=== PATIENT | male | born 1960 | race Hispanic/Latino ===

== ENCOUNTER 2018-05-09 09:39 | Inpatient (IN) | payer MEDICAID, OTHER ==
[2018-05-09] MEDS: DIPRIVAN 10 MG/ML 1,000 MG/100 ML BOTTLE IV SCH ×3 (09:56→20:39)
[2018-05-09] MEDS ORDERED: DIPRIVAN 10 MG/ML 1,000 MG/100 ML BOTTLE IV ONE ×2 (10:02→13:53)
[2018-05-09] MEDS ORDERED: ATROVENT IH ONE ×2 (10:04→11:23)
[2018-05-09] MEDS ORDERED: ASPIRIN PR ONE (10:04)
[2018-05-09] MEDS ORDERED: PROVENTIL IH ONE ×2 (10:04→11:22)
--- NOTE | 2018-05-09 10:07 | Emergency Department Report ---
ED Shortness of Breath HPI - General Chief Complaint: Dyspnea/Respdistress Stated Complaint: KELVIN Time Seen by Provider: 05/09/18 09:39 Source: patient, EMS Mode of arrival: Stretcher Limitations: No Limitations - History of Present Illness Initial Comments: Patient is a 57-year-old male that presents emergency room with complaints of difficulty breathing and shortness of breath. Patient states it started approximately 2 hours ago. Patient call EMS. Patient brought in by EMS. Patient was placed on BiPAP by EMS and sats are still in the 70s. Patient states he is having mild chest pain in the center of his chest. Patient describes the chest pain as a pressure. Patient is having difficulties talking due to shortness of breath. She denies fever chills. Patient denies history of congestive heart failure. Patient denies abdominal pain. Patient states he is having diaphoresis as well. Patient denies nausea and vomiting. He states his only past medical history of smoking and hypertension MD Complaint: shortness of breath -: Sudden Severity: severe Consistency: constant Improves With: oxygen, rest, upright position Worsens With: lying flat, exertion, movement Context: recent URI Associated Symptoms: chest pain, pain with inspiration, cough Treatments Prior to Arrival: oxygen - Related Data Home Oxygen Therapy: No Home Medications Medication Instructions Recorded Confirmed Last Taken No Known Home Medications [No 05/09/18 05/09/18 Unknown Reported Home Medications] Allergies Allergy/AdvReac Type Severity Reaction Status Date / Time No Known Allergies Allergy Unverified 05/09/18 10:45 ED Review of Systems ROS: Stated complaint: STEMI/KELVIN Other details as noted in HPI Constitutional: denies: chills, fever Eyes: denies: eye pain, eye discharge, vision change ENT: denies: ear pain, throat pain Respiratory: shortness of breath. denies: cough, wheezing Cardiovascular: chest pain. denies: palpitations Endocrine: no symptoms reported Gastrointestinal: denies: abdominal pain, nausea, diarrhea Genitourinary: denies: urgency, dysuria Musculoskeletal: denies: back pain, joint swelling, arthralgia Skin: denies: rash, lesions Neurological: denies: headache, weakness, paresthesias Psychiatric: denies: anxiety, depression Hematological/Lymphatic: denies: easy bleeding, easy bruising ED Past Medical Hx - Past Medical History Previous Medical History?: Yes Hx Hypertension: Yes - Surgical History Past Surgical History?: No - Family History Family history: no significant - Social History Smoking Status: Current Every Day Smoker Substance Use Type: None - Medications Home Medications: Home Medications Medication Instructions Recorded Confirmed Last Taken Type No Known Home Medications [No 05/09/18 05/09/18 Unknown History Reported Home Medications] ED Physical Exam - General Limitations: No Limitations, Physical Limitation General appearance: alert, in no apparent distress - Head Head exam: Present: atraumatic, normocephalic - Eye Eye exam: Present: normal appearance - ENT ENT exam: Present: mucous membranes dry - Neck Neck exam: Present: normal inspection - Respiratory Respiratory exam: Present: respiratory distress, wheezes, rales, accessory musc le use, decreased breath sounds - Cardiovascular Cardiovascular Exam: Present: regular rate, normal rhythm, other (bilateral lower extremity pitting edema). Absent: systolic murmur, diastolic murmur, rubs, gallop - GI/Abdominal GI/Abdominal exam: Present: soft, normal bowel sounds - Rectal Rectal exam: Present: deferred - Extremities Exam Extremities exam: Present: normal inspection - Back Exam Back exam: Present: normal inspection - Neurological Exam Neurological exam: Present: alert, oriented X3 - Psychiatric Psychiatric exam: Present: normal affect, normal mood - Skin Skin exam: Present: warm, dry, intact, normal color. Absent: rash ED Course Vital Signs 05/09/18 05/09/18 05/09/18 09:40 09:49 09:55 Temperature 98.5 F Pulse Rate 125 H 106 H 122 H Respiratory 36 H 16 20 Rate Blood Pressure 261/162 Blood Pressure 262/165 [Right] O2 Sat by Pulse 80 L 98 98 Oximetry 05/09/18 05/09/18 05/09/18 10:00 10:15 10:20 Temperature Pulse Rate 120 H 118 H 117 H Respiratory 31 H 30 H 18 Rate Blood Pressure Blood Pressure 250/155 213/125 199/122 [Right] O2 Sat by Pulse 100 99 98 Oximetry 05/09/18 05/09/18 05/09/18 10:29 10:30 10:56 Temperature Pulse Rate 111 H 110 H 103 H Respiratory 14 17 18 Rate Blood Pressure 199/122 199/122 Blood Pressure 166/111 [Right] O2 Sat by Pulse 99 99 100 Oximetry 05/09/18 05/09/18 05/09/18 11:00 11:15 11:30 Temperature Pulse Rate 101 H 96 H 88 Respiratory 25 H 25 H 26 H Rate Blood Pressure 138/84 137/80 120/73 Blood Pressure [Right] O2 Sat by Pulse 100 96 96 Oximetry 05/09/18 05/09/18 05/09/18 11:45 12:00 12:15 Temperature Pulse Rate 85 82 79 Respiratory 22 21 20 Rate Blood Pressure 121/74 127/74 127/77 Blood Pressure [Right] O2 Sat by Pulse 95 96 96 Oximetry 05/09/18 05/09/18 05/09/18 12:30 12:45 12:55 Temperature Pulse Rate 76 72 77 Respiratory 21 21 21 Rate Blood Pressure 115/73 114/72 Blood Pressure [Right] O2 Sat by Pulse 98 98 98 Oximetry 05/09/18 05/09/18 05/09/18 13:00 13:15 13:30 Temperature Pulse Rate 70 69 67 Respiratory 20 20 20 Rate Blood Pressure 111/65 104/59 95/56 Blood Pressure [Right] O2 Sat by Pulse 98 99 99 Oximetry 05/09/18 05/09/18 05/09/18 13:45 14:00 14:15 Temperature Pulse Rate 65 65 66 Respiratory 20 20 20 Rate Blood Pressure 91/56 94/58 106/69 Blood Pressure [Right] O2 Sat by Pulse 100 99 100 Oximetry - Reevaluation(s) Reevaluation #1: Evaluation done upon arrival. Patient brought in by EMS. Patient denies chest pain shortness of breath. Patient is severely hypoxic. Patient is currently on EMS BiPAP and is still satting in the 70s. Patient will be intubated. Sats immediately better after intubation. Patient will have a chest x-ray. See procedure note 05/09/18 09:39 Patient's vital signs improved. Patient's oxygen sats are 100%. Patient is on the vent. Patient on sedation. Chest x-ray shows good position of ET tube. 05/09/18 10:09 pt will be admitted to the hospitalist service. 05/09/18 10:50 - Consultations Consultation #1: Hospital was consulted for admission. Hospitalist to admit patient. Hospitalist to assume care. 05/09/18 10:59 - Intubation Time Out Performed: Yes Sedative: Etomidate Paralytic: Succinylcholine Laryngoscope: fiberoptic video scope Size: 4 Assist Device Used: fiberoptic device ET Tube Size: 7.5 Tube Secured Depth (cm): 24 Tube Secured Location: lips Tube Placement Confirmation: visualized tube passing t, equal breath sounds bilat, no breath sounds over epi, confirmation by capnometr Patient Tolerated Procedure: well Intubation Complications: none ED Medical Decision Making - Lab Data Result diagrams: 05/09/18 11:55 05/09/18 15:36 - EKG Data -: EKG Interpreted by Pa EKG shows normal: sinus rhythm, axis, intervals, QRS complexes, ST-T waves Rate: tachycardia - EKG Data Interpretation: LVH - Radiology Data Radiology results: report reviewed AP CHEST: HISTORY: chest pain No comparison. An endotracheal tube terminates 4 cm superior to the gigi. A nasogastric tube has been inserted but its distal tip is cut off the [id number]. Mild cardiomegaly and moderate to severe pulmonary venous congestion are suspected. No pleural effusion or pneumothorax. There is a small 4 x 2 cm lucency surrounding the aortic arch which is of uncertain significance. This may represent a bulla or bleb. If further evaluation is needed CT chest without contrast could be obtained. IMPRESSION: Cardiomegaly and pulmonary venous congestion. Small lucency adjacent to the aortic arch of uncertain significance. - Medical Decision Making Patient is a 57-year-old male presents emergency room with shortness of breath and hypoxia. Patient found to have elevated troponin and elevated BNP. Findings consistent with CHF exacerbation. Patient also found to have acute renal insufficiency. Patient given IV Lasix. Patient intubated immediately upon arrival. Intubation went well without problems. Patient was placed on a propofol drip. Patient's blood pressure improved. Patient also placed on a heparin drip for N STEMI. Hospitalist consulted for admission. Hospitalist to patient into ICU. Bridge orders were placed. - Differential Diagnosis cp. sob. kelvin. hypoxia. chf. Critical Care Time: Yes Critical care attestation.: If time is entered above; I have spent that time in minutes in the direct care of this critically ill patient, excluding procedure time. Critical Care Time: 45 minutes ED Disposition Clinical Impression: Hypoxia, SOB (shortness of breath), Elevated brain natriuretic peptide (BNP) level, NSTEMI (non-ST elevated myocardial infarction) Respiratory failure Qualifiers: Chronicity: acute Respiratory failure complication: hypoxia Qualified Code(s): J96.01 - Acute respiratory failure with hypoxia Chest pain Qualifiers: Chest pain type: unspecified Qualified Code(s): R07.9 - Chest pain, unspecified CHF (congestive heart failure) Qualifiers: Heart failure type: unspecified Heart failure chronicity: acute Qualified Code(s): I50.9 - Heart failure, unspecified CHF exacerbation Qualifiers: Heart failure type: unspecified Qualified Code(s): I50.9 - Heart failure, unspecified Acute renal failure Qualifiers: Acute renal failure type: unspecified Qualified Code(s): N17.9 - Acute kidney failure, unspecified Disposition: 09 OP ADMIT IP TO THIS HOSP Is pt being admited?: Yes Does the pt Need Aspirin: No Condition: Critical Time of Disposition: 10:59
[2018-05-09 10:22] LABS: Basophils # (Auto) 0.2 K/mm3 (0.0-0.1); Basophils % (Auto) 1.3 % (0.0-1.8); Eosinophils % (Auto) 5.4 % (0.0-4.3); Hemoglobin 14.9 gm/dl (11.8-15.2); Lymphocytes # (Auto) 3.2 K/mm3 (1.2-5.4); Lymphocytes % (Auto) 18.1 % (13.4-35.0); Mean Corpuscular HGB Conc 33 % (32-34); Mean Corpuscular Volume 90 fl (84-94); Monocytes # (Auto) 1.2 K/mm3 (0.0-0.8); Monocytes % (Auto) 6.6 % (0.0-7.3); Platelet Count 193 K/mm3 (140-440); Red Blood Count 5.11 M/mm3 (3.65-5.03); Red Cell Distribution Width 15.8 % (13.2-15.2)
--- NOTE | 2018-05-09 10:33 | XRay Report ---
AP CHEST: HISTORY: chest pain No comparison. An endotracheal tube terminates 4 cm superior to the gigi. A nasogastric tube has been inserted but its distal tip is cut off the [id number]. Mild cardiomegaly and moderate to severe pulmonary venous congestion are suspected. No pleural effusion or pneumothorax. There is a small 4 x 2 cm lucency surrounding the aortic arch which is of uncertain significance. This may represent a bulla or bleb. If further evaluation is needed CT chest without contrast could be obtained. IMPRESSION: Cardiomegaly and pulmonary venous congestion. Small lucency adjacent to the aortic arch of uncertain significance.
[2018-05-09 10:45] LABS: Creatine Kinase MB 9.7 ng/mL (0.0-4.0)
[2018-05-09 10:46] LABS: Bacteria,Urine 1+ /HPF (Negative); Bilirubin,Urine NEG (Negative); Blood,Urine NEG (Negative); Color,Urine Yellow (Yellow); Urobilinogen,Urine < 2.0 mg/dL (<2.0)
[2018-05-09 10:47] LABS: Protein,Urine >2000 mg dL mg/dL (Negative)
[2018-05-09 10:48] LABS: Calcium 8.2 mg/dL (8.4-10.2)
[2018-05-09 10:52] LABS: Amphetamine Screen,Urine PRESUMPTIVE NEGATIVE; Benzodiazepines Screen,Urine PRESUMPTIVE NEGATIVE; Cannabinoid Screen,Urine PRESUMPTIVE NEGATIVE; Cocaine Screen,Urine PRESUMPTIVE NEGATIVE; Methadone Screen,Urine PRESUMPTIVE NEGATIVE; Opiate Screen,Urine PRESUMPTIVE NEGATIVE
[2018-05-09] MEDS ORDERED: MAXIPIME/NS 2 GM/100 ML 2 GM/100 ML BAG IV ONE (10:54)
[2018-05-09] MEDS ORDERED: LASIX IV ONE ×2 (10:58→12:30)
[2018-05-09] MEDS ORDERED: HEPARIN 10,000 UNITS/10 ML IV ONE (11:32)
--- NOTE | 2018-05-09 12:02 | Consultation ---
History of Present Illness Consult date: 05/09/18 Requesting physician: THEE BANKS Reason for consult: hypoxemia, other (Acute hypoxemic respiraotry failure on MVS, Decompensated HF, probable COPD) History of present illness: The patient is a 57-year-old male with reported past medical history of HTN and tobacco use that presented to the emergency room with complaints of difficulty breathing and shortness of breath for 2 hours prior to arrival. Pt is intubated with no family members present on evaluation and thus HPI obtained per the chart. Patient call EMS. Patient brought in by EMS. Patient was placed on BiPAP by EMS and sats were still in the 70s and thus he was intubated following arrival to ED. Patient also reportedly c/o mild chest pain in the center of his chest and diaphoresis. Patient described the chest pain as a pressure. Patient denied any history of congestive heart failure. Patient denies abdominal pain. Lab work significant for leukocytosis, elevated DDimer, elevated troponin, BUN/CR 50/3.7, hyperlipidemia. CXR c/w HF. Initial BP 261/162. I have been consulted for critical care management and for acute hypoxemic respiratory failure. Patient was seen and examined. Vitals, labs, medications, chart and imaging reviewed History as per medical records. ABG significant for respiratory acidosis Patient is currently on propofol infusion and a heparin infusion - Past Medical History Previous Medical History?: Yes Hx Hypertension: Yes - Surgical History Past Surgical History?: No - Family History Family history: no significant - Social History Smoking Status: Current Every Day Smoker Substance Use Type: None Medications and Allergies Allergies Allergy/AdvReac Type Severity Reaction Status Date / Time No Known Allergies Allergy Unverified 05/09/18 10:45 Home Medications Medication Instructions Recorded Confirmed Last Taken Type No Known Home Medications [No 05/09/18 05/09/18 Unknown History Reported Home Medications] Active Meds: Active Medications Propofol (Diprivan 10 Mg/Ml) 1,000 mg in 100 mls @ 3.402 mls/hr IV TITR GLENDA; Protocol Last Titration: 05/09/18 11:42 Dose: 35 mcg/kg/min, 23.814 mls/hr Documented by: Heparin Sodium/Sodium Chloride (Heparin/ 0.45% Nacl-25,000 Unit/500 Ml) 25,000 unit in 500 mls @ 20 mls/hr IV TITRATE GLENDA; Protocol Review of Systems ROS unobtainable: due to endotracheal tube, due to mental status Physical Examination Vital signs: Vital Signs Temp Pulse Resp BP Pulse Ox 98.5 F 125 H 36 H 261/162 80 L 05/09/18 09:40 05/09/18 09:40 05/09/18 09:40 05/09/18 09:40 05/09/18 09:40 Results - Laboratory Findings CBC and BMP: 05/10/18 02:07 05/10/18 02:07 ABG POC ABG pH 7.158 (7.35-7.45) L 05/09/18 11:02 POC ABG pCO2 73.6 (35-45) H 05/09/18 11:02 POC ABG pO2 274 (80-105) H 05/09/18 11:02 POC ABG HCO3 26.1 05/09/18 11:02 POC ABG Total CO2 28 05/09/18 11:02 POC ABG O2 Sat 100 05/09/18 11:02 PT/INR, D-dimer D-Dimer 1326.35 ng/mlDDU (0-234) H 05/09/18 10:09 Abnormal lab findings: Abnormal Labs 05/09/18 05/09/18 05/09/18 10:09 10:09 10:09 WBC 17.6 H RBC 5.11 H Hct 46.0 H RDW 15.8 H Eos % (Auto) 5.4 H [place] # 1.2 H Eos # 1.0 H Baso # 0.2 H Seg Neutrophils # 12.1 H D-Dimer 1326.35 H POC ABG pH POC ABG pCO2 POC ABG pO2 BUN 50 H Creatinine 3.7 H Glucose 191 H Calcium 8.2 L CK-MB (CK-2) CK-MB (CK-2) Rel Index Troponin T 0.235 H* NT-Pro-B Natriuret Pep 05/09/18 05/09/18 10:09 11:02 WBC RBC Hct RDW Eos % (Auto) [place] # Eos # Baso # Seg Neutrophils # D-Dimer POC ABG pH 7.158 L POC ABG pCO2 73.6 H POC ABG pO2 274 H BUN Creatinine Glucose Calcium CK-MB (CK-2) 9.7 H CK-MB (CK-2) Rel Index 6.0 H Troponin T NT-Pro-B Natriuret Pep 70320 H - Diagnostic Findings Chest x-ray: image reviewed (Bilateral alveolar edema, ETT in good position) Assessment and Plan Acute hypoxic-hypercapnic respiratory failure Acute heart failure Acute renal failure NSTEMI Hypertensive emergency Morbid obesity Tobacco abuse disorder -Admit ICU -VAP bundle addressed -In view of heart failure, increase PEEP and wean FIO2 for O2 sats >90%, discussed with RT at the bedside. Increase rate for better minute ventilation and decrease tidal volume to target 6-8ml/kg of ideal body weight Lung protective strategies -VTE prophylaxis (currently on heparin infusion, therapeutic dosing for ACS) -Stress ulcer prophylaxis -Titrate propoffol for RAAS -1 -Daily SATs and SBTs when he meets criteria -Diuresis, give an extra dose of lasix -2D echocardiogram, ordered in the ED to evaluate LVEF -Aspiration precautions -Initiate enteric feedings in the next 24 hours, place small bowel feeding tube -Accucheck with glycemic control. Target blood glucose of 140-180mg/dL -Bronchodilators per protocol -Cardiology consult -Monitor renal function closely, unclear if he has a history of CKD. -Amin catheter in this critically ill patient who needs strict intake and output monitoring, and also has acute kidney injury. Will daily assess on going need for amin catheter. -Avoid nephrotoxic agents and adjust all medications for CrCL -CXR and ABG in the morning. -ABG in 2 hours to evaluate gas-exchange, after changes made on ventilatory settings -Nicotine withdrawal precautions -Smoking cessation counselling once he is liberated from MVS -Mobility for pressure ulcer prevention, will place PT/OT consult -Place nutrition consult for tube feeding -Cardioprotective measures CONDITION: CRITICAL PROGNOSIS: GUARDED CODE STATUS: FULL CODE The high probability of a clinically significant, sudden or life-threatening deterioration of the [pulmonary, cardiovascular, renal ] system(s) required my full and direct attention, intervention and personal management. The aggregate critical care time was [65] minutes without overlap. Time includes spent on; [x] Data Review and interpretation [x] Patient assessment and monitoring of vital signs [x] Documentation [x] Medication orders and management
[2018-05-09 12:12] LABS: Chol/HDL Ratio 8.11 %
[2018-05-09 12:14] LABS: Hematocrit 39.5 % (35.5-45.6); Hemoglobin 12.9 gm/dl (11.8-15.2)
[2018-05-09] MEDS ORDERED: HEPARIN 10,000 UNITS/10 ML ONE (12:15)
[2018-05-09] MEDS ORDERED: HEPARIN/ 0.45% NACL-25,000 UNIT/500 ML 25,000 UNIT/500 ML BAG ONE (12:15)
[2018-05-09] MEDS: HEPARIN/ 0.45% NACL-25,000 UNIT/500 ML 25,000 UNIT/500 ML BAG IV SCH (12:19)
[2018-05-09 12:26] LABS: INR 0.99 (0.87-1.13)
[2018-05-09 12:27] LABS: Partial Thromboplastin Time 21.2 Sec. (24.2-36.6)
[2018-05-09] MEDS ORDERED: LASIX ONE (13:34)
--- NOTE | 2018-05-09 14:22 | Consultation ---
Addendum entered and electronically signed by HEMANTH MARIA MD 05/09/18 19:05: Abnormal troponins in the setting of acute CHF, acute on CKD and acute respiratory failure. CPK MB +ve.To continue present management.LDL markedly increased.High dose statins when he is able to take PO meds. Will F/U Echo. Original Note: History of Present Illness Consult date: 05/09/18 Requesting physician: LOLA DOWNING III Consult reason: chest pain, elevated troponin, shortness of breath History of present illness: The patient is a 57-year-old male with reported past medical history of HTN and tobaccou use that presented to the emergency room with complaints of difficulty breathing and shortness of breath for 2 hours prior to arrival. Pt is intubated with no family members present on evaluation and thus HPI obtained per the chart. Patient call EMS. Patient brought in by EMS. Patient was placed on BiPAP by EMS and sats were still in the 70s and thus he was intubated following arrival to ED. Patient also reportedly c/o mild chest pain in the center of his chest and diaphoresis. Patient described the chest pain as a pressure. Patient denied any history of congestive heart failure. Patient denies abdominal pain. Labwork significant for leukocytosis, elevated DDimer, elevated troponin, BUN/CR 50/3.7, hyperlipidemia. CXR c/w HF. Initial BP 261/162. Past History Past Medical History: hypertension Social history: smoking Medications and Allergies Allergies Allergy/AdvReac Type Severity Reaction Status Date / Time No Known Allergies Allergy Unverified 05/09/18 10:45 Home Medications Medication Instructions Recorded Confirmed Last Taken Type No Known Home Medications [No 05/09/18 05/09/18 Unknown History Reported Home Medications] Active Meds: Active Medications Propofol (Diprivan 10 Mg/Ml) 1,000 mg in 100 mls @ 3.402 mls/hr IV TITR GLENDA; Protocol Last Admin: 05/09/18 14:00 Dose: 25 mcg/kg/min, 17.01 mls/hr Documented by: Heparin Sodium/Sodium Chloride (Heparin/ 0.45% Nacl-25,000 Unit/500 Ml) 25,000 unit in 500 mls @ 20 mls/hr IV TITRATE GLENDA; Protocol Last Admin: 05/09/18 12:19 Dose: 1,000 units/hr, 20 mls/hr Documented by: Review of Systems ROS unobtainable: due to endotracheal tube, due to mental status Physical Examination Vital Signs Temp Pulse Resp BP Pulse Ox 98.5 F 125 H 36 H 261/162 80 L 05/09/18 09:40 05/09/18 09:40 05/09/18 09:40 05/09/18 09:40 05/09/18 09:40 General appearance: other (intubated) Cardiac: Positive: Reg Rate and Rhythm, S1/S2 Lungs: Positive: Decreased Breath Sounds, Rales, Oxygen, Ventilated Respirations Neuro: Positive: Other (intubated) Skin: Negative: Rash, Wound Musculoskeletal: No Pain Extremities: Present: edema (trace BLE) Results 05/09/18 11:55 05/09/18 10:09 Cardiac Enzymes 05/09/18 05/09/18 Range/Units 10:09 10:09 AST 26 (5-40) units/L CK-MB (CK-2) 9.7 H (0.0-4.0) ng/mL Coagulation 05/09/18 Range/Units 11:55 PT 13.5 (12.2-14.9) Sec. INR 0.99 (0.87-1.13) APTT 21.2 L (24.2-36.6) Sec. Lipids 05/09/18 Range/Units 10:09 Triglycerides 175 H (2-149) mg/dL Cholesterol 276 H (50-199) mg/dL HDL Cholesterol 34 L (40-59) mg/dL Cholesterol/HDL Ratio 8.11 % CBC 05/09/18 05/09/18 Range/Units 10:09 11:55 WBC 17.6 H (4.5-11.0) K/mm3 RBC 5.11 H (3.65-5.03) M/mm3 Hgb 14.9 12.9 (11.8-15.2) gm/dl Hct 46.0 H 39.5 D (35.5-45.6) % Plt Count 193 144 (140-440) K/mm3 Lymph # 3.2 (1.2-5.4) K/mm3 [place] # 1.2 H (0.0-0.8) K/mm3 Eos # 1.0 H (0.0-0.4) K/mm3 Baso # 0.2 H (0.0-0.1) K/mm3 Comprehensive Metabolic Panel 05/09/18 Range/Units 10:09 Sodium 140 (137-145) mmol/L Potassium 3.9 (3.6-5.0) mmol/L Chloride 100.4 (98-107) mmol/L Carbon Dioxide 22 (22-30) mmol/L BUN 50 H (9-20) mg/dL Creatinine 3.7 H (0.8-1.5) mg/dL Glucose 191 H (75-100) mg/dL Calcium 8.2 L (8.4-10.2) mg/dL AST 26 (5-40) units/L ALT 18 (7-56) units/L Alkaline Phosphatase 88 (35-129) units/L Total Protein 7.7 (6.3-8.2) g/dL Albumin 4.0 (3.9-5) g/dL - Imaging and Cardiology Echo: pending EKG: report reviewed, image reviewed EKG interpretations - Telemetry EKG Rhythm: Sinus Rhythm - EKG Sinus rhythms and dysrhythmias: sinus rhythm Chamber hypertrophy or enlargement: left ventricular hypertro Assessment and Plan Pt presented with acute respiratory failure, acute renal failure, acute heart failure, NSTEMI, accelerated HTN, sinus tachycardia. Currently intubated with borderline low BPs and HR in 60s. Agree with present cardiac management, including heparin gtt. Cont to trend Rc and repeat ECG in AM. F/u echo. DDimer elevated - recommend further imaging to r/o PE and DVT per primary. Recommend nephrology consultation per primary. Volume optimization per nephrology. Cont supportive measures. The patient has been seen in conjunction with Dr. Monroy who agrees with the assessment and plan of care. - Patient Problems (1) Acute heart failure Current Visit: Yes Status: Acute (2) Acute respiratory failure Current Visit: Yes Status: Acute (3) Acute renal failure Current Visit: Yes Status: Acute Qualifiers: Acute renal failure type: unspecified Qualified Code(s): N17.9 - Acute kidney failure, unspecified (4) NSTEMI (non-ST elevated myocardial infarction) Current Visit: Yes Status: Acute (5) Leukocytosis Current Visit: Yes Status: Acute (6) Elevated d-dimer Current Visit: Yes Status: Acute (7) History of hypertension Current Visit: Yes Status: Chronic (8) Hyperlipidemia Current Visit: Yes Status: Chronic (9) Tobacco use Current Visit: Yes Status: Chronic
[2018-05-09] MEDS ORDERED: AMIDATE IV ONE (14:29)
[2018-05-09] MEDS ORDERED: QUELICIN ONE (14:29)
[2018-05-09] MEDS ORDERED: VERSED IV ONE (14:29)
[2018-05-09 16:08] LABS: Creatine Kinase MB 9.3 ng/mL (0.0-4.0)
--- NOTE | 2018-05-09 20:08 | History and Physical Report ---
History of Present Illness Date of examination: 05/09/18 Date of admission: 05/09/18 11:22 History of present illness: 57 y/o male with hx of HTN and COPD c 57-year-old male that presents emergency room with complaints of difficulty breathing and shortness of breath. Patient states it started approximately 2 hours ago. Patient call EMS. Patient brought in by EMS. Patient was placed on BiPAP by EMS and sats are still in the 70s. Patient states he is having mild chest pain in the center of his chest. Patient describes the chest pain as a pressure. Patient is having difficulties talking due to shortness of breath. She denies fever chills. Patient denies history of congestive heart failure. Patient denies abdominal pain. Patient states he is having diaphoresis as well. Patient denies nausea and vomiting. He states his only past medical history of smoking and hypertension MD Complaint: shortness of breath -: Sudden Severity: severe Consistency: constant Improves With: oxygen, rest, upright position Worsens With: lying flat, exertion, movement Context: recent URI Associated Symptoms: chest pain, pain with inspiration, cough Treatments Prior to Arrival: oxygen - Related Data Home Oxygen Therapy: No Home Medications Medication Instructions Recorded Confirmed Last Taken No Known Home Medications [No 05/09/18 05/09/18 Unknown Reported Home Medications] Allergies Allergy/AdvReac Type Severity Reaction Status Date / Time No Known Allergies Allergy Unverified 05/09/18 10:45 - Past Medical History Previous Medical History?: Yes Hx Hypertension: Yes - Surgical History Past Surgical History?: No - Family History Family history: no significant - Social History Smoking Status: Current Every Day Smoker Substance Use Type: None - Medications Home Medications: Home Medications Medication Instructions Recorded Confirmed Last Taken Type No Known Home Medications [No 05/09/18 05/09/18 Unknown History Reported Home Medications] Review of Systems ROS: Stated complaint: STEMI/HAYDER Other details as noted in HPI Constitutional: denies: chills, fever Eyes: denies: eye pain, eye discharge, vision change ENT: denies: ear pain, throat pain Respiratory: shortness of breath. denies: cough, wheezing Cardiovascular: chest pain. denies: palpitations Endocrine: no symptoms reported Gastrointestinal: denies: abdominal pain, nausea, diarrhea Genitourinary: denies: urgency, dysuria Musculoskeletal: denies: back pain, joint swelling, arthralgia Skin: denies: rash, lesions Neurological: denies: headache, weakness, paresthesias Psychiatric: denies: anxiety, depression Hematological/Lymphatic: denies: easy bleeding, easy bruising Past History Past Medical History: hypertension Social history: smoking Medications and Allergies Allergies Allergy/AdvReac Type Severity Reaction Status Date / Time No Known Allergies Allergy Unverified 05/09/18 10:45 Home Medications Medication Instructions Recorded Confirmed Last Taken Type No Known Home Medications [No 05/09/18 05/09/18 Unknown History Reported Home Medications] Active Meds: Active Medications Propofol (Diprivan 10 Mg/Ml) 1,000 mg in 100 mls @ 3.402 mls/hr IV TITR GLENDA; P rotocol Last Admin: 05/09/18 14:00 Dose: 25 mcg/kg/min, 17.01 mls/hr Documented by: Heparin Sodium/Sodium Chloride (Heparin/ 0.45% Nacl-25,000 Unit/500 Ml) 25,000 unit in 500 mls @ 20 mls/hr IV TITRATE GLENDA; Protocol Last Admin: 05/09/18 12:19 Dose: 1,000 units/hr, 20 mls/hr Documented by: Exam - Constitutional Vitals: Temp Pulse Resp BP Pulse Ox 98.5 F 60 20 131/84 98 05/09/18 09:40 05/09/18 19:08 05/09/18 16:45 05/09/18 19:08 05/09/18 19:08 Results - Labs CBC & Chem 7: 05/09/18 11:55 05/09/18 15:36 Labs: Laboratory Last Values WBC 17.6 K/mm3 (4.5-11.0) H 05/09/18 10:09 RBC 5.11 M/mm3 (3.65-5.03) H 05/09/18 10:09 Hgb 12.9 gm/dl (11.8-15.2) 05/09/18 11:55 Hct 39.5 % (35.5-45.6) D 05/09/18 11:55 MCV 90 fl (84-94) 05/09/18 10:09 MCH 29 pg (28-32) 05/09/18 10:09 MCHC 33 % (32-34) 05/09/18 10:09 RDW 15.8 % (13.2-15.2) H 05/09/18 10:09 Plt Count 144 K/mm3 (140-440) 05/09/18 11:55 Lymph % (Auto) 18.1 % (13.4-35.0) 05/09/18 10:09 [place] % (Auto) 6.6 % (0.0-7.3) 05/09/18 10:09 Eos % (Auto) 5.4 % (0.0-4.3) H 05/09/18 10:09 Baso % (Auto) 1.3 % (0.0-1.8) 05/09/18 10:09 Lymph # 3.2 K/mm3 (1.2-5.4) 05/09/18 10:09 Cow[place] # 1.2 K/mm3 (0.0-0.8) H 05/09/18 10:09 Eos # 1.0 K/mm3 (0.0-0.4) H 05/09/18 10:09 Baso # 0.2 K/mm3 (0.0-0.1) H 05/09/18 10:09 Seg Neutrophils % 68.6 % (40.0-70.0) 05/09/18 10:09 Seg Neutrophils # 12.1 K/mm3 (1.8-7.7) H 05/09/18 10:09 PT 13.5 Sec. (12.2-14.9) 05/09/18 11:55 INR 0.99 (0.87-1.13) 05/09/18 11:55 APTT 21.2 Sec. (24.2-36.6) L 05/09/18 11:55 D-Dimer 1326.35 ng/mlDDU (0-234) H 05/09/18 10:09 Heparin Anti-Xa Level 2.00 U.I./ml (0.3-0.7) H 05/09/18 15:58 POC ABG pH 7.307 (7.35-7.45) L 05/09/18 16:57 POC ABG pCO2 47.5 (35-45) H 05/09/18 16:57 POC ABG pO2 119 (80-105) H 05/09/18 16:57 POC ABG HCO3 23.8 05/09/18 16:57 POC ABG Total CO2 25 05/09/18 16:57 POC ABG O2 Sat 98 05/09/18 16:57 POC ABG Base Excess -3 05/09/18 16:57 FiO2 55 % 05/09/18 16:57 Sodium 141 mmol/L (137-145) 05/09/18 15:36 Potassium 4.3 mmol/L (3.6-5.0) 05/09/18 15:36 Chloride 104.1 mmol/L (98-107) 05/09/18 15:36 Carbon Dioxide 24 mmol/L (22-30) 05/09/18 15:36 Anion Gap 17 mmol/L 05/09/18 15:36 BUN 53 mg/dL (9-20) H 05/09/18 15:36 Creatinine 3.9 mg/dL (0.8-1.5) H 05/09/18 15:36 Estimated GFR 16 ml/min 05/09/18 15:36 BUN/Creatinine Ratio 14 % 05/09/18 15:36 Glucose 98 mg/dL (75-100) 05/09/18 15:36 Calcium 8.0 mg/dL (8.4-10.2) L 05/09/18 15:36 Total Bilirubin 0.30 mg/dL (0.1-1.2) 05/09/18 10:09 AST 26 units/L (5-40) 05/09/18 10:09 ALT 18 units/L (7-56) 05/09/18 10:09 Alkaline Phosphatase 88 units/L (35-129) 05/09/18 10:09 Total Creatine Kinase 159 units/L (55-170) 05/09/18 15:36 CK-MB (CK-2) 9.3 ng/mL (0.0-4.0) H 05/09/18 15:36 CK-MB (CK-2) Rel Index 5.8 (0-4) H 05/09/18 15:36 Troponin T 0.246 ng/mL (0.00-0.029) H* 05/09/18 15:36 NT-Pro-B Natriuret Pep 85204 pg/mL (0-900) H 05/09/18 10:09 Total Protein 7.7 g/dL (6.3-8.2) 05/09/18 10:09 Albumin 4.0 g/dL (3.9-5) 05/09/18 10:09 Albumin/Globulin Ratio 1.1 % 05/09/18 10:09 Triglycerides 175 mg/dL (2-149) H 05/09/18 10:09 Cholesterol 276 mg/dL (50-199) H 05/09/18 10:09 LDL Cholesterol Direct 235 mg/dL (50-130) H 05/09/18 10:09 HDL Cholesterol 34 mg/dL (40-59) L 05/09/18 10:09 Cholesterol/HDL Ratio 8.11 % 05/09/18 10:09 Urine Color Yellow (Yellow) 05/09/18 10:33 Urine Turbidity Clear (Clear) 05/09/18 10:33 Urine pH 6.0 (5.0-7.0) 05/09/18 10:33 Ur Specific [place] 1.011 (1.003-1.030) 05/09/18 10:33 Urine Protein >2000 mg dl mg/dL (Negative) 05/09/18 10:33 Urine Glucose (UA) 50 mg/dL (Negative) 05/09/18 10:33 Urine Ketones Neg mg/dL (Negative) 05/09/18 10:33 Urine Blood Neg (Negative) 05/09/18 10:33 Urine Nitrite Neg (Negative) 05/09/18 10:33 Urine Bilirubin Neg (Negative) 05/09/18 10:33 Urine Urobilinogen < 2.0 mg/dL (<2.0) 05/09/18 10:33 Ur Leukocyte Esterase Neg (Negative) 05/09/18 10:33 Urine WBC (Auto) 2.0 /HPF (0.0-6.0) 05/09/18 10:33 Urine RBC (Auto) 3.0 /HPF (0.0-6.0) 05/09/18 10:33 Urine Bacteria (Auto) 1+ /HPF (Negative) 05/09/18 10:33 Urine Opiates Screen Presumptive negative 05/09/18 10:33 Urine Methadone Screen Presumptive negative 05/09/18 10:33 Ur Barbiturates Screen Presumptive negative 05/09/18 10:33 Ur Phencyclidine Scrn Presumptive negative 05/09/18 10:33 Ur Amphetamines Screen Presumptive negative 05/09/18 10:33 U Benzodiazepines Scrn Presumptive negative 05/09/18 10:33 Urine Cocaine Screen Presumptive negative 05/09/18 10:33 U Marijuana (THC) Screen Presumptive negative 05/09/18 10:33 Drugs of Abuse Note Disclamer 05/09/18 10:33
[2018-05-09] MEDS ORDERED: PROVENTIL IH PRN (21:14)
[2018-05-09] MEDS ORDERED: ZOSYN/NS 4.5GM/100ML 4.5 GM/100 ML VIAL IV SCH (22:00)
[2018-05-09] MEDS: SOLU-Medrol IV SCH (22:13)
[2018-05-09] MEDS: ZOSYN/NS 2.25 GM/50ML 2.25 GM/50 ML BAG IV SCH (22:13)
[2018-05-10] MEDS: DIPRIVAN 10 MG/ML 1,000 MG/100 ML BOTTLE IV SCH (02:32)
[2018-05-10 02:38] LABS: Hematocrit 39.1 % (35.5-45.6); Hemoglobin 13.1 gm/dl (11.8-15.2); Mean Corpuscular HGB Conc 34 % (32-34); Mean Corpuscular Volume 90 fl (84-94); Platelet Count 136 K/mm3 (140-440); Red Blood Count 4.36 M/mm3 (3.65-5.03); Red Cell Distribution Width 15.3 % (13.2-15.2)
[2018-05-10 02:45] LABS: Calcium 8.4 mg/dL (8.4-10.2)
[2018-05-10] MEDS: ZOSYN/NS 2.25 GM/50ML 2.25 GM/50 ML BAG IV SCH ×3 (03:59→22:16)
[2018-05-10] MEDS: HEPARIN/ 0.45% NACL-25,000 UNIT/500 ML 25,000 UNIT/500 ML BAG IV SCH (06:29)
[2018-05-10] MEDS: SOLU-Medrol IV SCH (06:30)
--- NOTE | 2018-05-10 06:47 | Event Note ---
Date: 05/09/18 See dictated H/p in reports Acute resp failure COPD exacerbation CHF
[2018-05-10] MEDS ORDERED: MAXIPIME/NS 2 GM/100 ML 2 GM/100 ML BAG IV SCH (06:56)
--- NOTE | 2018-05-10 07:21 | History and Physical Report ---
CHIEF COMPLAINT: Increasing shortness of breath. HISTORY OF PRESENT ILLNESS: A 57-year-old male comes in with increasing difficulty breathing and shortness of breath. It started a couple of hours ago. EMS was called. The patient was placed on BiPAP and the oxygen was still in the 70s. The patient was having mild chest pain at the time of EMS arrival. Shortness of breath was acute. No history of CHF. Diaphoresis was present. The patient was intubated in the Emergency Room because of persistent low oxygen saturations. The patient has a history of hypertension and COPD. PAST MEDICAL HISTORY: As mentioned, hypertension and COPD. PAST SURGICAL HISTORY: None. FAMILY HISTORY: Not available. SOCIAL HISTORY: Current everyday smoker. CURRENT MEDICATIONS: Not available. PHYSICAL EXAMINATION: GENERAL: Middle-aged male, cooperative, intubated. VITAL SIGNS: The blood pressure is 152/96, temperature is 98, pulse is 70, and respirations are 16. HEENT: Unremarkable. Pupils are equal and reactive. NECK: Supple, no lymphadenopathy, no thyromegaly. LUNGS: Clear to auscultation and percussion. Scattered rhonchi bilaterally. CARDIOVASCULAR: S1, S2 heard. No gallop, no murmur, no rub. Apical impulse in left fifth intercostal space and midclavicular line. ABDOMEN: Soft and benign. No hepatosplenomegaly, no guarding, no rigidity. Hernial orifices are normal. EXTREMITIES: Good pedal pulses. No pedal edema. CENTRAL NERVOUS SYSTEM: Alert and oriented x 4. The patient is intubated, could not be evaluated. SKIN: Normal. LABORATORY DATA: Significant for white count of 17,600, H and H are 12.9 and 39.5, and platelet count is 144,000. D-dimer is 1326. ABG is significant for pH of 7.158, pCO2 of 73.6, and pO2 of 274. BUN and creatinine of 50 and 3.7. Troponin is 0.235. Troponin is 0.246. Triglycerides are 175, cholesterol is 276, LDL is 235, and HDL is 34. Urine negative. Drug screen negative. Chest x-ray shows cardiomegaly and pulmonary venous congestion, small lucency adjacent to the aortic arch of insignificance. ASSESSMENT AND PLAN: 1. Acute respiratory failure with hypoxia, probably secondary to pulmonary edema. We will diurese the patient. Continue vent support. Empiric antibiotics. 2.NSTEMI-On Heparin drip.Cardiology consulted 3.ELVIA -Will defer to Nephrology 4. Congestive heart failure exacerbation. We will get an echocardiogram for ejection fraction. IV diuretics for now. 5. Chronic obstructive pulmonary disease exacerbation. DuoNeb and Solu-Medrol and antibiotics. 6. Hypertension. Continue antihypertensives. 7. Deep venous thrombosis prophylaxis, Lovenox 40 mg subcutaneous daily and GI prophylaxis. Critical care time was 35 minutes. In summary, the patient has severe congestive heart failure and chronic obstructive pulmonary disease. JOB# [id number] ETELVINA/KEVIN VALDES
[2018-05-10] MEDS: LASIX IV SCH ×2 (09:03→17:05)
[2018-05-10] MEDS: DUONEB *Not for PRN Use IH SCH ×4 (09:05→20:44)
--- NOTE | 2018-05-10 09:53 | Progress Note ---
Addendum entered and electronically signed by HEMANTH MARIA MD 05/10/18 11:32: Echo: Low normal LVEF of 50 to 55%.Severe LVH, grade 1 diastolic dysfunction, Mild MR, No pericardial effusion.Pt is on vent, awake, alert. Echo findings were discussed with the patient. Original Note: Assessment and Plan Pt presented with acute respiratory failure, acute renal failure, acute heart failure, NSTEMI, accelerated HTN, sinus tachycardia. Currently intubated. Agree with present cardiac management, including heparin gtt. F/u echo. DDimer elevated - recommend further imaging to r/o PE and DVT per primary. Await nephrology consultation. Cont supportive measures. The patient has been seen in conjunction with Dr. Monroy who agrees with the assessment and plan of care. - Patient Problems (1) Acute heart failure Current Visit: Yes Status: Acute (2) Acute respiratory failure Current Visit: Yes Status: Acute (3) Acute renal failure Current Visit: Yes Status: Acute Qualifiers: Acute renal failure type: unspecified Qualified Code(s): N17.9 - Acute kidney failure, unspecified (4) NSTEMI (non-ST elevated myocardial infarction) Current Visit: Yes Status: Acute (5) Leukocytosis Current Visit: Yes Status: Acute (6) Elevated d-dimer Current Visit: Yes Status: Acute (7) History of hypertension Current Visit: Yes Status: Chronic (8) Hyperlipidemia Current Visit: Yes Status: Chronic (9) Tobacco use Current Visit: Yes Status: Chronic Subjective Date of service: 05/10/18 Principal diagnosis: HF Interval history: pt resting in bed, remains intubated, alert and oriented. no c/o pain. Objective Last Vital Signs Temp 97.4 F L 05/10/18 08:00 Pulse 97 H 05/10/18 09:11 Resp 15 05/10/18 09:11 BP 193/122 05/10/18 08:26 Pulse Ox 97 05/10/18 09:08 - Physical Examination General: No Apparent Distress, Other (intubated, alert) HEENT: Positive: PERRL, Normocephaly, Mucus Membranes Moist Neck: Positive: neck supple, trachea midline Cardiac: Positive: Regular Rhythm, S1/S2 Lungs: Positive: Decreased Breath Sounds, Ventilated Respirations Neuro: Positive: Grossly Intact, Other (intubated) Abdomen: Negative: Tender Skin: Negative: Rash, Wound Musculoskeletal: No Pain Extremities: Present: edema (trace BLE) - Labs and Meds Cardiac Enzymes 05/09/18 05/09/18 05/09/18 Range/Units 10:09 10:09 15:36 AST 26 (5-40) units/L CK-MB (CK-2) 9.7 H 9.3 H (0.0-4.0) ng/mL Coagulation 05/09/18 Range/Units 11:55 PT 13.5 (12.2-14.9) Sec. INR 0.99 (0.87-1.13) APTT 21.2 L (24.2-36.6) Sec. Lipids 05/09/18 Range/Units 10:09 Triglycerides 175 H (2-149) mg/dL Cholesterol 276 H (50-199) mg/dL HDL Cholesterol 34 L (40-59) mg/dL Cholesterol/HDL Ratio 8.11 % CBC 05/09/18 05/09/18 05/10/18 Range/Units 10:09 11:55 02:07 WBC 17.6 H 10.6 (4.5-11.0) K/mm3 RBC 5.11 H 4.36 (3.65-5.03) M/mm3 Hgb 14.9 12.9 13.1 (11.8-15.2) gm/dl Hct 46.0 H 39.5 D 39.1 (35.5-45.6) % Plt Count 193 144 136 L (140-440) K/mm3 Lymph # 3.2 (1.2-5.4) K/mm3 [place] # 1.2 H (0.0-0.8) K/mm3 Eos # 1.0 H (0.0-0.4) K/mm3 Baso # 0.2 H (0.0-0.1) K/mm3 Comprehensive Metabolic Panel 05/09/18 05/09/18 05/10/18 Range/Units 10:09 15:36 02:07 Sodium 140 141 138 (137-145) mmol/L Potassium 3.9 4.3 3.8 (3.6-5.0) mmol/L Chloride 100.4 104.1 103.5 (98-107) mmol/L Carbon Dioxide 22 24 21 L (22-30) mmol/L BUN 50 H 53 H 56 H (9-20) mg/dL Creatinine 3.7 H 3.9 H 4.2 H (0.8-1.5) mg/dL Glucose 191 H 98 98 (75-100) mg/dL Calcium 8.2 L 8.0 L 8.4 (8.4-10.2) mg/dL AST 26 (5-40) units/L ALT 18 (7-56) units/L Alkaline Phosphatase 88 (35-129) units/L Total Protein 7.7 (6.3-8.2) g/dL Albumin 4.0 (3.9-5) g/dL - Imaging and Cardiology EKG: report reviewed, image reviewed Echo: pending - Telemetry EKG Rhythm: Sinus Rhythm - EKG Sinus rhythms and dysrhythmias: sinus rhythm Chamber hypertrophy or enlargement: left ventricular hypertro
--- NOTE | 2018-05-10 09:56 | Progress Note ---
Assessment and Plan Acute hypoxic-hypercapnic respiratory failure Acute heart failure Acute renal failure NSTEMI Hypertensive emergency Morbid obesity Tobacco abuse disorder - continue SBT and get 2 hour ABG - tentative extubation if passes SBT - BIPAP scheduled qhs post extubation - VAP bundle addressed - continue lung protective strategies - VTE prophylaxis (currently on heparin infusion, therapeutic dosing for ACS) - continue stress ulcer prophylaxis - continue Daily SATs and SBTs if he is not extubated today - continue diuresis with IV lasix - 2D echocardiogram with low normal EF and impaired relaxation - hold enteric feedings in anticipation of extubation - continue accucheck with glycemic control per SSI for target blood glucose of 140-180mg/dL - continue bronchodilators with pulmonary hygiene per RT - Cardiology evaluation ongoing - Monitor renal function closely - Amin catheter in this critically ill patient who needs strict intake and output monitoring, and also has acute kidney injury. Will continue to assess on-going need for amin catheter. - continue to avoid nephrotoxic agents and adjust all medications for CrCL - continue Nicotine withdrawal precautions - Smoking cessation counselling done at bedside - Mobility for pressure ulcer prevention - PT/OT as tolerated - continue other care per attending / other consultants ... re-evaluate in am & prn CONDITION: CRITICAL PROGNOSIS: GUARDED CODE STATUS: FULL CODE The high probability of a clinically significant, sudden or life-threatening deterioration of the [pulmonary, cardiovascular, renal ] system(s) required my full and direct attention, intervention and personal management. The aggregate critical care time was [35] minutes without overlap. Time includes spent on; [x] Data Review and interpretation [x] Patient assessment and monitoring of vital signs [x] Documentation [x] Medication orders and management Subjective Date of service: 05/10/18 Principal diagnosis: Acute hypoxemic hypercapnic Resp failure; Acute CHF; ELVIA; NSTEMI Interval history: Patient is seen today for: Acute hypoxic-hypercapnic respiratory failure; Acute heart failure; Acute renal failure; NSTEMI; Hypertensive emergency Seen and examined at bedside; 24hour events reviewed; nursing and respiratory care staff consulted; no adverse overnight events reported to me; resting peacefully in bed; on SBT and tolerating decently; denies acute chest pains or palpitations; No N/V/F/C Objective Vital Signs - 12hr 05/09/18 05/09/18 05/09/18 22:26 22:40 22:50 Temperature 97.8 F Pulse Rate 59 L 59 L Pulse Rate [ Anterior Bilateral Throughout] Respiratory 22 22 Rate Respiratory Rate [Anterior Bilateral Throughout] Blood Pressure 175/118 175/118 O2 Sat by Pulse 100 99 Oximetry 05/09/18 05/09/18 05/09/18 23:00 23:10 23:20 Temperature Pulse Rate 60 59 L 58 L Pulse Rate [ Anterior Bilateral Throughout] Respiratory 22 22 22 Rate Respiratory Rate [Anterior Bilateral Throughout] Blood Pressure 175/118 175/103 175/103 O2 Sat by Pulse 99 99 97 Oximetry 05/09/18 05/09/18 05/09/18 23:30 23:40 23:50 Temperature Pulse Rate 60 61 60 Pulse Rate [ Anterior Bilateral Throughout] Respiratory 22 22 22 Rate Respiratory Rate [Anterior Bilateral Throughout] Blood Pressure 175/103 175/118 171/103 O2 Sat by Pulse 99 98 97 Oximetry 05/10/18 05/10/18 05/10/18 00:00 00:10 00:21 Temperature 97.9 F Pulse Rate 60 60 63 Pulse Rate [ Anterior Bilateral Throughout] Respiratory 22 19 22 Rate Respiratory Rate [Anterior Bilateral Throughout] Blood Pressure 152/96 152/96 O2 Sat by Pulse 96 95 95 Oximetry 05/10/18 05/10/18 05/10/18 00:30 00:41 00:51 Temperature Pulse Rate 62 64 63 Pulse Rate [ Anterior Bilateral Throughout] Respiratory 22 22 23 Rate Respiratory Rate [Anterior Bilateral Throughout] Blood Pressure 166/103 166/103 166/103 O2 Sat by Pulse 94 96 95 Oximetry 05/10/18 05/10/18 05/10/18 01:00 01:11 01:21 Temperature Pulse Rate 64 63 62 Pulse Rate [ Anterior Bilateral Throughout] Respiratory 24 22 22 Rate Respiratory Rate [Anterior Bilateral Throughout] Blood Pressure 169/107 166/103 152/93 O2 Sat by Pulse 95 93 93 Oximetry 05/10/18 05/10/18 05/10/18 01:30 01:41 01:51 Temperature Pulse Rate 61 60 61 Pulse Rate [ Anterior Bilateral Throughout] Respiratory 22 22 22 Rate Respiratory Rate [Anterior Bilateral Throughout] Blood Pressure 144/86 144/86 144/86 O2 Sat by Pulse 94 93 93 Oximetry 05/10/18 05/10/18 05/10/18 02:00 02:11 02:21 Temperature Pulse Rate 61 62 66 Pulse Rate [ Anterior Bilateral Throughout] Respiratory 22 22 22 Rate Respiratory Rate [Anterior Bilateral Throughout] Blood Pressure 149/93 144/86 144/86 O2 Sat by Pulse 94 94 95 Oximetry 05/10/18 05/10/18 05/10/18 02:31 02:41 02:51 Temperature Pulse Rate 65 66 66 Pulse Rate [ Anterior Bilateral Throughout] Respiratory 22 23 23 Rate Respiratory Rate [Anterior Bilateral Throughout] Blood Pressure 175/108 175/108 175/108 O2 Sat by Pulse 95 94 94 Oximetry 05/10/18 05/10/18 05/10/18 03:00 03:11 03:13 Temperature Pulse Rate 65 65 65 Pulse Rate [ Anterior Bilateral Throughout] Respiratory 22 22 Rate Respiratory Rate [Anterior Bilateral Throughout] Blood Pressure 158/96 158/96 158/96 O2 Sat by Pulse 95 94 95 Oximetry 05/10/18 05/10/18 05/10/18 03:21 03:30 03:41 Temperature Pulse Rate 66 66 67 Pulse Rate [ Anterior Bilateral Throughout] Respiratory 22 22 22 Rate Respiratory Rate [Anterior Bilateral Throughout] Blood Pressure 158/96 159/100 159/100 O2 Sat by Pulse 95 95 95 Oximetry 05/10/18 05/10/18 05/10/18 03:50 04:00 04:11 Temperature 98.1 F Pulse Rate 66 67 68 Pulse Rate [ Anterior Bilateral Throughout] Respiratory 22 19 23 Rate Respiratory Rate [Anterior Bilateral Throughout] Blood Pressure 144/86 173/104 159/100 O2 Sat by Pulse 95 95 95 Oximetry 05/10/18 05/10/18 05/10/18 04:21 04:31 04:41 Temperature Pulse Rate 69 72 70 Pulse Rate [ Anterior Bilateral Throughout] Respiratory 24 11 L 22 Rate Respiratory Rate [Anterior Bilateral Throughout] Blood Pressure 159/100 159/100 159/100 O2 Sat by Pulse 95 95 95 Oximetry 05/10/18 05/10/18 05/10/18 04:51 05:01 05:11 Temperature Pulse Rate 69 78 76 Pulse Rate [ Anterior Bilateral Throughout] Respiratory 18 23 23 Rate Respiratory Rate [Anterior Bilateral Throughout] Blood Pressure 159/100 159/100 159/100 O2 Sat by Pulse 95 96 96 Oximetry 05/10/18 05/10/18 05/10/18 05:21 05:30 05:41 Temperature Pulse Rate 80 70 69 Pulse Rate [ Anterior Bilateral Throughout] Respiratory 26 H 23 24 Rate Respiratory Rate [Anterior Bilateral Throughout] Blood Pressure 181/103 168/97 168/97 O2 Sat by Pulse 97 94 95 Oximetry 05/10/18 05/10/18 05/10/18 05:51 06:00 06:11 Temperature Pulse Rate 68 67 65 Pulse Rate [ Anterior Bilateral Throughout] Respiratory 23 22 22 Rate Respiratory Rate [Anterior Bilateral Throughout] Blood Pressure 168/97 157/89 168/97 O2 Sat by Pulse 94 93 94 Oximetry 05/10/18 05/10/18 05/10/18 06:21 06:30 06:41 Temperature Pulse Rate 66 64 65 Pulse Rate [ Anterior Bilateral Throughout] Respiratory 22 22 22 Rate Respiratory Rate [Anterior Bilateral Throughout] Blood Pressure 168/97 151/86 157/89 O2 Sat by Pulse 96 95 96 Oximetry 05/10/18 05/10/18 05/10/18 06:51 08:00 08:26 Temperature 97.4 F L Pulse Rate 64 84 Pulse Rate [ Anterior Bilateral Throughout] Respiratory 22 Rate Respiratory Rate [Anterior Bilateral Throughout] Blood Pressure 157/89 193/122 O2 Sat by Pulse 96 98 Oximetry 05/10/18 05/10/18 05/10/18 09:03 09:08 09:11 Temperature Pulse Rate 93 H Pulse Rate [ 96 H 97 H Anterior Bilateral Throughout] Respiratory 22 Rate Respiratory 24 15 Rate [Anterior Bilateral Throughout] Blood Pressure O2 Sat by Pulse 97 Oximetry Constitutional: alert, appears uncomfortable, other (middle aged obese CM, normocephalic and atraumatic with mildly increased resp effort at rest) Eyes: non-icteric ENT: oropharynx moist, other (ETT 23 cm SHANNA) Neck: supple, no lymphadenopathy, no JVD, other (no thyromegaly) Effort: mildly labored Ascultation: Bilateral: diminished breath sounds, rales Percussion: Bilateral: not dull Cardiovascular: regular rate and rhythm Gastrointestinal: normoactive bowel sounds, soft, non-tender, non-distended Integumentary: normal Extremities: no cyanosis, pink and warm, pulses normal, no ischemia or rene chiae, edema (trace) Neurologic: normal mental status, non-focal exam, pupils equal and round, motor strength normal and Psychiatric: mood appropriate, affect normal CBC and BMP: 05/10/18 02:07 05/10/18 02:07 ABG, PT/INR, D-dimer: ABG POC ABG pH 7.360 (7.35-7.45) 05/10/18 03:25 POC ABG pCO2 38.1 (35-45) 05/10/18 03:25 POC ABG pO2 65 (80-105) L 05/10/18 03:25 POC ABG HCO3 21.5 05/10/18 03:25 POC ABG Total CO2 23 05/10/18 03:25 POC ABG O2 Sat 92 05/10/18 03:25 PT/INR, D-dimer PT 13.5 Sec. (12.2-14.9) 05/09/18 11:55 INR 0.99 (0.87-1.13) 05/09/18 11:55 D-Dimer 1326.35 ng/mlDDU (0-234) H 05/09/18 10:09 Abnormal lab findings: Abnormal Labs 05/09/18 05/09/18 05/09/18 10:09 10:09 10:09 WBC 17.6 H RBC 5.11 H Hct 46.0 H RDW 15.8 H Plt Count Eos % (Auto) 5.4 H [place] # 1.2 H Eos # 1.0 H Baso # 0.2 H Seg Neutrophils # 12.1 H APTT D-Dimer 1326.35 H Heparin Anti-Xa Level POC ABG pH POC ABG pCO2 POC ABG pO2 Carbon Dioxide BUN 50 H Creatinine 3.7 H Glucose 191 H Calcium 8.2 L Magnesium CK-MB (CK-2) CK-MB (CK-2) Rel Index Troponin T 0.235 H* NT-Pro-B Natriuret Pep Triglycerides 175 H Cholesterol 276 H LDL Cholesterol Direct 235 H HDL Cholesterol 34 L 05/09/18 05/09/18 05/09/18 10:09 11:02 11:55 WBC RBC Hct RDW Plt Count Eos % (Auto) [place] # Eos # Baso # Seg Neutrophils # APTT 21.2 L D-Dimer Heparin Anti-Xa Level POC ABG pH 7.158 L POC ABG pCO2 73.6 H POC ABG pO2 274 H Carbon Dioxide BUN Creatinine Glucose Calcium Magnesium CK-MB (CK-2) 9.7 H CK-MB (CK-2) Rel Index 6.0 H Troponin T NT-Pro-B Natriuret Pep 17204 H Triglycerides Cholesterol LDL Cholesterol Direct HDL Cholesterol 05/09/18 05/09/18 05/09/18 15:36 15:36 15:58 WBC RBC Hct RDW Plt Count Eos % (Auto) [place] # Eos # Baso # Seg Neutrophils # APTT D-Dimer Heparin Anti-Xa Level 2.00 H POC ABG pH POC ABG pCO2 POC ABG pO2 Carbon Dioxide BUN 53 H Creatinine 3.9 H Glucose Calcium 8.0 L Magnesium CK-MB (CK-2) 9.3 H CK-MB (CK-2) Rel Index 5.8 H Troponin T 0.246 H* NT-Pro-B Natriuret Pep Triglycerides Cholesterol LDL Cholesterol Direct HDL Cholesterol 05/09/18 05/09/18 05/10/18 16:57 19:45 02:07 WBC RBC Hct RDW 15.3 H Plt Count 136 L Eos % (Auto) [place] # Eos # Baso # Seg Neutrophils # APTT D-Dimer Heparin Anti-Xa Level 1.49 H POC ABG pH 7.307 L POC ABG pCO2 47.5 H POC ABG pO2 119 H Carbon Dioxide BUN Creatinine Glucose Calcium Magnesium CK-MB (CK-2) CK-MB (CK-2) Rel Index Troponin T NT-Pro-B Natriuret Pep Triglycerides Cholesterol LDL Cholesterol Direct HDL Cholesterol 05/10/18 05/10/18 02:07 03:25 WBC RBC Hct RDW Plt Count Eos % (Auto) [place] # Eos # Baso # Seg Neutrophils # APTT D-Dimer Heparin Anti-Xa Level POC ABG pH POC ABG pCO2 POC ABG pO2 65 L Carbon Dioxide 21 L BUN 56 H Creatinine 4.2 H Glucose Calcium Magnesium 2.40 H CK-MB (CK-2) CK-MB (CK-2) Rel Index Troponin T NT-Pro-B Natriuret Pep Triglycerides Cholesterol LDL Cholesterol Direct HDL Cholesterol Chest x-ray: image reviewed (improved pulmonary edema pattern) Allied health notes reviewed: nursing
[2018-05-10] MEDS ORDERED: K-DUR PO SCH (10:00)
--- NOTE | 2018-05-10 10:19 | Consultation ---
History of Present Illness - Reason for Consult Consult date: 05/10/18 acute renal failure - History of Present Illness This is a 57 year old male who presented to the hospital with a chief complaint of shortness of breath and chest pain that began yesterday, approximately 2 hours prior to arriving to [facility]. On evaluation patient was found to be Hypoxic with oxygen levels in the 70's. Patient required intubation due to respiratory distress. Patient was found to be in Hypertensive Emergency states with BP- 261/162. CXR revealed Cardio and pulmonary venous congestion. Pertinent labs on admission revealed elevated D-dimer level of 1326, [place] [address], WBC level of 17.6, elevated troponin levels and elevated serum creatinine level of 3.9 on admission yesterday that cory to 4.2 today. Patient is intubated but is awake and alert and he wrote on paper to me that he saw a kidney doctor at [facility] 1 year ago and was told he has Protein in his urine and was told to follow-up with a kidney doctor but he didn't get the chance to do so per patient. Patient has history of Hypertension. We are being consulted for management of this patient's Advanced renal failure. Past History Past Medical History: hypertension Social history: smoking Medications and Allergies Allergies Allergy/AdvReac Type Severity Reaction Status Date / Time No Known Allergies Allergy Unverified 05/09/18 10:45 Home Medications Medication Instructions Recorded Confirmed Last Taken Type No Known Home Medications [No 05/09/18 05/09/18 Unknown History Reported Home Medications] Active Meds: Active Medications Albuterol (Proventil) 2.5 mg IH Q4HRT PRN PRN Reason: Shortness Of Breath Albuterol/Ipratropium (Duoneb *Not For Prn Use*) 1 ampul IH QIDRT GLENDA Famotidine (Pepcid) 20 mg IV QDAY GLENDA Furosemide (Lasix) 40 mg IV 0600,1800 GLENDA Propofol (Diprivan 10 Mg/Ml) 1,000 mg in 100 mls @ 3.402 mls/hr IV TITR GLENDA; Protocol Last Admin: 05/10/18 02:32 Dose: 29 mcg/kg/min, 19.731 mls/hr Documented by: Heparin Sodium/Sodium Chloride (Heparin/ 0.45% Nacl-25,000 Unit/500 Ml) 25,000 unit in 500 mls @ 20 mls/hr IV TITRATE GLENDA; Protocol Last Admin: 05/10/18 06:29 Dose: 800 units/hr, 16 mls/hr Documented by: Piperacillin Sod/Tazobactam Sod (Zosyn/Ns 2.25 Gm/50ml) 2.25 gm in 50 mls @ 100 mls/hr IV Q8HR GLENDA; Protocol Potassium Chloride (K-Dur) 20 meq PO Q12H GLENDA Review of Systems Constitutional: fatigue, weakness, no weight loss, no weight gain, no fever, no chills Ears, nose, mouth and throat: no ear pain, no ear discharge, no tinnitis, no decreased hearing, no nose pain, no nasal congestion, no nasal discharge Cardiovascular: chest pain, shortness of breath, no orthopnea Respiratory: shortness of breath, dyspnea on exertion Gastrointestinal: no abdominal pain, no nausea, no vomiting, no diarrhea, no constipation Genitourinary Male: no hematuria, no flank pain, no discharge, no urinary frequency, no urinary hesitancy Rectal: no pain, no incontinence, no bleeding Musculoskeletal: muscle weakness, no neck stiffness, no shooting arm pain, no shooting leg pain Integumentary: no rash, no pruritis, no redness, no sores Neurological: weakness, no head injury, no transient paralysis, no paralysis, no numbness, no tingling Psychiatric: no anxiety, no memory loss, no change in sleep habits, no sleep disturbances, no insomnia Endocrine: no cold intolerance, no heat intolerance, no polyphagia, no excessive thirst, no polydipsia Hematologic/Lymphatic: no easy bruising, no easy bleeding, no lymphadenopathy Exam - Vital Signs Vital signs: Vital Signs Temp Pulse Resp BP Pulse Ox 98.5 F 125 H 36 H 261/162 80 L 05/09/18 09:40 05/09/18 09:40 05/09/18 09:40 05/09/18 09:40 05/09/18 09:40 - General Appearance General appearance: well-developed, appears stated age, intubated, fatigue, other (Intubated but awake and follows commands and respond to questions asked by writing) EENT: ATNC, PERRL, hearing intact, vision intact Neck: Present: neck supple, trachea midline Respiratory: Decreased Breath Sounds, Other (has endotracheal tube in place) Heart: tachycardia, S1S2 Gastrointestinal: Present: normoactive bowel sounds Integumentary: no rash, warm and dry Neurologic: alert and oriented x3, other (intubated but awake and follows commands) Musculoskeletal: Present: other (No edema) Psychiatric: cooperative Results - Lab Results 05/10/18 02:07 05/10/18 02:07 Most recent lab results Calcium 8.4 mg/dL (8.4-10.2) 05/10/18 02:07 Magnesium 2.40 mg/dL (1.7-2.3) H 05/10/18 02:07 Assessment and Plan Acute renal failure likely secondary ischemic ATN on possible underlying CKD with Proteinuria -Renal labs reviewed- Serum creatinine cory to 4.2 today, admission serum creatinine 3.9, non-oliguric -Baseline serum creatinine unknown, was told 1 year ago at [facility] that he had Proteinuria -Obtain renal ultrasound -Obtain urine lytes -Since urine protein is elevated at 2000 mg will do GN/Vasculitis work-up -No IVF as CXR shows congestion -On Lasix 40 mg IV BID -Avoid NSAID's -Monitor I/O's -Obtain daily weights -May need HD if no improvement in renal function Acute heart failure NSTEMI Elevated BNP -Echo:LVEF- 50-55% -On Heparin drip -On Lasix 40 mg IV BID Acute hypoxic-hypercapnic respiratory failure Elevated-Dimer -Intubated -On Heparin drip -As per pulmonary Hypertensive emergency -On anti-hypertensive agents -Adjust as needed
[2018-05-10] MEDS: APRESOLINE IV SCH ×4 (11:01→23:47)
[2018-05-10] MEDS: PEPCID IV SCH (11:02)
--- NOTE | 2018-05-10 11:30 | Progress Note ---
Assessment and Plan Assessment and plan: Acute hypoxemic respiratory failure. Etiology secondary to acute heart failure and Non ST elevation [place]. Patient currently on mechanical ventilation. Continue vent weaning per protocol and pulmonary recommendations. Elevated d-dimer. Check CTA of chest. Acute HFpEF. Echocardiogram reveals EF 50-55%. Etiology likely secondary to flash pulmonary edema from accelerated hypertension. Cardiology following. NSTEMI. Continue to trend cardiac isoenzymes and follow serial EKGs. Continue heparin drip. Acute renal failure. Etiology likely secondary to ischemic ATN on probable underlying CKD. Follow-up renal ultrasound, urine lytes and GN/vasculitis workup. Nephrology consulted. Monitor I's and O's and daily weights. Accelerated hypertension. Continue antihypertensive medications. The high probability of a clinically significant, sudden or life threatening deterioration of the [cardiac or respiratory] system(s) required my full and direct attention, intervention and personal management. The aggregate critical care time was [32] minutes. This time is in addition to time spent performing reported procedures but includes the following: [x] Data Review and interpretation [x] Patient assessment and monitoring of vital signs [x] Documentation [x] Medication orders and management History Interval history: This is a 57 year old male who presented to the hospital with a chief complaint of shortness of breath and chest pain that began on 05/09/18, approximately 2 hours prior to arriving to E.R. On evaluation, patient was found to be acute Hypoxic respiratory failure with oxygen levels in the 70's. Patient required intubation due to respiratory distress. Additionally, the Patient was found to have ARF and Acute heart failure precipitated by accelerated htn with BP-261/162 and NSTEMI. CXR revealed pulmonary venous congestion. Pertinent labs on admission revealed elevated D-dimer level of 1326, [place] [address], WBC level of 17.6, elevated troponin levels and elevated serum creatinine level of 3.9 on admission yesterday that cory to 4.2 today. Patient has only a reported history of Hypertension. Hospitalist Physical - Constitutional Vitals: Temp Pulse Resp BP Pulse Ox 97.4 F L 97 H 15 210/160 97 05/10/18 08:00 05/10/18 09:11 05/10/18 09:11 05/10/18 11:01 05/10/18 09:08 General appearance: Present: mild distress, other (intubated) - EENT Eyes: Present: PERRL, EOM intact ENT: hearing intact, clear oral mucosa, dentition normal - Neck Neck: Present: supple, normal ROM - Respiratory Respiratory effort: normal Respiratory: bilateral: CTA - Cardiovascular Rhythm: regular Heart Sounds: Present: S1 & S2. Absent: gallop, rub - Extremities Extremities: no ischemia, No edema, Full ROM - Abdominal General gastrointestinal: soft, non-tender, non-distended, normal bowel sounds - Integumentary Integumentary: Present: clear, warm, dry - Neurologic Neurologic: CNII-XII intact, moves all extremities Results - Labs CBC & Chem 7: 05/10/18 02:07 05/10/18 02:07 Labs: Laboratory Last Values WBC 10.6 K/mm3 (4.5-11.0) 05/10/18 02:07 RBC 4.36 M/mm3 (3.65-5.03) 05/10/18 02:07 Hgb 13.1 gm/dl (11.8-15.2) 05/10/18 02:07 Hct 39.1 % (35.5-45.6) 05/10/18 02:07 MCV 90 fl (84-94) 05/10/18 02:07 MCH 30 pg (28-32) 05/10/18 02:07 MCHC 34 % (32-34) 05/10/18 02:07 RDW 15.3 % (13.2-15.2) H 05/10/18 02:07 Plt Count 136 K/mm3 (140-440) L 05/10/18 02:07 Lymph % (Auto) 18.1 % (13.4-35.0) 05/09/18 10:09 [place] % (Auto) 6.6 % (0.0-7.3) 05/09/18 10:09 Eos % (Auto) 5.4 % (0.0-4.3) H 05/09/18 10:09 Baso % (Auto) 1.3 % (0.0-1.8) 05/09/18 10:09 Lymph # 3.2 K/mm3 (1.2-5.4) 05/09/18 10:09 [place] # 1.2 K/mm3 (0.0-0.8) H 05/09/18 10:09 Eos # 1.0 K/mm3 (0.0-0.4) H 05/09/18 10:09 Baso # 0.2 K/mm3 (0.0-0.1) H 05/09/18 10:09 Seg Neutrophils % 68.6 % (40.0-70.0) 05/09/18 10:09 Seg Neutrophils # 12.1 K/mm3 (1.8-7.7) H 05/09/18 10:09 PT 13.5 Sec. (12.2-14.9) 05/09/18 11:55 INR 0.99 (0.87-1.13) 05/09/18 11:55 APTT 21.2 Sec. (24.2-36.6) L 05/09/18 11:55 D-Dimer 1326.35 ng/mlDDU (0-234) H 05/09/18 10:09 Heparin Anti-Xa Level 0.34 U.I./ml (0.3-0.7) 05/10/18 02:07 POC ABG pH 7.360 (7.35-7.45) 05/10/18 03:25 POC ABG pCO2 38.1 (35-45) 05/10/18 03:25 POC ABG pO2 65 (80-105) L 05/10/18 03:25 POC ABG HCO3 21.5 05/10/18 03:25 POC ABG Total CO2 23 05/10/18 03:25 POC ABG O2 Sat 92 05/10/18 03:25 POC ABG Base Excess -4 05/10/18 03:25 FiO2 40 % 05/10/18 03:25 Sodium 138 mmol/L (137-145) 05/10/18 02:07 Potassium 3.8 mmol/L (3.6-5.0) 05/10/18 02:07 Chloride 103.5 mmol/L (98-107) 05/10/18 02:07 Carbon Dioxide 21 mmol/L (22-30) L 05/10/18 02:07 Anion Gap 17 mmol/L 05/10/18 02:07 BUN 56 mg/dL (9-20) H 05/10/18 02:07 Creatinine 4.2 mg/dL (0.8-1.5) H 05/10/18 02:07 Estimated GFR 15 ml/min 02/07/19 02:07 BUN/Creatinine Ratio 13 % 05/10/18 02:07 Glucose 98 mg/dL (75-100) 05/10/18 02:07 Lactic Acid 0.90 mmol/L (0.7-2.0) 05/10/18 10:37 Calcium 8.4 mg/dL (8.4-10.2) 05/10/18 02:07 Magnesium 2.40 mg/dL (1.7-2.3) H 05/10/18 02:07 Total Bilirubin 0.30 mg/dL (0.1-1.2) 05/09/18 10:09 AST 26 units/L (5-40) 05/09/18 10:09 ALT 18 units/L (7-56) 05/09/18 10:09 Alkaline Phosphatase 88 units/L (35-129) 05/09/18 10:09 Total Creatine Kinase 159 units/L (55-170) 05/09/18 15:36 CK-MB (CK-2) 9.3 ng/mL (0.0-4.0) H 05/09/18 15:36 CK-MB (CK-2) Rel Index 5.8 (0-4) H 05/09/18 15:36 Troponin T 0.246 ng/mL (0.00-0.029) H* 05/09/18 15:36 NT-Pro-B Natriuret Pep 91460 pg/mL (0-900) H 05/09/18 10:09 Total Protein 7.7 g/dL (6.3-8.2) 05/09/18 10:09 Albumin 4.0 g/dL (3.9-5) 05/09/18 10:09 Albumin/Globulin Ratio 1.1 % 05/09/18 10:09 Triglycerides 175 mg/dL (2-149) H 05/09/18 10:09 Cholesterol 276 mg/dL (50-199) H 05/09/18 10:09 LDL Cholesterol Direct 235 mg/dL (50-130) H 05/09/18 10:09 HDL Cholesterol 34 mg/dL (40-59) L 05/09/18 10:09 Cholesterol/HDL Ratio 8.11 % 05/09/18 10:09 TSH 1.110 mlU/mL (0.270-4.200) 05/10/18 02:07 Free T4 1.15 ng/dL (0.76-1.46) 05/10/18 02:07 Urine Color Yellow (Yellow) 05/09/18 10:33 Urine Turbidity Clear (Clear) 05/09/18 10:33 Urine pH 6.0 (5.0-7.0) 05/09/18 10:33 Ur Specific [place] 1.011 (1.003-1.030) 05/09/18 10:33 Urine Protein >2000 mg dl mg/dL (Negative) 05/09/18 10:33 Urine Glucose (UA) 50 mg/dL (Negative) 05/09/18 10:33 Urine Ketones Neg mg/dL (Negative) 05/09/18 10:33 Urine Blood Neg (Negative) 05/09/18 10:33 Urine Nitrite Neg (Negative) 05/09/18 10:33 Urine Bilirubin Neg (Negative) 05/09/18 10:33 Urine Urobilinogen < 2.0 mg/dL (<2.0) 05/09/18 10:33 Ur Leukocyte Esterase Neg (Negative) 05/09/18 10:33 Urine WBC (Auto) 2.0 /HPF (0.0-6.0) 05/09/18 10:33 Urine RBC (Auto) 3.0 /HPF (0.0-6.0) 05/09/18 10:33 Urine Bacteria (Auto) 1+ /HPF (Negative) 05/09/18 10:33 Urine Opiates Screen Presumptive negative 05/09/18 10:33 Urine Methadone Screen Presumptive negative 05/09/18 10:33 Ur Barbiturates Screen Presumptive negative 05/09/18 10:33 Ur Phencyclidine Scrn Presumptive negative 05/09/18 10:33 Ur Amphetamines Screen Presumptive negative 05/09/18 10:33 U Benzodiazepines Scrn Presumptive negative 05/09/18 10:33 Urine Cocaine Screen Presumptive negative 05/09/18 10:33 U Marijuana (THC) Screen Presumptive negative 05/09/18 10:33 Drugs of Abuse Note Disclamer 05/09/18 10:33
[2018-05-10] MEDS ORDERED: SODIUM BICARBONATE FEEDTUBE PRN (13:36)
[2018-05-10] MEDS ORDERED: SIMPLE SYRUP FEEDTUBE PRN ×2 (13:36)
[2018-05-10] MEDS ORDERED: PANCREAZE DR 10,500 UNIT FEEDTUBE PRN (13:36)
[2018-05-10 14:50] LABS: Hepatitis B Surface Antigen Non-Reactive (Negative); Hepatitis C Virus Antibody Non-Reactive (NonReactive)
--- NOTE | 2018-05-10 15:19 | XRay Report ---
AP CHEST: HISTORY: Endotracheal tube position The endotracheal tube terminates 3.4 cm superior to the gigi. Mild cardiomegaly and diffuse bilateral lung infiltrates are stable since yesterday's exam. IMPRESSION: The endotracheal tube appears in good position.
[2018-05-10] MEDS ORDERED: MORPHINE IV PRN (15:41)
[2018-05-10] MEDS ORDERED: PERCOCET 5/325 PO PRN (15:41)
[2018-05-10] MEDS: LOPRESSOR PO SCH (18:52)
[2018-05-10] MEDS: POTASSIUM CHLORIDE PO SCH (22:16)
[2018-05-11] MEDS: APRESOLINE IV SCH ×5 (03:00→23:24)
[2018-05-11 05:15] LABS: Basophils % (Auto) 0.3 % (0.0-1.8); Hematocrit 36.9 % (35.5-45.6); Hemoglobin 12.1 gm/dl (11.8-15.2); Lymphocytes # (Auto) 1.1 K/mm3 (1.2-5.4); Lymphocytes % (Auto) 8.1 % (13.4-35.0); Mean Corpuscular HGB Conc 33 % (32-34); Mean Corpuscular Volume 90 fl (84-94); Monocytes # (Auto) 1.2 K/mm3 (0.0-0.8); Monocytes % (Auto) 9.2 % (0.0-7.3); Platelet Count 154 K/mm3 (140-440); Red Blood Count 4.12 M/mm3 (3.65-5.03); Red Cell Distribution Width 15.5 % (13.2-15.2)
[2018-05-11 05:42] LABS: Calcium 8.3 mg/dL (8.4-10.2)
[2018-05-11] MEDS: DUONEB *Not for PRN Use IH SCH ×4 (08:03→20:00)
[2018-05-11] MEDS: LASIX IV SCH ×2 (09:17→17:23)
[2018-05-11] MEDS: PEPCID IV SCH (09:17)
[2018-05-11] MEDS: ZOSYN/NS 2.25 GM/50ML 2.25 GM/50 ML BAG IV SCH ×3 (09:18→23:24)
[2018-05-11] MEDS: HEPARIN/ 0.45% NACL-25,000 UNIT/500 ML 25,000 UNIT/500 ML BAG IV SCH (09:18)
[2018-05-11] MEDS: LOPRESSOR PO SCH ×2 (09:19→23:23)
[2018-05-11] MEDS: POTASSIUM CHLORIDE PO SCH ×2 (09:28→23:23)
--- NOTE | 2018-05-11 10:33 | Progress Note ---
Assessment and Plan Control Room Supervisor has evaluated the patient.Work up in progress.will place him on 80 mg po atorvastatin daily.Patient's daughter at bedside had many concerns and all of them were addressed.She had many questions and they were answered. F/U renal function closely. - Patient Problems (1) CKD (chronic kidney disease) Current Visit: Yes Status: Chronic (2) Acute heart failure Current Visit: Yes Status: Acute (3) Acute renal failure Current Visit: Yes Status: Acute Qualifiers: Acute renal failure type: unspecified Qualified Code(s): N17.9 - Acute kidney failure, unspecified (4) Acute respiratory failure Current Visit: Yes Status: Resolved (5) Chest pain Current Visit: Yes Status: Resolved Qualifiers: Chest pain type: unspecified Qualified Code(s): R07.9 - Chest pain, unspecified (6) Elevated brain natriuretic peptide (BNP) level Current Visit: Yes Status: Acute (7) Hypoxia Current Visit: Yes Status: Resolved (8) Leukocytosis Current Visit: Yes Status: Acute (9) NSTEMI (non-ST elevated myocardial infarction) Current Visit: Yes Status: Acute (10) SOB (shortness of breath) Current Visit: Yes Status: Resolved (11) History of hypertension Current Visit: Yes Status: Chronic (12) Hyperlipidemia Current Visit: Yes Status: Chronic (13) Tobacco use Current Visit: Yes Status: Chronic Subjective Date of service: 05/11/18 Principal diagnosis: Acute hypoxemic hypercapnic Resp failure; Acute CHF; ELVIA; NSTEMI Interval history: Extubated, awake, alert.Cr 4.8 today.WBC 13.1.No sob, Says he has mild chest tightness. Objective Vital Signs Temp Pulse Pulse Pulse Resp Resp Resp 05/11/18 09:19 05/11/18 08:04 98 H 88 18 16 05/11/18 03:49 98.8 F 05/11/18 03:00 69 05/10/18 23:47 71 05/10/18 23:20 98.7 F 05/10/18 23:00 91 H 16 05/10/18 22:51 87 22 05/10/18 22:41 82 21 05/10/18 22:30 75 25 H 05/10/18 22:21 94 H 13 05/10/18 22:11 85 21 05/10/18 22:01 75 22 05/10/18 21:51 92 H 27 H 05/10/18 21:41 79 25 H 05/10/18 21:30 92 H 26 H 05/10/18 21:21 92 H 15 05/10/18 21:11 94 H 20 05/10/18 21:00 99 H 18 05/10/18 20:56 100 H 18 05/10/18 20:51 113 H 19 05/10/18 20:44 108 H 17 05/10/18 20:41 114 H 24 05/10/18 20:31 114 H 17 05/10/18 20:21 99 H 25 H 05/10/18 20:11 103 H 24 05/10/18 20:00 98.9 F 99 H 26 H 05/10/18 19:51 99 H 27 H 05/10/18 19:41 107 H 21 05/10/18 19:30 112 H 16 05/10/18 19:21 111 H 26 H 05/10/18 19:11 111 H 25 H 05/10/18 19:00 109 H 24 05/10/18 18:51 118 H 25 H 05/10/18 18:50 05/10/18 18:41 104 H 26 H 05/10/18 18:30 102 H 26 H 05/10/18 18:21 112 H 27 H 05/10/18 18:11 113 H 28 H 05/10/18 18:01 100 H 26 H 05/10/18 17:51 105 H 26 H 05/10/18 17:41 112 H 24 05/10/18 17:31 117 H 26 H 05/10/18 17:21 115 H 14 05/10/18 17:11 114 H 23 05/10/18 17:00 111 H 24 05/10/18 16:51 109 H 28 H 05/10/18 16:41 113 H 15 05/10/18 16:31 112 H 14 05/10/18 16:21 115 H 21 05/10/18 16:11 113 H 20 05/10/18 16:01 112 H 16 05/10/18 16:00 98.5 F 05/10/18 15:51 118 H 16 05/10/18 15:41 116 H 24 05/10/18 15:31 112 H 16 05/10/18 15:25 109 H 17 05/10/18 15:21 113 H 22 05/10/18 15:15 110 H 17 05/10/18 15:11 110 H 16 05/10/18 15:00 107 H 18 05/10/18 14:51 106 H 19 05/10/18 14:41 103 H 17 05/10/18 14:30 111 H 17 05/10/18 14:21 117 H 17 05/10/18 14:11 111 H 20 05/10/18 14:00 109 H 22 05/10/18 13:51 105 H 18 05/10/18 13:41 112 H 13 05/10/18 13:30 108 H 17 05/10/18 13:21 109 H 19 05/10/18 13:11 102 H 21 05/10/18 13:00 98.8 F 05/10/18 11:41 112 H 17 05/10/18 11:37 113 H 17 05/10/18 11:29 111 H 17 05/10/18 11:01 BP Pulse Ox 05/11/18 09:19 168/80 05/11/18 08:04 05/11/18 03:49 05/11/18 03:00 132/66 05/10/18 23:47 135/72 05/10/18 23:20 05/10/18 23:00 150/87 93 05/10/18 22:51 132/68 97 05/10/18 22:41 132/68 97 05/10/18 22:30 132/68 95 05/10/18 22:21 143/69 97 05/10/18 22:11 143/69 98 05/10/18 22:01 143/69 95 05/10/18 21:51 141/72 97 05/10/18 21:41 141/72 96 05/10/18 21:30 141/72 94 05/10/18 21:21 158/87 96 05/10/18 21:11 158/87 96 05/10/18 21:00 158/87 93 05/10/18 20:56 05/10/18 20:51 171/96 96 05/10/18 20:44 05/10/18 20:41 171/96 96 05/10/18 20:31 171/96 94 05/10/18 20:21 154/74 96 05/10/18 20:11 154/74 97 05/10/18 20:00 154/74 95 05/10/18 19:51 171/87 96 05/10/18 19:41 171/87 96 05/10/18 19:30 171/87 94 05/10/18 19:21 168/86 97 05/10/18 19:11 168/86 96 05/10/18 19:00 168/86 94 05/10/18 18:51 162/76 97 05/10/18 18:50 165/88 05/10/18 18:41 162/76 97 05/10/18 18:30 162/76 94 05/10/18 18:21 161/72 97 05/10/18 18:11 161/72 96 05/10/18 18:01 161/72 97 05/10/18 17:51 184/86 96 05/10/18 17:41 184/86 97 05/10/18 17:31 184/86 95 05/10/18 17:21 172/103 96 05/10/18 17:11 172/103 96 05/10/18 17:00 160/96 95 05/10/18 16:51 192/104 95 05/10/18 16:41 192/104 96 05/10/18 16:31 192/104 96 05/10/18 16:21 192/104 96 05/10/18 16:11 192/104 95 05/10/18 16:01 192/104 95 05/10/18 16:00 05/10/18 15:51 171/90 96 05/10/18 15:41 171/90 96 05/10/18 15:31 171/90 95 05/10/18 15:25 05/10/18 15:21 179/100 98 05/10/18 15:15 05/10/18 15:11 179/100 98 05/10/18 15:00 179/100 96 05/10/18 14:51 180/104 98 05/10/18 14:41 180/104 98 05/10/18 14:30 180/104 94 05/10/18 14:21 167/95 99 05/10/18 14:11 167/95 100 05/10/18 14:00 167/95 96 05/10/18 13:51 160/96 99 05/10/18 13:41 160/96 99 05/10/18 13:30 160/96 96 05/10/18 13:21 168/106 98 05/10/18 13:11 168/106 98 05/10/18 13:00 05/10/18 11:41 173/96 98 05/10/18 11:37 05/10/18 11:29 05/10/18 11:01 210/160 - Physical Examination General: No Apparent Distress, Other (Extubated, alert) HEENT: Positive: PERRL, Normocephaly, Mucus Membranes Moist Neck: Positive: neck supple, trachea midline Cardiac: Positive: Reg Rate and Rhythm Lungs: Positive: Rales (Bibasal) Neuro: Positive: Grossly Intact, Other (intubated) Abdomen: Positive: Soft, Active Bowel Sounds. Negative: Tender Skin: Negative: Rash, Wound Musculoskeletal: No Fluid Collection, No Pain, Normal Range of Motion Extremities: Present: normal - Labs and Meds CBC 05/11/18 Range/Units 04:28 WBC 13.1 H (4.5-11.0) K/mm3 RBC 4.12 (3.65-5.03) M/mm3 Hgb 12.1 (11.8-15.2) gm/dl Hct 36.9 (35.5-45.6) % Plt Count 154 (140-440) K/mm3 Lymph # 1.1 L (1.2-5.4) K/mm3 [place] # 1.2 H (0.0-0.8) K/mm3 Eos # 0.0 (0.0-0.4) K/mm3 Baso # 0.0 (0.0-0.1) K/mm3 Comprehensive Metabolic Panel 05/11/18 Range/Units 04:28 Sodium 140 (137-145) mmol/L Potassium 4.4 (3.6-5.0) mmol/L Chloride 103.7 (98-107) mmol/L Carbon Dioxide 19 L (22-30) mmol/L BUN 67 H (9-20) mg/dL Creatinine 4.8 H (0.8-1.5) mg/dL Glucose 89 (75-100) mg/dL Calcium 8.3 L (8.4-10.2) mg/dL - Imaging and Cardiology EKG: report reviewed, image reviewed Echo: pending, report reviewed, image reviewed - Telemetry EKG Rhythm: Sinus Rhythm - EKG Sinus rhythms and dysrhythmias: sinus rhythm Chamber hypertrophy or enlargement: left ventricular hypertro - Allied health notes Allied health notes reviewed: nursing
--- NOTE | 2018-05-11 11:07 | Progress Note ---
Assessment and Plan Assessment and plan: Acute hypoxemic respiratory failure. Etiology secondary to acute heart failure and Non ST elevation [place]. Patient currently on mechanical ventilation. Continue vent weaning per protocol and pulmonary recommendations. Elevated d-dimer. Consider VQ scan Acute HFpEF. Echocardiogram reveals EF 50-55%. Etiology likely secondary to flash pulmonary edema from accelerated hypertension. Cardiology following. NSTEMI. Continue to trend cardiac isoenzymes and follow serial EKGs. Continue heparin drip. Acute renal failure. Etiology likely secondary to ischemic ATN on probable underlying CKD. Follow-up renal ultrasound, urine lytes and GN/vasculitis workup. Nephrology consulted. Monitor I's and O's and daily weights. Accelerated hypertension. Continue antihypertensive medications. History Interval history: This is a 57 year old male who presented to the hospital with a chief complaint of shortness of breath and chest pain that began on 05/09/18, approximately 2 hours prior to arriving to E.R. On evaluation, patient was found to be acute Hypoxic respiratory failure with oxygen levels in the 70's. Patient required intubation due to respiratory distress. Additionally, the Patient was found to have ARF and Acute heart failure precipitated by accelerated htn with BP-261/162 and NSTEMI. CXR revealed pulmonary venous congestion. Pertinent labs on admission revealed elevated D-dimer level of 1326, [place] [address], WBC level of 17.6, elevated troponin levels and elevated serum creatinine level of 3.9 on admission yesterday that cory to 4.2 today. Patient has only a reported history of Hypertension. Hospitalist Physical - Constitutional Vitals: Temp Pulse Resp BP Pulse Ox 98.8 F 98 H 18 168/80 93 05/11/18 03:49 05/11/18 08:04 05/11/18 08:04 05/11/18 09:19 05/10/18 23:00 General appearance: Present: mild distress, other (intubated) - EENT Eyes: Present: PERRL, EOM intact ENT: hearing intact, clear oral mucosa, dentition normal - Neck Neck: Present: supple, normal ROM - Respiratory Respiratory effort: normal Respiratory: bilateral: CTA - Cardiovascular Rhythm: regular Heart Sounds: Present: S1 & S2. Absent: gallop, rub - Extremities Extremities: no ischemia, No edema, Full ROM - Abdominal General gastrointestinal: soft, non-tender, non-distended, normal bowel sounds - Integumentary Integumentary: Present: clear, warm, dry - Neurologic Neurologic: CNII-XII intact, moves all extremities Results - Labs CBC & Chem 7: 05/11/18 04:28 05/11/18 04:28 Labs: Laboratory Last Values WBC 13.1 K/mm3 (4.5-11.0) H 05/11/18 04:28 RBC 4.12 M/mm3 (3.65-5.03) 05/11/18 04:28 Hgb 12.1 gm/dl (11.8-15.2) 05/11/18 04:28 Hct 36.9 % (35.5-45.6) 05/11/18 04:28 MCV 90 fl (84-94) 05/11/18 04:28 MCH 29 pg (28-32) 05/11/18 04:28 MCHC 33 % (32-34) 05/11/18 04:28 RDW 15.5 % (13.2-15.2) H 05/11/18 04:28 Plt Count 154 K/mm3 (140-440) 05/11/18 04:28 Lymph % (Auto) 8.1 % (13.4-35.0) L 05/11/18 04:28 [place] % (Auto) 9.2 % (0.0-7.3) H 05/11/18 04:28 Eos % (Auto) 0.0 % (0.0-4.3) 05/11/18 04:28 Baso % (Auto) 0.3 % (0.0-1.8) 05/11/18 04:28 Lymph # 1.1 K/mm3 (1.2-5.4) L 05/11/18 04:28 [place] # 1.2 K/mm3 (0.0-0.8) H 05/11/18 04:28 Eos # 0.0 K/mm3 (0.0-0.4) 05/11/18 04:28 Baso # 0.0 K/mm3 (0.0-0.1) 05/11/18 04:28 Seg Neutrophils % 82.4 % (40.0-70.0) H 05/11/18 04:28 Seg Neutrophils # 10.8 K/mm3 (1.8-7.7) H 05/11/18 04:28 PT 13.5 Sec. (12.2-14.9) 05/09/18 11:55 INR 0.99 (0.87-1.13) 05/09/18 11:55 APTT 21.2 Sec. (24.2-36.6) L 05/09/18 11:55 D-Dimer 1326.35 ng/mlDDU (0-234) H 05/09/18 10:09 Heparin Anti-Xa Level < 0.10 U.I./ml (0.3-0.7) L 05/11/18 04:28 POC ABG pH 7.393 (7.35-7.45) 05/10/18 17:21 POC ABG pCO2 32.4 (35-45) L 05/10/18 17:21 POC ABG pO2 82 (80-105) 05/10/18 17:21 POC ABG HCO3 19.7 05/10/18 17:21 POC ABG Total CO2 21 05/10/18 17:21 POC ABG O2 Sat 96 05/10/18 17:21 POC ABG Base Excess -5 05/10/18 17:21 FiO2 28 % 05/10/18 17:21 Sodium 140 mmol/L (137-145) 05/11/18 04:28 Potassium 4.4 mmol/L (3.6-5.0) 05/11/18 04:28 Chloride 103.7 mmol/L (98-107) 05/11/18 04:28 Carbon Dioxide 19 mmol/L (22-30) L 05/11/18 04:28 Anion Gap 22 mmol/L 05/11/18 04:28 BUN 67 mg/dL (9-20) H 05/11/18 04:28 Creatinine 4.8 mg/dL (0.8-1.5) H 05/11/18 04:28 Estimated GFR 13 ml/min 05/11/18 04:28 BUN/Creatinine Ratio 14 % 05/11/18 04:28 Glucose 89 mg/dL (75-100) 05/11/18 04:28 Lactic Acid 1.30 mmol/L (0.7-2.0) 05/10/18 16:08 Calcium 8.3 mg/dL (8.4-10.2) L 05/11/18 04:28 Magnesium 2.40 mg/dL (1.7-2.3) H 05/10/18 02:07 Total Bilirubin 0.30 mg/dL (0.1-1.2) 05/09/18 10:09 AST 26 units/L (5-40) 05/09/18 10:09 ALT 18 units/L (7-56) 05/09/18 10:09 Alkaline Phosphatase 88 units/L (35-129) 05/09/18 10:09 Total Creatine Kinase 159 units/L (55-170) 05/09/18 15:36 CK-MB (CK-2) 9.3 ng/mL (0.0-4.0) H 05/09/18 15:36 CK-MB (CK-2) Rel Index 5.8 (0-4) H 05/09/18 15:36 Troponin T 0.246 ng/mL (0.00-0.029) H* 05/09/18 15:36 C-Reactive Protein 2.00 mg/dL (0.00-1.30) H 05/10/18 16:08 NT-Pro-B Natriuret Pep 70473 pg/mL (0-900) H 05/09/18 10:09 Total Protein 7.7 g/dL (6.3-8.2) 05/09/18 10:09 Albumin 4.0 g/dL (3.9-5) 05/09/18 10:09 Albumin/Globulin Ratio 1.1 % 05/09/18 10:09 Triglycerides 175 mg/dL (2-149) H 05/09/18 10:09 Cholesterol 276 mg/dL (50-199) H 05/09/18 10:09 LDL Cholesterol Direct 235 mg/dL (50-130) H 05/09/18 10:09 HDL Cholesterol 34 mg/dL (40-59) L 05/09/18 10:09 Cholesterol/HDL Ratio 8.11 % 05/09/18 10:09 TSH 1.110 mlU/mL (0.270-4.200) 05/10/18 02:07 Free T4 1.15 ng/dL (0.76-1.46) 05/10/18 02:07 Urine Color Yellow (Yellow) 05/09/18 10:33 Urine Turbidity Clear (Clear) 05/09/18 10:33 Urine pH 6.0 (5.0-7.0) 05/09/18 10:33 Ur Specific [place] 1.011 (1.003-1.030) 05/09/18 10:33 Urine Protein >2000 mg dl mg/dL (Negative) 05/09/18 10:33 Urine Glucose (UA) 50 mg/dL (Negative) 05/09/18 10:33 Urine Ketones Neg mg/dL (Negative) 05/09/18 10:33 Urine Blood Neg (Negative) 05/09/18 10:33 Urine Nitrite Neg (Negative) 05/09/18 10:33 Urine Bilirubin Neg (Negative) 05/09/18 10:33 Urine Urobilinogen < 2.0 mg/dL (<2.0) 05/09/18 10:33 Ur Leukocyte Esterase Neg (Negative) 05/09/18 10:33 Urine WBC (Auto) 2.0 /HPF (0.0-6.0) 05/09/18 10:33 Urine RBC (Auto) 3.0 /HPF (0.0-6.0) 05/09/18 10:33 Urine Bacteria (Auto) 1+ /HPF (Negative) 05/09/18 10:33 Urine Opiates Screen Presumptive negative 05/09/18 10:33 Urine Methadone Screen Presumptive negative 05/09/18 10:33 Ur Barbiturates Screen Presumptive negative 05/09/18 10:33 Ur Phencyclidine Scrn Presumptive negative 05/09/18 10:33 Ur Amphetamines Screen Presumptive negative 05/09/18 10:33 U Benzodiazepines Scrn Presumptive negative 05/09/18 10:33 Urine Cocaine Screen Presumptive negative 05/09/18 10:33 U Marijuana (THC) Screen Presumptive negative 05/09/18 10:33 Drugs of Abuse Note Disclamer 05/09/18 10:33 Hepatitis A IgM Ab Non-reactive (NonReactive) 05/10/18 13:22 Hep Bs Antigen Non-reactive (Negative) 05/10/18 13:22 Hep B Core IgM Ab Non-reactive (NonReactive) 05/10/18 13:22 Hepatitis C Antibody Non-reactive (NonReactive) 05/10/18 13:22 HIV 1&2 Antibody Rapid Non react (Non React) 05/10/18 13:22 HIV P24 Antigen Non react (Non React) 05/10/18 13:22 Nutrition/Malnutrition Assess - Dietary Evaluation Nutrition/Malnutrition Findings: Nutrition Notes Start: 05/10/18 09:35 Freq: Status: Active Protocol: Document 05/11/18 10:08 TW (Rec: 05/11/18 10:37 TW [id number]) Co-Sign 05/11/18 10:08 LP Nutrition Notes Need for Assessment generated from: MST Initial or Follow up Reassessment Current Diagnosis Acute Kidney Injury CKD(stage I-IV) COPD Hypertension Heart Failure Respiratory Failure Other Pertinent Diagnosis Dyspnea Current Diet CHO Consistent Labs/Tests BUN 67 Cr 4.8 Pertinent Medications Lasix, Propofol Height 5 ft 9 in Weight 97.6 kg [place] Body Weight (kg) 72.72 BMI 31.7 Weight Status Obese Subjective/Other Information Consult for MST risk. Pt reports having a good appetite and eating 100% of breakfast tray. Pt denies N/V, chewing/ swallowing difficulties, and any food allergies. Pt noted that he thinks he should be following a "low sodium diet". Percent of energy/protein needs met: 100%/100% Burn Absent Trauma Absent Food Allergy No Current % PO Good (75-100%) #1 Nutrition Diagnosis Inadequate oral intake As Evidenced by Signs and Symptoms diet advancement, pt eating 100% of breakfast tray Diagnosis Progress(for reassessment Improved documentation) Is patient on ventilator? No Is Patient Ambulatory and/or Out of Bed Yes [facility] [ 2315.794 [id number]] Kcal/Kg value to use for calculation 18 Approximate Energy Requirements Using 1757 kcal/Kg Calculation Used for Recommendations Kcal/kg Additional Notes pro: 60-117g/day (0.6-1.2g/kg) fluid: 1mL/kcal Nutrition Intervention Change Diet Order: Renal Diet Nutrition Support: d/c Goal #1 Continue to meet at least 80% of kcal and pro needs Anticipated Discharge Needs: Renal diet Follow-Up By: 05/14/18 Additional Comments F/U PO intakes
--- NOTE | 2018-05-11 11:46 | Progress Note ---
Assessment and Plan Acute renal failure likely secondary ischemic ATN on possible underlying CKD with Proteinuria -Renal labs reviewed- Serum creatinine cory to 4.8 today, from 4.2 yesterday, non-oliguric -Baseline serum creatinine unknown, was told 1 year ago at [facility] that he had Proteinuria -Renal ultrasound ordered not performed yet -Urine lytes ordered not obtained yet -Since urine protein is elevated at 2000 mg will do GN/Vasculitis work-up -GN/Vasculitis labs-pending -No IVF as CXR shows congestion -On Lasix 40 mg IV BID -Avoid NSAID's -Monitor I/O's -Obtain daily weights -Discussed HD with patient and daughter at bedside given no improvement in renal function, both agreed -Will consult vasc surgeon for vasc cath placement -HD today after vasc cath is placed and likely tomorrow -Monitor for renal recovery on HD Acute heart failure NSTEMI Elevated BNP -Echo:LVEF- 50-55% -On Heparin drip -On Lasix 40 mg IV BID Acute hypoxic-hypercapnic respiratory failure Elevated-Dimer -Extubated -On Heparin drip -As per pulmonary Hypertensive emergency -On anti-hypertensive agents -Adjust as needed Subjective Date of service: 05/11/18 Principal diagnosis: Acute hypoxemic hypercapnic Resp failure; Acute CHF; ELVIA; NSTEMI Interval history: Patient seen sitting up in chair at bedside. Extubated. Daughter at bedside. Objective - Vital Signs Vital signs: Vital Signs - 12hr 05/10/18 05/11/18 05/11/18 23:47 03:00 03:49 Temperature 98.8 F Pulse Rate 71 69 Pulse Rate [ Anterior Bilateral Throughout] Pulse Rate [ Bilateral] Respiratory Rate [Anterior Bilateral Throughout] Respiratory Rate [Bilateral ] Blood Pressure 135/72 132/66 05/11/18 05/11/18 08:04 09:19 Temperature Pulse Rate Pulse Rate [ 98 H Anterior Bilateral Throughout] Pulse Rate [ 88 Bilateral] Respiratory 18 Rate [Anterior Bilateral Throughout] Respiratory 16 Rate [Bilateral ] Blood Pressure 168/80 - General Appearance General appearance: well-developed, appears stated age EENT: ATNC, PERRL, hearing intact, vision intact Neck: no JVD, supple Respiratory: Present: Decreased Breath Sounds Cardiology: regular, S1S2 Gastrointestinal: normal Integumentary: warm and dry Neurologic: alert and oriented x3 Musculoskeletal: other (No edema) Psychiatric: mood/affect appropriate, cooperative - Lab 05/11/18 04:28 05/11/18 04:28 Most recent lab results Calcium 8.3 mg/dL (8.4-10.2) L 05/11/18 04:28 Magnesium 2.40 mg/dL (1.7-2.3) H 05/10/18 02:07 Medications & Allergies - Medications Allergies/Adverse Reactions: Allergies No Known Allergies Allergy (Unverified 05/09/18 10:45) Home Medications: Home Medications Medication Instructions Recorded Confirmed Last Taken Type No Known Home Medications [No 05/09/18 05/09/18 Unknown History Reported Home Medications] Active Medications: Generic Name Dose Route Start Last Admin Trade Name Freq PRN Reason Stop Dose Admin Albuterol 2.5 mg 05/09/18 21:14 Proventil IH Q4HRT PRN Shortness Of Breath Albuterol/Ipratropium 1 ampul 05/10/18 08:00 05/11/18 08:03 Duoneb *Not For Prn Use* IH 1 ampul QIDRT GLENDA Administration Lipase/Protease/Amylase 1 each 05/10/18 13:36 Pancreaze 10,500 Unit FEEDTUBE PRN PRN For Clogged Feeding Tube Atorvastatin Calcium 80 mg 05/11/18 22:00 Lipitor PO QHS GLENDA Famotidine 20 mg 05/10/18 10:00 05/11/18 09:17 Pepcid IV 20 mg QDAY GLENDA Administration Furosemide 40 mg 05/10/18 08:00 05/11/18 09:17 Lasix IV 40 mg 0600,1800 GLENDA Administration Hydralazine HCl 10 mg 05/10/18 11:00 05/11/18 09:19 Apresoline IV 05/12/18 10:59 10 mg Q4H GLENDA Administration Hydralazine HCl 10 mg 05/12/18 10:23 Apresoline IV Q4H PRN SBP > 160 Propofol 1,000 mg in 100 mls @ 3.402 mls/hr 05/09/18 11:00 05/10/18 02:32 Diprivan 10 Mg/Ml IV 29 mcg/kg/min TITR GLENDA 19.731 mls/hr Administration Protocol 5 MCG/KG/MIN Heparin Sodium/Sodium Chloride 25,000 unit in 500 mls @ 20 mls/hr 05/09/18 12:00 05/11/18 09:38 Heparin/ 0.45% Nacl-25,000 Unit/500 Ml IV 1,000 units/hr TITRATE GLENDA 20 mls/hr Titration Protocol 1,000 UNITS/HR Piperacillin Sod/Tazobactam Sod 2.25 gm in 50 mls @ 100 mls/hr 05/10/18 14:00 05/11/18 09:18 Zosyn/Ns 2.25 Gm/50ml IV 100 mls/hr Q8HR GLENDA Administration Protocol Metoprolol Tartrate 25 mg 05/10/18 18:00 05/11/18 09:19 Lopressor PO 25 mg BID GLENDA Administration Morphine Sulfate 2 mg 05/10/18 15:41 Morphine IV Q4H PRN Pain, Moderate (4-6) Oxycodone/Acetaminophen 1 tab 05/10/18 15:41 Percocet 5/325 PO Q6H PRN Pain, Moderate (4-6) Potassium Chloride 20 meq 05/10/18 22:00 05/11/18 09:28 Potassium Chloride PO 20 meq Q12H GLENDA Administration Simple Syrup 15 ml 05/10/18 13:36 Simple Syrup FEEDTUBE PRN PRN Hypoglycemia Simple Syrup 30 ml 05/10/18 13:36 Simple Syrup FEEDTUBE PRN PRN Hypoglycemia Sodium Bicarbonate 325 mg 05/10/18 13:36 Sodium Bicarbonate FEEDTUBE PRN PRN For Clogged Feeding Tube
[2018-05-11] MEDS: PROzac PO SCH (14:00)
--- NOTE | 2018-05-11 14:16 | Progress Note ---
Assessment and Plan Acute hypoxic-hypercapnic respiratory failure Acute heart failure Acute renal failure NSTEMI Hypertensive emergency Morbid obesity Tobacco abuse disorder - Psych consult - continue BIPAP scheduled qhs with prn daytime use - VTE prophylaxis (currently on heparin infusion, therapeutic dosing for ACS) - continue stress ulcer prophylaxis - continue diuresis with IV lasix - 2D echocardiogram with low normal EF and impaired relaxation - ST evaluation and advance diet - continue accucheck with glycemic control per SSI for target blood glucose of 140-180mg/dL - continue bronchodilators with pulmonary hygiene per RT - Cardiology evaluation ongoing - Monitor renal function closely - Amin catheter in this critically ill patient who needs strict intake and output monitoring, and also has acute kidney injury. Will continue to assess on- going need for amin catheter. - continue to avoid nephrotoxic agents and adjust all medications for CrCL - continue Nicotine withdrawal precautions - Smoking cessation counselling done at bedside - Mobility for pressure ulcer prevention - PT/OT as tolerated - continue other care per attending / other consultants ... re-evaluate in am & prn CODE STATUS: FULL CODE Subjective Date of service: 05/11/18 Principal diagnosis: Acute hypoxemic hypercapnic Resp failure; Acute CHF; ELVIA; NSTEMI Interval history: Patient is seen today for: Acute hypoxic-hypercapnic respiratory failure; Acute heart failure; Acute renal failure; NSTEMI; Hypertensive emergency Seen and examined at bedside; 24hour events reviewed; nursing and respiratory care staff consulted; no adverse overnight events reported to me; resting peacefully in bed; doing decently well since extubation; tentatively scheduled to begin dialysis; No N/V/F/C; complains of depression Objective Vital Signs - 12hr 05/11/18 05/11/18 05/11/18 03:00 03:49 08:04 Temperature 98.8 F Pulse Rate 69 Pulse Rate [ 98 H Anterior Bilateral Throughout] Pulse Rate [ 88 Bilateral] Respiratory 18 Rate [Anterior Bilateral Throughout] Respiratory 16 Rate [Bilateral ] Blood Pressure 132/66 05/11/18 05/11/18 09:19 12:48 Temperature Pulse Rate Pulse Rate [ 88 Anterior Bilateral Throughout] Pulse Rate [ 88 Bilateral] Respiratory 16 Rate [Anterior Bilateral Throughout] Respiratory 16 Rate [Bilateral ] Blood Pressure 168/80 Constitutional: alert, appears uncomfortable, other (middle aged obese CM, normocephalic and atraumatic with mildly increased resp effort at rest) Eyes: non-icteric ENT: oropharynx moist, other (extubated) Neck: supple, no lymphadenopathy, no JVD, other (no thyromegaly) Effort: mildly labored Ascultation: Bilateral: diminished breath sounds, rales Percussion: Bilateral: not dull Cardiovascular: regular rate and rhythm Gastrointestinal: normoactive bowel sounds, soft, non-tender, non-distended Integumentary: normal Extremities: no cyanosis, pink and warm, pulses normal, no ischemia or petechiae, edema (trace) Neurologic: normal mental status, non-focal exam, pupils equal and round, motor strength normal and Psychiatric: mood appropriate, affect normal CBC and BMP: 05/19/18 05:09 05/19/18 05:09 ABG, PT/INR, D-dimer: ABG POC ABG pH 7.393 (7.35-7.45) 05/10/18 17:21 POC ABG pCO2 32.4 (35-45) L 05/10/18 17:21 POC ABG pO2 82 (80-105) 05/10/18 17:21 POC ABG HCO3 19.7 05/10/18 17:21 POC ABG Total CO2 21 05/10/18 17:21 POC ABG O2 Sat 96 05/10/18 17:21 PT/INR, D-dimer PT 13.5 Sec. (12.2-14.9) 05/09/18 11:55 INR 0.99 (0.87-1.13) 05/09/18 11:55 D-Dimer 1326.35 ng/mlDDU (0-234) H 05/09/18 10:09 Abnormal lab findings: Abnormal Labs 05/09/18 05/09/18 05/09/18 10:09 10:09 10:09 WBC 17.6 H RBC 5.11 H Hct 46.0 H RDW 15.8 H Plt Count Lymph % (Auto) [place] % (Auto) Eos % (Auto) 5.4 H Lymph # [place] # 1.2 H Eos # 1.0 H Baso # 0.2 H Seg Neutrophils % Seg Neutrophils # 12.1 H APTT D-Dimer 1326.35 H Heparin Anti-Xa Level POC ABG pH POC ABG pCO2 POC ABG pO2 Carbon Dioxide BUN 50 H Creatinine 3.7 H Glucose 191 H Calcium 8.2 L Magnesium CK-MB (CK-2) CK-MB (CK-2) Rel Index Troponin T 0.235 H* C-Reactive Protein NT-Pro-B Natriuret Pep Triglycerides 175 H Cholesterol 276 H LDL Cholesterol Direct 235 H HDL Cholesterol 34 L 05/09/18 05/09/18 05/09/18 10:09 11:02 11:55 WBC RBC Hct RDW Plt Count Lymph % (Auto) [place] % (Auto) Eos % (Auto) Lymph # [place] # Eos # Baso # Seg Neutrophils % Seg Neutrophils # APTT 21.2 L D-Dimer Heparin Anti-Xa Level POC ABG pH 7.158 L POC ABG pCO2 73.6 H POC ABG pO2 274 H Carbon Dioxide BUN Creatinine Glucose Calcium Magnesium CK-MB (CK-2) 9.7 H CK-MB (CK-2) Rel Index 6.0 H Troponin T C-Reactive Protein NT-Pro-B Natriuret Pep 77239 H Triglycerides Cholesterol LDL Cholesterol Direct HDL Cholesterol 05/09/18 05/09/18 05/09/18 15:36 15:36 15:58 WBC RBC Hct RDW Plt Count Lymph % (Auto) [place] % (Auto) Eos % (Auto) Lymph # [place] # Eos # Baso # Seg Neutrophils % Seg Neutrophils # APTT D-Dimer Heparin Anti-Xa Level 2.00 H POC ABG pH POC ABG pCO2 POC ABG pO2 Carbon Dioxide BUN 53 H Creatinine 3.9 H Glucose Calcium 8.0 L Magnesium CK-MB (CK-2) 9.3 H CK-MB (CK-2) Rel Index 5.8 H Troponin T 0.246 H* C-Reactive Protein NT-Pro-B Natriuret Pep Triglycerides Cholesterol LDL Cholesterol Direct HDL Cholesterol 05/09/18 05/09/18 05/10/18 16:57 19:45 02:07 WBC RBC Hct RDW 15.3 H Plt Count 136 L Lymph % (Auto) [place] % (Auto) Eos % (Auto) Lymph # [place] # Eos # Baso # Seg Neutrophils % Seg Neutrophils # APTT D-Dimer Heparin Anti-Xa Level 1.49 H POC ABG pH 7.307 L POC ABG pCO2 47.5 H POC ABG pO2 119 H Carbon Dioxide BUN Creatinine Glucose Calcium Magnesium CK-MB (CK-2) CK-MB (CK-2) Rel Index Troponin T C-Reactive Protein NT-Pro-B Natriuret Pep Triglycerides Cholesterol LDL Cholesterol Direct HDL Cholesterol 05/10/18 05/10/18 05/10/18 02:07 03:25 10:37 WBC RBC Hct RDW Plt Count Lymph % (Auto) [place] % (Auto) Eos % (Auto) Lymph # [place] # Eos # Baso # Seg Neutrophils % Seg Neutrophils # APTT D-Dimer Heparin Anti-Xa Level POC ABG pH POC ABG pCO2 POC ABG pO2 65 L Carbon Dioxide 21 L BUN 56 H Creatinine 4.2 H Glucose Calcium Magnesium 2.40 H CK-MB (CK-2) CK-MB (CK-2) Rel Index Troponin T C-Reactive Protein 2.00 H NT-Pro-B Natriuret Pep Triglycerides Cholesterol LDL Cholesterol Direct HDL Cholesterol 05/10/18 05/10/18 05/10/18 11:34 16:08 17:21 WBC RBC Hct RDW Plt Count Lymph % (Auto) [place] % (Auto) Eos % (Auto) Lymph # [place] # Eos # Baso # Seg Neutrophils % Seg Neutrophils # APTT D-Dimer Heparin Anti-Xa Level POC ABG pH POC ABG pCO2 32.7 L 32.4 L POC ABG pO2 110 H Carbon Dioxide BUN Creatinine Glucose Calcium Magnesium CK-MB (CK-2) CK-MB (CK-2) Rel Index Troponin T C-Reactive Protein 2.00 H NT-Pro-B Natriuret Pep Triglycerides Cholesterol LDL Cholesterol Direct HDL Cholesterol 05/11/18 05/11/18 05/11/18 04:28 04:28 04:28 WBC 13.1 H RBC Hct RDW 15.5 H Plt Count Lymph % (Auto) 8.1 L [place] % (Auto) 9.2 H Eos % (Auto) Lymph # 1.1 L [place] # 1.2 H Eos # Baso # Seg Neutrophils % 82.4 H Seg Neutrophils # 10.8 H APTT D-Dimer Heparin Anti-Xa Level < 0.10 L POC ABG pH POC ABG pCO2 POC ABG pO2 Carbon Dioxide 19 L BUN 67 H Creatinine 4.8 H Glucose Calcium 8.3 L Magnesium CK-MB (CK-2) CK-MB (CK-2) Rel Index Troponin T C-Reactive Protein NT-Pro-B Natriuret Pep Triglycerides Cholesterol LDL Cholesterol Direct HDL Cholesterol Chest x-ray: image reviewed Allied health notes reviewed: nursing
[2018-05-11] MEDS: XANAX PO SCH ×2 (14:28→23:23)
[2018-05-11] MEDS ORDERED: HEPARIN 10,000 UNITS/10 ML ONE (18:31)
[2018-05-11] MEDS ORDERED: HEPARIN/NS 5000 UNIT/500ML(CATH LAB) 500 ML IR ONE (18:31)
[2018-05-11] MEDS ORDERED: ANCEF/STERILE WATER 2 GM/20 ML 2 GM/20 ML SYRINGE IV ONE (19:13)
[2018-05-11] MEDS: XYLOCAINE 2% INFILTRATI ONE ×2 (19:15→19:26)
--- NOTE | 2018-05-11 19:33 | Operative Report ---
Operative Report Operative Report: Operative note: Date: 05/11/2018 Preoperative diagnosis: Renal failure Postoperative diagnosis: Same. Operation: right internal jugular Vas-Cath insertion Surgeon: Myriam Guerra. Asst.: None Anesthesia: Local with moderate sedation EBL: Minimal Findings: None Indications: Renal failure requiring hemodialysis initiation. Operative details: Patient was brought to the Budget Officer, prepped and draped right neck in a sterile fashion. After timeout performed and all team members in the agreement right internal jugular vein was accessed under ultrasound guidance with micropuncture needle and exchanged for micropuncture sheath. J wire was advanced in the right internal jugular vein and advanced into IVC under fluoroscopic guidance. Skin incision was made with 11 blade and serially dilated with subsequent insertion of Vas-Cath catheter 11.5 Fr 15cm in length. Ports were checked for good flow, flushed with saline and locked with 1.4 mL of heparin. Catheter was secured in place with 3-0 nylon stitches and sterile dressing applied. He tolerated the procedure well.
[2018-05-11] MEDS ORDERED: NACL 0.9 (PRIMING MACHINE ONLY DIALYSIS) MC ONE (23:17)
[2018-05-11] MEDS ORDERED: TYLENOL PO PRN (23:42)
--- NOTE | 2018-05-12 00:12 | Ultrasound Report ---
FINAL REPORT PROCEDURE: US RENAL BILAT TECHNIQUE: Real-time sonography in multiple planes of the kidneys, ureters and urinary bladder was p erformed with image documentation. CPT 12527 HISTORY: Acute renal failure. COMPARISON: No prior studies are available for comparison. FINDINGS: The echogenicity of the renal cortex bilaterally appears mildly diffusely increased. The appearance s uggest chronic renal parenchymal disease. No masses, calculi or hydronephrosis are visualized. The ri ght kidney measures 9.8 x 4.9 x 5.3 centimeter. The left kidney measures 11.1 x 5.2 x 4.7 centimeters . Urinary bladder is unremarkable. IMPRESSION: Mild diffuse increased echogenicity the renal cortex suggest chronic renal parenchymal disease. No hy dronephrosis or other abnormality is seen.
[2018-05-12] MEDS: APRESOLINE IV SCH ×2 (02:05→06:45)
[2018-05-12 05:10] LABS: Calcium 8.6 mg/dL (8.4-10.2)
[2018-05-12] MEDS: LASIX IV SCH ×2 (05:24→17:30)
[2018-05-12] MEDS: ZOSYN/NS 2.25 GM/50ML 2.25 GM/50 ML BAG IV SCH ×3 (05:24→21:43)
--- NOTE | 2018-05-12 06:35 | Progress Note ---
Assessment and Plan Acute hypoxic-hypercapnic respiratory failure s/p MVS Acute heart failure Acute renal failure NSTEMI Hypertensive emergency Morbid obesity Tobacco abuse disorder -VTE prophylaxis -Stress ulcer prophylaxis -Diuresis -Accucheck with glycemic control. Target blood glucose of 140-180mg/dL -Bronchodilators per protocol -HD per renal service -Avoid nephrotoxic agents and adjust all medications for CrCL -CXR and ABG prn -Nicotine withdrawal precautions -Smoking cessation counselling -PT/OT Antidepressants, Psych consult -Cardioprotective measures OK to transfer to telemetry Subjective Date of service: 05/12/18 Principal diagnosis: Acute hypoxemic hypercapnic Resp failure; Acute CHF; ELVIA; NSTEMI Interval history: Patient is seen today for: Acute hypoxic-hypercapnic respiratory failure; Acute heart failure; Acute renal failure; NSTEMI; Hypertensive emergency Seen and examined at bedside; 24hour events reviewed; nursing and respiratory care staff consulted; no adverse overnight events reported to me; resting peacefully in bed; doing well since extubation;s/p HD and tolerated it well; No N/V/F/C; complains of depression and wants Psych consult Objective Vital Signs - 12hr 05/11/18 05/11/18 05/11/18 19:47 19:51 19:52 Temperature 98.1 F Pulse Rate 78 76 Pulse Rate [ Bilateral] Respiratory 18 18 Rate Respiratory Rate [Bilateral ] Blood Pressure 187/108 O2 Sat by Pulse 99 96 Oximetry O2 Sat by Pulse Oximetry [ Anterior Bilateral Throughout] 05/11/18 05/11/18 05/11/18 20:00 20:10 20:15 Temperature 97.8 F Pulse Rate 75 68 76 Pulse Rate [ 70 70 Bilateral] Respiratory 19 12 Rate Respiratory 18 18 Rate [Bilateral ] Blood Pressure 187/108 190/113 O2 Sat by Pulse 96 97 Oximetry O2 Sat by Pulse 95 Oximetry [ Anterior Bilateral Throughout] 05/11/18 05/11/18 05/11/18 20:20 20:30 20:40 Temperature Pulse Rate 71 62 72 Pulse Rate [ Bilateral] Respiratory 16 19 25 H Rate Respiratory Rate [Bilateral ] Blood Pressure 169/97 170/98 170/98 O2 Sat by Pulse 95 95 95 Oximetry O2 Sat by Pulse Oximetry [ Anterior Bilateral Throughout] 05/11/18 05/11/18 05/11/18 20:45 20:50 21:00 Temperature Pulse Rate 68 56 L 66 Pulse Rate [ Bilateral] Respiratory 20 20 Rate Respiratory Rate [Bilateral ] Blood Pressure 170/98 166/86 140/88 O2 Sat by Pulse 95 94 Oximetry O2 Sat by Pulse Oximetry [ Anterior Bilateral Throughout] 05/11/18 05/11/18 05/11/18 21:10 21:15 21:20 Temperature Pulse Rate 60 69 66 Pulse Rate [ Bilateral] Respiratory 22 21 Rate Respiratory Rate [Bilateral ] Blood Pressure 140/88 130/84 130/84 O2 Sat by Pulse 94 94 Oximetry O2 Sat by Pulse Oximetry [ Anterior Bilateral Throughout] 05/11/18 05/11/18 05/11/18 21:30 21:40 21:45 Temperature Pulse Rate 73 65 66 Pulse Rate [ Bilateral] Respiratory 16 19 Rate Respiratory Rate [Bilateral ] Blood Pressure 114/71 114/71 125/77 O2 Sat by Pulse 95 95 Oximetry O2 Sat by Pulse Oximetry [ Anterior Bilateral Throughout] 05/11/18 05/11/18 05/11/18 21:50 22:00 22:10 Temperature Pulse Rate 62 67 64 Pulse Rate [ Bilateral] Respiratory 23 23 22 Rate Respiratory Rate [Bilateral ] Blood Pressure 125/77 130/69 130/69 O2 Sat by Pulse 92 93 92 Oximetry O2 Sat by Pulse Oximetry [ Anterior Bilateral Throughout] 05/11/18 05/11/18 05/11/18 22:15 22:20 22:30 Temperature 97.8 F Pulse Rate 68 68 72 Pulse Rate [ Bilateral] Respiratory 12 16 Rate Respiratory Rate [Bilateral ] Blood Pressure 113/74 113/74 152/86 O2 Sat by Pulse 96 97 Oximetry O2 Sat by Pulse Oximetry [ Anterior Bilateral Throughout] 05/11/18 05/11/18 05/11/18 22:40 22:50 23:00 Temperature Pulse Rate 67 74 77 Pulse Rate [ Bilateral] Respiratory 24 17 15 Rate Respiratory Rate [Bilateral ] Blood Pressure 152/86 164/90 166/98 O2 Sat by Pulse 97 97 95 Oximetry O2 Sat by Pulse Oximetry [ Anterior Bilateral Throughout] 05/11/18 05/11/18 05/11/18 23:10 23:19 23:20 Temperature 97.8 F Pulse Rate 79 74 Pulse Rate [ Bilateral] Respiratory 21 24 Rate Respiratory Rate [Bilateral ] Blood Pressure 166/98 173/91 O2 Sat by Pulse 97 97 Oximetry O2 Sat by Pulse Oximetry [ Anterior Bilateral Throughout] 0205/11/18 05/11/18 23:23 23:24 23:30 Temperature 98.2 F Pulse Rate 74 74 85 Pulse Rate [ Bilateral] Respiratory 20 Rate Respiratory Rate [Bilateral ] Blood Pressure 173/91 173/91 166/98 O2 Sat by Pulse 97 Oximetry O2 Sat by Pulse Oximetry [ Anterior Bilateral Throughout] 05/11/18 05/11/18 05/12/18 23:40 23:50 00:00 Temperature Pulse Rate 84 84 84 Pulse Rate [ Bilateral] Respiratory 20 21 29 H Rate Respiratory Rate [Bilateral ] Blood Pressure 177/151 148/79 153/78 O2 Sat by Pulse 95 95 93 Oximetry O2 Sat by Pulse Oximetry [ Anterior Bilateral Throughout] 05/12/18 05/12/18 05/12/18 00:10 00:20 00:30 Temperature Pulse Rate 79 88 89 Pulse Rate [ Bilateral] Respiratory 14 24 15 Rate Respiratory Rate [Bilateral ] Blood Pressure 153/78 158/80 153/78 O2 Sat by Pulse 97 96 95 Oximetry O2 Sat by Pulse Oximetry [ Anterior Bilateral Throughout] 05/12/18 05/12/18 05/12/18 00:40 00:50 01:00 Temperature Pulse Rate 82 86 70 Pulse Rate [ Bilateral] Respiratory 15 13 24 Rate Respiratory Rate [Bilateral ] Blood Pressure 157/84 147/71 131/59 O2 Sat by Pulse 95 95 93 Oximetry O2 Sat by Pulse Oximetry [ Anterior Bilateral Throughout] 05/12/18 05/12/18 05/12/18 01:10 01:20 01:30 Temperature Pulse Rate 76 59 L 85 Pulse Rate [ Bilateral] Respiratory 24 23 21 Rate Respiratory Rate [Bilateral ] Blood Pressure 131/59 138/66 138/66 O2 Sat by Pulse 95 93 95 Oximetry O2 Sat by Pulse Oximetry [ Anterior Bilateral Throughout] 05/12/18 05/12/18 05/12/18 01:40 01:50 02:00 Temperature Pulse Rate 69 70 93 H Pulse Rate [ Bilateral] Respiratory 24 12 22 Rate Respiratory Rate [Bilateral ] Blood Pressure 138/66 138/66 138/66 O2 Sat by Pulse 95 93 94 Oximetry O2 Sat by Pulse Oximetry [ Anterior Bilateral Throughout] 05/12/18 05/12/18 05/12/18 02:10 02:20 02:30 Temperature Pulse Rate 59 L 68 73 Pulse Rate [ Bilateral] Respiratory 22 22 24 Rate Respiratory Rate [Bilateral ] Blood Pressure 138/66 138/66 138/66 O2 Sat by Pulse 93 94 93 Oximetry O2 Sat by Pulse Oximetry [ Anterior Bilateral Throughout] 05/12/18 05/12/18 05/12/18 02:40 02:50 03:00 Temperature Pulse Rate 62 83 81 Pulse Rate [ Bilateral] Respiratory 21 24 23 Rate Respiratory Rate [Bilateral ] Blood Pressure 138/66 138/66 149/86 O2 Sat by Pulse 92 95 95 Oximetry O2 Sat by Pulse Oximetry [ Anterior Bilateral Throughout] 05/12/18 05/12/18 05/12/18 03:10 03:11 03:20 Temperature 98.3 F Pulse Rate 58 L 91 H Pulse Rate [ Bilateral] Respiratory 21 21 Rate Respiratory Rate [Bilateral ] Blood Pressure 149/86 153/93 O2 Sat by Pulse 94 96 Oximetry O2 Sat by Pulse Oximetry [ Anterior Bilateral Throughout] 05/12/18 05/12/18 05/12/18 03:30 03:40 03:50 Temperature Pulse Rate 70 77 90 Pulse Rate [ Bilateral] Respiratory 24 25 H 23 Rate Respiratory Rate [Bilateral ] Blood Pressure 163/72 163/72 162/73 O2 Sat by Pulse 90 94 88 Oximetry O2 Sat by Pulse Oximetry [ Anterior Bilateral Throughout] 05/12/18 05/12/18 05/12/18 04:00 04:10 04:20 Temperature Pulse Rate 89 86 73 Pulse Rate [ Bilateral] Respiratory 25 H 27 H 23 Rate Respiratory Rate [Bilateral ] Blood Pressure 152/83 152/83 160/82 O2 Sat by Pulse 90 92 92 Oximetry O2 Sat by Pulse Oximetry [ Anterior Bilateral Throughout] 05/12/18 05/12/18 05/12/18 04:30 04:40 04:50 Temperature Pulse Rate 85 76 82 Pulse Rate [ Bilateral] Respiratory 24 20 22 Rate Respiratory Rate [Bilateral ] Blood Pressure 154/73 152/83 165/98 O2 Sat by Pulse 91 93 95 Oximetry O2 Sat by Pulse Oximetry [ Anterior Bilateral Throughout] 05/12/18 05/12/18 05/12/18 05:00 05:10 05:20 Temperature Pulse Rate 70 80 84 Pulse Rate [ Bilateral] Respiratory 19 25 H 17 Rate Respiratory Rate [Bilateral ] Blood Pressure 172/87 172/87 183/95 O2 Sat by Pulse 92 95 96 Oximetry O2 Sat by Pulse Oximetry [ Anterior Bilateral Throughout] Constitutional: alert, appears uncomfortable, other (middle aged obese CM, normocephalic and atraumatic with mildly increased resp effort at rest) Eyes: non-icteric ENT: oropharynx moist Neck: supple, no lymphadenopathy, no JVD, other (no thyromegaly) Effort: mildly labored Ascultation: Bilateral: diminished breath sounds, rales Percussion: Bilateral: not dull Cardiovascular: regular rate and rhythm Gastrointestinal: normoactive bowel sounds, soft, non-tender, non-distended Integumentary: normal Extremities: no cyanosis, pink and warm, pulses normal, no ischemia or petechiae, edema (trace) Neurologic: normal mental status, non-focal exam, pupils equal and round, CN II- XII normal, motor strength normal and Psychiatric: depressed CBC and BMP: 05/13/18 08:23 05/13/18 08:23 ABG, PT/INR, D-dimer: ABG POC ABG pH 7.393 (7.35-7.45) 05/10/18 17:21 POC ABG pCO2 32.4 (35-45) L 05/10/18 17:21 POC ABG pO2 82 (80-105) 05/10/18 17:21 POC ABG HCO3 19.7 05/10/18 17:21 POC ABG Total CO2 21 05/10/18 17:21 POC ABG O2 Sat 96 05/10/18 17:21 PT/INR, D-dimer PT 13.5 Sec. (12.2-14.9) 05/09/18 11:55 INR 0.99 (0.87-1.13) 05/09/18 11:55 D-Dimer 1326.35 ng/mlDDU (0-234) H 05/09/18 10:09 Abnormal lab findings: Abnormal Labs 05/09/18 05/09/18 05/09/18 10:09 10:09 10:09 WBC 17.6 H RBC 5.11 H Hct 46.0 H RDW 15.8 H Plt Count Lymph % (Auto) [place] % (Auto) Eos % (Auto) 5.4 H Lymph # [place] # 1.2 H Eos # 1.0 H Baso # 0.2 H Seg Neutrophils % Seg Neutrophils # 12.1 H APTT D-Dimer 1326.35 H Heparin Anti-Xa Level POC ABG pH POC ABG pCO2 POC ABG pO2 Chloride Carbon Dioxide BUN 50 H Creatinine 3.7 H Glucose 191 H Calcium 8.2 L Magnesium CK-MB (CK-2) CK-MB (CK-2) Rel Index Troponin T 0.235 H* C-Reactive Protein NT-Pro-B Natriuret Pep Triglycerides 175 H Cholesterol 276 H LDL Cholesterol Direct 235 H HDL Cholesterol 34 L 05/09/18 05/09/18 05/09/18 10:09 11:02 11:55 WBC RBC Hct RDW Plt Count Lymph % (Auto) [place] % (Auto) Eos % (Auto) Lymph # [place] # Eos # Baso # Seg Neutrophils % Seg Neutrophils # APTT 21.2 L D-Dimer Heparin Anti-Xa Level POC ABG pH 7.158 L POC ABG pCO2 73.6 H POC ABG pO2 274 H Chloride Carbon Dioxide BUN Creatinine Glucose Calcium Magnesium CK-MB (CK-2) 9.7 H CK-MB (CK-2) Rel Index 6.0 H Troponin T C-Reactive Protein NT-Pro-B Natriuret Pep 52647 H Triglycerides Cholesterol LDL Cholesterol Direct HDL Cholesterol 05/09/18 05/09/18 05/09/18 15:36 15:36 15:58 WBC RBC Hct RDW Plt Count Lymph % (Auto) [place] % (Auto) Eos % (Auto) Lymph # [place] # Eos # Baso # Seg Neutrophils % Seg Neutrophils # APTT D-Dimer Heparin Anti-Xa Level 2.00 H POC ABG pH POC ABG pCO2 POC ABG pO2 Chloride Carbon Dioxide BUN 53 H Creatinine 3.9 H Glucose Calcium 8.0 L Magnesium CK-MB (CK-2) 9.3 H CK-MB (CK-2) Rel Index 5.8 H Troponin T 0.246 H* C-Reactive Protein NT-Pro-B Natriuret Pep Triglycerides Cholesterol LDL Cholesterol Direct HDL Cholesterol 05/09/18 05/09/18 05/10/18 16:57 19:45 02:07 WBC RBC Hct RDW 15.3 H Plt Count 136 L Lymph % (Auto) [place] % (Auto) Eos % (Auto) Lymph # [place] # Eos # Baso # Seg Neutrophils % Seg Neutrophils # APTT D-Dimer Heparin Anti-Xa Level 1.49 H POC ABG pH 7.307 L POC ABG pCO2 47.5 H POC ABG pO2 119 H Chloride Carbon Dioxide BUN Creatinine Glucose Calcium Magnesium CK-MB (CK-2) CK-MB (CK-2) Rel Index Troponin T C-Reactive Protein NT-Pro-B Natriuret Pep Triglycerides Cholesterol LDL Cholesterol Direct HDL Cholesterol 05/10/18 05/10/18 05/10/18 02:07 03:25 10:37 WBC RBC Hct RDW Plt Count Lymph % (Auto) [place] % (Auto) Eos % (Auto) Lymph # [place] # Eos # Baso # Seg Neutrophils % Seg Neutrophils # APTT D-Dimer Heparin Anti-Xa Level POC ABG pH POC ABG pCO2 POC ABG pO2 65 L Chloride Carbon Dioxide 21 L BUN 56 H Creatinine 4.2 H Glucose Calcium Magnesium 2.40 H CK-MB (CK-2) CK-MB (CK-2) Rel Index Troponin T C-Reactive Protein 2.00 H NT-Pro-B Natriuret Pep Triglycerides Cholesterol LDL Cholesterol Direct HDL Cholesterol 05/10/18 05/10/18 05/10/18 11:34 16:08 17:21 WBC RBC Hct RDW Plt Count Lymph % (Auto) [place] % (Auto) Eos % (Auto) Lymph # [place] # Eos # Baso # Seg Neutrophils % Seg Neutrophils # APTT D-Dimer Heparin Anti-Xa Level POC ABG pH POC ABG pCO2 32.7 L 32.4 L POC ABG pO2 110 H Chloride Carbon Dioxide BUN Creatinine Glucose Calcium Magnesium CK-MB (CK-2) CK-MB (CK-2) Rel Index Troponin T C-Reactive Protein 2.00 H NT-Pro-B Natriuret Pep Triglycerides Cholesterol LDL Cholesterol Direct HDL Cholesterol 05/11/18 05/11/18 05/11/18 04:28 04:28 04:28 WBC 13.1 H RBC Hct RDW 15.5 H Plt Count Lymph % (Auto) 8.1 L [place] % (Auto) 9.2 H Eos % (Auto) Lymph # 1.1 L [place] # 1.2 H Eos # Baso # Seg Neutrophils % 82.4 H Seg Neutrophils # 10.8 H APTT D-Dimer Heparin Anti-Xa Level < 0.10 L POC ABG pH POC ABG pCO2 POC ABG pO2 Chloride Carbon Dioxide 19 L BUN 67 H Creatinine 4.8 H Glucose Calcium 8.3 L Magnesium CK-MB (CK-2) CK-MB (CK-2) Rel Index Troponin T C-Reactive Protein NT-Pro-B Natriuret Pep Triglycerides Cholesterol LDL Cholesterol Direct HDL Cholesterol 05/11/18 05/12/18 23:50 04:07 WBC RBC Hct RDW Plt Count Lymph % (Auto) [place] % (Auto) Eos % (Auto) Lymph # [place] # Eos # Baso # Seg Neutrophils % Seg Neutrophils # APTT D-Dimer Heparin Anti-Xa Level 2.00 H POC ABG pH POC ABG pCO2 POC ABG pO2 Chloride 97.0 L Carbon Dioxide BUN 36 H Creatinine 3.2 H Glucose 104 H Calcium Magnesium CK-MB (CK-2) CK-MB (CK-2) Rel Index Troponin T C-Reactive Protein NT-Pro-B Natriuret Pep Triglycerides Cholesterol LDL Cholesterol Direct HDL Cholesterol Allied health notes reviewed: nursing
[2018-05-12] MEDS: DUONEB *Not for PRN Use IH SCH ×4 (08:06→20:40)
[2018-05-12] MEDS: POTASSIUM CHLORIDE PO SCH ×2 (10:00→21:43)
[2018-05-12] MEDS ORDERED: APRESOLINE IV PRN (10:23)
[2018-05-12] MEDS: PEPCID IV SCH (10:37)
[2018-05-12] MEDS: XANAX PO SCH (10:38)
[2018-05-12] MEDS: PROzac PO SCH (10:38)
[2018-05-12] MEDS: LOPRESSOR PO SCH ×3 (10:39→21:44)
[2018-05-12] MEDS: HEPARIN/ 0.45% NACL-25,000 UNIT/500 ML 25,000 UNIT/500 ML BAG IV SCH (11:00)
--- NOTE | 2018-05-12 12:11 | Progress Note ---
Assessment and Plan Acute respiratory failure status post extubation Acute renal failure on hemodialysis Hypertension urgency Non-ST elevation CA type II Hyperlipidemia Recommend from cardiovascular point normal LV function and 48 hours since heparin associated patient's chest pain free continue aspirin increased beta suzan and hydralazine and Imdur. Patient may be transferred to telemetry floor, ischemic workup pending Subjective Date of service: 05/12/18 Principal diagnosis: Acute hypoxemic hypercapnic Resp failure; Acute CHF; ELVIA; NSTEMI Interval history: pt has no chest pain or sob Objective Vital Signs Temp Pulse Pulse Pulse Resp Resp Resp 05/12/18 08:12 90 18 05/12/18 08:00 97.9 F 84 16 05/12/18 07:20 80 12 05/12/18 07:10 96 H 17 05/12/18 07:00 71 22 05/12/18 06:50 57 L 15 05/12/18 06:45 81 05/12/18 06:40 70 18 05/12/18 06:30 90 18 05/12/18 06:20 60 19 05/12/18 06:10 80 23 05/12/18 06:00 93 H 18 05/12/18 05:50 86 13 05/12/18 05:40 92 H 16 05/12/18 05:30 86 18 05/12/18 05:20 84 17 05/12/18 05:10 80 25 H 05/12/18 05:00 70 19 05/12/18 04:50 82 22 05/12/18 04:40 76 20 05/12/18 04:30 85 24 05/12/18 04:20 73 23 05/12/18 04:10 86 27 H 05/12/18 04:00 89 25 H 05/12/18 03:50 90 23 05/12/18 03:40 77 25 H 05/12/18 03:30 70 24 05/12/18 03:20 91 H 21 05/12/18 03:11 98.3 F 05/12/18 03:10 58 L 21 05/12/18 03:00 81 23 05/12/18 02:50 83 24 05/12/18 02:40 62 21 05/12/18 02:30 73 24 05/12/18 02:20 68 22 05/12/18 02:10 59 L 22 05/12/18 02:00 93 H 22 05/12/18 01:50 70 12 05/12/18 01:40 69 24 05/12/18 01:30 85 21 05/12/18 01:20 59 L 23 05/12/18 01:10 76 24 05/12/18 01:00 70 24 05/12/18 00:50 86 13 05/12/18 00:40 82 15 05/12/18 00:30 89 15 05/12/18 00:20 88 24 05/12/18 00:10 79 14 05/12/18 00:00 84 29 H 05/11/18 23:50 84 21 05/11/18 23:40 84 20 05/11/18 23:30 85 20 05/11/18 23:24 74 05/11/18 23:23 98.2 F 74 05/11/18 23:20 74 24 05/11/18 23:19 97.8 F 05/11/18 23:10 79 21 05/11/18 23:00 77 15 05/11/18 22:50 74 17 05/11/18 22:40 67 24 05/11/18 22:30 97.8 F 72 16 05/11/18 22:20 68 12 05/11/18 22:15 68 05/11/18 22:10 64 22 05/11/18 22:00 67 23 05/11/18 21:50 62 23 05/11/18 21:45 66 05/11/18 21:40 65 19 05/11/18 21:30 73 16 05/11/18 21:20 66 21 05/11/18 21:15 69 05/11/18 21:10 60 22 05/11/18 21:00 66 20 05/11/18 20:50 56 L 20 05/11/18 20:45 68 05/11/18 20:40 72 25 H 05/11/18 20:30 62 19 05/11/18 20:20 71 16 05/11/18 20:15 76 05/11/18 20:10 68 70 12 18 05/11/18 20:00 97.8 F 75 70 19 18 05/11/18 19:52 98.1 F 05/11/18 19:51 76 18 05/11/18 19:47 78 18 05/11/18 17:41 86 12 05/11/18 17:31 83 17 05/11/18 17:21 79 17 05/11/18 17:11 66 19 05/11/18 17:01 64 17 05/11/18 16:51 67 17 05/11/18 16:41 69 20 05/11/18 16:30 63 21 05/11/18 16:21 64 24 05/11/18 16:11 69 18 05/11/18 16:00 64 86 82 21 12 12 05/11/18 15:51 66 20 05/11/18 12:48 88 88 16 16 BP Pulse Ox Pulse Ox 05/12/18 08:12 05/12/18 08:00 05/12/18 07:20 151/85 99 05/12/18 07:10 164/81 99 05/12/18 07:00 164/81 94 05/12/18 06:50 191/88 98 05/12/18 06:45 173/98 05/12/18 06:40 173/98 96 05/12/18 06:30 180/93 92 05/12/18 06:20 180/93 96 05/12/18 06:10 172/98 95 05/12/18 06:00 172/98 95 05/12/18 05:50 176/76 95 05/12/18 05:40 172/87 96 05/12/18 05:30 178/94 93 05/12/18 05:20 183/95 96 05/12/18 05:10 172/87 95 05/12/18 05:00 172/87 92 05/12/18 04:50 165/98 95 05/12/18 04:40 152/83 93 05/12/18 04:30 154/73 91 05/12/18 04:20 160/82 92 05/12/18 04:10 152/83 92 05/12/18 04:00 152/83 90 05/12/18 03:50 162/73 88 05/12/18 03:40 163/72 94 05/12/18 03:30 163/72 90 05/12/18 03:20 153/93 96 05/12/18 03:11 05/12/18 03:10 149/86 94 05/12/18 03:00 149/86 95 05/12/18 02:50 138/66 95 05/12/18 02:40 138/66 92 05/12/18 02:30 138/66 93 05/12/18 02:20 138/66 94 05/12/18 02:10 138/66 93 05/12/18 02:00 138/66 94 05/12/18 01:50 138/66 93 05/12/18 01:40 138/66 95 05/12/18 01:30 138/66 95 05/12/18 01:20 138/66 93 05/12/18 01:10 131/59 95 05/12/18 01:00 131/59 93 05/12/18 00:50 147/71 95 05/12/18 00:40 157/84 95 05/12/18 00:30 153/78 95 05/12/18 00:20 158/80 96 05/12/18 00:10 153/78 97 05/12/18 00:00 153/78 93 05/11/18 23:50 148/79 95 05/11/18 23:40 177/151 95 05/11/18 23:30 166/98 97 05/11/18 23:24 173/91 05/11/18 23:23 173/91 05/11/18 23:20 173/91 97 05/11/18 23:19 05/11/18 23:10 166/98 97 05/11/18 23:00 166/98 95 05/11/18 22:50 164/90 97 05/11/18 22:40 152/86 97 05/11/18 22:30 152/86 97 05/11/18 22:20 113/74 96 05/11/18 22:15 113/74 05/11/18 22:10 130/69 92 05/11/18 22:00 130/69 93 05/11/18 21:50 125/77 92 05/11/18 21:45 125/77 05/11/18 21:40 114/71 95 05/11/18 21:30 114/71 95 05/11/18 21:20 130/84 94 05/11/18 21:15 130/84 05/11/18 21:10 140/88 94 05/11/18 21:00 140/88 94 05/11/18 20:50 166/86 95 05/11/18 20:45 170/98 05/11/18 20:40 170/98 95 05/11/18 20:30 170/98 95 05/11/18 20:20 169/97 95 05/11/18 20:15 190/113 05/11/18 20:10 97 05/11/18 20:00 187/108 96 95 05/11/18 19:52 05/11/18 19:51 187/108 96 05/11/18 19:47 99 05/11/18 17:41 171/105 99 05/11/18 17:31 171/105 97 05/11/18 17:21 165/96 98 05/11/18 17:11 165/96 98 05/11/18 17:01 165/96 98 05/11/18 16:51 164/95 98 05/11/18 16:41 164/95 97 05/11/18 16:30 164/95 98 05/11/18 16:21 166/96 98 05/11/18 16:11 166/96 98 05/11/18 16:00 166/96 99 05/11/18 15:51 183/102 97 05/11/18 12:48 - Physical Examination General: No Apparent Distress, Other (Extubated, alert) HEENT: Positive: PERRL, Normocephaly, Mucus Membranes Moist Neck: Positive: neck supple, trachea midline Cardiac: Positive: Reg Rate and Rhythm Lungs: Positive: clear to auscultation Neuro: Positive: Grossly Intact, Other (intubated) Abdomen: Positive: Soft, Active Bowel Sounds. Negative: Tender Skin: Negative: Rash, Wound Musculoskeletal: No Fluid Collection, No Pain, Normal Range of Motion Extremities: Present: normal - Labs and Meds Comprehensive Metabolic Panel 05/12/18 Range/Units 04:07 Sodium 138 (137-145) mmol/L Potassium 3.9 (3.6-5.0) mmol/L Chloride 97.0 L (98-107) mmol/L Carbon Dioxide 26 D (22-30) mmol/L BUN 36 H (9-20) mg/dL Creatinine 3.2 H (0.8-1.5) mg/dL Glucose 104 H (75-100) mg/dL Calcium 8.6 (8.4-10.2) mg/dL - Imaging and Cardiology EKG: report reviewed, image reviewed Echo: report reviewed (normal lv function severe lvh impaired relaxation pattern, mild mr and mild tr normal rvsp ) - Telemetry EKG Rhythm: Sinus Rhythm - EKG Sinus rhythms and dysrhythmias: sinus rhythm Chamber hypertrophy or enlargement: left ventricular hypertro - Allied health notes Allied health notes reviewed: nursing
--- NOTE | 2018-05-12 12:28 | Progress Note ---
Assessment and Plan Acute renal failure likely secondary ischemic ATN on possible underlying CKD with proteinuria: -Renal labs reviewed, SCr level was 3.2 today, yesterday's SCr level was 4.8, non-oliguria -Baseline SCr level unknown, but pt was apparently told 1 year ago at [place] that he had proteinuria -S/p first HD treatment on 05/11/18 -No acute indication for HD today -Assess need for HD on daily basis -Monitor for signs of renal recovery -Renal ultrasound showed no hydronephrosis, but suggestive of CKD -HIV and hepatitis panel negative -GN/Vasculitis labs pending -On Lasix 40 mg IV BID -Avoid NSAID's -Intake and output -Intake= 957 ml Output= 2900 ml ( Net= -1942 ml) -Renal plan d/w Dr Leach Acute diastolic congestive heart failure: NSTEMI: -Echo:LVEF- 50-55% -On Heparin drip -On Lasix 40 mg IV BID -As per Cardiology Acute hypoxic hypercapnic respiratory failure Elevated-Dimer -Extubated -On Heparin drip -As per pulmonary Hypertensive Urgency: -On anti-hypertensive agents -Adjust as needed Subjective Date of service: 05/12/18 Principal diagnosis: Acute hypoxemic hypercapnic Resp failure; Acute CHF; ELVIA; NSTEMI Interval history: Pt seen in ICU, denies shortness of breath, no acute distress. No family at bedside Objective - Vital Signs Vital signs: Vital Signs - 12hr 05/12/18 05/12/18 05/12/18 00:30 00:40 00:50 Temperature Pulse Rate 89 82 86 Pulse Rate [ Anterior Bilateral Throughout] Respiratory 15 15 13 Rate Respiratory Rate [Anterior Bilateral Throughout] Blood Pressure 153/78 157/84 147/71 O2 Sat by Pulse 95 95 95 Oximetry 05/12/18 05/12/18 05/12/18 01:00 01:10 01:20 Temperature Pulse Rate 70 76 59 L Pulse Rate [ Anterior Bilateral Throughout] Respiratory 24 24 23 Rate Respiratory Rate [Anterior Bilateral Throughout] Blood Pressure 131/59 131/59 138/66 O2 Sat by Pulse 93 95 93 Oximetry 05/12/18 05/12/18 05/12/18 01:30 01:40 01:50 Temperature Pulse Rate 85 69 70 Pulse Rate [ Anterior Bilateral Throughout] Respiratory 21 24 12 Rate Respiratory Rate [Anterior Bilateral Throughout] Blood Pressure 138/66 138/66 138/66 O2 Sat by Pulse 95 95 93 Oximetry 05/12/18 05/12/18 05/12/18 02:00 02:10 02:20 Temperature Pulse Rate 93 H 59 L 68 Pulse Rate [ Anterior Bilateral Throughout] Respiratory 22 22 22 Rate Respiratory Rate [Anterior Bilateral Throughout] Blood Pressure 138/66 138/66 138/66 O2 Sat by Pulse 94 93 94 Oximetry 05/12/18 05/12/18 05/12/18 02:30 02:40 02:50 Temperature Pulse Rate 73 62 83 Pulse Rate [ Anterior Bilateral Throughout] Respiratory 24 21 24 Rate Respiratory Rate [Anterior Bilateral Throughout] Blood Pressure 138/66 138/66 138/66 O2 Sat by Pulse 93 92 95 Oximetry 05/12/18 05/12/18 05/12/18 03:00 03:10 03:11 Temperature 98.3 F Pulse Rate 81 58 L Pulse Rate [ Anterior Bilateral Throughout] Respiratory 23 21 Rate Respiratory Rate [Anterior Bilateral Throughout] Blood Pressure 149/86 149/86 O2 Sat by Pulse 95 94 Oximetry 05/12/18 05/12/18 05/12/18 03:20 03:30 03:40 Temperature Pulse Rate 91 H 70 77 Pulse Rate [ Anterior Bilateral Throughout] Respiratory 21 24 25 H Rate Respiratory Rate [Anterior Bilateral Throughout] Blood Pressure 153/93 163/72 163/72 O2 Sat by Pulse 96 90 94 Oximetry 05/12/18 05/12/18 05/12/18 03:50 04:00 04:10 Temperature Pulse Rate 90 89 86 Pulse Rate [ Anterior Bilateral Throughout] Respiratory 23 25 H 27 H Rate Respiratory Rate [Anterior Bilateral Throughout] Blood Pressure 162/73 152/83 152/83 O2 Sat by Pulse 88 90 92 Oximetry 05/12/18 05/12/18 05/12/18 04:20 04:30 04:40 Temperature Pulse Rate 73 85 76 Pulse Rate [ Anterior Bilateral Throughout] Respiratory 23 24 20 Rate Respiratory Rate [Anterior Bilateral Throughout] Blood Pressure 160/82 154/73 152/83 O2 Sat by Pulse 92 91 93 Oximetry 05/12/18 05/12/18 05/12/18 04:50 05:00 05:10 Temperature Pulse Rate 82 70 80 Pulse Rate [ Anterior Bilateral Throughout] Respiratory 22 19 25 H Rate Respiratory Rate [Anterior Bilateral Throughout] Blood Pressure 165/98 172/87 172/87 O2 Sat by Pulse 95 92 95 Oximetry 05/12/18 05/12/18 05/12/18 05:20 05:30 05:40 Temperature Pulse Rate 84 86 92 H Pulse Rate [ Anterior Bilateral Throughout] Respiratory 17 18 16 Rate Respiratory Rate [Anterior Bilateral Throughout] Blood Pressure 183/95 178/94 172/87 O2 Sat by Pulse 96 93 96 Oximetry 05/12/18 05/12/18 05/12/18 05:50 06:00 06:10 Temperature Pulse Rate 86 93 H 80 Pulse Rate [ Anterior Bilateral Throughout] Respiratory 13 18 23 Rate Respiratory Rate [Anterior Bilateral Throughout] Blood Pressure 176/76 172/98 172/98 O2 Sat by Pulse 95 95 95 Oximetry 05/12/18 05/12/18 05/12/18 06:20 06:30 06:40 Temperature Pulse Rate 60 90 70 Pulse Rate [ Anterior Bilateral Throughout] Respiratory 19 18 18 Rate Respiratory Rate [Anterior Bilateral Throughout] Blood Pressure 180/93 180/93 173/98 O2 Sat by Pulse 96 92 96 Oximetry 05/12/18 05/12/18 05/12/18 06:45 06:50 07:00 Temperature Pulse Rate 81 57 L 71 Pulse Rate [ Anterior Bilateral Throughout] Respiratory 15 22 Rate Respiratory Rate [Anterior Bilateral Throughout] Blood Pressure 173/98 191/88 164/81 O2 Sat by Pulse 98 94 Oximetry 05/12/18 05/12/18 05/12/18 07:10 07:20 08:00 Temperature 97.9 F Pulse Rate 96 H 80 Pulse Rate [ 84 Anterior Bilateral Throughout] Respiratory 17 12 Rate Respiratory 16 Rate [Anterior Bilateral Throughout] Blood Pressure 164/81 151/85 O2 Sat by Pulse 99 99 Oximetry 05/12/18 05/12/18 08:12 12:00 Temperature 98.2 F Pulse Rate Pulse Rate [ 90 Anterior Bilateral Throughout] Respiratory Rate Respiratory 18 Rate [Anterior Bilateral Throughout] Blood Pressure O2 Sat by Pulse Oximetry - General Appearance General appearance: well-developed EENT: ATNC Neck: no JVD Respiratory: Present: Decreased Breath Sounds Cardiology: regular, S1S2, other (ACCESS: Right IJ Vas Catheter intact) Gastrointestinal: normoactive bowel sounds, no tenderness Integumentary: warm and dry Neurologic: alert and oriented x3 Musculoskeletal: other (trace edema to BLE) Psychiatric: mood/affect appropriate, cooperative - Lab 05/11/18 04:28 05/12/18 04:07 Most recent lab results Calcium 8.6 mg/dL (8.4-10.2) 05/12/18 04:07 Magnesium 2.40 mg/dL (1.7-2.3) H 05/10/18 02:07 Medications & Allergies - Medications Allergies/Adverse Reactions: Allergies No Known Allergies Allergy (Unverified 05/09/18 10:45) Home Medications: Home Medications Medication Instructions Recorded Confirmed Last Taken Type No Known Home Medications [No 05/09/18 05/09/18 Unknown History Reported Home Medications] Active Medications: Generic Name Dose Route Start Last Admin Trade Name Freq PRN Reason Stop Dose Admin Acetaminophen 650 mg 05/11/18 23:42 05/12/18 00:19 Tylenol PO 650 mg Q6H PRN Administration Pain, Mild (1-3) Albuterol 2.5 mg 05/09/18 21:14 05/11/18 16:58 Proventil IH 2.5 mg Q4HRT PRN Administration Shortness Of Breath Albuterol/Ipratropium 1 ampul 05/10/18 08:00 05/12/18 08:06 Duoneb *Not For Prn Use* IH 1 ampul QIDRT GLENDA Administration Alprazolam 0.25 mg 05/11/18 14:00 05/12/18 10:38 Xanax PO 0.25 mg Q12HR GLENDA Administration Lipase/Protease/Amylase 1 each 05/10/18 13:36 Pancrejalyn Paul 10,500 Unit FEEDTUBE PRN PRN For Clogged Feeding Tube Atorvastatin Calcium 80 mg 05/11/18 22:00 05/11/18 23:22 Lipitor PO 80 mg QHS GLENDA Administration Famotidine 20 mg 05/10/18 10:00 05/12/18 10:37 Pepcid IV 20 mg QDAY GLENDA Administration Fluoxetine HCl 40 mg 05/11/18 14:00 05/12/18 10:38 Prozac PO 40 mg QDAY GLENDA Administration Furosemide 40 mg 05/10/18 08:00 05/12/18 05:24 Lasix IV 40 mg 0600,1800 GLENDA Administration Hydralazine HCl 10 mg 05/12/18 10:23 Apresoline IV Q4H PRN SBP > 160 Hydralazine HCl 50 mg 05/12/18 14:00 Apresoline PO Q8HR GLENDA Piperacillin Sod/Tazobactam Sod 2.25 gm in 50 mls @ 100 mls/hr 05/10/18 14:00 05/12/18 05:24 Zosyn/Ns 2.25 Gm/50ml IV 100 mls/hr Q8HR GLENDA Administration Protocol Isosorbide Mononitrate 30 mg 05/12/18 13:00 Imdur PO QDAY GLENDA Metoprolol Tartrate 50 mg 05/12/18 12:08 Lopressor PO BID LGENDA Potassium Chloride 20 meq 05/10/18 22:00 05/11/18 23:23 Potassium Chloride PO 20 meq Q12H GLENDA Administration Simple Syrup 15 ml 05/10/18 13:36 Simple Syrup FEEDTUBE PRN PRN Hypoglycemia Simple Syrup 30 ml 05/10/18 13:36 Simple Syrup FEEDTUBE PRN PRN Hypoglycemia Sodium Bicarbonate 325 mg 05/10/18 13:36 Sodium Bicarbonate FEEDTUBE PRN PRN For Clogged Feeding Tube
--- NOTE | 2018-05-12 14:13 | Progress Note ---
Assessment and Plan Assessment and plan: Acute hypoxemic respiratory failure. Etiology secondary to acute heart failure and Non ST elevation [place]. Extubated and doing well Acute HFpEF. Echocardiogram reveals EF 50-55%. Etiology likely secondary to flash pulmonary edema from accelerated hypertension. Cardiology following. NSTEMI. Continue to trend cardiac isoenzymes and follow serial EKGs. Continue heparin drip. Acute renal failure. Etiology likely secondary to ischemic ATN on probable underlying CKD. Follow-up renal ultrasound, urine lytes and GN/vasculitis workup. Nephrology consulted. Monitor I's and O's and daily weights. Accelerated hypertension. Continue antihypertensive medications. Disposition. transfer to floor today History Interval history: This is a 57 year old male who presented to the hospital with a chief complaint of shortness of breath and chest pain that began on 05/09/18, approximately 2 hours prior to arriving to E.R. On evaluation, patient was found to be acute Hypoxic respiratory failure with oxygen levels in the 70's. Patient required intubation due to respiratory distress. Additionally, the Patient was found to have ARF and Acute heart failure precipitated by accelerated htn with BP-261/162 and NSTEMI. CXR revealed pulmonary venous congestion. Pertinent labs on admission revealed elevated D-dimer level of 1326, [place] [address], WBC level of 17.6, elevated troponin levels and elevated serum creatinine level of 3.9 on admission yesterday that cory to 4.2 today. Patient has only a reported history of Hypertension. Hospitalist Physical - Constitutional Vitals: Temp Pulse Resp BP Pulse Ox 98.2 F 59 L 20 171/99 97 05/12/18 12:00 05/12/18 12:20 05/12/18 12:20 05/12/18 12:20 05/12/18 12:20 General appearance: Present: mild distress, other (intubated) - EENT Eyes: Present: PERRL, EOM intact ENT: hearing intact, clear oral mucosa, dentition normal - Neck Neck: Present: supple, normal ROM - Respiratory Respiratory effort: normal Respiratory: bilateral: CTA - Cardiovascular Rhythm: regular Heart Sounds: Present: S1 & S2. Absent: gallop, rub - Extremities Extremities: no ischemia, No edema, Full ROM - Abdominal General gastrointestinal: soft, non-tender, non-distended, normal bowel sounds - Integumentary Integumentary: Present: clear, warm, dry - Neurologic Neurologic: CNII-XII intact, moves all extremities Results - Labs CBC & Chem 7: 05/11/18 04:28 05/12/18 04:07 Labs: Laboratory Last Values WBC 13.1 K/mm3 (4.5-11.0) H 05/11/18 04:28 RBC 4.12 M/mm3 (3.65-5.03) 05/11/18 04:28 Hgb 12.1 gm/dl (11.8-15.2) 05/11/18 04:28 Hct 36.9 % (35.5-45.6) 05/11/18 04:28 MCV 90 fl (84-94) 05/11/18 04:28 MCH 29 pg (28-32) 05/11/18 04:28 MCHC 33 % (32-34) 05/11/18 04:28 RDW 15.5 % (13.2-15.2) H 05/11/18 04:28 Plt Count 154 K/mm3 (140-440) 05/11/18 04:28 Lymph % (Auto) 8.1 % (13.4-35.0) L 05/11/18 04:28 [place] % (Auto) 9.2 % (0.0-7.3) H 05/11/18 04:28 Eos % (Auto) 0.0 % (0.0-4.3) 05/11/18 04:28 Baso % (Auto) 0.3 % (0.0-1.8) 05/11/18 04:28 Lymph # 1.1 K/mm3 (1.2-5.4) L 05/11/18 04:28 [place] # 1.2 K/mm3 (0.0-0.8) H 05/11/18 04:28 Eos # 0.0 K/mm3 (0.0-0.4) 05/11/18 04:28 Baso # 0.0 K/mm3 (0.0-0.1) 05/11/18 04:28 Seg Neutrophils % 82.4 % (40.0-70.0) H 05/11/18 04:28 Seg Neutrophils # 10.8 K/mm3 (1.8-7.7) H 05/11/18 04:28 PT 13.5 Sec. (12.2-14.9) 05/09/18 11:55 INR 0.99 (0.87-1.13) 05/09/18 11:55 APTT 21.2 Sec. (24.2-36.6) L 05/09/18 11:55 D-Dimer 1326.35 ng/mlDDU (0-234) H 05/09/18 10:09 Heparin Anti-Xa Level < 0.10 U.I./ml (0.3-0.7) L 05/12/18 06:43 POC ABG pH 7.393 (7.35-7.45) 05/10/18 17:21 POC ABG pCO2 32.4 (35-45) L 05/10/18 17:21 POC ABG pO2 82 (80-105) 05/10/18 17:21 POC ABG HCO3 19.7 05/10/18 17:21 POC ABG Total CO2 21 05/10/18 17:21 POC ABG O2 Sat 96 05/10/18 17:21 POC ABG Base Excess -5 05/10/18 17:21 FiO2 28 % 05/10/18 17:21 Sodium 138 mmol/L (137-145) 05/12/18 04:07 Potassium 3.9 mmol/L (3.6-5.0) 05/12/18 04:07 Chloride 97.0 mmol/L (98-107) L 05/12/18 04:07 Carbon Dioxide 26 mmol/L (22-30) D 05/12/18 04:07 Anion Gap 19 mmol/L 05/12/18 04:07 BUN 36 mg/dL (9-20) H 05/12/18 04:07 Creatinine 3.2 mg/dL (0.8-1.5) H 05/12/18 04:07 Estimated GFR 20 ml/min 05/12/18 04:07 BUN/Creatinine Ratio 11 % 05/12/18 04:07 Glucose 104 mg/dL (75-100) H 05/12/18 04:07 Lactic Acid 1.30 mmol/L (0.7-2.0) 05/10/18 16:08 Calcium 8.6 mg/dL (8.4-10.2) 05/12/18 04:07 Magnesium 2.40 mg/dL (1.7-2.3) H 05/10/18 02:07 Total Bilirubin 0.30 mg/dL (0.1-1.2) 05/09/18 10:09 AST 26 units/L (5-40) 05/09/18 10:09 ALT 18 units/L (7-56) 05/09/18 10:09 Alkaline Phosphatase 88 units/L (35-129) 05/09/18 10:09 Total Creatine Kinase 159 units/L (55-170) 05/09/18 15:36 CK-MB (CK-2) 9.3 ng/mL (0.0-4.0) H 05/09/18 15:36 CK-MB (CK-2) Rel Index 5.8 (0-4) H 05/09/18 15:36 Troponin T 0.246 ng/mL (0.00-0.029) H* 05/09/18 15:36 C-Reactive Protein 2.00 mg/dL (0.00-1.30) H 05/10/18 16:08 NT-Pro-B Natriuret Pep 72493 pg/mL (0-900) H 05/09/18 10:09 Total Protein 7.7 g/dL (6.3-8.2) 05/09/18 10:09 Albumin 4.0 g/dL (3.9-5) 05/09/18 10:09 Albumin/Globulin Ratio 1.1 % 05/09/18 10:09 Triglycerides 175 mg/dL (2-149) H 05/09/18 10:09 Cholesterol 276 mg/dL (50-199) H 05/09/18 10:09 LDL Cholesterol Direct 235 mg/dL (50-130) H 05/09/18 10:09 HDL Cholesterol 34 mg/dL (40-59) L 05/09/18 10:09 Cholesterol/HDL Ratio 8.11 % 05/09/18 10:09 TSH 1.110 mlU/mL (0.270-4.200) 05/10/18 02:07 Free T4 1.15 ng/dL (0.76-1.46) 05/10/18 02:07 Urine Color Yellow (Yellow) 05/09/18 10:33 Urine Turbidity Clear (Clear) 05/09/18 10:33 Urine pH 6.0 (5.0-7.0) 05/09/18 10:33 Ur Specific [place] 1.011 (1.003-1.030) 05/09/18 10:33 Urine Protein >2000 mg dl mg/dL (Negative) 05/09/18 10:33 Urine Glucose (UA) 50 mg/dL (Negative) 05/09/18 10:33 Urine Ketones Neg mg/dL (Negative) 05/09/18 10:33 Urine Blood Neg (Negative) 05/09/18 10:33 Urine Nitrite Neg (Negative) 05/09/18 10:33 Urine Bilirubin Neg (Negative) 05/09/18 10:33 Urine Urobilinogen < 2.0 mg/dL (<2.0) 05/09/18 10:33 Ur Leukocyte Esterase Neg (Negative) 05/09/18 10:33 Urine WBC (Auto) 2.0 /HPF (0.0-6.0) 05/09/18 10:33 Urine RBC (Auto) 3.0 /HPF (0.0-6.0) 05/09/18 10:33 Urine Bacteria (Auto) 1+ /HPF (Negative) 05/09/18 10:33 Urine Opiates Screen Presumptive negative 05/09/18 10:33 Urine Methadone Screen Presumptive negative 05/09/18 10:33 Ur Barbiturates Screen Presumptive negative 05/09/18 10:33 Ur Phencyclidine Scrn Presumptive negative 05/09/18 10:33 Ur Amphetamines Screen Presumptive negative 05/09/18 10:33 U Benzodiazepines Scrn Presumptive negative 05/09/18 10:33 Urine Cocaine Screen Presumptive negative 05/09/18 10:33 U Marijuana (THC) Screen Presumptive negative 05/09/18 10:33 Drugs of Abuse Note Disclamer 05/09/18 10:33 Hepatitis A IgM Ab Non-reactive (NonReactive) 05/10/18 13:22 Hep Bs Antigen Non-reactive (Negative) 05/10/18 13:22 Hep B Core IgM Ab Non-reactive (NonReactive) 05/10/18 13:22 Hepatitis C Antibody Non-reactive (NonReactive) 05/10/18 13:22 HIV 1&2 Antibody Rapid Non react (Non React) 05/10/18 13:22 HIV P24 Antigen Non react (Non React) 05/10/18 13:22 Nutrition/Malnutrition Assess - Dietary Evaluation Nutrition/Malnutrition Findings: Nutrition Notes Start: 05/10/18 09:35 Freq: Status: Active Protocol: Document 05/11/18 10:08 TW (Rec: 05/11/18 10:37 TW [id number]) Co-Sign 05/11/18 10:08 LP Nutrition Notes Need for Assessment generated from: MST Initial or Follow up Reassessment Current Diagnosis Acute Kidney Injury CKD(stage I-IV) COPD Hypertension Heart Failure Respiratory Failure Other Pertinent Diagnosis Dyspnea Current Diet CHO Consistent Labs/Tests BUN 67 Cr 4.8 Pertinent Medications Lasix, Propofol Height 5 ft 9 in Weight 97.6 kg [place] Body Weight (kg) 72.72 BMI 31.7 Weight Status Obese Subjective/Other Information Consult for MST risk. Pt reports having a good appetite and eating 100% of breakfast tray. Pt denies N/V, chewing/ swallowing difficulties, and any food allergies. Pt noted that he thinks he should be following a "low sodium diet". Percent of energy/protein needs met: 100%/100% Burn Absent Trauma Absent Food Allergy No Current % PO Good (75-100%) #1 Nutrition Diagnosis Inadequate oral intake As Evidenced by Signs and Symptoms diet advancement, pt eating 100% of breakfast tray Diagnosis Progress(for reassessment Improved documentation) Is patient on ventilator? No Is Patient Ambulatory and/or Out of Bed Yes REE-([facility]-ambulatory/OOB) [ 2315.794 NUTR.[id number]] Kcal/Kg value to use for calculation 18 Approximate Energy Requirements Using 1757 kcal/Kg Calculation Used for Recommendations Kcal/kg Additional Notes pro: 60-117g/day (0.6-1.2g/kg) fluid: 1mL/kcal Nutrition Intervention Change Diet Order: Renal Diet Nutrition Support: d/c Goal #1 Continue to meet at least 80% of kcal and pro needs Anticipated Discharge Needs: Renal diet Follow-Up By: 05/14/18 Additional Comments F/U PO intakes
[2018-05-12] MEDS: APRESOLINE PO SCH ×2 (14:27→21:43)
[2018-05-12] MEDS: IMDUR PO SCH (14:27)
--- NOTE | 2018-05-12 16:10 | Consultation ---
History of Present Illness - Reason for Consult Consult date: 05/12/18 Reason for consult: Mental Health Evaluation Requesting physician: PRIYA VIRGEN - Chief Complaint Chief complaint: "I need a referral to a psychiatrist" - History of Present Psychiatric Illness 57 y.o. white male who presented to the ER for chest pain. Psychiatry was consulted to see the patient for depression. Today the patient is calm and cooperative during the assessment. He stated that he has a hx of substance and alcohol abuse. He stated that he lost his medical license because of his addiction. He stated that he have been "clean " for 15 yrs and currently is seen at [facility] for his addiction. He stated that he do not have an outpatient psychiatrist and also would like information about therapist in his local area. He stated that he is committed to staying off substances. He denies SI/HI's and AVH's. He denies erratic sleep and a poor appetite. Medications and Allergies Allergies Allergy/AdvReac Type Severity Reaction Status Date / Time No Known Allergies Allergy Unverified 05/09/18 10:45 Home Medications Medication Instructions Recorded Confirmed Last Taken Type No Known Home Medications [No 05/09/18 05/09/18 Unknown History Reported Home Medications] Active Meds: Active Medications Acetaminophen (Tylenol) 650 mg PO Q6H PRN PRN Reason: Pain, Mild (1-3) Last Admin: 05/12/18 00:19 Dose: 650 mg Documented by: Albuterol (Proventil) 2.5 mg IH Q4HRT PRN PRN Reason: Shortness Of Breath Last Admin: 05/11/18 16:58 Dose: 2.5 mg Documented by: Albuterol/Ipratropium (Duoneb *Not For Prn Use*) 1 ampul IH QIDRT [facility] Last Admin: 05/12/18 15:08 Dose: 1 ampul Documented by: Lipase/Protease/Amylase (Carter Paul 10,500 Unit) 1 each FEEDTUBE PRN PRN PRN Reason: For Clogged Feeding Tube Atorvastatin Calcium (Lipitor) 80 mg PO QHS [facility] Last Admin: 05/11/18 23:22 Dose: 80 mg Documented by: Famotidine (Pepcid) 20 mg IV QDAY [facility] Last Admin: 05/12/18 10:37 Dose: 20 mg Documented by: Fluoxetine HCl (Prozac) 40 mg PO QDAY [facility] Last Admin: 05/12/18 10:38 Dose: 40 mg Documented by: Furosemide (Lasix) 40 mg IV 0600,1800 [facility] Last Admin: 05/12/18 05:24 Dose: 40 mg Documented by: Hydralazine HCl (Apresoline) 10 mg IV Q4H PRN PRN Reason: SBP > 160 Hydralazine HCl (Apresoline) 50 mg PO Q8HR [facility] Piperacillin Sod/Tazobactam Sod (Zosyn/Ns 2.25 Gm/50ml) 2.25 gm in 50 mls @ 100 mls/hr IV Q8HR [facility]; Protocol Last Admin: 05/12/18 05:24 Dose: 100 mls/hr Documented by: Isosorbide Mononitrate (Imdur) 30 mg PO QDAY [facility] Metoprolol Tartrate (Lopressor) 50 mg PO BID [facility] Potassium Chloride (Potassium Chloride) 20 meq PO Q12H [facility] Last Admin: 05/11/18 23:23 Dose: 20 meq Documented by: Simple Syrup (Simple Syrup) 15 ml FEEDTUBE PRN PRN PRN Reason: Hypoglycemia Simple Syrup (Simple Syrup) 30 ml FEEDTUBE PRN PRN PRN Reason: Hypoglycemia Sodium Bicarbonate (Sodium Bicarbonate) 325 mg FEEDTUBE PRN PRN PRN Reason: For Clogged Feeding Tube Past psychiatric history - Past Medical History Past Medical History: hypertension Past Surgical History: No surgical history - past Psychiatric treatment and history psychiatric treatment history: Hx of depression, alcohol abuse, and substance abuse. Denies a fam psy hx. - Social History Social history: Lives alone Mental Status Exam - Vital signs Last Vital Signs Temp 98.2 F 05/12/18 12:00 Pulse 61 05/12/18 16:00 Resp 18 05/12/18 16:00 BP 127/65 05/12/18 16:00 Pulse Ox 96 05/12/18 16:00 - Exam Narrative exam: MSE: Appearance: calm, cooperative Behavior: regular eye contact Speech: regular rate and tone Mood: "pretty good" Affect: congruent to mood Thought Process: logical Thought Content: denies SI/HI's and AVH's Motor Activity: ambulatory Cognition: A/O x3 Insight: appropriate Judgment: appropriate Results Result Diagrams: 05/11/18 04:28 05/12/18 04:07 Abnormal lab results 05/11/18 05/12/18 05/12/18 Range/Units 23:50 04:07 06:43 Heparin Anti-Xa Level 2.00 H < 0.10 L (0.3-0.7) U.I./ml Chloride 97.0 L (98-107) mmol/L BUN 36 H (9-20) mg/dL Creatinine 3.2 H (0.8-1.5) mg/dL Glucose 104 H (75-100) mg/dL All other labs normal. Assessment and Plan Assessment and plan: Impression: Hx of Depression and Alcohol/Substance abuse. Today the patent is calm and cooperative during the assessment. Recommendation/Plan: Continue Prozac 40 mg PO daily fro depression. Discussed possible suididality/medication induced candace with the patient reference Prozac. Will follow up with the patient in 24 hours, Dispo: IThe patient can follow up with [facility] for outpatient psy services when discharged. Will staff with Dr David Bueno.
[2018-05-13 04:52] LABS: Hemoglobin 12.7 gm/dl (11.8-15.2)
[2018-05-13] MEDS: ZOSYN/NS 2.25 GM/50ML 2.25 GM/50 ML BAG IV SCH ×3 (05:17→22:53)
[2018-05-13] MEDS: LASIX IV SCH ×2 (05:18→18:18)
[2018-05-13] MEDS: APRESOLINE PO SCH ×3 (05:18→22:53)
--- NOTE | 2018-05-13 08:00 | Progress Note ---
Assessment and Plan Acute renal failure likely secondary ischemic ATN on possible underlying CKD with proteinuria: -Labs pending today -Baseline SCr level unknown, but pt was apparently told 1 year ago at [place] that he had proteinuria -S/p first HD treatment on 05/11/18 -No acute indication for HD today at this time -Assess need for HD on daily basis -Monitor for signs of renal recovery -Renal ultrasound showed no hydronephrosis, but suggestive of CKD -HIV and hepatitis panel negative -GN/Vasculitis labs pending -On Lasix 40 mg IV BID -Check magnesium level daily -Avoid NSAID's -Intake and output -Intake= 795 ml Output= 2100 ml ( Net= -1304 ml) -Renal plan d/w Dr Leach Acute diastolic congestive heart failure: NSTEMI: -Echo:LVEF- 50-55% -Off Heparin drip -On Lasix 40 mg IV BID -As per Cardiology Acute hypoxic hypercapnic respiratory failure Elevated-Dimer -Extubated -Off Heparin drip -As per pulmonary Hypertensive Urgency: -On anti-hypertensive agents -Adjust as needed Subjective Date of service: 05/13/18 Principal diagnosis: Acute hypoxemic hypercapnic Resp failure; Acute CHF; ELVIA; NSTEMI Interval history: Pt seen in bed, transferred out of the ICU, now on medical floor. Pt denies shortness of breath, no family at bedside Objective - Vital Signs Vital signs: Vital Signs - 12hr 05/12/18 05/12/18 05/12/18 20:43 21:43 21:44 Temperature Pulse Rate 67 67 Pulse Rate [ 64 Anterior Bilateral Throughout] Respiratory Rate Respiratory 19 Rate [Anterior Bilateral Throughout] Blood Pressure 120/69 120/69 O2 Sat by Pulse Oximetry 05/12/18 05/12/18 05/13/18 22:00 23:33 04:28 Temperature 98.4 F 98.4 F Pulse Rate 79 65 Pulse Rate [ Anterior Bilateral Throughout] Respiratory 17 17 Rate Respiratory Rate [Anterior Bilateral Throughout] Blood Pressure 132/79 157/93 O2 Sat by Pulse 95 Oximetry 05/13/18 05/13/18 05/13/18 05:18 07:48 07:49 Temperature 98.3 F Pulse Rate 70 62 Pulse Rate [ Anterior Bilateral Throughout] Respiratory 20 Rate Respiratory Rate [Anterior Bilateral Throughout] Blood Pressure 157/93 149/83 O2 Sat by Pulse 98 Oximetry - General Appearance General appearance: well-developed EENT: ATNC Neck: no JVD Respiratory: Present: Decreased Breath Sounds Cardiology: regular, S1S2, other (ACCESS: Right IJ Vas Catheter intact) Gastrointestinal: normoactive bowel sounds, no tenderness Integumentary: warm and dry Neurologic: alert and oriented x3 Musculoskeletal: other (no edema to BLE) Psychiatric: mood/affect appropriate, cooperative - Lab 05/13/18 04:16 05/12/18 04:07 Most recent lab results Calcium 8.6 mg/dL (8.4-10.2) 05/12/18 04:07 Magnesium 2.40 mg/dL (1.7-2.3) H 05/10/18 02:07 Medications & Allergies - Medications Allergies/Adverse Reactions: Allergies No Known Allergies Allergy (Unverified 05/09/18 10:45) Home Medications: Home Medications Medication Instructions Recorded Confirmed Last Taken Type No Known Home Medications [No 05/09/18 05/09/18 Unknown History Reported Home Medications] Active Medications: Generic Name Dose Route Start Last Admin Trade Name Freq PRN Reason Stop Dose Admin Acetaminophen 650 mg 05/11/18 23:42 05/12/18 00:19 Tylenol PO 650 mg Q6H PRN Administration Pain, Mild (1-3) Albuterol 2.5 mg 05/09/18 21:14 05/11/18 16:58 Proventil IH 2.5 mg Q4HRT PRN Administration Shortness Of Breath Albuterol/Ipratropium 1 ampul 05/10/18 08:00 05/12/18 20:40 Duoneb *Not For Prn Use* IH 1 ampul QIDRT [facility] Administration Lipase/Protease/Amylase 1 each 05/10/18 13:[address] 10,500 Unit FEEDTUBE PRN PRN For Clogged Feeding Tube Atorvastatin Calcium 80 mg 05/11/18 22:00 05/12/18 21:44 Lipitor PO 80 mg QHS [facility] Administration Famotidine 20 mg 05/10/18 10:00 05/12/18 10:37 Pepcid IV 20 mg QDAY [facility] Administration Fluoxetine HCl 40 mg 05/11/18 14:00 05/12/18 10:38 Prozac PO 40 mg QDAY [facility] Administration Furosemide 40 mg 05/10/18 08:00 05/13/18 05:18 Lasix IV 40 mg 0600,1800 [facility] Administration Hydralazine HCl 10 mg 05/12/18 10:23 Apresoline IV Q4H PRN SBP > 160 Hydralazine HCl 50 mg 05/12/18 14:00 05/13/18 05:18 Apresoline PO 50 mg Q8HR [facility] Administration Piperacillin Sod/Tazobactam Sod 2.25 gm in 50 mls @ 100 mls/hr 05/10/18 14:00 05/13/18 05:17 Zosyn/Ns 2.25 Gm/50ml IV 100 mls/hr Q8HR [facility] Administration Protocol Isosorbide Mononitrate 30 mg 05/12/18 14:00 05/12/18 14:27 Imdur PO 30 mg QDAY [facility] Administration Metoprolol Tartrate 50 mg 05/12/18 14:00 05/12/18 21:44 Lopressor PO 50 mg BID [facility] Administration Potassium Chloride 20 meq 05/10/18 22:00 05/12/18 21:43 Potassium Chloride PO 20 meq Q12H [facility] Administration Simple Syrup 15 ml 05/10/18 13:36 Simple Syrup FEEDTUBE PRN PRN Hypoglycemia Simple Syrup 30 ml 05/10/18 13:36 Simple Syrup FEEDTUBE PRN PRN Hypoglycemia Sodium Bicarbonate 325 mg 05/10/18 13:36 Sodium Bicarbonate FEEDTUBE PRN PRN For Clogged Feeding Tube
[2018-05-13] MEDS: DUONEB *Not for PRN Use IH SCH ×4 (08:27→21:29)
[2018-05-13 09:03] LABS: Calcium 8.7 mg/dL (8.4-10.2)
[2018-05-13 09:33] LABS: Hemoglobin 13.3 gm/dl (11.8-15.2); Mean Corpuscular HGB Conc 32 % (32-34); Mean Corpuscular Volume 91 fl (84-94); Platelet Count 156 K/mm3 (140-440); Red Blood Count 4.52 M/mm3 (3.65-5.03); Red Cell Distribution Width 15.8 % (13.2-15.2)
[2018-05-13] MEDS: PROzac PO SCH (10:07)
[2018-05-13] MEDS: IMDUR PO SCH (10:07)
[2018-05-13] MEDS: LOPRESSOR PO SCH ×2 (10:07→22:52)
[2018-05-13] MEDS: PEPCID IV SCH (10:08)
[2018-05-13] MEDS: POTASSIUM CHLORIDE PO SCH ×2 (10:11→22:59)
--- NOTE | 2018-05-13 10:20 | Progress Note ---
Assessment and Plan Acute respiratory failure status post extubation Acute renal failure on hemodialysis Hypertension urgency Non-ST elevation KS type II Hyperlipidemia Recommend from cardiovascular point normal LV function and 48 hours since heparin associated patient's chest pain free continue aspirin increased beta suzan and hydralazine and Imdur. stress test in am Subjective Date of service: 05/13/18 Principal diagnosis: Acute hypoxemic hypercapnic Resp failure; Acute CHF; ELVIA; NSTEMI Interval history: no chest pain or sob Objective Vital Signs Temp Pulse Pulse Resp Resp BP Pulse Ox 05/13/18 10:07 149/83 05/13/18 08:37 63 18 05/13/18 08:27 66 18 05/13/18 07:49 62 20 149/83 98 05/13/18 07:48 98.3 F 05/13/18 05:18 70 157/93 05/13/18 04:28 98.4 F 65 17 157/93 95 05/12/18 23:33 98.4 F 17 132/79 05/12/18 22:00 79 05/12/18 21:44 67 120/69 05/12/18 21:43 67 120/69 05/12/18 20:43 64 19 05/12/18 19:28 97.9 F 62 17 120/69 98 05/12/18 16:40 64 10 L 132/79 96 05/12/18 16:30 66 12 132/79 95 05/12/18 16:20 64 14 117/67 94 05/12/18 16:10 52 L 18 116/65 98 05/12/18 16:00 97.8 F 61 18 127/65 96 05/12/18 15:50 60 15 127/65 98 05/12/18 15:40 62 14 129/72 96 05/12/18 15:30 64 11 L 129/72 98 05/12/18 15:20 60 9 L 144/87 99 05/12/18 15:10 63 10 L 144/87 99 05/12/18 15:09 96 H 20 05/12/18 15:00 65 23 144/87 98 05/12/18 14:50 65 19 150/82 99 05/12/18 14:40 69 16 163/98 99 05/12/18 14:30 73 11 L 163/98 96 05/12/18 14:20 67 21 158/89 98 05/12/18 14:10 66 24 158/89 100 05/12/18 14:00 65 23 158/89 98 05/12/18 13:50 69 14 153/88 99 05/12/18 13:40 70 16 184/104 98 05/12/18 13:30 69 21 184/104 94 05/12/18 13:20 70 13 183/108 97 05/12/18 13:10 79 16 176/113 97 05/12/18 13:00 90 15 176/113 95 05/12/18 12:50 86 15 186/103 97 05/12/18 12:40 86 16 190/113 97 05/12/18 12:30 86 13 171/99 97 05/12/18 12:20 59 L 20 171/99 97 05/12/18 12:10 70 22 187/105 96 05/12/18 12:00 98.2 F 84 94 H 17 18 187/105 94 05/12/18 11:50 64 24 175/108 97 05/12/18 11:40 59 L 21 191/95 97 05/12/18 11:30 82 16 191/95 95 05/12/18 11:20 85 16 183/89 98 05/12/18 11:10 92 H 18 180/94 98 05/12/18 11:00 95 H 21 180/94 94 05/12/18 10:50 94 H 14 175/93 97 05/12/18 10:40 91 H 14 171/81 96 05/12/18 10:30 80 20 171/81 92 - Physical Examination General: No Apparent Distress, Other (Extubated, alert) HEENT: Positive: PERRL, Normocephaly, Mucus Membranes Moist Neck: Positive: neck supple, trachea midline Cardiac: Positive: Reg Rate and Rhythm Lungs: Positive: clear to auscultation Neuro: Positive: Grossly Intact, Other (intubated) Abdomen: Positive: Soft, Active Bowel Sounds. Negative: Tender Skin: Negative: Rash, Wound Musculoskeletal: No Fluid Collection, No Pain, Normal Range of Motion Extremities: Present: normal - Labs and Meds CBC 05/13/18 05/13/18 Range/Units 04:16 08:23 WBC 11.6 H (4.5-11.0) K/mm3 RBC 4.52 (3.65-5.03) M/mm3 Hgb 12.7 13.3 (11.8-15.2) gm/dl Hct 39.0 41.0 (35.5-45.6) % Plt Count 149 156 (140-440) K/mm3 Comprehensive Metabolic Panel 05/13/18 Range/Units 08:23 Sodium 140 (137-145) mmol/L Potassium 4.0 (3.6-5.0) mmol/L Chloride 99.0 (98-107) mmol/L Carbon Dioxide 26 (22-30) mmol/L BUN 45 H (9-20) mg/dL Creatinine 3.7 H (0.8-1.5) mg/dL Glucose 88 (75-100) mg/dL Calcium 8.7 (8.4-10.2) mg/dL - Imaging and Cardiology EKG: report reviewed, image reviewed Echo: report reviewed (normal lv function severe lvh impaired relaxation pattern, mild mr and mild tr normal rvsp ) - Telemetry EKG Rhythm: Sinus Rhythm - EKG Sinus rhythms and dysrhythmias: sinus rhythm Chamber hypertrophy or enlargement: left ventricular hypertro - Allied health notes Allied health notes reviewed: nursing
--- NOTE | 2018-05-13 11:42 | Progress Note ---
Assessment and Plan Assessment and plan: Acute hypoxemic respiratory failure. Etiology secondary to acute heart failure and Non ST elevation SD. Extubated and doing well Acute HFpEF. Echocardiogram reveals EF 50-55%. Etiology likely secondary to flash pulmonary edema from accelerated hypertension. Cardiology following. Continue Lasix 40 mg IV twice a day NSTEMI. Cardiology following. Off heparin drip. Continue aspirin and beta blo cker. Acute renal failure. -Baseline SCr level unknown, but pt was apparently told 1 year ago at [place] that he had proteinuria -S/p first HD treatment on 05/11/18 -No acute indication for HD today at this time -Assess need for HD on daily basis -Monitor for signs of renal recovery -Renal ultrasound showed no hydronephrosis, but suggestive of CKD -HIV and hepatitis panel negative -GN/Vasculitis labs pending Accelerated hypertension. Continue antihypertensive medications. History Interval history: This is a 57 year old male who presented to the hospital with a chief complaint of shortness of breath and chest pain that began on 05/09/18, approximately 2 hours prior to arriving to [facility].. On evaluation, patient was found to be acute Hypoxic respiratory failure with oxygen levels in the 70's. Patient required intubation due to respiratory distress. Additionally, the Patient was found to have ARF and Acute heart failure precipitated by accelerated htn with BP-261/162 and NSTEMI. CXR revealed pulmonary venous congestion. Pertinent labs on admi ssion revealed elevated D-dimer level of 1326, [place] [address], WBC level of 17.6, elevated troponin levels and elevated serum creatinine level of 3.9 on admission. Patient has only a reported history of Hypertension. Hospitalist Physical - Constitutional Vitals: Temp Pulse Resp BP Pulse Ox 98.3 F 63 18 149/83 98 05/13/18 07:48 05/13/18 08:37 05/13/18 08:37 05/13/18 10:07 05/13/18 07:49 General appearance: Present: mild distress, other (intubated) - EENT Eyes: Present: PERRL, EOM intact ENT: hearing intact, clear oral mucosa, dentition normal - Neck Neck: Present: supple, normal ROM - Respiratory Respiratory effort: normal Respiratory: bilateral: CTA - Cardiovascular Rhythm: regular Heart Sounds: Present: S1 & S2. Absent: gallop, rub - Extremities Extremities: no ischemia, No edema, Full ROM - Abdominal General gastrointestinal: soft, non-tender, non-distended, normal bowel sounds - Integumentary Integumentary: Present: clear, warm, dry - Neurologic Neurologic: CNII-XII intact, moves all extremities Results - Labs CBC & Chem 7: 05/13/18 08:23 05/13/18 08:23 Labs: Laboratory Last Values WBC 11.6 K/mm3 (4.5-11.0) H 05/13/18 08:23 RBC 4.52 M/mm3 (3.65-5.03) 05/13/18 08:23 Hgb 13.3 gm/dl (11.8-15.2) 05/13/18 08:23 Hct 41.0 % (35.5-45.6) 05/13/18 08:23 MCV 91 fl (84-94) 05/13/18 08:23 MCH 29 pg (28-32) 05/13/18 08:23 MCHC 32 % (32-34) 05/13/18 08:23 RDW 15.8 % (13.2-15.2) H 05/13/18 08:23 Plt Count 156 K/mm3 (140-440) 05/13/18 08:23 Lymph % (Auto) 8.1 % (13.4-35.0) L 05/11/18 04:28 Sampson % (Auto) 9.2 % (0.0-7.3) H 05/11/18 04:28 Eos % (Auto) 0.0 % (0.0-4.3) 05/11/18 04:28 Baso % (Auto) 0.3 % (0.0-1.8) 05/11/18 04:28 Lymph # 1.1 K/mm3 (1.2-5.4) L 05/11/18 04:28 Sampson # 1.2 K/mm3 (0.0-0.8) H 05/11/18 04:28 Eos # 0.0 K/mm3 (0.0-0.4) 05/11/18 04:28 Baso # 0.0 K/mm3 (0.0-0.1) 05/11/18 04:28 Seg Neutrophils % 82.4 % (40.0-70.0) H 05/11/18 04:28 Seg Neutrophils # 10.8 K/mm3 (1.8-7.7) H 05/11/18 04:28 PT 13.5 Sec. (12.2-14.9) 05/09/18 11:55 INR 0.99 (0.87-1.13) 05/09/18 11:55 APTT 21.2 Sec. (24.2-36.6) L 05/09/18 11:55 D-Dimer 1326.35 ng/mlDDU (0-234) H 05/09/18 10:09 Heparin Anti-Xa Level < 0.10 U.I./ml (0.3-0.7) L 05/12/18 06:43 POC ABG pH 7.393 (7.35-7.45) 05/10/18 17:21 POC ABG pCO2 32.4 (35-45) L 05/10/18 17:21 POC ABG pO2 82 (80-105) 05/10/18 17:21 POC ABG HCO3 19.7 05/10/18 17:21 POC ABG Total CO2 21 05/10/18 17:21 POC ABG O2 Sat 96 05/10/18 17:21 POC ABG Base Excess -5 05/10/18 17:21 FiO2 28 % 05/10/18 17:21 Sodium 140 mmol/L (137-145) 05/13/18 08:23 Potassium 4.0 mmol/L (3.6-5.0) 05/13/18 08:23 Chloride 99.0 mmol/L (98-107) 05/13/18 08:23 Carbon Dioxide 26 mmol/L (22-30) 05/13/18 08:23 Anion Gap 19 mmol/L 05/13/18 08:23 BUN 45 mg/dL (9-20) H 05/13/18 08:23 Creatinine 3.7 mg/dL (0.8-1.5) H 05/13/18 08:23 Estimated GFR 17 ml/min 05/13/18 08:23 BUN/Creatinine Ratio 12 % 05/13/18 08:23 Glucose 88 mg/dL (75-100) 05/13/18 08:23 Lactic Acid 1.30 mmol/L (0.7-2.0) 05/10/18 16:08 Calcium 8.7 mg/dL (8.4-10.2) 05/13/18 08:23 Magnesium 2.20 mg/dL (1.7-2.3) 05/13/18 08:23 Total Bilirubin 0.30 mg/dL (0.1-1.2) 05/09/18 10:09 AST 26 units/L (5-40) 05/09/18 10:09 ALT 18 units/L (7-56) 05/09/18 10:09 Alkaline Phosphatase 88 units/L (35-129) 05/09/18 10:09 Total Creatine Kinase 159 units/L (55-170) 05/09/18 15:36 CK-MB (CK-2) 9.3 ng/mL (0.0-4.0) H 05/09/18 15:36 CK-MB (CK-2) Rel Index 5.8 (0-4) H 05/09/18 15:36 Troponin T 0.246 ng/mL (0.00-0.029) H* 05/09/18 15:36 C-Reactive Protein 2.00 mg/dL (0.00-1.30) H 05/10/18 16:08 NT-Pro-B Natriuret Pep 66176 pg/mL (0-900) H 05/09/18 10:09 Total Protein 7.7 g/dL (6.3-8.2) 05/09/18 10:09 Albumin 4.0 g/dL (3.9-5) 05/09/18 10:09 Albumin/Globulin Ratio 1.1 % 05/09/18 10:09 Triglycerides 175 mg/dL (2-149) H 05/09/18 10:09 Cholesterol 276 mg/dL (50-199) H 05/09/18 10:09 LDL Cholesterol Direct 235 mg/dL (50-130) H 05/09/18 10:09 HDL Cholesterol 34 mg/dL (40-59) L 05/09/18 10:09 Cholesterol/HDL Ratio 8.11 % 05/09/18 10:09 TSH 1.110 mlU/mL (0.270-4.200) 05/10/18 02:07 Free T4 1.15 ng/dL (0.76-1.46) 05/10/18 02:07 Urine Color Yellow (Yellow) 05/09/18 10:33 Urine Turbidity Clear (Clear) 05/09/18 10:33 Urine pH 6.0 (5.0-7.0) 05/09/18 10:33 Ur Specific [place] 1.011 (1.003-1.030) 05/09/18 10:33 Urine Protein >2000 mg dl mg/dL (Negative) 05/09/18 10:33 Urine Glucose (UA) 50 mg/dL (Negative) 05/09/18 10:33 Urine Ketones Neg mg/dL (Negative) 05/09/18 10:33 Urine Blood Neg (Negative) 05/09/18 10:33 Urine Nitrite Neg (Negative) 05/09/18 10:33 Urine Bilirubin Neg (Negative) 05/09/18 10:33 Urine Urobilinogen < 2.0 mg/dL (<2.0) 05/09/18 10:33 Ur Leukocyte Esterase Neg (Negative) 05/09/18 10:33 Urine WBC (Auto) 2.0 /HPF (0.0-6.0) 05/09/18 10:33 Urine RBC (Auto) 3.0 /HPF (0.0-6.0) 05/09/18 10:33 Urine Bacteria (Auto) 1+ /HPF (Negative) 05/09/18 10:33 Urine Opiates Screen Presumptive negative 05/09/18 10:33 Urine Methadone Screen Presumptive negative 05/09/18 10:33 Ur Barbiturates Screen Presumptive negative 05/09/18 10:33 Ur Phencyclidine Scrn Presumptive negative 05/09/18 10:33 Ur Amphetamines Screen Presumptive negative 05/09/18 10:33 U Benzodiazepines Scrn Presumptive negative 05/09/18 10:33 Urine Cocaine Screen Presumptive negative 05/09/18 10:33 U Marijuana (THC) Screen Presumptive negative 05/09/18 10:33 Drugs of Abuse Note Disclamer 05/09/18 10:33 Hepatitis A IgM Ab Non-reactive (NonReactive) 05/10/18 13:22 Hep Bs Antigen Non-reactive (Negative) 05/10/18 13:22 Hep B Core IgM Ab Non-reactive (NonReactive) 05/10/18 13:22 Hepatitis C Antibody Non-reactive (NonReactive) 05/10/18 13:22 HIV 1&2 Antibody Rapid Non react (Non React) 05/10/18 13:22 HIV P24 Antigen Non react (Non React) 05/10/18 13:22 Nutrition/Malnutrition Assess - Dietary Evaluation Nutrition/Malnutrition Findings: Nutrition Notes Start: 05/10/18 09:35 Freq: Status: Active Protocol: Document 05/11/18 10:08 TW (Rec: 05/11/18 10:37 TW [id number]) Co-Sign 05/11/18 10:08 LP Nutrition Notes Need for Assessment generated from: MST Initial or Follow up Reassessment Current Diagnosis Acute Kidney Injury CKD(stage I-IV) COPD Hypertension Heart Failure Respiratory Failure Other Pertinent Diagnosis Dyspnea Current Diet CHO Consistent Labs/Tests BUN 67 Cr 4.8 Pertinent Medications Lasix, Propofol Height 5 ft 9 in Weight 97.6 kg [place] Body Weight (kg) 72.72 BMI 31.7 Weight Status Obese Subjective/Other Information Consult for MST risk. Pt reports having a good appetite and eating 100% of breakfast tray. Pt denies N/V, chewing/ swallowing difficulties, and any food allergies. Pt noted that he thinks he should be following a "low sodium diet". Percent of energy/protein needs met: 100%/100% Burn Absent Trauma Absent Food Allergy No Current % PO Good (75-100%) #1 Nutrition Diagnosis Inadequate oral intake As Evidenced by Signs and Symptoms diet advancement, pt eating 100% of breakfast tray Diagnosis Progress(for reassessment Improved documentation) Is patient on ventilator? No Is Patient Ambulatory and/or Out of Bed Yes REE-([facility]-ambulatory/OOB) [ 2315.794 [id number]] Kcal/Kg value to use for calculation 18 Approximate Energy Requirements Using 1757 kcal/Kg Calculation Used for Recommendations Kcal/kg Additional Notes pro: 60-117g/day (0.6-1.2g/kg) fluid: 1mL/kcal Nutrition Intervention Change Diet Order: Renal Diet Nutrition Support: d/c Goal #1 Continue to meet at least 80% of kcal and pro needs Anticipated Discharge Needs: Renal diet Follow-Up By: 05/14/18 Additional Comments F/U PO intakes
[2018-05-13] MEDS ORDERED: AFLURIA QUAD 2018-2019 SYRINGE IM ONE (12:00)
--- NOTE | 2018-05-13 15:41 | Progress Note ---
Assessment and Plan Acute hypoxic-hypercapnic respiratory failure s/p MVS Acute heart failure Acute renal failure NSTEMI Hypertensive emergency Morbid obesity Tobacco abuse disorder -VTE prophylaxis -Stress ulcer prophylaxis -Diuresis -Accucheck with glycemic control. Target blood glucose of 140-180mg/dL -Bronchodilators per protocol -HD per renal service -Avoid nephrotoxic agents and adjust all medications for CrCL -CXR and ABG prn -Nicotine withdrawal precautions -Smoking cessation counselling -PT/OT -Antidepressants -Cardioprotective measures Discharge planning Subjective Date of service: 05/13/18 Principal diagnosis: Acute hypoxemic hypercapnic Resp failure; Acute CHF; ELVIA; N STEMI Interval history: Patient is seen today for: Acute hypoxic-hypercapnic respiratory failure; Acute heart failure; Acute renal failure; NSTEMI; Hypertensive emergency Seen and examined at bedside; 24hour events reviewed; nursing and respiratory care staff consulted; no adverse overnight events reported to me; resting peacefully in bed; doing well since extubation;s/p HD and tolerated it well; No N/V/F/C; Was seen by psychiatrist today Objective Vital Signs - 12hr 05/13/18 05/13/18 05/13/18 04:28 05:18 07:48 Temperature 98.4 F 98.3 F Pulse Rate 65 70 Pulse Rate [ Anterior Bilateral Throughout] Respiratory 17 Rate Respiratory Rate [Anterior Bilateral Throughout] Blood Pressure 157/93 157/93 O2 Sat by Pulse 95 Oximetry 05/13/18 05/13/18 05/13/18 07:49 08:27 08:37 Temperature Pulse Rate 62 Pulse Rate [ 66 63 Anterior Bilateral Throughout] Respiratory 20 Rate Respiratory 18 18 Rate [Anterior Bilateral Throughout] Blood Pressure 149/83 O2 Sat by Pulse 98 Oximetry 05/13/18 05/13/18 05/13/18 10:00 10:07 12:39 Temperature 98.0 F Pulse Rate 60 Pulse Rate [ Anterior Bilateral Throughout] Respiratory Rate Respiratory Rate [Anterior Bilateral Throughout] Blood Pressure 149/83 O2 Sat by Pulse Oximetry 05/13/18 05/13/18 05/13/18 12:40 13:11 13:23 Temperature Pulse Rate 61 Pulse Rate [ 61 63 Anterior Bilateral Throughout] Respiratory 18 Rate Respiratory 18 18 Rate [Anterior Bilateral Throughout] Blood Pressure 122/68 O2 Sat by Pulse 97 Oximetry 05/13/18 14:55 Temperature Pulse Rate 62 Pulse Rate [ Anterior Bilateral Throughout] Respiratory Rate Respiratory Rate [Anterior Bilateral Throughout] Blood Pressure 135/79 O2 Sat by Pulse Oximetry Constitutional: alert, appears uncomfortable, other (middle aged obese CM, normocephalic and atraumatic with mildly increased resp effort at rest) Eyes: non-icteric ENT: oropharynx moist Neck: supple, no lymphadenopathy, no JVD, other (no thyromegaly) Effort: mildly labored Ascultation: Bilateral: diminished breath sounds, rales Percussion: Bilateral: not dull Cardiovascular: regular rate and rhythm Gastrointestinal: normoactive bowel sounds, soft, non-tender, non-distended Integumentary: normal Extremities: no cyanosis, pink and warm, pulses normal, no ischemia or pet echiae, edema (trace) Neurologic: normal mental status, non-focal exam, pupils equal and round, CN II- XII normal, motor strength normal and Psychiatric: depressed CBC and BMP: 05/14/18 06:05 05/14/18 06:05 ABG, PT/INR, D-dimer: ABG POC ABG pH 7.393 (7.35-7.45) 05/10/18 17:21 POC ABG pCO2 32.4 (35-45) L 05/10/18 17:21 POC ABG pO2 82 (80-105) 05/10/18 17:21 POC ABG HCO3 19.7 05/10/18 17:21 POC ABG Total CO2 21 05/10/18 17:21 POC ABG O2 Sat 96 05/10/18 17:21 PT/INR, D-dimer PT 13.5 Sec. (12.2-14.9) 05/09/18 11:55 INR 0.99 (0.87-1.13) 05/09/18 11:55 D-Dimer 1326.35 ng/mlDDU (0-234) H 05/09/18 10:09 Abnormal lab findings: Abnormal Labs 05/09/18 05/09/18 05/09/18 10:09 10:09 10:09 WBC 17.6 H RBC 5.11 H Hct 46.0 H RDW 15.8 H Plt Count Lymph % (Auto) [place] % (Auto) Eos % (Auto) 5.4 H Lymph # [place] # 1.2 H Eos # 1.0 H Baso # 0.2 H Seg Neutrophils % Seg Neutrophils # 12.1 H APTT D-Dimer 1326.35 H Heparin Anti-Xa Level POC ABG pH POC ABG pCO2 POC ABG pO2 Chloride Carbon Dioxide BUN 50 H Creatinine 3.7 H Glucose 191 H Calcium 8.2 L Magnesium CK-MB (CK-2) CK-MB (CK-2) Rel Index Troponin T 0.235 H* C-Reactive Protein NT-Pro-B Natriuret Pep Triglycerides 175 H Cholesterol 276 H LDL Cholesterol Direct 235 H HDL Cholesterol 34 L 05/09/18 05/09/18 05/09/18 10:09 11:02 11:55 WBC RBC Hct RDW Plt Count Lymph % (Auto) [place] % (Auto) Eos % (Auto) Lymph # [place] # Eos # Baso # Seg Neutrophils % Seg Neutrophils # APTT 21.2 L D-Dimer Heparin Anti-Xa Level POC ABG pH 7.158 L POC ABG pCO2 73.6 H POC ABG pO2 274 H Chloride Carbon Dioxide BUN Creatinine Glucose Calcium Magnesium CK-MB (CK-2) 9.7 H CK-MB (CK-2) Rel Index 6.0 H Troponin T C-Reactive Protein NT-Pro-B Natriuret Pep 58638 H Triglycerides Cholesterol LDL Cholesterol Direct HDL Cholesterol 05/09/18 05/09/18 05/09/18 15:36 15:36 15:58 WBC RBC Hct RDW Plt Count Lymph % (Auto) [place] % (Auto) Eos % (Auto) Lymph # [place] # Eos # Baso # Seg Neutrophils % Seg Neutrophils # APTT D-Dimer Heparin Anti-Xa Level 2.00 H POC ABG pH POC ABG pCO2 POC ABG pO2 Chloride Carbon Dioxide BUN 53 H Creatinine 3.9 H Glucose Calcium 8.0 L Magnesium CK-MB (CK-2) 9.3 H CK-MB (CK-2) Rel Index 5.8 H Troponin T 0.246 H* C-Reactive Protein NT-Pro-B Natriuret Pep Triglycerides Cholesterol LDL Cholesterol Direct HDL Cholesterol 05/09/18 05/09/18 05/10/18 16:57 19:45 02:07 WBC RBC Hct RDW 15.3 H Plt Count 136 L Lymph % (Auto) [place] % (Auto) Eos % (Auto) Lymph # [place] # Eos # Baso # Seg Neutrophils % Seg Neutrophils # APTT D-Dimer Heparin Anti-Xa Level 1.49 H POC ABG pH 7.307 L POC ABG pCO2 47.5 H POC ABG pO2 119 H Chloride Carbon Dioxide BUN Creatinine Glucose Calcium Magnesium CK-MB (CK-2) CK-MB (CK-2) Rel Index Troponin T C-Reactive Protein NT-Pro-B Natriuret Pep Triglycerides Cholesterol LDL Cholesterol Direct HDL Cholesterol 05/10/18 05/10/18 05/10/18 02:07 03:25 10:37 WBC RBC Hct RDW Plt Count Lymph % (Auto) [place] % (Auto) Eos % (Auto) Lymph # [place] # Eos # Baso # Seg Neutrophils % Seg Neutrophils # APTT D-Dimer Heparin Anti-Xa Level POC ABG pH POC ABG pCO2 POC ABG pO2 65 L Chloride Carbon Dioxide 21 L BUN 56 H Creatinine 4.2 H Glucose Calcium Magnesium 2.40 H CK-MB (CK-2) CK-MB (CK-2) Rel Index Troponin T C-Reactive Protein 2.00 H NT-Pro-B Natriuret Pep Triglycerides Cholesterol LDL Cholesterol Direct HDL Cholesterol 05/10/18 05/10/18 05/10/18 11:34 16:08 17:21 WBC RBC Hct RDW Plt Count Lymph % (Auto) [place] % (Auto) Eos % (Auto) Lymph # [place] # Eos # Baso # Seg Neutrophils % Seg Neutrophils # APTT D-Dimer Heparin Anti-Xa Level POC ABG pH POC ABG pCO2 32.7 L 32.4 L POC ABG pO2 110 H Chloride Carbon Dioxide BUN Creatinine Glucose Calcium Magnesium CK-MB (CK-2) CK-MB (CK-2) Rel Index Troponin T C-Reactive Protein 2.00 H NT-Pro-B Natriuret Pep Triglycerides Cholesterol LDL Cholesterol Direct HDL Cholesterol 05/11/18 05/11/18 05/11/18 04:28 04:28 04:28 WBC 13.1 H RBC Hct RDW 15.5 H Plt Count Lymph % (Auto) 8.1 L [place] % (Auto) 9.2 H Eos % (Auto) Lymph # 1.1 L [place] # 1.2 H Eos # Baso # Seg Neutrophils % 82.4 H Seg Neutrophils # 10.8 H APTT D-Dimer Heparin Anti-Xa Level < 0.10 L POC ABG pH POC ABG pCO2 POC ABG pO2 Chloride Carbon Dioxide 19 L BUN 67 H Creatinine 4.8 H Glucose Calcium 8.3 L Magnesium CK-MB (CK-2) CK-MB (CK-2) Rel Index Troponin T C-Reactive Protein NT-Pro-B Natriuret Pep Triglycerides Cholesterol LDL Cholesterol Direct HDL Cholesterol 05/11/18 05/12/18 05/12/18 23:50 04:07 06:43 WBC RBC Hct RDW Plt Count Lymph % (Auto) [place] % (Auto) Eos % (Auto) Lymph # [place] # Eos # Baso # Seg Neutrophils % Seg Neutrophils # APTT D-Dimer Heparin Anti-Xa Level 2.00 H < 0.10 L POC ABG pH POC ABG pCO2 POC ABG pO2 Chloride 97.0 L Carbon Dioxide BUN 36 H Creatinine 3.2 H Glucose 104 H Calcium Magnesium CK-MB (CK-2) CK-MB (CK-2) Rel Index Troponin T C-Reactive Protein NT-Pro-B Natriuret Pep Triglycerides Cholesterol LDL Cholesterol Direct HDL Cholesterol 05/13/18 05/13/18 08:23 08:23 WBC 11.6 H RBC Hct RDW 15.8 H Plt Count Lymph % (Auto) [place] % (Auto) Eos % (Auto) Lymph # [place] # Eos # Baso # Seg Neutrophils % Seg Neutrophils # APTT D-Dimer Heparin Anti-Xa Level POC ABG pH POC ABG pCO2 POC ABG pO2 Chloride Carbon Dioxide BUN 45 H Creatinine 3.7 H Glucose Calcium Magnesium CK-MB (CK-2) CK-MB (CK-2) Rel Index Troponin T C-Reactive Protein NT-Pro-B Natriuret Pep Triglycerides Cholesterol LDL Cholesterol Direct HDL Cholesterol Allied health notes reviewed: nursing
[2018-05-14] MEDS: LASIX IV SCH ×2 (05:44→17:23)
[2018-05-14] MEDS: ZOSYN/NS 2.25 GM/50ML 2.25 GM/50 ML BAG IV SCH (05:44)
[2018-05-14] MEDS: APRESOLINE PO SCH ×3 (05:44→21:43)
[2018-05-14 05:59] LABS: Abnormal Protein Band 1 0.4 g/dL; Albumin 3.5 g/dL (3.8-4.8); Gamma Globulin 1.2 g/dL (0.8-1.7)
[2018-05-14 06:27] LABS: Hematocrit 38.6 % (35.5-45.6); Hemoglobin 12.8 gm/dl (11.8-15.2); Mean Corpuscular HGB Conc 33 % (32-34); Mean Corpuscular Volume 89 fl (84-94); Platelet Count 155 K/mm3 (140-440); Red Blood Count 4.34 M/mm3 (3.65-5.03); Red Cell Distribution Width 15.6 % (13.2-15.2)
[2018-05-14 06:47] LABS: Calcium 8.5 mg/dL (8.4-10.2)
[2018-05-14] MEDS: DUONEB *Not for PRN Use IH SCH ×4 (08:00→20:19)
[2018-05-14] MEDS ORDERED: LEXISCAN IV ONE (11:00)
--- NOTE | 2018-05-14 11:39 | Progress Note ---
Assessment and Plan Assessment and plan: Acute hypoxemic respiratory failure. Etiology secondary to acute heart failure and Non ST elevation SD. Extubated and doing well Acute HFpEF. Echocardiogram reveals EF 50-55%. Etiology likely secondary to flash pulmonary edema from accelerated hypertension. Cardiology following. Continue Lasix 40 mg IV twice a day NSTEMI. Cardiology following. Off heparin drip. Continue aspirin and beta blo cker. Lexiscan completed this morning. Await results. Acute renal failure. -Baseline SCr level unknown, but pt was apparently told 1 year ago at [place] that he had proteinuria -S/p first HD treatment on 05/11/18 -No acute indication for HD today at this time -Assess need for HD on daily basis -Monitor for signs of renal recovery -Renal ultrasound showed no hydronephrosis, but suggestive of CKD -HIV and hepatitis panel negative -GN/Vasculitis labs pending Accelerated hypertension. Continue antihypertensive medications. History Interval history: This is a 57 year old male who presented to the hospital with a chief complaint of shortness of breath and chest pain that began on 05/09/18, approximately 2 hours prior to arriving to [facility] On evaluation, patient was found to be acute Hypoxic respiratory failure with oxygen levels in the 70's. Patient required intubation due to respiratory distress. Additionally, the Patient was found to have ARF and Acute heart failure precipitated by accelerated htn with BP-261/162 and NSTEMI. CXR revealed pulmonary venous congestion. Pertinent labs on admission revealed elevated D-dimer level of 1326, [place] [address], WBC level of 17.6, elevated troponin levels and elevated serum creatinine level of 3.9 on admission. Patient has only a reported history of Hypertension. Hospitalist Physical - Constitutional Vitals: Temp Pulse Resp BP Pulse Ox 97.8 F 65 16 134/65 98 05/14/18 08:44 05/14/18 10:00 05/14/18 08:44 05/14/18 08:44 05/14/18 08:44 General appearance: Present: no acute distress, other (intubated) - EENT Eyes: Present: PERRL, EOM intact ENT: hearing intact, clear oral mucosa, dentition normal - Neck Neck: Present: supple, normal ROM - Respiratory Respiratory effort: normal Respiratory: bilateral: CTA - Cardiovascular Rhythm: regular Heart Sounds: Present: S1 & S2. Absent: gallop, rub - Extremities Extremities: no ischemia, No edema, Full ROM - Abdominal General gastrointestinal: soft, non-tender, non-distended, normal bowel sounds - Integumentary Integumentary: Present: clear, warm, dry - Neurologic Neurologic: CNII-XII intact, moves all extremities Results - Labs CBC & Chem 7: 05/14/18 06:05 05/14/18 06:05 Labs: Laboratory Last Values WBC 10.8 K/mm3 (4.5-11.0) 05/14/18 06:05 RBC 4.34 M/mm3 (3.65-5.03) 05/14/18 06:05 Hgb 12.8 gm/dl (11.8-15.2) 05/14/18 06:05 Hct 38.6 % (35.5-45.6) 05/14/18 06:05 MCV 89 fl (84-94) 05/14/18 06:05 MCH 30 pg (28-32) 05/14/18 06:05 MCHC 33 % (32-34) 05/14/18 06:05 RDW 15.6 % (13.2-15.2) H 05/14/18 06:05 Plt Count 155 K/mm3 (140-440) 05/14/18 06:05 Lymph % (Auto) 8.1 % (13.4-35.0) L 05/11/18 04:28 [place] % (Auto) 9.2 % (0.0-7.3) H 05/11/18 04:28 Eos % (Auto) 0.0 % (0.0-4.3) 05/11/18 04:28 Baso % (Auto) 0.3 % (0.0-1.8) 05/11/18 04:28 Lymph # 1.1 K/mm3 (1.2-5.4) L 05/11/18 04:28 [place] # 1.2 K/mm3 (0.0-0.8) H 05/11/18 04:28 Eos # 0.0 K/mm3 (0.0-0.4) 05/11/18 04:28 Baso # 0.0 K/mm3 (0.0-0.1) 05/11/18 04:28 Seg Neutrophils % 82.4 % (40.0-70.0) H 05/11/18 04:28 Seg Neutrophils # 10.8 K/mm3 (1.8-7.7) H 05/11/18 04:28 PT 13.5 Sec. (12.2-14.9) 05/09/18 11:55 INR 0.99 (0.87-1.13) 05/09/18 11:55 APTT 21.2 Sec. (24.2-36.6) L 05/09/18 11:55 D-Dimer 1326.35 ng/mlDDU (0-234) H 05/09/18 10:09 Heparin Anti-Xa Level < 0.10 U.I./ml (0.3-0.7) L 05/12/18 06:43 POC ABG pH 7.393 (7.35-7.45) 05/10/18 17:21 POC ABG pCO2 32.4 (35-45) L 05/10/18 17:21 POC ABG pO2 82 (80-105) 05/10/18 17:21 POC ABG HCO3 19.7 05/10/18 17:21 POC ABG Total CO2 21 05/10/18 17:21 POC ABG O2 Sat 96 05/10/18 17:21 POC ABG Base Excess -5 05/10/18 17:21 FiO2 28 % 05/10/18 17:21 Sodium 140 mmol/L (137-145) 05/14/18 06:05 Potassium 4.1 mmol/L (3.6-5.0) 05/14/18 06:05 Chloride 98.9 mmol/L (98-107) 05/14/18 06:05 Carbon Dioxide 27 mmol/L (22-30) 05/14/18 06:05 Anion Gap 18 mmol/L 05/14/18 06:05 BUN 53 mg/dL (9-20) H 05/14/18 06:05 Creatinine 4.2 mg/dL (0.8-1.5) H 05/14/18 06:05 Estimated GFR 15 ml/min 05/14/18 06:05 BUN/Creatinine Ratio 13 % 05/14/18 06:05 Glucose 89 mg/dL (75-100) 05/14/18 06:05 Lactic Acid 1.30 mmol/L (0.7-2.0) 05/10/18 16:08 Calcium 8.5 mg/dL (8.4-10.2) 05/14/18 06:05 Magnesium 2.30 mg/dL (1.7-2.3) 05/14/18 06:05 Total Bilirubin 0.30 mg/dL (0.1-1.2) 05/09/18 10:09 AST 26 units/L (5-40) 05/09/18 10:09 ALT 18 units/L (7-56) 05/09/18 10:09 Alkaline Phosphatase 88 units/L (35-129) 05/09/18 10:09 Total Creatine Kinase 159 units/L (55-170) 05/09/18 15:36 CK-MB (CK-2) 9.3 ng/mL (0.0-4.0) H 05/09/18 15:36 CK-MB (CK-2) Rel Index 5.8 (0-4) H 05/09/18 15:36 Troponin T 0.246 ng/mL (0.00-0.029) H* 05/09/18 15:36 C-Reactive Protein 2.00 mg/dL (0.00-1.30) H 05/10/18 16:08 NT-Pro-B Natriuret Pep 64369 pg/mL (0-900) H 05/09/18 10:09 Serum Total Protein 6.4 g/dL (6.1-8.1) 05/10/18 13:22 Total Protein 7.7 g/dL (6.3-8.2) 05/09/18 10:09 Albumin 3.5 g/dL (3.8-4.8) L 05/10/18 13:22 Albumin/Globulin Ratio 1.1 % 05/09/18 10:09 Aqyqk-3-Drckiascs 0.4 g/dL (0.2-0.3) H 05/10/18 13:22 Zsrrp-3-Qpiroburn 0.6 g/dL (0.5-0.9) 05/10/18 13:22 Beta Globulins 0.3 g/dL (0.2-0.5) 05/10/18 13:22 Gamma Globulins 1.2 g/dL (0.8-1.7) 05/10/18 13:22 Abnorm Protein Band 1 0.4 g/dL H 05/10/18 13:22 Abnorm Protein Band 2 see below 05/10/18 13:22 PEP Interpretation see below H 05/10/18 13:22 Triglycerides 175 mg/dL (2-149) H 05/09/18 10:09 Cholesterol 276 mg/dL (50-199) H 05/09/18 10:09 LDL Cholesterol Direct 235 mg/dL (50-130) H 05/09/18 10:09 HDL Cholesterol 34 mg/dL (40-59) L 05/09/18 10:09 Cholesterol/HDL Ratio 8.11 % 05/09/18 10:09 TSH 1.110 mlU/mL (0.270-4.200) 05/10/18 02:07 Free T4 1.15 ng/dL (0.76-1.46) 05/10/18 02:07 Urine Color Yellow (Yellow) 05/09/18 10:33 Urine Turbidity Clear (Clear) 05/09/18 10:33 Urine pH 6.0 (5.0-7.0) 05/09/18 10:33 Ur Specific [place] 1.011 (1.003-1.030) 05/09/18 10:33 Urine Protein >2000 mg dl mg/dL (Negative) 05/09/18 10:33 Urine Glucose (UA) 50 mg/dL (Negative) 05/09/18 10:33 Urine Ketones Neg mg/dL (Negative) 05/09/18 10:33 Urine Blood Neg (Negative) 05/09/18 10:33 Urine Nitrite Neg (Negative) 05/09/18 10:33 Urine Bilirubin Neg (Negative) 05/09/18 10:33 Urine Urobilinogen < 2.0 mg/dL (<2.0) 05/09/18 10:33 Ur Leukocyte Esterase Neg (Negative) 05/09/18 10:33 Urine WBC (Auto) 2.0 /HPF (0.0-6.0) 05/09/18 10:33 Urine RBC (Auto) 3.0 /HPF (0.0-6.0) 05/09/18 10:33 Urine Bacteria (Auto) 1+ /HPF (Negative) 05/09/18 10:33 Urine Opiates Screen Presumptive negative 05/09/18 10:33 Urine Methadone Screen Presumptive negative 05/09/18 10:33 Ur Barbiturates Screen Presumptive negative 05/09/18 10:33 Ur Phencyclidine Scrn Presumptive negative 05/09/18 10:33 Ur Amphetamines Screen Presumptive negative 05/09/18 10:33 U Benzodiazepines Scrn Presumptive negative 05/09/18 10:33 Urine Cocaine Screen Presumptive negative 05/09/18 10:33 U Marijuana (THC) Screen Presumptive negative 05/09/18 10:33 Drugs of Abuse Note Disclamer 05/09/18 10:33 Hepatitis A IgM Ab Non-reactive (NonReactive) 05/10/18 13:22 Hep Bs Antigen Non-reactive (Negative) 05/10/18 13:22 Hep B Core IgM Ab Non-reactive (NonReactive) 05/10/18 13:22 Hepatitis C Antibody Non-reactive (NonReactive) 05/10/18 13:22 HIV 1&2 Antibody Rapid Non react (Non React) 05/10/18 13:22 HIV P24 Antigen Non react (Non React) 05/10/18 13:22 Nutrition/Malnutrition Assess - Dietary Evaluation Nutrition/Malnutrition Findings: Nutrition Notes Start: 05/10/18 09:35 Freq: Status: Active Protocol: Document 05/11/18 10:08 TW (Rec: 05/11/18 10:37 TW [id number]) Co-Sign 05/11/18 10:08 LP Nutrition Notes Need for Assessment generated from: MST Initial or Follow up Reassessment Current Diagnosis Acute Kidney Injury CKD(stage I-IV) COPD Hypertension Heart Failure Respiratory Failure Other Pertinent Diagnosis Dyspnea Current Diet CHO Consistent Labs/Tests BUN 67 Cr 4.8 Pertinent Medications Lasix, Propofol Height 5 ft 9 in Weight 97.6 kg [place] Body Weight (kg) 72.72 BMI 31.7 Weight Status Obese Subjective/Other Information Consult for MST risk. Pt reports having a good appetite and eating 100% of breakfast tray. Pt denies N/V, chewing/ swallowing difficulties, and any food allergies. Pt noted that he thinks he should be following a "low sodium diet". Percent of energy/protein needs met: 100%/100% Burn Absent Trauma Absent Food Allergy No Current % PO Good (75-100%) #1 Nutrition Diagnosis Inadequate oral intake As Evidenced by Signs and Symptoms diet advancement, pt eating 100% of breakfast tray Diagnosis Progress(for reassessment Improved documentation) Is patient on ventilator? No Is Patient Ambulatory and/or Out of Bed Yes REE-([place]. Jeor-ambulatory/OOB) [ 2315.794 [id number]] Kcal/Kg value to use for calculation 18 Approximate Energy Requirements Using 1757 kcal/Kg Calculation Used for Recommendations Kcal/kg Additional Notes pro: 60-117g/day (0.6-1.2g/kg) fluid: 1mL/kcal Nutrition Intervention Change Diet Order: Renal Diet Nutrition Support: d/c Goal #1 Continue to meet at least 80% of kcal and pro needs Anticipated Discharge Needs: Renal diet Follow-Up By: 05/14/18 Additional Comments F/U PO intakes
[2018-05-14] MEDS: IMDUR PO SCH (11:51)
[2018-05-14] MEDS: POTASSIUM CHLORIDE PO SCH ×2 (11:51→21:44)
[2018-05-14] MEDS: LOPRESSOR PO SCH ×2 (11:51→21:44)
[2018-05-14] MEDS: PROzac PO SCH (11:51)
[2018-05-14] MEDS: PEPCID PO SCH (11:52)
--- NOTE | 2018-05-14 12:01 | Progress Note ---
Assessment and Plan Acute renal failure likely secondary ischemic ATN on possible underlying CKD with proteinuria: -S/p first HD treatment on 05/11/18 -no oliguric, No acute indication for HD today at this time, will check creatinine clearance and order CXR today -Assess need for HD on daily basis -HIV and hepatitis panel negative -GN/Vasculitis labs pending -On Lasix 40 mg IV BID -Avoid NSAID's -Intake and output Acute diastolic congestive heart failure: NSTEMI: -Echo:LVEF- 50-55% -Off Heparin drip -On Lasix 40 mg IV BID -As per Cardiology Acute hypoxic hypercapnic respiratory failure Elevated-Dimer -Extubated -Off Heparin drip -As per pulmonary Hypertensive Urgency: -On anti-hypertensive agents -Adjust as needed Subjective Date of service: 05/14/18 Principal diagnosis: Acute hypoxemic hypercapnic Resp failure; Acute CHF; ELVIA; NSTEMI Interval history: comfortable, denies acute issues Objective - Vital Signs Vital signs: Vital Signs - 12hr 05/14/18 05/14/18 05/14/18 05:43 05:44 08:44 Temperature 98.6 F 97.8 F Pulse Rate 68 68 57 L Respiratory 17 16 Rate Blood Pressure 148/84 148/84 134/65 O2 Sat by Pulse 94 98 Oximetry 05/14/18 10:00 Temperature Pulse Rate 65 Respiratory Rate Blood Pressure O2 Sat by Pulse Oximetry - General Appearance General appearance: well-developed, well-nourished, appears stated age EENT: ATNC, PERRL, mucous membranes moist Neck: no JVD, no carotid bruit Respiratory: Present: Clear to Ascultation. Absent: Rales, [place] Cardiology: regular, S1S2 Gastrointestinal: normoactive bowel sounds Integumentary: no rash, warm and dry Neurologic: no focal deficit, no asterixis, alert and oriented x3 Musculoskeletal: other (no edema in BLE) Psychiatric: mood/affect appropriate, cooperative - Lab 05/14/18 06:05 05/14/18 06:05 Most recent lab results Calcium 8.5 mg/dL (8.4-10.2) 05/14/18 06:05 Magnesium 2.30 mg/dL (1.7-2.3) 05/14/18 06:05 Medications & Allergies - Medications Allergies/Adverse Reactions: Allergies No Known Allergies Allergy (Unverified 05/09/18 10:45) Home Medications: Home Medications Medication Instructions Recorded Confirmed Last Taken Type No Known Home Medications [No 05/09/18 05/09/18 Unknown History Reported Home Medications] Active Medications: Generic Name Dose Route Start Last Admin Trade Name Freq PRN Reason Stop Dose Admin Acetaminophen 650 mg 05/11/18 23:42 05/12/18 00:19 Tylenol PO 650 mg Q6H PRN Administration Pain, Mild (1-3) Albuterol 2.5 mg 05/09/18 21:14 05/11/18 16:58 Proventil IH 2.5 mg Q4HRT PRN Administration Shortness Of Breath Albuterol/Ipratropium 1 ampul 05/10/18 08:00 05/14/18 08:00 Duoneb *Not For Prn Use* IH 1 ampul QIDRT GLENDA Administration Atorvastatin Calcium 80 mg 05/11/18 22:00 05/13/18 22:52 Lipitor PO 80 mg QHS GLENDA Administration Famotidine 20 mg 05/14/18 12:00 05/14/18 11:52 Pepcid PO 20 mg DAILY GLENDA Administration Fluoxetine HCl 40 mg 05/11/18 14:00 05/14/18 11:51 Prozac PO 40 mg QDAY GLENDA Administration Furosemide 40 mg 05/10/18 08:00 05/14/18 05:44 Lasix IV 40 mg 0600,1800 GLENDA Administration Hydralazine HCl 10 mg 05/12/18 10:23 Apresoline IV Q4H PRN SBP > 160 Hydralazine HCl 100 mg 05/13/18 10:19 05/14/18 05:44 Apresoline PO 100 mg Q8HR GLENDA Administration Isosorbide Mononitrate 30 mg 05/12/18 14:00 05/14/18 11:51 Imdur PO 30 mg QDAY GLENDA Administration Metoprolol Tartrate 50 mg 05/12/18 14:00 05/14/18 11:51 Lopressor PO 50 mg BID GLENDA Administration Potassium Chloride 20 meq 05/10/18 22:00 05/14/18 11:51 Potassium Chloride PO 20 meq Q12H GLENDA Administration
--- NOTE | 2018-05-14 12:43 | XRay Report ---
AP CHEST: HISTORY: Short of breath The endotracheal tube and nasogastric tube have been removed. Mild cardiomegaly is stable. Pulmonary venous congestion and small pleural effusions have essentially resolved since 05/10/18. The lungs are clear. A right IJ catheter terminates at the cavoatrial junction. IMPRESSION: Mild cardiomegaly. Lungs clear. Volume overload has resolved since the exam 4 days ago.
--- NOTE | 2018-05-14 14:01 | Treadmill Report ---
NUCLEAR PERFUSION SCAN PROTOCOL: The patient was brought to the stress lab in a postabsorptive state, given 12 mCi of technetium 99m at rest. The patient underwent rest imaging. The patient underwent Lexiscan stress test per standard protocol. At peak stress, the patient was given 26 mCi of technetium 99m. Shortly afterwards, the patient underwent stress imaging. Raw imaging reveals significant GI artifact and mild motion artifact. SPECT imaging examined carefully in horizontal long axis, vertical long axis, short axis views. Technically difficult study due to the aforementioned raw imaging difficulties; however, grossly there is no evidence of significant fixed or reversible perfusion defect suggestive of prior infarction or ischemia. Gated wall motion reveals a moderate severe global left ventricular hypokinesis with a calculated ejection fraction 34%. No TID. CONCLUSIONS: 1. Technically difficult study, but grossly no evidence of significant ischemia or prior infarction. 2. Severe global left ventricular hypokinesis with a calculated ejection fraction of 34%. 3. Lexiscan stress test reported separately. JOB# [id number] JULIO C/KEVIN
--- NOTE | 2018-05-14 16:14 | Progress Note ---
Assessment and Plan S/p lexiscan MPI stress test this AM which was negative for ischemia, EF 34%. EF 50-55% per echo. cont present cardiac management. The patient has been seen in conjunction with Dr. Thad Stock who agrees with the assessment and plan of care. - Patient Problems (1) Acute respiratory failure Current Visit: Yes Status: Resolved (2) Acute heart failure with preserved ejection fraction Current Visit: Yes Status: Acute (3) Acute renal failure Current Visit: Yes Status: Acute Qualifiers: Acute renal failure type: unspecified Qualified Code(s): N17.9 - Acute kidney failure, unspecified (4) NSTEMI (non-ST elevated myocardial infarction) Current Visit: Yes Status: Acute (5) Leukocytosis Current Visit: Yes Status: Acute (6) Elevated d-dimer Current Visit: Yes Status: Acute (7) History of hypertension Current Visit: Yes Status: Chronic (8) Hyperlipidemia Current Visit: Yes Status: Chronic (9) Tobacco use Current Visit: Yes Status: Chronic Subjective Date of service: 05/14/18 Principal diagnosis: Acute hypoxemic hypercapnic Resp failure; Acute CHF; ELVIA; NSTEMI Interval history: pt for stress test. Objective Last Vital Signs Temp 97.8 F 05/14/18 08:44 Pulse 69 05/14/18 12:32 Resp 18 05/14/18 12:32 BP 100/64 05/14/18 10:51 Pulse Ox 98 05/14/18 08:44 - Physical Examination General: No Apparent Distress HEENT: Positive: PERRL, Normocephaly, Mucus Membranes Moist Neck: Positive: neck supple, trachea midline Cardiac: Positive: Reg Rate and Rhythm, S1/S2 Lungs: Positive: clear to auscultation Neuro: Positive: Grossly Intact Abdomen: Positive: Soft, Active Bowel Sounds. Negative: Tender Skin: Negative: Rash, Wound Musculoskeletal: No Fluid Collection, No Pain, Normal Range of Motion Extremities: Present: normal - Labs and Meds CBC 05/14/18 Range/Units 06:05 WBC 10.8 (4.5-11.0) K/mm3 RBC 4.34 (3.65-5.03) M/mm3 Hgb 12.8 (11.8-15.2) gm/dl Hct 38.6 (35.5-45.6) % Plt Count 155 (140-440) K/mm3 Comprehensive Metabolic Panel 05/10/18 05/14/18 Range/Units 13:22 06:05 Sodium 140 (137-145) mmol/L Potassium 4.1 (3.6-5.0) mmol/L Chloride 98.9 (98-107) mmol/L Carbon Dioxide 27 (22-30) mmol/L BUN 53 H (9-20) mg/dL Creatinine 4.2 H (0.8-1.5) mg/dL Glucose 89 (75-100) mg/dL Calcium 8.5 (8.4-10.2) mg/dL Albumin 3.5 L (3.8-4.8) g/dL - Imaging and Cardiology EKG: report reviewed, image reviewed Echo: report reviewed (normal lv function severe lvh impaired relaxation pat tern, mild mr and mild tr normal rvsp ) - Telemetry EKG Rhythm: Sinus Rhythm - EKG Sinus rhythms and dysrhythmias: sinus rhythm Chamber hypertrophy or enlargement: left ventricular hypertro - Allied health notes Allied health notes reviewed: nursing
[2018-05-14] MEDS: PEPCID IV SCH (16:37)
--- NOTE | 2018-05-14 21:12 | Progress Note ---
Assessment and Plan Patient awake.Patient resting on room air. No complaint of chest pain,shortness of breath or cough at this time.O2 saturation 94% on room air. - Patient Problems (1) Acute respiratory failure Current Visit: Yes Status: Resolved Plan to address problem: Improved. Patient resting on room air. No respiratory distress. O2 saturation 94% on room air. (2) Acute heart failure with preserved ejection fraction Current Visit: Yes Status: Acute Plan to address problem: Management as per cardiology. (3) NSTEMI (non-ST elevated myocardial infarction) Current Visit: Yes Status: Acute Plan to address problem: Management as per cardiology. (4) Tobacco use Current Visit: Yes Status: Chronic Plan to address problem: Counseled to stop smoking. Recommend PFTs as out patient. Subjective Date of service: 05/14/18 Principal diagnosis: Acute hypoxemic hypercapnic Resp failure; Acute CHF; ELVIA; NSTEMI Interval history: Patient awake.Patient resting on room air. No complaint of chest pain,shortness of breath or cough at this time.O2 saturation 94% on room air. Objective Vital Signs - 12hr 05/14/18 05/14/18 05/14/18 10:00 10:30 10:33 Temperature Pulse Rate 65 Pulse Rate [ Anterior Bilateral Throughout] Respiratory Rate Respiratory Rate [Anterior Bilateral Throughout] Blood Pressure 145/78 142/81 O2 Sat by Pulse Oximetry 05/14/18 05/14/18 05/14/18 10:44 10:46 10:48 Temperature Pulse Rate Pulse Rate [ Anterior Bilateral Throughout] Respiratory Rate Respiratory Rate [Anterior Bilateral Throughout] Blood Pressure 139/78 147/70 101/45 O2 Sat by Pulse Oximetry 05/14/18 05/14/18 05/14/18 10:51 12:22 12:32 Temperature Pulse Rate Pulse Rate [ 71 69 Anterior Bilateral Throughout] Respiratory Rate Respiratory 18 18 Rate [Anterior Bilateral Throughout] Blood Pressure 100/64 O2 Sat by Pulse Oximetry 05/14/18 05/14/18 05/14/18 17:11 17:21 17:36 Temperature 98.7 F Pulse Rate 66 Pulse Rate [ 60 61 Anterior Bilateral Throughout] Respiratory 16 Rate Respiratory 18 18 Rate [Anterior Bilateral Throughout] Blood Pressure 144/74 O2 Sat by Pulse 97 Oximetry 05/14/18 05/14/18 19:47 20:21 Temperature 97.7 F Pulse Rate 64 Pulse Rate [ 69 Anterior Bilateral Throughout] Respiratory 16 Rate Respiratory 18 Rate [Anterior Bilateral Throughout] Blood Pressure 140/74 O2 Sat by Pulse 94 Oximetry Constitutional: no acute distress, alert Eyes: non-icteric ENT: oropharynx moist Neck: supple, no lymphadenopathy, no JVD, other (no thyromegaly) Effort: mildly labored Ascultation: Bilateral: diminished breath sounds Percussion: Bilateral: not dull Cardiovascular: regular rate and rhythm Gastrointestinal: normoactive bowel sounds, soft, non-tender, non-distended Integumentary: normal Extremities: no cyanosis, pink and warm, pulses normal, no ischemia or petechiae, edema (trace) Neurologic: normal mental status, non-focal exam, pupils equal and round, CN II- XII normal, motor strength normal and Psychiatric: depressed CBC and BMP: 05/14/18 06:05 05/14/18 06:05 ABG, PT/INR, D-dimer: ABG POC ABG pH 7.393 (7.35-7.45) 05/10/18 17:21 POC ABG pCO2 32.4 (35-45) L 05/10/18 17:21 POC ABG pO2 82 (80-105) 05/10/18 17:21 POC ABG HCO3 19.7 05/10/18 17:21 POC ABG Total CO2 21 05/10/18 17:21 POC ABG O2 Sat 96 05/10/18 17:21 PT/INR, D-dimer PT 13.5 Sec. (12.2-14.9) 05/09/18 11:55 INR 0.99 (0.87-1.13) 05/09/18 11:55 D-Dimer 1326.35 ng/mlDDU (0-234) H 05/09/18 10:09 Abnormal lab findings: Abnormal Labs 05/09/18 05/09/18 05/09/18 10:09 10:09 10:09 WBC 17.6 H RBC 5.11 H Hct 46.0 H RDW 15.8 H Plt Count Lymph % (Auto) [place] % (Auto) Eos % (Auto) 5.4 H Lymph # [place] # 1.2 H Eos # 1.0 H Baso # 0.2 H Seg Neutrophils % Seg Neutrophils # 12.1 H APTT D-Dimer 1326.35 H Heparin Anti-Xa Level POC ABG pH POC ABG pCO2 POC ABG pO2 Chloride Carbon Dioxide BUN 50 H Creatinine 3.7 H Glucose 191 H Calcium 8.2 L Magnesium CK-MB (CK-2) CK-MB (CK-2) Rel Index Troponin T 0.235 H* C-Reactive Protein NT-Pro-B Natriuret Pep Albumin Vdxlg-5-Slpyknqxl Abnorm Protein Band 1 PEP Interpretation Triglycerides 175 H Cholesterol 276 H LDL Cholesterol Direct 235 H HDL Cholesterol 34 L 05/09/18 05/09/18 05/09/18 10:09 11:02 11:55 WBC RBC Hct RDW Plt Count Lymph % (Auto) [place] % (Auto) Eos % (Auto) Lymph # [place] # Eos # Baso # Seg Neutrophils % Seg Neutrophils # APTT 21.2 L D-Dimer Heparin Anti-Xa Level POC ABG pH 7.158 L POC ABG pCO2 73.6 H POC ABG pO2 274 H Chloride Carbon Dioxide BUN Creatinine Glucose Calcium Magnesium CK-MB (CK-2) 9.7 H CK-MB (CK-2) Rel Index 6.0 H Troponin T C-Reactive Protein NT-Pro-B Natriuret Pep 16773 H Albumin Rlkjw-6-Rpmrvcxwo Abnorm Protein Band 1 PEP Interpretation Triglycerides Cholesterol LDL Cholesterol Direct HDL Cholesterol 05/09/18 05/09/18 05/09/18 15:36 15:36 15:58 WBC RBC Hct RDW Plt Count Lymph % (Auto) [place] % (Auto) Eos % (Auto) Lymph # [place] # Eos # Baso # Seg Neutrophils % Seg Neutrophils # APTT D-Dimer Heparin Anti-Xa Level 2.00 H POC ABG pH POC ABG pCO2 POC ABG pO2 Chloride Carbon Dioxide BUN 53 H Creatinine 3.9 H Glucose Calcium 8.0 L Magnesium CK-MB (CK-2) 9.3 H CK-MB (CK-2) Rel Index 5.8 H Troponin T 0.246 H* C-Reactive Protein NT-Pro-B Natriuret Pep Albumin Kjewi-0-Spluwivfz Abnorm Protein Band 1 PEP Interpretation Triglycerides Cholesterol LDL Cholesterol Direct HDL Cholesterol 05/09/18 05/09/18 05/10/18 16:57 19:45 02:07 WBC RBC Hct RDW 15.3 H Plt Count 136 L Lymph % (Auto) [place] % (Auto) Eos % (Auto) Lymph # [place] # Eos # Baso # Seg Neutrophils % Seg Neutrophils # APTT D-Dimer Heparin Anti-Xa Level 1.49 H POC ABG pH 7.307 L POC ABG pCO2 47.5 H POC ABG pO2 119 H Chloride Carbon Dioxide BUN Creatinine Glucose Calcium Magnesium CK-MB (CK-2) CK-MB (CK-2) Rel Index Troponin T C-Reactive Protein NT-Pro-B Natriuret Pep Albumin Nwlez-7-Bidngjnov Abnorm Protein Band 1 PEP Interpretation Triglycerides Cholesterol LDL Cholesterol Direct HDL Cholesterol 05/10/18 05/10/18 05/10/18 02:07 03:25 10:37 WBC RBC Hct RDW Plt Count Lymph % (Auto) [place] % (Auto) Eos % (Auto) Lymph # [place] # Eos # Baso # Seg Neutrophils % Seg Neutrophils # APTT D-Dimer Heparin Anti-Xa Level POC ABG pH POC ABG pCO2 POC ABG pO2 65 L Chloride Carbon Dioxide 21 L BUN 56 H Creatinine 4.2 H Glucose Calcium Magnesium 2.40 H CK-MB (CK-2) CK-MB (CK-2) Rel Index Troponin T C-Reactive Protein 2.00 H NT-Pro-B Natriuret Pep Albumin Qufbp-9-Ppfxlbzbr Abnorm Protein Band 1 PEP Interpretation Triglycerides Cholesterol LDL Cholesterol Direct HDL Cholesterol 05/10/18 05/10/18 05/10/18 11:34 13:22 16:08 WBC RBC Hct RDW Plt Count Lymph % (Auto) [place] % (Auto) Eos % (Auto) Lymph # [place] # Eos # Baso # Seg Neutrophils % Seg Neutrophils # APTT D-Dimer Heparin Anti-Xa Level POC ABG pH POC ABG pCO2 32.7 L POC ABG pO2 110 H Chloride Carbon Dioxide BUN Creatinine Glucose Calcium Magnesium CK-MB (CK-2) CK-MB (CK-2) Rel Index Troponin T C-Reactive Protein 2.00 H NT-Pro-B Natriuret Pep Albumin 3.5 L Ewgsh-2-Ufsawjgnj 0.4 H Abnorm Protein Band 1 0.4 H PEP Interpretation see below H Triglycerides Cholesterol LDL Cholesterol Direct HDL Cholesterol 05/10/18 05/11/18 05/11/18 17:21 04:28 04:28 WBC 13.1 H RBC Hct RDW 15.5 H Plt Count Lymph % (Auto) 8.1 L [place] % (Auto) 9.2 H Eos % (Auto) Lymph # 1.1 L [place] # 1.2 H Eos # Baso # Seg Neutrophils % 82.4 H Seg Neutrophils # 10.8 H APTT D-Dimer Heparin Anti-Xa Level POC ABG pH POC ABG pCO2 32.4 L POC ABG pO2 Chloride Carbon Dioxide 19 L BUN 67 H Creatinine 4.8 H Glucose Calcium 8.3 L Magnesium CK-MB (CK-2) CK-MB (CK-2) Rel Index Troponin T C-Reactive Protein NT-Pro-B Natriuret Pep Albumin Gpyvy-9-Buetzvkqo Abnorm Protein Band 1 PEP Interpretation Triglycerides Cholesterol LDL Cholesterol Direct HDL Cholesterol 05/11/18 05/11/18 05/12/18 04:28 23:50 04:07 WBC RBC Hct RDW Plt Count Lymph % (Auto) [place] % (Auto) Eos % (Auto) Lymph # [place] # Eos # Baso # Seg Neutrophils % Seg Neutrophils # APTT D-Dimer Heparin Anti-Xa Level < 0.10 L 2.00 H POC ABG pH POC ABG pCO2 POC ABG pO2 Chloride 97.0 L Carbon Dioxide BUN 36 H Creatinine 3.2 H Glucose 104 H Calcium Magnesium CK-MB (CK-2) CK-MB (CK-2) Rel Index Troponin T C-Reactive Protein NT-Pro-B Natriuret Pep Albumin Tctam-3-Nvmdoumyy Abnorm Protein Band 1 PEP Interpretation Triglycerides Cholesterol LDL Cholesterol Direct HDL Cholesterol 05/12/18 05/13/18 05/13/18 06:43 08:23 08:23 WBC 11.6 H RBC Hct RDW 15.8 H Plt Count Lymph % (Auto) [place] % (Auto) Eos % (Auto) Lymph # [place] # Eos # Baso # Seg Neutrophils % Seg Neutrophils # APTT D-Dimer Heparin Anti-Xa Level < 0.10 L POC ABG pH POC ABG pCO2 POC ABG pO2 Chloride Carbon Dioxide BUN 45 H Creatinine 3.7 H Glucose Calcium Magnesium CK-MB (CK-2) CK-MB (CK-2) Rel Index Troponin T C-Reactive Protein NT-Pro-B Natriuret Pep Albumin Pnvom-7-Ngcwigfls Abnorm Protein Band 1 PEP Interpretation Triglycerides Cholesterol LDL Cholesterol Direct HDL Cholesterol 05/14/18 05/14/18 06:05 06:05 WBC RBC Hct RDW 15.6 H Plt Count Lymph % (Auto) [place] % (Auto) Eos % (Auto) Lymph # [place] # Eos # Baso # Seg Neutrophils % Seg Neutrophils # APTT D-Dimer Heparin Anti-Xa Level POC ABG pH POC ABG pCO2 POC ABG pO2 Chloride Carbon Dioxide BUN 53 H Creatinine 4.2 H Glucose Calcium Magnesium CK-MB (CK-2) CK-MB (CK-2) Rel Index Troponin T C-Reactive Protein NT-Pro-B Natriuret Pep Albumin Ksdpa-6-Pegftnnai Abnorm Protein Band 1 PEP Interpretation Triglycerides Cholesterol LDL Cholesterol Direct HDL Cholesterol Chest x-ray: report reviewed (Mild cardiomegaly. Lungs clear.), image reviewed (ild cardiomegaly, lungs clear.) Allied health notes reviewed: nursing
[2018-05-15] MEDS: LASIX IV SCH (05:51)
[2018-05-15] MEDS: APRESOLINE PO SCH ×3 (05:51→23:13)
[2018-05-15 06:49] LABS: Hematocrit 41.2 % (35.5-45.6); Hemoglobin 13.5 gm/dl (11.8-15.2); Mean Corpuscular HGB Conc 33 % (32-34); Mean Corpuscular Volume 91 fl (84-94); Platelet Count 170 K/mm3 (140-440); Red Blood Count 4.55 M/mm3 (3.65-5.03); Red Cell Distribution Width 15.7 % (13.2-15.2)
[2018-05-15 06:54] LABS: Calcium 8.7 mg/dL (8.4-10.2)
[2018-05-15] MEDS: LOPRESSOR PO SCH ×3 (10:09→23:13)
[2018-05-15] MEDS: IMDUR PO SCH (10:10)
[2018-05-15] MEDS: PEPCID PO SCH (10:10)
[2018-05-15] MEDS: PROzac PO SCH (10:10)
[2018-05-15] MEDS: POTASSIUM CHLORIDE PO SCH ×2 (10:14→23:20)
--- NOTE | 2018-05-15 11:17 | Progress Note ---
Assessment and Plan Assessment and plan: Acute hypoxemic respiratory failure. Etiology secondary to acute heart failure and Non ST elevation VT. Extubated and doing well Acute HFpEF. Echocardiogram reveals EF 50-55%. Etiology likely secondary to flash pulmonary edema from accelerated hypertension. Cardiology following. Continue Lasix 40 mg IV twice a day NSTEMI. Cardiology following. Off heparin drip. Continue aspirin and beta blo cker. Lexiscan completed this morning. Await results. Acute renal failure. -Baseline SCr level unknown, but pt was apparently told 1 year ago at [facility] that he had proteinuria -S/p first oand only HD treatment on 05/11/18 -No acute indication for HD today at this time -Assess need for HD on daily basis -Monitor for signs of renal recovery -Renal ultrasound showed no hydronephrosis, but suggestive of CKD -HIV and hepatitis panel negative -GN/Vasculitis labs pending -Discussed with Dr. Vásquez Accelerated hypertension. Continue antihypertensive medications. History Interval history: feels better, No more shortness of breath no chest pain Hospitalist Physical - Physical exam Narrative exam: GEN: Not in acute distress, lying in bed,obese HEENT: Normocephalic, atraumatic, Neck: supple, No JVD Lungs: Clear to auscultation bilaterally, no wheeze Heart:S1 and S2 regular, no murmurs, rubs or gallop, Abd:soft, non tender, non distended, normal bowel sounds Ext: No edema, no clubbing or cyanosis Neuro: AAO x 3, moves all extremities, no focal neurological signs - Constitutional Vitals: Temp Pulse Resp BP Pulse Ox 97.9 F 54 L 18 94/49 94 05/15/18 09:18 05/15/18 11:07 05/15/18 09:23 05/15/18 09:18 05/15/18 09:18 General appearance: Present: no acute distress, other (intubated) Results - Labs CBC & Chem 7: 05/16/18 05:42 05/16/18 05:42 Labs: Laboratory Last Values WBC 12.6 K/mm3 (4.5-11.0) H 05/15/18 05:49 RBC 4.55 M/mm3 (3.65-5.03) 05/15/18 05:49 Hgb 13.5 gm/dl (11.8-15.2) 05/15/18 05:49 Hct 41.2 % (35.5-45.6) 05/15/18 05:49 MCV 91 fl (84-94) 05/15/18 05:49 MCH 30 pg (28-32) 05/15/18 05:49 MCHC 33 % (32-34) 05/15/18 05:49 RDW 15.7 % (13.2-15.2) H 05/15/18 05:49 Plt Count 170 K/mm3 (140-440) 05/15/18 05:49 Lymph % (Auto) 8.1 % (13.4-35.0) L 05/11/18 04:28 [place] % (Auto) 9.2 % (0.0-7.3) H 05/11/18 04:28 Eos % (Auto) 0.0 % (0.0-4.3) 05/11/18 04:28 Baso % (Auto) 0.3 % (0.0-1.8) 05/11/18 04:28 Lymph # 1.1 K/mm3 (1.2-5.4) L 05/11/18 04:28 [place] # 1.2 K/mm3 (0.0-0.8) H 05/11/18 04:28 Eos # 0.0 K/mm3 (0.0-0.4) 05/11/18 04:28 Baso # 0.0 K/mm3 (0.0-0.1) 05/11/18 04:28 Seg Neutrophils % 82.4 % (40.0-70.0) H 05/11/18 04:28 Seg Neutrophils # 10.8 K/mm3 (1.8-7.7) H 05/11/18 04:28 PT 13.5 Sec. (12.2-14.9) 05/09/18 11:55 INR 0.99 (0.87-1.13) 05/09/18 11:55 APTT 21.2 Sec. (24.2-36.6) L 05/09/18 11:55 D-Dimer 1326.35 ng/mlDDU (0-234) H 05/09/18 10:09 Heparin Anti-Xa Level < 0.10 U.I./ml (0.3-0.7) L 05/12/18 06:43 POC ABG pH 7.393 (7.35-7.45) 05/10/18 17:21 POC ABG pCO2 32.4 (35-45) L 05/10/18 17:21 POC ABG pO2 82 (80-105) 05/10/18 17:21 POC ABG HCO3 19.7 05/10/18 17:21 POC ABG Total CO2 21 05/10/18 17:21 POC ABG O2 Sat 96 05/10/18 17:21 POC ABG Base Excess -5 05/10/18 17:21 FiO2 28 % 05/10/18 17:21 Sodium 138 mmol/L (137-145) 05/15/18 05:49 Potassium 4.1 mmol/L (3.6-5.0) 05/15/18 05:49 Chloride 97.3 mmol/L (98-107) L 05/15/18 05:49 Carbon Dioxide 24 mmol/L (22-30) 05/15/18 05:49 Anion Gap 21 mmol/L 05/15/18 05:49 BUN 61 mg/dL (9-20) H 05/15/18 05:49 Creatinine 4.1 mg/dL (0.8-1.5) H 05/15/18 05:49 Estimated GFR 15 ml/min 05/15/18 05:49 BUN/Creatinine Ratio 15 % 05/15/18 05:49 Glucose 94 mg/dL (75-100) 05/15/18 05:49 Lactic Acid 1.30 mmol/L (0.7-2.0) 05/10/18 16:08 Calcium 8.7 mg/dL (8.4-10.2) 05/15/18 05:49 Magnesium 2.40 mg/dL (1.7-2.3) H 05/15/18 05:49 Total Bilirubin 0.30 mg/dL (0.1-1.2) 05/09/18 10:09 AST 26 units/L (5-40) 05/09/18 10:09 ALT 18 units/L (7-56) 05/09/18 10:09 Alkaline Phosphatase 88 units/L (35-129) 05/09/18 10:09 Total Creatine Kinase 159 units/L (55-170) 05/09/18 15:36 CK-MB (CK-2) 9.3 ng/mL (0.0-4.0) H 05/09/18 15:36 CK-MB (CK-2) Rel Index 5.8 (0-4) H 05/09/18 15:36 Troponin T 0.246 ng/mL (0.00-0.029) H* 05/09/18 15:36 C-Reactive Protein 2.00 mg/dL (0.00-1.30) H 05/10/18 16:08 NT-Pro-B Natriuret Pep 08078 pg/mL (0-900) H 05/09/18 10:09 Serum Total Protein 6.4 g/dL (6.1-8.1) 05/10/18 13:22 Total Protein 7.7 g/dL (6.3-8.2) 05/09/18 10:09 Albumin 3.5 g/dL (3.8-4.8) L 05/10/18 13:22 Albumin/Globulin Ratio 1.1 % 05/09/18 10:09 Cqbyb-7-Avcncdwmd 0.4 g/dL (0.2-0.3) H 05/10/18 13:22 Ktusa-2-Icfweiusp 0.6 g/dL (0.5-0.9) 05/10/18 13:22 Beta Globulins 0.3 g/dL (0.2-0.5) 05/10/18 13:22 Gamma Globulins 1.2 g/dL (0.8-1.7) 05/10/18 13:22 Abnorm Protein Band 1 0.4 g/dL H 05/10/18 13:22 Abnorm Protein Band 2 see below 05/10/18 13:22 PEP Interpretation see below H 05/10/18 13:22 Triglycerides 175 mg/dL (2-149) H 05/09/18 10:09 Cholesterol 276 mg/dL (50-199) H 05/09/18 10:09 LDL Cholesterol Direct 235 mg/dL (50-130) H 05/09/18 10:09 HDL Cholesterol 34 mg/dL (40-59) L 05/09/18 10:09 Cholesterol/HDL Ratio 8.11 % 05/09/18 10:09 TSH 1.110 mlU/mL (0.270-4.200) 05/10/18 02:07 Free T4 1.15 ng/dL (0.76-1.46) 05/10/18 02:07 Urine Color Yellow (Yellow) 05/09/18 10:33 Urine Turbidity Clear (Clear) 05/09/18 10:33 Urine pH 6.0 (5.0-7.0) 05/09/18 10:33 Ur Specific [place] 1.011 (1.003-1.030) 05/09/18 10:33 Urine Protein >2000 mg dl mg/dL (Negative) 05/09/18 10:33 Urine Glucose (UA) 50 mg/dL (Negative) 05/09/18 10:33 Urine Ketones Neg mg/dL (Negative) 05/09/18 10:33 Urine Blood Neg (Negative) 05/09/18 10:33 Urine Nitrite Neg (Negative) 05/09/18 10:33 Urine Bilirubin Neg (Negative) 05/09/18 10:33 Urine Urobilinogen < 2.0 mg/dL (<2.0) 05/09/18 10:33 Ur Leukocyte Esterase Neg (Negative) 05/09/18 10:33 Urine WBC (Auto) 2.0 /HPF (0.0-6.0) 05/09/18 10:33 Urine RBC (Auto) 3.0 /HPF (0.0-6.0) 05/09/18 10:33 Urine Bacteria (Auto) 1+ /HPF (Negative) 05/09/18 10:33 Urine Opiates Screen Presumptive negative 05/09/18 10:33 Urine Methadone Screen Presumptive negative 05/09/18 10:33 Ur Barbiturates Screen Presumptive negative 05/09/18 10:33 Ur Phencyclidine Scrn Presumptive negative 05/09/18 10:33 Ur Amphetamines Screen Presumptive negative 05/09/18 10:33 U Benzodiazepines Scrn Presumptive negative 05/09/18 10:33 Urine Cocaine Screen Presumptive negative 05/09/18 10:33 U Marijuana (THC) Screen Presumptive negative 05/09/18 10:33 Drugs of Abuse Note Disclamer 05/09/18 10:33 Complement C3 142 mg/dL (82-185) 05/10/18 13:22 Complement C4 20 mg/dL (15-53) 05/10/18 13:22 Hepatitis A IgM Ab Non-reactive (NonReactive) 05/10/18 13:22 Hep Bs Antigen Non-reactive (Negative) 05/10/18 13:22 Hep B Core IgM Ab Non-reactive (NonReactive) 05/10/18 13:22 Hepatitis C Antibody Non-reactive (NonReactive) 05/10/18 13:22 HIV 1&2 Antibody Rapid Non react (Non React) 05/10/18 13:22 HIV P24 Antigen Non react (Non React) 05/10/18 13:22 Nutrition/Malnutrition Assess - Dietary Evaluation Nutrition/Malnutrition Findings: Nutrition Notes Start: 05/10/18 09:35 Freq: Status: Active Protocol: Document 05/14/18 14:45 OL (Rec: 05/14/18 14:49 OL [id number]) Nutrition Notes Initial or Follow up Reassessment Current Diagnosis Acute Kidney Injury CKD(stage I-IV) COPD Hypertension Heart Failure Respiratory Failure Other Pertinent Diagnosis Dyspnea Current Diet cardiac/renal Labs/Tests BUN 53 Cr 4.2 Pertinent Medications Lasix Height 5 ft 9 in Weight 97.6 kg [place] Body Weight (kg) 72.72 BMI 31.7 Weight Status Obese Subjective/Other Information Pt. continues to eat well. Pt. NPO at breakfast for a stress test. 100% lunch consumed. Pt . aware of renal diet restriction, requesting milk. Pt. willing to try ONS Percent of energy/protein needs met: 100%/100% Burn Absent Trauma Absent Current % PO Good (75-100%) #1 Nutrition Diagnosis Inadequate oral intake As Evidenced by Signs and Symptoms pt. consuming 100% of meals Diagnosis Progress(for reassessment Improved documentation) Is patient on ventilator? No Is Patient Ambulatory and/or Out of Bed Yes REE-([facility]-ambulatory/OOB) [ 2315.794 [id number]] Kcal/Kg value to use for calculation 18 Approximate Energy Requirements Using 1757 kcal/Kg Calculation Used for Recommendations Kcal/kg Additional Notes pro: 60-117g/day (0.6-1.2g/kg) fluid: 1mL/kcal Nutrition Intervention Change Diet Order: Renal Diet Add Supplement/Snack (indicate name/kcal nepro daily /protein ) Provides kCal: 425 Provides Protein (gm) 19 Goal #1 Continue to meet at least 80% of kcal and pro needs Anticipated Discharge Needs: Renal diet Follow-Up By: 05/17/18 Additional Comments f/u: ONS tolerance
--- NOTE | 2018-05-15 11:36 | Progress Note ---
Assessment and Plan Acute renal failure likely secondary ischemic ATN on possible underlying CKD with proteinuria: -S/p first HD treatment on 05/11/18 -no oliguric, No acute indication for HD today at this time, CXR showed pulm edema resolved, creatinine clearance ordered yesterday but was not collected, discussed with RN, to be started today -Assess need for HD on daily basis -HIV and hepatitis panel negative -GN/Vasculitis labs pending -On Lasix 40 mg IV BID -Avoid NSAID's -Intake and output Acute diastolic congestive heart failure: NSTEMI: -Echo:LVEF- 50-55% -Off Heparin drip -will switch to oral lasix 40 mg BID -As per Cardiology Acute hypoxic hypercapnic respiratory failure Elevated-Dimer -Extubated -Off Heparin drip -As per pulmonary Hypertensive Urgency: -On anti-hypertensive agents -Adjust as needed Subjective Date of service: 05/15/18 Principal diagnosis: Acute hypoxemic hypercapnic Resp failure; Acute CHF; ELVIA; NSTEMI Interval history: tolerating physical therapy Objective - Vital Signs Vital signs: Vital Signs - 12hr 05/15/18 05/15/18 05/15/18 04:38 09:16 09:18 Temperature 97.3 F L 97.9 F Pulse Rate 61 65 Pulse Rate [ 60 Anterior Bilateral Throughout] Respiratory 14 Rate Respiratory 19 Rate [Anterior Bilateral Throughout] Blood Pressure 144/78 94/49 O2 Sat by Pulse 95 94 Oximetry 05/15/18 05/15/18 09:23 11:07 Temperature Pulse Rate 54 L Pulse Rate [ 62 Anterior Bilateral Throughout] Respiratory Rate Respiratory 18 Rate [Anterior Bilateral Throughout] Blood Pressure O2 Sat by Pulse Oximetry - General Appearance General appearance: well-developed, well-nourished EENT: ATNC, PERRL, mucous membranes moist Neck: no JVD, no carotid bruit Respiratory: Present: Clear to Ascultation. Absent: Rales, Ronchi Cardiology: regular, S1S2 Gastrointestinal: normoactive bowel sounds, no tenderness, no distended Integumentary: no rash, warm and dry Neurologic: no focal deficit, no asterixis, alert and oriented x3 Musculoskeletal: other (no edema in BLE) Psychiatric: mood/affect appropriate, cooperative - Lab 05/15/18 05:49 05/15/18 05:49 Most recent lab results Calcium 8.7 mg/dL (8.4-10.2) 05/15/18 05:49 Magnesium 2.40 mg/dL (1.7-2.3) H 05/15/18 05:49 Medications & Allergies - Medications Allergies/Adverse Reactions: Allergies No Known Allergies Allergy (Unverified 05/09/18 10:45) Home Medications: Home Medications Medication Instructions Recorded Confirmed Last Taken Type No Known Home Medications [No 05/09/18 05/09/18 Unknown History Reported Home Medications] Active Medications: Generic Name Dose Route Start Last Admin Trade Name Freq PRN Reason Stop Dose Admin Acetaminophen 650 mg 05/11/18 23:42 05/12/18 00:19 Tylenol PO 650 mg Q6H PRN Administration Pain, Mild (1-3) Albuterol 2.5 mg 05/09/18 21:14 05/11/18 16:58 Proventil IH 2.5 mg Q4HRT PRN Administration Shortness Of Breath Albuterol/Ipratropium 1 ampul 05/10/18 08:00 05/14/18 20:19 Duoneb *Not For Prn Use* IH 1 ampul QIDRT GLENDA Administration Atorvastatin Calcium 80 mg 05/11/18 22:00 05/14/18 21:44 Lipitor PO 80 mg QHS GLENDA Administration Famotidine 20 mg 05/14/18 12:00 05/15/18 10:10 Pepcid PO 20 mg DAILY GLENDA Administration Fluoxetine HCl 40 mg 05/11/18 14:00 05/15/18 10:10 Prozac PO 40 mg QDAY GLENDA Administration Furosemide 40 mg 05/10/18 08:00 05/15/18 05:51 Lasix IV 40 mg 0600,1800 GLENDA Administration Hydralazine HCl 10 mg 05/12/18 10:23 Apresoline IV Q4H PRN SBP > 160 Hydralazine HCl 100 mg 05/13/18 10:19 05/15/18 05:51 Apresoline PO 100 mg Q8HR GLENDA Administration Isosorbide Mononitrate 30 mg 05/12/18 14:00 05/15/18 10:10 Imdur PO 30 mg QDAY GLENDA Administration Metoprolol Tartrate 50 mg 05/12/18 14:00 05/15/18 10:16 Lopressor PO Not Given BID GLENDA Potassium Chloride 20 meq 05/10/18 22:00 05/15/18 10:14 Potassium Chloride PO 20 meq Q12H GLENDA Administration
[2018-05-15] MEDS: DUONEB *Not for PRN Use IH SCH ×4 (12:37→20:22)
--- NOTE | 2018-05-15 13:15 | Progress Note ---
Assessment and Plan Currently stable cardiac status. Pt may discharge from cardiology standpoint. Recommend follow up in our office with Dr. Monroy within 3-5 days of hospital discharge ([phone]). The patient has been seen in conjunction with Dr. LESLEY Stock who agrees with the assessment and plan of care. - Patient Problems (1) Acute respiratory failure Current Visit: Yes Status: Resolved (2) Acute heart failure with preserved ejection fraction Current Visit: Yes Status: Acute (3) Acute renal failure Current Visit: Yes Status: Acute Qualifiers: Acute renal failure type: unspecified Qualified Code(s): N17.9 - Acute kidney failure, unspecified (4) NSTEMI (non-ST elevated myocardial infarction) Current Visit: Yes Status: Acute (5) Leukocytosis Current Visit: Yes Status: Acute (6) Elevated d-dimer Current Visit: Yes Status: Acute (7) History of hypertension Current Visit: Yes Status: Chronic (8) Hyperlipidemia Current Visit: Yes Status: Chronic (9) Tobacco use Current Visit: Yes Status: Chronic Subjective Date of service: 05/15/18 Principal diagnosis: Acute hypoxemic hypercapnic Resp failure; Acute CHF; ELVIA; NSTEMI Interval history: pt resting in bed, no current cardiac complaints. Objective Last Vital Signs Temp 97.9 F 05/15/18 09:18 Pulse 64 05/15/18 12:42 Resp 18 05/15/18 12:42 BP 94/49 05/15/18 09:18 Pulse Ox 94 05/15/18 09:18 - Physical Examination General: No Apparent Distress HEENT: Positive: PERRL, Normocephaly, Mucus Membranes Moist Neck: Positive: neck supple, trachea midline Cardiac: Positive: Reg Rate and Rhythm, S1/S2 Lungs: Positive: Decreased Breath Sounds Neuro: Positive: Grossly Intact Abdomen: Positive: Soft, Active Bowel Sounds. Negative: Tender Skin: Negative: Rash, Wound Musculoskeletal: No Fluid Collection, No Pain, Normal Range of Motion Extremities: Present: normal - Labs and Meds CBC 05/15/18 Range/Units 05:49 WBC 12.6 H (4.5-11.0) K/mm3 RBC 4.55 (3.65-5.03) M/mm3 Hgb 13.5 (11.8-15.2) gm/dl Hct 41.2 (35.5-45.6) % Plt Count 170 (140-440) K/mm3 Comprehensive Metabolic Panel 05/15/18 Range/Units 05:49 Sodium 138 (137-145) mmol/L Potassium 4.1 (3.6-5.0) mmol/L Chloride 97.3 L (98-107) mmol/L Carbon Dioxide 24 (22-30) mmol/L BUN 61 H (9-20) mg/dL Creatinine 4.1 H (0.8-1.5) mg/dL Glucose 94 (75-100) mg/dL Calcium 8.7 (8.4-10.2) mg/dL - Imaging and Cardiology EKG: report reviewed, image reviewed Echo: report reviewed (normal lv function severe lvh impaired relaxation pattern, mild mr and mild tr normal rvsp ) - EKG Sinus rhythms and dysrhythmias: sinus rhythm Chamber hypertrophy or enlargement: left ventricular hypertro - Allied health notes Allied health notes reviewed: nursing
--- NOTE | 2018-05-15 14:27 | Progress Note ---
Assessment and Plan Patient awake.Patient resting on room air. No complaint of chest pain,shortness of breath. Slight cough at times.Patient smokes one pack a day for last 7 years. Counselled him to stop smoking.O2 saturation last checked 94% on room air. - Patient Problems (1) Acute respiratory failure Current Visit: Yes Status: Resolved Plan to address problem: Improved. Patient resting on room air. No respiratory distress. O2 saturation 94% on room air. (2) Acute heart failure with preserved ejection fraction Current Visit: Yes Status: Acute Plan to address problem: Management as per cardiology. (3) NSTEMI (non-ST elevated myocardial infarction) Current Visit: Yes Status: Acute Plan to address problem: Management as per cardiology. (4) Tobacco use Current Visit: Yes Status: Chronic Plan to address problem: Counseled to stop smoking. Recommend PFTs as out patient. (5) Elevated d-dimer Current Visit: Yes Status: Acute Plan to address problem: Obtaining V/Q scan and venous doppler studies of legs. Lovenox 30 mg S/C qd, Subjective Date of service: 05/15/18 Principal diagnosis: Acute hypoxemic hypercapnic Resp failure; Acute CHF; ELVIA; NSTEMI Interval history: Patient awake.Patient resting on room air. No complaint of chest pain,shortness of breath. Slight cough at times.Patient smokes one pack a day for last 7 years. Counselled him to stop smoking.O2 saturation last checked 94% on room air. Objective Vital Signs - 12hr 05/15/18 05/15/18 05/15/18 04:38 09:16 09:18 Temperature 97.3 F L 97.9 F Pulse Rate 61 65 Pulse Rate [ 60 Anterior Bilateral Throughout] Respiratory 14 Rate Respiratory 19 Rate [Anterior Bilateral Throughout] Blood Pressure 144/78 94/49 O2 Sat by Pulse 95 94 Oximetry 05/15/18 05/15/18 05/15/18 09:23 11:07 12:00 Temperature Pulse Rate 54 L Pulse Rate [ 62 60 Anterior Bilateral Throughout] Respiratory Rate Respiratory 18 18 Rate [Anterior Bilateral Throughout] Blood Pressure O2 Sat by Pulse Oximetry 05/15/18 12:42 Temperature Pulse Rate Pulse Rate [ 64 Anterior Bilateral Throughout] Respiratory Rate Respiratory 18 Rate [Anterior Bilateral Throughout] Blood Pressure O2 Sat by Pulse Oximetry Constitutional: no acute distress, alert Eyes: non-icteric ENT: oropharynx moist Neck: supple, no lymphadenopathy, no JVD, other (no thyromegaly) Effort: mildly labored Ascultation: Bilateral: diminished breath sounds, rales Percussion: Bilateral: not dull Cardiovascular: regular rate and rhythm Gastrointestinal: normoactive bowel sounds, soft, non-tender, non-distended Integumentary: normal Extremities: no cyanosis, pink and warm, pulses normal, no ischemia or petechiae, edema (trace) Neurologic: normal mental status, non-focal exam, pupils equal and round, CN II- XII normal, motor strength normal and Psychiatric: depressed CBC and BMP: 05/15/18 05:49 05/15/18 05:49 ABG, PT/INR, D-dimer: ABG POC ABG pH 7.393 (7.35-7.45) 05/10/18 17:21 POC ABG pCO2 32.4 (35-45) L 05/10/18 17:21 POC ABG pO2 82 (80-105) 05/10/18 17:21 POC ABG HCO3 19.7 05/10/18 17:21 POC ABG Total CO2 21 05/10/18 17:21 POC ABG O2 Sat 96 05/10/18 17:21 PT/INR, D-dimer PT 13.5 Sec. (12.2-14.9) 05/09/18 11:55 INR 0.99 (0.87-1.13) 05/09/18 11:55 D-Dimer 1326.35 ng/mlDDU (0-234) H 05/09/18 10:09 Abnormal lab findings: Abnormal Labs 05/09/18 05/09/18 05/09/18 10:09 10:09 10:09 WBC 17.6 H RBC 5.11 H Hct 46.0 H RDW 15.8 H Plt Count Lymph % (Auto) [place] % (Auto) Eos % (Auto) 5.4 H Lymph # [place] # 1.2 H Eos # 1.0 H Baso # 0.2 H Seg Neutrophils % Seg Neutrophils # 12.1 H APTT D-Dimer 1326.35 H Heparin Anti-Xa Level POC ABG pH POC ABG pCO2 POC ABG pO2 Chloride Carbon Dioxide BUN 50 H Creatinine 3.7 H Glucose 191 H Calcium 8.2 L Magnesium CK-MB (CK-2) CK-MB (CK-2) Rel Index Troponin T 0.235 H* C-Reactive Protein NT-Pro-B Natriuret Pep Albumin Miryu-3-Uzmzalxxb Abnorm Protein Band 1 PEP Interpretation Triglycerides 175 H Cholesterol 276 H LDL Cholesterol Direct 235 H HDL Cholesterol 34 L Tot Complement (CH50) 05/09/18 05/09/18 05/09/18 10:09 11:02 11:55 WBC RBC Hct RDW Plt Count Lymph % (Auto) [place] % (Auto) Eos % (Auto) Lymph # [place] # Eos # Baso # Seg Neutrophils % Seg Neutrophils # APTT 21.2 L D-Dimer Heparin Anti-Xa Level POC ABG pH 7.158 L POC ABG pCO2 73.6 H POC ABG pO2 274 H Chloride Carbon Dioxide BUN Creatinine Glucose Calcium Magnesium CK-MB (CK-2) 9.7 H CK-MB (CK-2) Rel Index 6.0 H Troponin T C-Reactive Protein NT-Pro-B Natriuret Pep 54254 H Albumin Blzzd-2-Taielibtm Abnorm Protein Band 1 PEP Interpretation Triglycerides Cholesterol LDL Cholesterol Direct HDL Cholesterol Tot Complement (CH50) 05/09/18 05/09/18 05/09/18 15:36 15:36 15:58 WBC RBC Hct RDW Plt Count Lymph % (Auto) [place] % (Auto) Eos % (Auto) Lymph # [place] # Eos # Baso # Seg Neutrophils % Seg Neutrophils # APTT D-Dimer Heparin Anti-Xa Level 2.00 H POC ABG pH POC ABG pCO2 POC ABG pO2 Chloride Carbon Dioxide BUN 53 H Creatinine 3.9 H Glucose Calcium 8.0 L Magnesium CK-MB (CK-2) 9.3 H CK-MB (CK-2) Rel Index 5.8 H Troponin T 0.246 H* C-Reactive Protein NT-Pro-B Natriuret Pep Albumin Uuuse-2-Kxgyheeiy Abnorm Protein Band 1 PEP Interpretation Triglycerides Cholesterol LDL Cholesterol Direct HDL Cholesterol Tot Complement (CH50) 05/09/18 05/09/18 05/10/18 16:57 19:45 02:07 WBC RBC Hct RDW 15.3 H Plt Count 136 L Lymph % (Auto) [place] % (Auto) Eos % (Auto) Lymph # [place] # Eos # Baso # Seg Neutrophils % Seg Neutrophils # APTT D-Dimer Heparin Anti-Xa Level 1.49 H POC ABG pH 7.307 L POC ABG pCO2 47.5 H POC ABG pO2 119 H Chloride Carbon Dioxide BUN Creatinine Glucose Calcium Magnesium CK-MB (CK-2) CK-MB (CK-2) Rel Index Troponin T C-Reactive Protein NT-Pro-B Natriuret Pep Albumin Bvlbe-2-Ulokksrrk Abnorm Protein Band 1 PEP Interpretation Triglycerides Cholesterol LDL Cholesterol Direct HDL Cholesterol Tot Complement (CH50) 05/10/18 05/10/18 05/10/18 02:07 03:25 10:37 WBC RBC Hct RDW Plt Count Lymph % (Auto) [place] % (Auto) Eos % (Auto) Lymph # [place] # Eos # Baso # Seg Neutrophils % Seg Neutrophils # APTT D-Dimer Heparin Anti-Xa Level POC ABG pH POC ABG pCO2 POC ABG pO2 65 L Chloride Carbon Dioxide 21 L BUN 56 H Creatinine 4.2 H Glucose Calcium Magnesium 2.40 H CK-MB (CK-2) CK-MB (CK-2) Rel Index Troponin T C-Reactive Protein 2.00 H NT-Pro-B Natriuret Pep Albumin Fgtri-4-Vzykspngh Abnorm Protein Band 1 PEP Interpretation Triglycerides Cholesterol LDL Cholesterol Direct HDL Cholesterol Tot Complement (CH50) 05/10/18 05/10/18 05/10/18 11:34 13:22 13:22 WBC RBC Hct RDW Plt Count Lymph % (Auto) [place] % (Auto) Eos % (Auto) Lymph # [place] # Eos # Baso # Seg Neutrophils % Seg Neutrophils # APTT D-Dimer Heparin Anti-Xa Level POC ABG pH POC ABG pCO2 32.7 L POC ABG pO2 110 H Chloride Carbon Dioxide BUN Creatinine Glucose Calcium Magnesium CK-MB (CK-2) CK-MB (CK-2) Rel Index Troponin T C-Reactive Protein NT-Pro-B Natriuret Pep Albumin 3.5 L Kcwlj-2-Woccurffj 0.4 H Abnorm Protein Band 1 0.4 H PEP Interpretation see below H Triglycerides Cholesterol LDL Cholesterol Direct HDL Cholesterol Tot Complement (CH50) >60 H 05/10/18 05/10/18 05/11/18 16:08 17:21 04:28 WBC 13.1 H RBC Hct RDW 15.5 H Plt Count Lymph % (Auto) 8.1 L [place] % (Auto) 9.2 H Eos % (Auto) Lymph # 1.1 L [place] # 1.2 H Eos # Baso # Seg Neutrophils % 82.4 H Seg Neutrophils # 10.8 H APTT D-Dimer Heparin Anti-Xa Level POC ABG pH POC ABG pCO2 32.4 L POC ABG pO2 Chloride Carbon Dioxide BUN Creatinine Glucose Calcium Magnesium CK-MB (CK-2) CK-MB (CK-2) Rel Index Troponin T C-Reactive Protein 2.00 H NT-Pro-B Natriuret Pep Albumin Zjvoq-1-Hjtjqqrhk Abnorm Protein Band 1 PEP Interpretation Triglycerides Cholesterol LDL Cholesterol Direct HDL Cholesterol Tot Complement (CH50) 05/11/18 05/11/18 05/11/18 04:28 04:28 23:50 WBC RBC Hct RDW Plt Count Lymph % (Auto) [place] % (Auto) Eos % (Auto) Lymph # [place] # Eos # Baso # Seg Neutrophils % Seg Neutrophils # APTT D-Dimer Heparin Anti-Xa Level < 0.10 L 2.00 H POC ABG pH POC ABG pCO2 POC ABG pO2 Chloride Carbon Dioxide 19 L BUN 67 H Creatinine 4.8 H Glucose Calcium 8.3 L Magnesium CK-MB (CK-2) CK-MB (CK-2) Rel Index Troponin T C-Reactive Protein NT-Pro-B Natriuret Pep Albumin Cmtks-2-Hljmbrpyv Abnorm Protein Band 1 PEP Interpretation Triglycerides Cholesterol LDL Cholesterol Direct HDL Cholesterol Tot Complement (CH50) 05/12/18 05/12/18 05/13/18 04:07 06:43 08:23 WBC 11.6 H RBC Hct RDW 15.8 H Plt Count Lymph % (Auto) [place] % (Auto) Eos % (Auto) Lymph # [place] # Eos # Baso # Seg Neutrophils % Seg Neutrophils # APTT D-Dimer Heparin Anti-Xa Level < 0.10 L POC ABG pH POC ABG pCO2 POC ABG pO2 Chloride 97.0 L Carbon Dioxide BUN 36 H Creatinine 3.2 H Glucose 104 H Calcium Magnesium CK-MB (CK-2) CK-MB (CK-2) Rel Index Troponin T C-Reactive Protein NT-Pro-B Natriuret Pep Albumin Kgqne-1-Mctiefhbc Abnorm Protein Band 1 PEP Interpretation Triglycerides Cholesterol LDL Cholesterol Direct HDL Cholesterol Tot Complement (CH50) 05/13/18 05/14/18 05/14/18 08:23 06:05 06:05 WBC RBC Hct RDW 15.6 H Plt Count Lymph % (Auto) [place] % (Auto) Eos % (Auto) Lymph # [place] # Eos # Baso # Seg Neutrophils % Seg Neutrophils # APTT D-Dimer Heparin Anti-Xa Level POC ABG pH POC ABG pCO2 POC ABG pO2 Chloride Carbon Dioxide BUN 45 H 53 H Creatinine 3.7 H 4.2 H Glucose Calcium Magnesium CK-MB (CK-2) CK-MB (CK-2) Rel Index Troponin T C-Reactive Protein NT-Pro-B Natriuret Pep Albumin Xupyx-0-Awxmshyrs Abnorm Protein Band 1 PEP Interpretation Triglycerides Cholesterol LDL Cholesterol Direct HDL Cholesterol Tot Complement (CH50) 05/15/18 05/15/18 05:49 05:49 WBC 12.6 H RBC Hct RDW 15.7 H Plt Count Lymph % (Auto) [place] % (Auto) Eos % (Auto) Lymph # [place] # Eos # Baso # Seg Neutrophils % Seg Neutrophils # APTT D-Dimer Heparin Anti-Xa Level POC ABG pH POC ABG pCO2 POC ABG pO2 Chloride 97.3 L Carbon Dioxide BUN 61 H Creatinine 4.1 H Glucose Calcium Magnesium 2.40 H CK-MB (CK-2) CK-MB (CK-2) Rel Index Troponin T C-Reactive Protein NT-Pro-B Natriuret Pep Albumin Btieh-2-Cbomdjusf Abnorm Protein Band 1 PEP Interpretation Triglycerides Cholesterol LDL Cholesterol Direct HDL Cholesterol Tot Complement (CH50) Allied health notes reviewed: nursing
[2018-05-15] MEDS: LASIX PO SCH (17:12)
[2018-05-15] MEDS: HEPARIN SUB-Q SCH (23:13)
[2018-05-16 04:58] LABS: Creatinine 24 Hour,Urine 0.6 (0.8-2.8); Creatinine,Urine 82.8 mg/dL (0.1-20.0)
[2018-05-16 05:04] LABS: Creatinine,Urine 78.3 mg/dL (0.1-20.0)
[2018-05-16 05:18] LABS: Patient Weight,Urine 214.7 lbs
[2018-05-16 06:24] LABS: Hematocrit 42.3 % (35.5-45.6); Hemoglobin 13.8 gm/dl (11.8-15.2); Mean Corpuscular HGB Conc 33 % (32-34); Mean Corpuscular Volume 91 fl (84-94); Platelet Count 174 K/mm3 (140-440); Red Blood Count 4.64 M/mm3 (3.65-5.03); Red Cell Distribution Width 15.9 % (13.2-15.2)
[2018-05-16] MEDS: LASIX PO SCH ×2 (06:49→18:33)
[2018-05-16] MEDS: APRESOLINE PO SCH ×3 (06:49→21:52)
--- NOTE | 2018-05-16 08:20 | XRay Report ---
AP CHEST: HISTORY: Short of breath, chest pain Compared to 05/14/18. The right dialysis catheter remains in good position. Mild cardiomegaly and mild central pulmonary venous congestion are stable. The lungs are clear. No evidence for pneumonia, pleural effusion or pneumothorax. IMPRESSION: Stable mild cardiomegaly and central pulmonary venous congestion. No CHF.
--- NOTE | 2018-05-16 08:20 | Nuclear Medicine Report ---
LUNG SCAN, VENTILATION AND PERFUSION: History: Shortness of breath, elevated d-dimer. Technique: 5mci of Tc99m MAA was infused for the perfusion images. 15mci XE 133 gas was inhaled for the ventilatory images. Correlation is made with a chest x-ray dated 05/16/18. Findings: Inhalation of Xenon gas demonstrates a normal distribution of the activity throughout both lungs. The wash out phases show no focal retention of activity. After injection of Technetium 99m macroaggregated albumin gamma camera imaging of the lungs in multiple projections demonstrates normal pulmonary contours with a homogeneous distribution of activity. No focal areas of perfusion deficiency are identified. IMPRESSION: Low probability for pulmonary embolus.
--- NOTE | 2018-05-16 09:25 | Vascular Lab Report ---
FINAL REPORT EXAM: VL VENOUS DUPLEX LE BILAT HISTORY: Elevated D dimer COMPARISON: None. TECHNIQUE: Grayscale and duplex doppler imaging of the veins of the bilateral lower extremities was performed. FINDINGS: The veins of the bilateral lower extremities are patent, compressible, and demonstrate normal wavefor ms and augmentation. IMPRESSION: No evidence of deep venous thrombosis in the bilateral lower extremities.
--- NOTE | 2018-05-16 09:55 | Progress Note ---
Addendum entered and electronically signed by JERMAINE BURCIAGA NP 05/16/18 10:53: HD tomorrow Original Note: Assessment and Plan Acute renal failure likely secondary ischemic ATN on possible underlying CKD with Proteinuria, requiring dialysis initiation Severe Renal Failure, dialysis dependent indefinitely, likely ESRD -Renal labs reviewed- Serum creatinine remains the same at 4.1 today with GFR of 15 ml/min -Patient had one HD treatment on 05/11/18, no signs of renal recovery thus far -24 hour urine collection for creatinine clearance revealed 7 ml/min -States not all his urine was collected. Will repeat 24 hour urine collection today but is likely ERSD -Renal Ultrasound-Chronic renal disease. No Hydronephrosis. -Since urine protein is elevated at 2000 mg ordered GN/Vasculitis labs -Hep panel-negative, HIV-negative, C3-142, C4-20, CH50>60 -JOSE ANTONIO, ANCA, Anti-GBM, Anti-DsDNA and ASO are all pending -On Lasix 40 mg po BID -Avoid NSAID's -Monitor I/O's -Obtain daily weights -Due to no signs of renal recovery thus far, will consult Vascular surgeon for vasc cath removal and perm-cath placement -Will consult clinical social work aide for outpatient HD arrangement -Will hemodialyze patient today for UF and clearance Acute heart failure NSTEMI Elevated BNP -Echo:LVEF- 50-55% -On Lasix/Imdur/Metoprolol/Statin -S/P Heparin drip -CXR today-Pulmonary venous congestion -On Lasix 40 mg po BID Acute hypoxic-hypercapnic respiratory failure Elevated-Dimer -Extubated -VQ scan- Low probability for PE -S/P Heparin drip -As per pulmonary S/P Hypertensive emergency Hypertension: -On Lasix/Hydralazine/Metoprolol -Adjust regimen as needed Subjective Date of service: 05/16/18 Principal diagnosis: Acute hypoxemic hypercapnic Resp failure; Acute CHF; ELVIA; NSTEMI Interval history: Patient seen lying in bed. States all of his urine was not collected yesterday during his 24 hour urine collection. Reviewed renal plan of care. Objective - Vital Signs Vital signs: Vital Signs - 12hr 05/15/18 05/15/18 05/15/18 22:00 23:13 23:25 Temperature 97.5 F L Pulse Rate 67 63 Pulse Rate [ 60 Left Radial] Respiratory 18 12 Rate Blood Pressure 153/87 190/102 O2 Sat by Pulse 97 Oximetry 05/16/18 05/16/18 04:34 06:49 Temperature 98.3 F Pulse Rate 54 L 69 Pulse Rate [ Left Radial] Respiratory 16 Rate Blood Pressure 149/82 149/82 O2 Sat by Pulse 98 Oximetry - General Appearance General appearance: well-developed, appears stated age EENT: ATNC, PERRL, hearing intact, vision intact Neck: no JVD, supple Respiratory: Present: Decreased Breath Sounds Cardiology: regular, S1S2 Gastrointestinal: normoactive bowel sounds Integumentary: warm and dry Neurologic: alert and oriented x3 Musculoskeletal: other (No edema) Psychiatric: cooperative - Lab 05/16/18 05:42 05/16/18 05:42 Most recent lab results Calcium 9.0 mg/dL (8.4-10.2) 05/16/18 05:42 Magnesium 2.60 mg/dL (1.7-2.3) H 05/16/18 05:42 Urine Creatinine 82.8 mg/dL (0.1-20.0) H 05/15/18 Unknown Medications & Allergies - Medications Allergies/Adverse Reactions: Allergies No Known Allergies Allergy (Unverified 05/09/18 10:45) Home Medications: Home Medications Medication Instructions Recorded Confirmed Last Taken Type No Known Home Medications [No 05/09/18 05/09/18 Unknown History Reported Home Medications] Active Medications: Generic Name Dose Route Start Last Admin Trade Name Angelq PRN Reason Stop Dose Admin Acetaminophen 650 mg 05/11/18 23:42 05/12/18 00:19 Tylenol PO 650 mg Q6H PRN Administration Pain, Mild (1-3) Albuterol 2.5 mg 05/09/18 21:14 05/11/18 16:58 Proventil IH 2.5 mg Q4HRT PRN Administration Shortness Of Breath Albuterol/Ipratropium 1 ampul 05/15/18 20:00 05/15/18 20:22 Duoneb *Not For Prn Use* IH 1 ampul TIDRT GLENDA Administration Atorvastatin Calcium 80 mg 05/11/18 22:00 05/15/18 23:13 Lipitor PO 80 mg QHS GLENDA Administration Famotidine 20 mg 05/14/18 12:00 05/15/18 10:10 Pepcid PO 20 mg DAILY GLENDA Administration Fluoxetine HCl 40 mg 05/11/18 14:00 05/15/18 10:10 Prozac PO 40 mg QDAY GLENDA Administration Furosemide 40 mg 05/15/18 18:00 05/16/18 06:49 Lasix PO 40 mg 0600,1800 GLENDA Administration Heparin Sodium (Porcine) 5,000 unit 05/15/18 22:00 05/15/18 23:13 Heparin SUB-Q 5,000 unit Q12HR GLENDA Administration Hydralazine HCl 10 mg 05/12/18 10:23 Apresoline IV Q4H PRN SBP > 160 Hydralazine HCl 100 mg 05/13/18 10:19 05/16/18 06:49 Apresoline PO 100 mg Q8HR GLENDA Administration Isosorbide Mononitrate 30 mg 05/12/18 14:00 05/15/18 10:10 Imdur PO 30 mg QDAY GLENDA Administration Metoprolol Tartrate 50 mg 05/12/18 14:00 05/15/18 23:13 Lopressor PO 50 mg BID GLENDA Administration Potassium Chloride 20 meq 05/10/18 22:00 05/15/18 23:20 Potassium Chloride PO 20 meq Q12H GLENDA Administration
[2018-05-16] MEDS: HEPARIN SUB-Q SCH ×2 (10:22→21:53)
[2018-05-16] MEDS: PEPCID PO SCH (10:22)
[2018-05-16] MEDS: IMDUR PO SCH (10:23)
[2018-05-16] MEDS: LOPRESSOR PO SCH ×2 (10:23→21:53)
[2018-05-16] MEDS: PROzac PO SCH (10:23)
[2018-05-16] MEDS: POTASSIUM CHLORIDE PO SCH ×2 (10:39→21:53)
--- NOTE | 2018-05-16 11:05 | Progress Note ---
Assessment and Plan Assessment and plan: Acute hypoxemic respiratory failure. Etiology secondary to acute heart failure and Non ST elevation ID. Extubated and doing well Acute HFpEF. Echocardiogram reveals EF 50-55%. Etiology likely secondary to flash pulmonary edema from accelerated hypertension. Cardiology following. Continue Lasix 40 mg IV twice a day NSTEMI. Cardiology following. Off heparin drip. Continue aspirin and beta blo cker. Lexiscan completed this morning. Await results. Acute on CKD, likely ESRD. -Baseline SCr level unknown, but pt was apparently told 1 year ago at [place] that he had proteinuria -S/p first and only HD treatment on 05/11/18 -Assess need for HD on daily basis -Monitor for signs of renal recovery -Renal ultrasound showed no hydronephrosis, but suggestive of CKD -HIV and hepatitis panel negative -GN/Vasculitis labs pending -Discussed with Dr. Vásquez on 05/15 -24hr Cr Clearance of 7 -to start hemodialysis and outpatient HD Accelerated hypertension. Continue antihypertensive medications. History Interval history: feels better, No more shortness of breath no chest pain Hospitalist Physical - Physical exam Narrative exam: GEN: Not in acute distress, lying in bed,obese HEENT: Normocephalic, atraumatic, Neck: supple, No JVD Lungs: Clear to auscultation bilaterally, no wheeze Heart:S1 and S2 regular, no murmurs, rubs or gallop, Abd:soft, non tender, non distended, normal bowel sounds Ext: No edema, no clubbing or cyanosis Neuro: AAO x 3, moves all extremities, no focal neurological signs - Constitutional Vitals: Temp Pulse Resp BP Pulse Ox 98.3 F 62 16 128/67 99 05/16/18 10:26 05/16/18 10:26 05/16/18 10:26 05/16/18 10:26 05/16/18 10:26 General appearance: Present: no acute distress Results - Labs CBC & Chem 7: 05/16/18 05:42 05/16/18 05:42 Labs: Laboratory Last Values WBC 11.6 K/mm3 (4.5-11.0) H 05/16/18 05:42 RBC 4.64 M/mm3 (3.65-5.03) 05/16/18 05:42 Hgb 13.8 gm/dl (11.8-15.2) 05/16/18 05:42 Hct 42.3 % (35.5-45.6) 05/16/18 05:42 MCV 91 fl (84-94) 05/16/18 05:42 MCH 30 pg (28-32) 05/16/18 05:42 MCHC 33 % (32-34) 05/16/18 05:42 RDW 15.9 % (13.2-15.2) H 05/16/18 05:42 Plt Count 174 K/mm3 (140-440) 05/16/18 05:42 Lymph % (Auto) 8.1 % (13.4-35.0) L 05/11/18 04:28 [place] % (Auto) 9.2 % (0.0-7.3) H 05/11/18 04:28 Eos % (Auto) 0.0 % (0.0-4.3) 05/11/18 04:28 Baso % (Auto) 0.3 % (0.0-1.8) 05/11/18 04:28 Lymph # 1.1 K/mm3 (1.2-5.4) L 05/11/18 04:28 [place] # 1.2 K/mm3 (0.0-0.8) H 05/11/18 04:28 Eos # 0.0 K/mm3 (0.0-0.4) 05/11/18 04:28 Baso # 0.0 K/mm3 (0.0-0.1) 05/11/18 04:28 Seg Neutrophils % 82.4 % (40.0-70.0) H 05/11/18 04:28 Seg Neutrophils # 10.8 K/mm3 (1.8-7.7) H 05/11/18 04:28 PT 13.5 Sec. (12.2-14.9) 05/09/18 11:55 INR 0.99 (0.87-1.13) 05/09/18 11:55 APTT 21.2 Sec. (24.2-36.6) L 05/09/18 11:55 D-Dimer 1326.35 ng/mlDDU (0-234) H 05/09/18 10:09 Heparin Anti-Xa Level < 0.10 U.I./ml (0.3-0.7) L 05/12/18 06:43 POC ABG pH 7.393 (7.35-7.45) 05/10/18 17:21 POC ABG pCO2 32.4 (35-45) L 05/10/18 17:21 POC ABG pO2 82 (80-105) 05/10/18 17:21 POC ABG HCO3 19.7 05/10/18 17:21 POC ABG Total CO2 21 05/10/18 17:21 POC ABG O2 Sat 96 05/10/18 17:21 POC ABG Base Excess -5 05/10/18 17:21 FiO2 28 % 05/10/18 17:21 Sodium 139 mmol/L (137-145) 05/16/18 05:42 Potassium 4.5 mmol/L (3.6-5.0) 05/16/18 05:42 Chloride 97.2 mmol/L (98-107) L 05/16/18 05:42 Carbon Dioxide 27 mmol/L (22-30) 05/16/18 05:42 Anion Gap 19 mmol/L 05/16/18 05:42 BUN 68 mg/dL (9-20) H 05/16/18 05:42 Creatinine 4.1 mg/dL (0.8-1.5) H 05/16/18 05:42 Estimated GFR 15 ml/min 05/16/18 05:42 BUN/Creatinine Ratio 17 % 05/16/18 05:42 Glucose 88 mg/dL (75-100) 05/16/18 05:42 Lactic Acid 1.30 mmol/L (0.7-2.0) 05/10/18 16:08 Calcium 9.0 mg/dL (8.4-10.2) 05/16/18 05:42 Magnesium 2.60 mg/dL (1.7-2.3) H 05/16/18 05:42 Total Bilirubin 0.30 mg/dL (0.1-1.2) 05/09/18 10:09 AST 26 units/L (5-40) 05/09/18 10:09 ALT 18 units/L (7-56) 05/09/18 10:09 Alkaline Phosphatase 88 units/L (35-129) 05/09/18 10:09 Total Creatine Kinase 159 units/L (55-170) 05/09/18 15:36 CK-MB (CK-2) 9.3 ng/mL (0.0-4.0) H 05/09/18 15:36 CK-MB (CK-2) Rel Index 5.8 (0-4) H 05/09/18 15:36 Troponin T 0.246 ng/mL (0.00-0.029) H* 05/09/18 15:36 C-Reactive Protein 2.00 mg/dL (0.00-1.30) H 05/10/18 16:08 NT-Pro-B Natriuret Pep 77243 pg/mL (0-900) H 05/09/18 10:09 Serum Total Protein 6.4 g/dL (6.1-8.1) 05/10/18 13:22 Total Protein 7.7 g/dL (6.3-8.2) 05/09/18 10:09 Albumin 3.5 g/dL (3.8-4.8) L 05/10/18 13:22 Albumin/Globulin Ratio 1.1 % 05/09/18 10:09 Pzrsw-0-Fveawtdiy 0.4 g/dL (0.2-0.3) H 05/10/18 13:22 Rjsoz-5-Qdzkulrta 0.6 g/dL (0.5-0.9) 05/10/18 13:22 Beta Globulins 0.3 g/dL (0.2-0.5) 05/10/18 13:22 Gamma Globulins 1.2 g/dL (0.8-1.7) 05/10/18 13:22 Abnorm Protein Band 1 0.4 g/dL H 05/10/18 13:22 Abnorm Protein Band 2 see below 05/10/18 13:22 PEP Interpretation see below H 05/10/18 13:22 Triglycerides 175 mg/dL (2-149) H 05/09/18 10:09 Cholesterol 276 mg/dL (50-199) H 05/09/18 10:09 LDL Cholesterol Direct 235 mg/dL (50-130) H 05/09/18 10:09 HDL Cholesterol 34 mg/dL (40-59) L 05/09/18 10:09 Cholesterol/HDL Ratio 8.11 % 05/09/18 10:09 TSH 1.110 mlU/mL (0.270-4.200) 05/10/18 02:07 Free T4 1.15 ng/dL (0.76-1.46) 05/10/18 02:07 Urine Color Yellow (Yellow) 05/09/18 10:33 Urine Turbidity Clear (Clear) 05/09/18 10:33 Urine pH 6.0 (5.0-7.0) 05/09/18 10:33 Ur Specific [place] 1.011 (1.003-1.030) 05/09/18 10:33 Urine Protein >2000 mg dl mg/dL (Negative) 05/09/18 10:33 Urine Glucose (UA) 50 mg/dL (Negative) 05/09/18 10:33 Urine Ketones Neg mg/dL (Negative) 05/09/18 10:33 Urine Blood Neg (Negative) 05/09/18 10:33 Urine Nitrite Neg (Negative) 05/09/18 10:33 Urine Bilirubin Neg (Negative) 05/09/18 10:33 Urine Urobilinogen < 2.0 mg/dL (<2.0) 05/09/18 10:33 Ur Leukocyte Esterase Neg (Negative) 05/09/18 10:33 Urine WBC (Auto) 2.0 /HPF (0.0-6.0) 05/09/18 10:33 Urine RBC (Auto) 3.0 /HPF (0.0-6.0) 05/09/18 10:33 Urine Bacteria (Auto) 1+ /HPF (Negative) 05/09/18 10:33 Urine Total Volume 700 ml 05/15/18 Unknown Urine Creatinine 82.8 mg/dL (0.1-20.0) H 05/15/18 Unknown Ur Creatinine 24 Hour 0.6 (0.8-2.8) L 05/15/18 Unknown Height (in) 69.0 inches 05/15/18 13:58 Weight (lb) 214.7 lbs 05/15/18 13:58 Creatinine Clearance 7 05/15/18 13:58 Urine Opiates Screen Presumptive negative 05/09/18 10:33 Urine Methadone Screen Presumptive negative 05/09/18 10:33 Ur Barbiturates Screen Presumptive negative 05/09/18 10:33 Ur Phencyclidine Scrn Presumptive negative 05/09/18 10:33 Ur Amphetamines Screen Presumptive negative 05/09/18 10:33 U Benzodiazepines Scrn Presumptive negative 05/09/18 10:33 Urine Cocaine Screen Presumptive negative 05/09/18 10:33 U Marijuana (THC) Screen Presumptive negative 05/09/18 10:33 Drugs of Abuse Note Disclamer 05/09/18 10:33 Complement C3 142 mg/dL (82-185) 05/10/18 13:22 Complement C4 20 mg/dL (15-53) 05/10/18 13:22 Tot Complement (CH50) >60 U/mL (31-60) H 05/10/18 13:22 Hepatitis A IgM Ab Non-reactive (NonReactive) 05/10/18 13:22 Hep Bs Antigen Non-reactive (Negative) 05/10/18 13:22 Hep B Core IgM Ab Non-reactive (NonReactive) 05/10/18 13:22 Hepatitis C Antibody Non-reactive (NonReactive) 05/10/18 13:22 HIV 1&2 Antibody Rapid Non react (Non React) 05/10/18 13:22 HIV P24 Antigen Non react (Non React) 05/10/18 13:22 Nutrition/Malnutrition Assess - Dietary Evaluation Nutrition/Malnutrition Findings: Nutrition Notes Start: 05/10/18 09:35 Freq: Status: Active Protocol: Document 05/14/18 14:45 OL (Rec: 05/14/18 14:49 OL [id number]) Nutrition Notes Initial or Follow up Reassessment Current Diagnosis Acute Kidney Injury CKD(stage I-IV) COPD Hypertension Heart Failure Respiratory Failure Other Pertinent Diagnosis Dyspnea Current Diet cardiac/renal Labs/Tests BUN 53 Cr 4.2 Pertinent Medications Lasix Height 5 ft 9 in Weight 97.6 kg [place] Body Weight (kg) 72.72 BMI 31.7 Weight Status Obese Subjective/Other Information Pt. continues to eat well. Pt. NPO at breakfast for a stress test. 100% lunch consumed. Pt . aware of renal diet restriction, requesting milk. Pt. willing to try ONS Percent of energy/protein needs met: 100%/100% Burn Absent Trauma Absent Current % PO Good (75-100%) #1 Nutrition Diagnosis Inadequate oral intake As Evidenced by Signs and Symptoms pt. consuming 100% of meals Diagnosis Progress(for reassessment Improved documentation) Is patient on ventilator? No Is Patient Ambulatory and/or Out of Bed Yes REE-([place]-St. Jeor-ambulatory/OOB) [ 2315.794 [id number]] Kcal/Kg value to use for calculation 18 Approximate Energy Requirements Using 1757 kcal/Kg Calculation Used for Recommendations Kcal/kg Additional Notes pro: 60-117g/day (0.6-1.2g/kg) fluid: 1mL/kcal Nutrition Intervention Change Diet Order: Renal Diet Add Supplement/Snack (indicate name/kcal nepro daily /protein ) Provides kCal: 425 Provides Protein (gm) 19 Goal #1 Continue to meet at least 80% of kcal and pro needs Anticipated Discharge Needs: Renal diet Follow-Up By: 05/17/18 Additional Comments f/u: ONS tolerance
[2018-05-16] MEDS: DUONEB *Not for PRN Use IH SCH ×3 (11:38→20:59)
[2018-05-16 18:11] LABS: Myeloperoxidase Antibody <1.0 AI (<1.0)
--- NOTE | 2018-05-16 18:16 | Progress Note ---
Assessment and Plan Patient awake.Patient resting on room air. No complaint of chest pain,shortness of breath. Slight cough at times.Patient smokes one pack a day for last 7 years. Counselled him to stop smoking.O2 saturation 99% on room air. Patients venous doppler studies reported negative. Perfusion lung scan reported low probability for pulmonary emboli. - Patient Problems (1) Acute respiratory failure Current Visit: Yes Status: Resolved Plan to address problem: Improved. Patient resting on room air. No respiratory distress. O2 saturation 99% on room air. (2) Acute heart failure with preserved ejection fraction Current Visit: Yes Status: Acute Plan to address problem: Management as per cardiology. (3) NSTEMI (non-ST elevated myocardial infarction) Current Visit: Yes Status: Acute Plan to address problem: Management as per cardiology. (4) Tobacco use Current Visit: Yes Status: Chronic Plan to address problem: Counseled to stop smoking. Recommend PFTs as out patient. (5) Elevated d-dimer Current Visit: Yes Status: Acute Plan to address problem: atients venous doppler studies reported negative. Perfusion lung scan reported low probability for pulmonary emboli. Lovenox 30 mg S/C qd, Subjective Date of service: 05/16/18 Principal diagnosis: Acute hypoxemic hypercapnic Resp failure; Acute CHF; ELVIA; NSTEMI Interval history: Patient awake.Patient resting on room air. No complaint of chest pain,shortness of breath. Slight cough at times.Patient smokes one pack a day for last 7 years. Counselled him to stop smoking.O2 saturation 99% on room air. Patients venous doppler studies reported negative. Perfusion lung scan reported low probability for pulmonary emboli. Objective Vital Signs - 12hr 05/16/18 05/16/18 05/16/18 06:49 10:00 10:26 Temperature 98.3 F Pulse Rate 69 62 62 Pulse Rate [ Anterior Bilateral Throughout] Respiratory 16 Rate Respiratory Rate [Anterior Bilateral Throughout] Blood Pressure 149/82 Blood Pressure 128/67 [Right] O2 Sat by Pulse 99 Oximetry 05/16/18 05/16/18 05/16/18 10:38 11:49 15:26 Temperature Pulse Rate Pulse Rate [ 69 74 57 L Anterior Bilateral Throughout] Respiratory Rate Respiratory 16 18 20 Rate [Anterior Bilateral Throughout] Blood Pressure Blood Pressure [Right] O2 Sat by Pulse Oximetry 05/16/18 15:39 Temperature Pulse Rate Pulse Rate [ 62 Anterior Bilateral Throughout] Respiratory Rate Respiratory 20 Rate [Anterior Bilateral Throughout] Blood Pressure Blood Pressure [Right] O2 Sat by Pulse Oximetry Constitutional: no acute distress, alert Eyes: non-icteric ENT: oropharynx moist Neck: supple, no lymphadenopathy, no JVD, other (no thyromegaly) Effort: mildly labored Ascultation: Bilateral: diminished breath sounds, rales Percussion: Bilateral: not dull Cardiovascular: regular rate and rhythm Gastrointestinal: normoactive bowel sounds, soft, non-tender, non-distended Integumentary: normal Extremities: no cyanosis, pink and warm, pulses normal, no ischemia or petechiae , edema (trace) Neurologic: normal mental status, non-focal exam, pupils equal and round, CN II- XII normal, motor strength normal and Psychiatric: depressed CBC and BMP: 05/16/18 05:42 05/16/18 05:42 ABG, PT/INR, D-dimer: ABG POC ABG pH 7.393 (7.35-7.45) 05/10/18 17:21 POC ABG pCO2 32.4 (35-45) L 05/10/18 17:21 POC ABG pO2 82 (80-105) 05/10/18 17:21 POC ABG HCO3 19.7 05/10/18 17:21 POC ABG Total CO2 21 05/10/18 17:21 POC ABG O2 Sat 96 05/10/18 17:21 PT/INR, D-dimer PT 13.5 Sec. (12.2-14.9) 05/09/18 11:55 INR 0.99 (0.87-1.13) 05/09/18 11:55 D-Dimer 1326.35 ng/mlDDU (0-234) H 05/09/18 10:09 Abnormal lab findings: Abnormal Labs 05/09/18 05/09/18 05/09/18 10:09 10:09 10:09 WBC 17.6 H RBC 5.11 H Hct 46.0 H RDW 15.8 H Plt Count Lymph % (Auto) [place] % (Auto) Eos % (Auto) 5.4 H Lymph # [place] # 1.2 H Eos # 1.0 H Baso # 0.2 H Seg Neutrophils % Seg Neutrophils # 12.1 H APTT D-Dimer 1326.35 H Heparin Anti-Xa Level POC ABG pH POC ABG pCO2 POC ABG pO2 Chloride Carbon Dioxide BUN 50 H Creatinine 3.7 H Glucose 191 H Calcium 8.2 L Magnesium CK-MB (CK-2) CK-MB (CK-2) Rel Index Troponin T 0.235 H* C-Reactive Protein NT-Pro-B Natriuret Pep Albumin Bfzaf-0-Vzwgyoctf Abnorm Protein Band 1 PEP Interpretation Triglycerides 175 H Cholesterol 276 H LDL Cholesterol Direct 235 H HDL Cholesterol 34 L Urine Creatinine Ur Creatinine 24 Hour Tot Complement (CH50) 05/09/18 05/09/18 05/09/18 10:09 11:02 11:55 WBC RBC Hct RDW Plt Count Lymph % (Auto) [place] % (Auto) Eos % (Auto) Lymph # [place] # Eos # Baso # Seg Neutrophils % Seg Neutrophils # APTT 21.2 L D-Dimer Heparin Anti-Xa Level POC ABG pH 7.158 L POC ABG pCO2 73.6 H POC ABG pO2 274 H Chloride Carbon Dioxide BUN Creatinine Glucose Calcium Magnesium CK-MB (CK-2) 9.7 H CK-MB (CK-2) Rel Index 6.0 H Troponin T C-Reactive Protein NT-Pro-B Natriuret Pep 13534 H Albumin Gwdnd-1-Wnfoelhwj Abnorm Protein Band 1 PEP Interpretation Triglycerides Cholesterol LDL Cholesterol Direct HDL Cholesterol Urine Creatinine Ur Creatinine 24 Hour Tot Complement (CH50) 05/09/18 05/09/18 05/09/18 15:36 15:36 15:58 WBC RBC Hct RDW Plt Count Lymph % (Auto) [place] % (Auto) Eos % (Auto) Lymph # [place] # Eos # Baso # Seg Neutrophils % Seg Neutrophils # APTT D-Dimer Heparin Anti-Xa Level 2.00 H POC ABG pH POC ABG pCO2 POC ABG pO2 Chloride Carbon Dioxide BUN 53 H Creatinine 3.9 H Glucose Calcium 8.0 L Magnesium CK-MB (CK-2) 9.3 H CK-MB (CK-2) Rel Index 5.8 H Troponin T 0.246 H* C-Reactive Protein NT-Pro-B Natriuret Pep Albumin Lpytv-9-Wdoesnnhd Abnorm Protein Band 1 PEP Interpretation Triglycerides Cholesterol LDL Cholesterol Direct HDL Cholesterol Urine Creatinine Ur Creatinine 24 Hour Tot Complement (CH50) 05/09/18 05/09/18 05/10/18 16:57 19:45 02:07 WBC RBC Hct RDW 15.3 H Plt Count 136 L Lymph % (Auto) [place] % (Auto) Eos % (Auto) Lymph # [place] # Eos # Baso # Seg Neutrophils % Seg Neutrophils # APTT D-Dimer Heparin Anti-Xa Level 1.49 H POC ABG pH 7.307 L POC ABG pCO2 47.5 H POC ABG pO2 119 H Chloride Carbon Dioxide BUN Creatinine Glucose Calcium Magnesium CK-MB (CK-2) CK-MB (CK-2) Rel Index Troponin T C-Reactive Protein NT-Pro-B Natriuret Pep Albumin Kvbpm-9-Zcibktwlv Abnorm Protein Band 1 PEP Interpretation Triglycerides Cholesterol LDL Cholesterol Direct HDL Cholesterol Urine Creatinine Ur Creatinine 24 Hour Tot Complement (CH50) 05/10/18 05/10/18 05/10/18 02:07 03:25 10:37 WBC RBC Hct RDW Plt Count Lymph % (Auto) [place] % (Auto) Eos % (Auto) Lymph # [place] # Eos # Baso # Seg Neutrophils % Seg Neutrophils # APTT D-Dimer Heparin Anti-Xa Level POC ABG pH POC ABG pCO2 POC ABG pO2 65 L Chloride Carbon Dioxide 21 L BUN 56 H Creatinine 4.2 H Glucose Calcium Magnesium 2.40 H CK-MB (CK-2) CK-MB (CK-2) Rel Index Troponin T C-Reactive Protein 2.00 H NT-Pro-B Natriuret Pep Albumin Mlgmq-6-Ztwwwrewy Abnorm Protein Band 1 PEP Interpretation Triglycerides Cholesterol LDL Cholesterol Direct HDL Cholesterol Urine Creatinine Ur Creatinine 24 Hour Tot Complement (CH50) 05/10/18 05/10/18 05/10/18 11:34 13:22 13:22 WBC RBC Hct RDW Plt Count Lymph % (Auto) [place] % (Auto) Eos % (Auto) Lymph # [place] # Eos # Baso # Seg Neutrophils % Seg Neutrophils # APTT D-Dimer Heparin Anti-Xa Level POC ABG pH POC ABG pCO2 32.7 L POC ABG pO2 110 H Chloride Carbon Dioxide BUN Creatinine Glucose Calcium Magnesium CK-MB (CK-2) CK-MB (CK-2) Rel Index Troponin T C-Reactive Protein NT-Pro-B Natriuret Pep Albumin 3.5 L Qnfog-7-Rzyzpjenr 0.4 H Abnorm Protein Band 1 0.4 H PEP Interpretation see below H Triglycerides Cholesterol LDL Cholesterol Direct HDL Cholesterol Urine Creatinine Ur Creatinine 24 Hour Tot Complement (CH50) >60 H 05/10/18 05/10/18 05/11/18 16:08 17:21 04:28 WBC 13.1 H RBC Hct RDW 15.5 H Plt Count Lymph % (Auto) 8.1 L [place] % (Auto) 9.2 H Eos % (Auto) Lymph # 1.1 L [place] # 1.2 H Eos # Baso # Seg Neutrophils % 82.4 H Seg Neutrophils # 10.8 H APTT D-Dimer Heparin Anti-Xa Level POC ABG pH POC ABG pCO2 32.4 L POC ABG pO2 Chloride Carbon Dioxide BUN Creatinine Glucose Calcium Magnesium CK-MB (CK-2) CK-MB (CK-2) Rel Index Troponin T C-Reactive Protein 2.00 H NT-Pro-B Natriuret Pep Albumin Pvide-3-Ppokkthiu Abnorm Protein Band 1 PEP Interpretation Triglycerides Cholesterol LDL Cholesterol Direct HDL Cholesterol Urine Creatinine Ur Creatinine 24 Hour Tot Complement (CH50) 05/11/18 05/11/18 05/11/18 04:28 04:28 23:50 WBC RBC Hct RDW Plt Count Lymph % (Auto) [place] % (Auto) Eos % (Auto) Lymph # [place] # Eos # Baso # Seg Neutrophils % Seg Neutrophils # APTT D-Dimer Heparin Anti-Xa Level < 0.10 L 2.00 H POC ABG pH POC ABG pCO2 POC ABG pO2 Chloride Carbon Dioxide 19 L BUN 67 H Creatinine 4.8 H Glucose Calcium 8.3 L Magnesium CK-MB (CK-2) CK-MB (CK-2) Rel Index Troponin T C-Reactive Protein NT-Pro-B Natriuret Pep Albumin Mqpzh-4-Mqimlfoug Abnorm Protein Band 1 PEP Interpretation Triglycerides Cholesterol LDL Cholesterol Direct HDL Cholesterol Urine Creatinine Ur Creatinine 24 Hour Tot Complement (CH50) 05/12/18 05/12/18 05/13/18 04:07 06:43 08:23 WBC 11.6 H RBC Hct RDW 15.8 H Plt Count Lymph % (Auto) [place] % (Auto) Eos % (Auto) Lymph # [place] # Eos # Baso # Seg Neutrophils % Seg Neutrophils # APTT D-Dimer Heparin Anti-Xa Level < 0.10 L POC ABG pH POC ABG pCO2 POC ABG pO2 Chloride 97.0 L Carbon Dioxide BUN 36 H Creatinine 3.2 H Glucose 104 H Calcium Magnesium CK-MB (CK-2) CK-MB (CK-2) Rel Index Troponin T C-Reactive Protein NT-Pro-B Natriuret Pep Albumin Cpstd-7-Ufpsudokj Abnorm Protein Band 1 PEP Interpretation Triglycerides Cholesterol LDL Cholesterol Direct HDL Cholesterol Urine Creatinine Ur Creatinine 24 Hour Tot Complement (CH50) 05/13/18 05/14/18 05/14/18 08:23 06:05 06:05 WBC RBC Hct RDW 15.6 H Plt Count Lymph % (Auto) [place] % (Auto) Eos % (Auto) Lymph # [place] # Eos # Baso # Seg Neutrophils % Seg Neutrophils # APTT D-Dimer Heparin Anti-Xa Level POC ABG pH POC ABG pCO2 POC ABG pO2 Chloride Carbon Dioxide BUN 45 H 53 H Creatinine 3.7 H 4.2 H Glucose Calcium Magnesium CK-MB (CK-2) CK-MB (CK-2) Rel Index Troponin T C-Reactive Protein NT-Pro-B Natriuret Pep Albumin Hberm-2-Nzzqqhros Abnorm Protein Band 1 PEP Interpretation Triglycerides Cholesterol LDL Cholesterol Direct HDL Cholesterol Urine Creatinine Ur Creatinine 24 Hour Tot Complement (CH50) 05/15/18 05/15/18 05/15/18 05:49 05:49 13:58 WBC 12.6 H RBC Hct RDW 15.7 H Plt Count Lymph % (Auto) [place] % (Auto) Eos % (Auto) Lymph # [place] # Eos # Baso # Seg Neutrophils % Seg Neutrophils # APTT D-Dimer Heparin Anti-Xa Level POC ABG pH POC ABG pCO2 POC ABG pO2 Chloride 97.3 L Carbon Dioxide BUN 61 H Creatinine 4.1 H Glucose Calcium Magnesium 2.40 H CK-MB (CK-2) CK-MB (CK-2) Rel Index Troponin T C-Reactive Protein NT-Pro-B Natriuret Pep Albumin Lbbfx-7-Hpqfjsjiv Abnorm Protein Band 1 PEP Interpretation Triglycerides Cholesterol LDL Cholesterol Direct HDL Cholesterol Urine Creatinine 78.3 H Ur Creatinine 24 Hour Tot Complement (CH50) 05/15/18 05/16/18 05/16/18 Unknown 05:42 05:42 WBC 11.6 H RBC Hct RDW 15.9 H Plt Count Lymph % (Auto) [place] % (Auto) Eos % (Auto) Lymph # [place] # Eos # Baso # Seg Neutrophils % Seg Neutrophils # APTT D-Dimer Heparin Anti-Xa Level POC ABG pH POC ABG pCO2 POC ABG pO2 Chloride 97.2 L Carbon Dioxide BUN 68 H Creatinine 4.1 H Glucose Calcium Magnesium 2.60 H CK-MB (CK-2) CK-MB (CK-2) Rel Index Troponin T C-Reactive Protein NT-Pro-B Natriuret Pep Albumin Nckxt-0-Ibvpuuyvg Abnorm Protein Band 1 PEP Interpretation Triglycerides Cholesterol LDL Cholesterol Direct HDL Cholesterol Urine Creatinine 82.8 H Ur Creatinine 24 Hour 0.6 L Tot Complement (CH50) Additional Studies: Patients venous doppler studies reported negative. Perfusion lung scan reported low probability for pulmonary emboli. Allied health notes reviewed: nursing
[2018-05-17] MEDS: LASIX PO SCH ×2 (05:30→17:54)
[2018-05-17] MEDS: APRESOLINE PO SCH ×3 (05:30→21:20)
[2018-05-17 06:28] LABS: Hemoglobin 13.7 gm/dl (11.8-15.2); Mean Corpuscular HGB Conc 33 % (32-34); Mean Corpuscular Volume 90 fl (84-94); Platelet Count 168 K/mm3 (140-440); Red Blood Count 4.64 M/mm3 (3.65-5.03); Red Cell Distribution Width 15.2 % (13.2-15.2)
[2018-05-17 06:51] LABS: Calcium 8.6 mg/dL (8.4-10.2)
[2018-05-17] MEDS: DUONEB *Not for PRN Use IH SCH ×3 (08:05→21:06)
[2018-05-17] MEDS: HEPARIN SUB-Q SCH ×2 (09:53→21:37)
--- NOTE | 2018-05-17 12:15 | Progress Note ---
Assessment and Plan Acute renal failure likely secondary ischemic ATN on possible underlying CKD with Proteinuria, requiring dialysis initiation Severe Renal Failure, dialysis dependent indefinitely, likely ESRD -scheduled for permcath tomorrow - HD today for clearance volume removal, HD again tomorrow after permcath placement . - social service agency director consulted for outpatient HD arrangement -Will hemodialyze patient today for UF and clearance Acute heart failure NSTEMI Elevated BNP -Echo:LVEF- 50-55% -On Lasix/Imdur/Metoprolol/Statin -S/P Heparin drip -CXR today-Pulmonary venous congestion -On Lasix 40 mg po BID Acute hypoxic-hypercapnic respiratory failure Elevated-Dimer -Extubated -VQ scan- Low probability for PE -S/P Heparin drip -As per pulmonary S/P Hypertensive emergency Hypertension: -On Lasix/Hydralazine/Metoprolol -Adjust regimen as needed Subjective Date of service: 05/17/18 Principal diagnosis: Acute hypoxemic hypercapnic Resp failure; Acute CHF; ELVIA; NSTEMI Interval history: mild SOB and weakness Objective - Vital Signs Vital signs: Vital Signs - 12hr 05/17/18 05/17/18 05:00 08:08 Temperature 98.4 F Pulse Rate 49 L Pulse Rate [ 82 Anterior Bilateral Throughout] Pulse Rate [ 82 Throughout] Respiratory 18 Rate Respiratory 16 Rate [Anterior Bilateral Throughout] Respiratory 16 Rate [ Throughout] Blood Pressure 130/75 O2 Sat by Pulse 94 Oximetry - General Appearance General appearance: well-developed, well-nourished, appears stated age EENT: ATNC, PERRL, mucous membranes moist Neck: no JVD, no carotid bruit Respiratory: Present: Clear to Ascultation. Absent: Rales, Ronchi Cardiology: regular, S1S2 Gastrointestinal: normoactive bowel sounds, no tenderness, no distended Integumentary: no rash, warm and dry Neurologic: no focal deficit, no asterixis, alert and oriented x3 Musculoskeletal: deferred Psychiatric: mood/affect appropriate, cooperative - Lab 05/17/18 05:45 05/17/18 05:48 Most recent lab results Calcium 8.6 mg/dL (8.4-10.2) 05/17/18 05:48 Magnesium 2.40 mg/dL (1.7-2.3) H 05/17/18 05:48 Urine Creatinine 82.8 mg/dL (0.1-20.0) H 05/15/18 Unknown Medications & Allergies - Medications Allergies/Adverse Reactions: Allergies No Known Allergies Allergy (Unverified 05/09/18 10:45) Home Medications: Home Medications Medication Instructions Recorded Confirmed Last Taken Type No Known Home Medications [No 05/09/18 05/09/18 Unknown History Reported Home Medications] Active Medications: Generic Name Dose Route Start Last Admin Trade Name Freq PRN Reason Stop Dose Admin Acetaminophen 650 mg 05/11/18 23:42 05/12/18 00:19 Tylenol PO 650 mg Q6H PRN Administration Pain, Mild (1-3) Albuterol 2.5 mg 05/09/18 21:14 05/11/18 16:58 Proventil IH 2.5 mg Q4HRT PRN Administration Shortness Of Breath Albuterol/Ipratropium 1 ampul 05/15/18 20:00 05/17/18 08:05 Duoneb *Not For Prn Use* IH 1 ampul TIDRT GLENDA Administration Atorvastatin Calcium 80 mg 05/11/18 22:00 05/16/18 21:53 Lipitor PO 80 mg QHS GLENDA Administration Famotidine 20 mg 05/14/18 12:00 05/16/18 10:22 Pepcid PO 20 mg DAILY GLENDA Administration Fluoxetine HCl 40 mg 05/11/18 14:00 05/16/18 10:23 Prozac PO 40 mg QDAY GLENDA Administration Furosemide 40 mg 05/15/18 18:00 05/17/18 05:30 Lasix PO 40 mg 0600,1800 GLENDA Administration Heparin Sodium (Porcine) 5,000 unit 05/15/18 22:00 05/17/18 09:53 Heparin SUB-Q Not Given Q12HR GLENDA Hydralazine HCl 10 mg 05/12/18 10:23 Apresoline IV Q4H PRN SBP > 160 Hydralazine HCl 100 mg 05/13/18 10:19 05/17/18 05:30 Apresoline PO 100 mg Q8HR GLENDA Administration Isosorbide Mononitrate 30 mg 05/12/18 14:00 05/16/18 10:23 Imdur PO 30 mg QDAY GLENDA Administration Metoprolol Tartrate 50 mg 05/12/18 14:00 05/16/18 21:53 Lopressor PO 50 mg BID GLENDA Administration Potassium Chloride 20 meq 05/10/18 22:00 05/16/18 21:53 Potassium Chloride PO 20 meq Q12H GLENDA Administration
--- NOTE | 2018-05-17 13:09 | Progress Note ---
Assessment and Plan Assessment and plan: Acute hypoxemic respiratory failure. Etiology secondary to acute heart failure and Non ST elevation DE. Extubated and doing well Acute HFpEF. Echocardiogram reveals EF 50-55%. Etiology likely secondary to flash pulmonary edema from accelerated hypertension. Cardiology following. Continue Lasix 40 mg IV twice a day NSTEMI. Cardiology following. Off heparin drip. Continue aspirin and beta blo cker. Lexiscan completed this morning. Await results. Acute on CKD, likely ESRD. -Baseline SCr level unknown, but pt was apparently told 1 year ago at [place] that he had proteinuria -S/p first and only HD treatment on 05/11/18 -Assess need for HD on daily basis -Monitor for signs of renal recovery -Renal ultrasound showed no hydronephrosis, but suggestive of CKD -HIV and hepatitis panel negative -GN/Vasculitis labs pending -Discussed with Dr. Vásquez on 05/15 -24hr Cr Clearance of 7 -to start hemodialysis and outpatient HD Accelerated hypertension. Continue antihypertensive medications. History Interval history: feels better, No more shortness of breath no chest pain Hospitalist Physical - Physical exam Narrative exam: GEN: Not in acute distress, lying in bed,obese HEENT: Normocephalic, atraumatic, Neck: supple, No JVD Lungs: Clear to auscultation bilaterally, no wheeze Heart:S1 and S2 regular, no murmurs, rubs or gallop, Abd:soft, non tender, non distended, normal bowel sounds Ext: No edema, no clubbing or cyanosis Neuro: AAO x 3, moves all extremities, no focal neurological signs - Constitutional Vitals: Temp Pulse Resp BP Pulse Ox 98.4 F 82 16 130/75 94 05/17/18 05:00 05/17/18 08:08 05/17/18 08:08 05/17/18 05:00 05/17/18 05:00 General appearance: Present: no acute distress Results - Labs CBC & Chem 7: 05/17/18 05:45 05/17/18 05:48 Labs: Laboratory Last Values WBC 10.3 K/mm3 (4.5-11.0) 05/17/18 05:45 RBC 4.64 M/mm3 (3.65-5.03) 05/17/18 05:45 Hgb 13.7 gm/dl (11.8-15.2) 05/17/18 05:45 Hct 42.0 % (35.5-45.6) 05/17/18 05:45 MCV 90 fl (84-94) 05/17/18 05:45 MCH 30 pg (28-32) 05/17/18 05:45 MCHC 33 % (32-34) 05/17/18 05:45 RDW 15.2 % (13.2-15.2) 05/17/18 05:45 Plt Count 168 K/mm3 (140-440) 05/17/18 05:45 Lymph % (Auto) 8.1 % (13.4-35.0) L 05/11/18 04:28 [place] % (Auto) 9.2 % (0.0-7.3) H 05/11/18 04:28 Eos % (Auto) 0.0 % (0.0-4.3) 05/11/18 04:28 Baso % (Auto) 0.3 % (0.0-1.8) 05/11/18 04:28 Lymph # 1.1 K/mm3 (1.2-5.4) L 05/11/18 04:28 [place] # 1.2 K/mm3 (0.0-0.8) H 05/11/18 04:28 Eos # 0.0 K/mm3 (0.0-0.4) 05/11/18 04:28 Baso # 0.0 K/mm3 (0.0-0.1) 05/11/18 04:28 Seg Neutrophils % 82.4 % (40.0-70.0) H 05/11/18 04:28 Seg Neutrophils # 10.8 K/mm3 (1.8-7.7) H 05/11/18 04:28 PT 13.5 Sec. (12.2-14.9) 05/09/18 11:55 INR 0.99 (0.87-1.13) 05/09/18 11:55 APTT 21.2 Sec. (24.2-36.6) L 05/09/18 11:55 D-Dimer 1326.35 ng/mlDDU (0-234) H 05/09/18 10:09 Heparin Anti-Xa Level < 0.10 U.I./ml (0.3-0.7) L 05/12/18 06:43 POC ABG pH 7.393 (7.35-7.45) 05/10/18 17:21 POC ABG pCO2 32.4 (35-45) L 05/10/18 17:21 POC ABG pO2 82 (80-105) 05/10/18 17:21 POC ABG HCO3 19.7 05/10/18 17:21 POC ABG Total CO2 21 05/10/18 17:21 POC ABG O2 Sat 96 05/10/18 17:21 POC ABG Base Excess -5 05/10/18 17:21 FiO2 28 % 05/10/18 17:21 Sodium 135 mmol/L (137-145) L 05/17/18 05:48 Potassium 4.1 mmol/L (3.6-5.0) 05/17/18 05:48 Chloride 98.5 mmol/L (98-107) 05/17/18 05:48 Carbon Dioxide 23 mmol/L (22-30) 05/17/18 05:48 Anion Gap 18 mmol/L 05/17/18 05:48 BUN 73 mg/dL (9-20) H 05/17/18 05:48 Creatinine 4.1 mg/dL (0.8-1.5) H 05/17/18 05:48 Estimated GFR 15 ml/min 05/17/18 05:48 BUN/Creatinine Ratio 18 % 05/17/18 05:48 Glucose 95 mg/dL (75-100) 05/17/18 05:48 Lactic Acid 1.30 mmol/L (0.7-2.0) 05/10/18 16:08 Calcium 8.6 mg/dL (8.4-10.2) 05/17/18 05:48 Magnesium 2.40 mg/dL (1.7-2.3) H 05/17/18 05:48 Total Bilirubin 0.30 mg/dL (0.1-1.2) 05/09/18 10:09 AST 26 units/L (5-40) 05/09/18 10:09 ALT 18 units/L (7-56) 05/09/18 10:09 Alkaline Phosphatase 88 units/L (35-129) 05/09/18 10:09 Total Creatine Kinase 159 units/L (55-170) 05/09/18 15:36 CK-MB (CK-2) 9.3 ng/mL (0.0-4.0) H 05/09/18 15:36 CK-MB (CK-2) Rel Index 5.8 (0-4) H 05/09/18 15:36 Troponin T 0.246 ng/mL (0.00-0.029) H* 05/09/18 15:36 C-Reactive Protein 2.00 mg/dL (0.00-1.30) H 05/10/18 16:08 NT-Pro-B Natriuret Pep 82106 pg/mL (0-900) H 05/09/18 10:09 Serum Total Protein 6.4 g/dL (6.1-8.1) 05/10/18 13:22 Total Protein 7.7 g/dL (6.3-8.2) 05/09/18 10:09 Albumin 3.5 g/dL (3.8-4.8) L 05/10/18 13:22 Albumin/Globulin Ratio 1.1 % 05/09/18 10:09 Epkak-0-Jcrikwdns 0.4 g/dL (0.2-0.3) H 05/10/18 13:22 Quzva-1-Hpoayuujw 0.6 g/dL (0.5-0.9) 05/10/18 13:22 Beta Globulins 0.3 g/dL (0.2-0.5) 05/10/18 13:22 Gamma Globulins 1.2 g/dL (0.8-1.7) 05/10/18 13:22 Abnorm Protein Band 1 0.4 g/dL H 05/10/18 13:22 Abnorm Protein Band 2 see below 05/10/18 13:22 PEP Interpretation see below H 05/10/18 13:22 Triglycerides 175 mg/dL (2-149) H 05/09/18 10:09 Cholesterol 276 mg/dL (50-199) H 05/09/18 10:09 LDL Cholesterol Direct 235 mg/dL (50-130) H 05/09/18 10:09 HDL Cholesterol 34 mg/dL (40-59) L 05/09/18 10:09 Cholesterol/HDL Ratio 8.11 % 05/09/18 10:09 TSH 1.110 mlU/mL (0.270-4.200) 05/10/18 02:07 Free T4 1.15 ng/dL (0.76-1.46) 05/10/18 02:07 Urine Color Yellow (Yellow) 05/09/18 10:33 Urine Turbidity Clear (Clear) 05/09/18 10:33 Urine pH 6.0 (5.0-7.0) 05/09/18 10:33 Ur Specific [place] 1.011 (1.003-1.030) 05/09/18 10:33 Urine Protein >2000 mg dl mg/dL (Negative) 05/09/18 10:33 Urine Glucose (UA) 50 mg/dL (Negative) 05/09/18 10:33 Urine Ketones Neg mg/dL (Negative) 05/09/18 10:33 Urine Blood Neg (Negative) 05/09/18 10:33 Urine Nitrite Neg (Negative) 05/09/18 10:33 Urine Bilirubin Neg (Negative) 05/09/18 10:33 Urine Urobilinogen < 2.0 mg/dL (<2.0) 05/09/18 10:33 Ur Leukocyte Esterase Neg (Negative) 05/09/18 10:33 Urine WBC (Auto) 2.0 /HPF (0.0-6.0) 05/09/18 10:33 Urine RBC (Auto) 3.0 /HPF (0.0-6.0) 05/09/18 10:33 Urine Bacteria (Auto) 1+ /HPF (Negative) 05/09/18 10:33 Urine Total Volume 700 ml 05/15/18 Unknown Urine Creatinine 82.8 mg/dL (0.1-20.0) H 05/15/18 Unknown Ur Creatinine 24 Hour 0.6 (0.8-2.8) L 05/15/18 Unknown Height (in) 69.0 inches 05/15/18 13:58 Weight (lb) 214.7 lbs 05/15/18 13:58 Creatinine Clearance 7 05/15/18 13:58 Urine Opiates Screen Presumptive negative 05/09/18 10:33 Urine Methadone Screen Presumptive negative 05/09/18 10:33 Ur Barbiturates Screen Presumptive negative 05/09/18 10:33 Ur Phencyclidine Scrn Presumptive negative 05/09/18 10:33 Ur Amphetamines Screen Presumptive negative 05/09/18 10:33 U Benzodiazepines Scrn Presumptive negative 05/09/18 10:33 Urine Cocaine Screen Presumptive negative 05/09/18 10:33 U Marijuana (THC) Screen Presumptive negative 05/09/18 10:33 Drugs of Abuse Note Disclamer 05/09/18 10:33 Proteinase 3 (PR3) Ab <1.0 AI (<1.0) 05/10/18 13:22 Myeloperoxidase Ab <1.0 AI (<1.0) 05/10/18 13:22 Double Strand DNA Ab <1 IU/mL (<=4) 05/10/18 13:22 Glomerular Base Mem IgG See scanned result 05/10/18 13:22 Complement C3 142 mg/dL (82-185) 05/10/18 13:22 Complement C4 20 mg/dL (15-53) 05/10/18 13:22 Tot Complement (CH50) >60 U/mL (31-60) H 05/10/18 13:22 Hepatitis A IgM Ab Non-reactive (NonReactive) 05/10/18 13:22 Hep Bs Antigen Non-reactive (Negative) 05/10/18 13:22 Hep B Core IgM Ab Non-reactive (NonReactive) 05/10/18 13:22 Hepatitis C Antibody Non-reactive (NonReactive) 05/10/18 13:22 HIV 1&2 Antibody Rapid Non react (Non React) 05/10/18 13:22 HIV P24 Antigen Non react (Non React) 05/10/18 13:22 Anti-Streptolysin O Ab See scanned result 05/10/18 13:22 Nutrition/Malnutrition Assess - Dietary Evaluation Nutrition/Malnutrition Findings: Nutrition Notes Start: 05/10/18 09:35 Freq: Status: Active Protocol: Document 05/17/18 10:37 ER (Rec: 05/17/18 10:43 ER [id number]) Co-Sign 05/17/18 10:37 LP Nutrition Notes Initial or Follow up Reassessment Current Diagnosis Acute Kidney Injury CKD(stage I-IV) COPD Hypertension Heart Failure Respiratory Failure Other Pertinent Diagnosis Dyspnea Current Diet NPO Labs/Tests BUN 73 Cr 4.1 Pertinent Medications Lasix Height 5 ft 9 in Weight 97.6 kg [place] Body Weight (kg) 72.72 BMI 31.7 Weight Status Obese Subjective/Other Information 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 Pt. stated his appetite is good and ate 80% of dinner and drank Nepro. Pt. denies any N /V/D/C and chewing/swallowing difficulties. Pt. may need education for ESRD on HD. Continue to follow for ONS and education needs. Percent of energy/protein needs met: 120%/100% Burn Absent Trauma Absent Current % PO Good (75-100%) #1 Nutrition Diagnosis Inadequate oral intake As Evidenced by Signs and Symptoms pt. consuming 100% of energy and protein needs Diagnosis Progress(for reassessment Improved documentation) Is patient on ventilator? No Is Patient Ambulatory and/or Out of Bed Yes REE-(Brule-St. Jeor-ambulatory/OOB) [ 2315.794 [id number]] Kcal/Kg value to use for calculation 18 Approximate Energy Requirements Using 1757 kcal/Kg Calculation Used for Recommendations Kcal/kg Additional Notes pro: 60-117g/day (0.6-1.2g/kg) fluid: 1mL/kcal Nutrition Intervention Change Diet Order: Renal Diet Add Supplement/Snack (indicate name/kcal nepro daily /protein ) Provides kCal: 425 Provides Protein (gm) 19 Goal #1 Continue to meet 100% of energy and pro needs Anticipated Discharge Needs: Renal diet Follow-Up By: 05/23/18 Additional Comments f/u: ONS intake, ESRD on HD education needs
[2018-05-17 13:13] LABS: ANA Screen, IFA Negative (Negative)
--- NOTE | 2018-05-17 13:25 | Event Note ---
Date: 05/17/18 Vascath to permcath conversion planned for today. Unfortunately, due to limited laboratory courier facilities and large case load, the procedure will have to be performed tomorrow. Dialysis also requested that they have him come for dialysis today.
[2018-05-17] MEDS ORDERED: CATHFLO IV STA (14:03)
[2018-05-17] MEDS ORDERED: WATER FOR INJ Sterile (PF) 10 ML ONE (14:08)
[2018-05-17] MEDS ORDERED: NACL 0.9 (PRIMING MACHINE ONLY DIALYSIS) MC ONE (14:55)
--- NOTE | 2018-05-17 14:56 | Progress Note ---
Assessment and Plan Acute hypoxic-hypercapnic respiratory failure s/p MVS Acute heart failure Acute renal failure NSTEMI Hypertensive emergency Morbid obesity Tobacco abuse disorder -VTE prophylaxis - Continue accucheck with glycemic control. Target blood glucose of 140-180mg/dL -Bronchodilators per protocol -HD per renal service -Avoid nephrotoxic agents and adjust all medications for CrCL -CXR and ABG prn -Nicotine withdrawal precautions -Smoking cessation counselling, reiterated at the bedside -PT/OT -Antidepressants -Cardioprotective measures Discharge planning Out patient pulmonary follow up on discharge to evaluate for sleep apnea and COPD Subjective Date of service: 05/17/18 Principal diagnosis: Acute hypoxemic hypercapnic Resp failure; Acute CHF; ELVIA; NSTEMI Interval history: Patient is seen today for: Acute hypoxic-hypercapnic respiratory failure; Acute heart failure; Acute renal failure; NSTEMI; Hypertensive emergency Seen and examined at bedside; 24hour events reviewed; nursing and respiratory care staff consulted; no adverse overnight events reported to me; resting peacefully in bed; No N/V/F/C States he feels much better. HD catheter did not work today, so HD was held. He is awaiting permanent HD catheter placement. He feels much better, more hopeful. Objective Vital Signs - 12hr 05/17/18 05/17/18 05/17/18 05:00 08:08 13:32 Temperature 98.4 F Pulse Rate 49 L 50 L Pulse Rate [ 82 Anterior Bilateral Throughout] Pulse Rate [ 82 Throughout] Respiratory 18 Rate Respiratory 16 Rate [Anterior Bilateral Throughout] Respiratory 16 Rate [ Throughout] Blood Pressure 130/75 171/96 O2 Sat by Pulse 94 Oximetry 05/17/18 13:40 Temperature 97.9 F Pulse Rate 53 L Pulse Rate [ Anterior Bilateral Throughout] Pulse Rate [ Throughout] Respiratory 16 Rate Respiratory Rate [Anterior Bilateral Throughout] Respiratory Rate [ Throughout] Blood Pressure 161/94 O2 Sat by Pulse Oximetry Constitutional: no acute distress, alert Eyes: non-icteric ENT: oropharynx moist Neck: supple, no lymphadenopathy, no JVD, other (no thyromegaly) Effort: mildly labored Ascultation: Bilateral: diminished breath sounds, rales Percussion: Bilateral: not dull Cardiovascular: regular rate and rhythm Gastrointestinal: normoactive bowel sounds, soft, non-tender, non-distended Integumentary: normal Extremities: no cyanosis, pink and warm, pulses normal, no ischemia or petechiae, edema (trace) Neurologic: normal mental status, non-focal exam, pupils equal and round, CN II- XII normal, motor strength normal and Psychiatric: depressed CBC and BMP: 05/18/18 05:03 05/18/18 05:03 ABG, PT/INR, D-dimer: ABG POC ABG pH 7.393 (7.35-7.45) 05/10/18 17:21 POC ABG pCO2 32.4 (35-45) L 05/10/18 17:21 POC ABG pO2 82 (80-105) 05/10/18 17:21 POC ABG HCO3 19.7 05/10/18 17:21 POC ABG Total CO2 21 05/10/18 17:21 POC ABG O2 Sat 96 05/10/18 17:21 PT/INR, D-dimer PT 13.5 Sec. (12.2-14.9) 05/09/18 11:55 INR 0.99 (0.87-1.13) 05/09/18 11:55 D-Dimer 1326.35 ng/mlDDU (0-234) H 05/09/18 10:09 Abnormal lab findings: Abnormal Labs 05/09/18 05/09/18 05/09/18 10:09 10:09 10:09 WBC 17.6 H RBC 5.11 H Hct 46.0 H RDW 15.8 H Plt Count Lymph % (Auto) [place] % (Auto) Eos % (Auto) 5.4 H Lymph # [place] # 1.2 H Eos # 1.0 H Baso # 0.2 H Seg Neutrophils % Seg Neutrophils # 12.1 H APTT D-Dimer 1326.35 H Heparin Anti-Xa Level POC ABG pH POC ABG pCO2 POC ABG pO2 Sodium Chloride Carbon Dioxide BUN 50 H Creatinine 3.7 H Glucose 191 H Calcium 8.2 L Magnesium CK-MB (CK-2) CK-MB (CK-2) Rel Index Troponin T 0.235 H* C-Reactive Protein NT-Pro-B Natriuret Pep Albumin Inbtc-0-Chlvkixrr Abnorm Protein Band 1 PEP Interpretation Triglycerides 175 H Cholesterol 276 H LDL Cholesterol Direct 235 H HDL Cholesterol 34 L Urine Creatinine Ur Creatinine 24 Hour Tot Complement (CH50) 05/09/18 05/09/1819 10:09 11:02 11:55 WBC RBC Hct RDW Plt Count Lymph % (Auto) [place] % (Auto) Eos % (Auto) Lymph # [place] # Eos # Baso # Seg Neutrophils % Seg Neutrophils # APTT 21.2 L D-Dimer Heparin Anti-Xa Level POC ABG pH 7.158 L POC ABG pCO2 73.6 H POC ABG pO2 274 H Sodium Chloride Carbon Dioxide BUN Creatinine Glucose Calcium Magnesium CK-MB (CK-2) 9.7 H CK-MB (CK-2) Rel Index 6.0 H Troponin T C-Reactive Protein NT-Pro-B Natriuret Pep 14273 H Albumin Ujbbf-8-Dhgazercp Abnorm Protein Band 1 PEP Interpretation Triglycerides Cholesterol LDL Cholesterol Direct HDL Cholesterol Urine Creatinine Ur Creatinine 24 Hour Tot Complement (CH50) 05/09/18 05/09/18 05/09/18 15:36 15:36 15:58 WBC RBC Hct RDW Plt Count Lymph % (Auto) [place] % (Auto) Eos % (Auto) Lymph # [place] # Eos # Baso # Seg Neutrophils % Seg Neutrophils # APTT D-Dimer Heparin Anti-Xa Level 2.00 H POC ABG pH POC ABG pCO2 POC ABG pO2 Sodium Chloride Carbon Dioxide BUN 53 H Creatinine 3.9 H Glucose Calcium 8.0 L Magnesium CK-MB (CK-2) 9.3 H CK-MB (CK-2) Rel Index 5.8 H Troponin T 0.246 H* C-Reactive Protein NT-Pro-B Natriuret Pep Albumin Ckttj-3-Moysjfjiq Abnorm Protein Band 1 PEP Interpretation Triglycerides Cholesterol LDL Cholesterol Direct HDL Cholesterol Urine Creatinine Ur Creatinine 24 Hour Tot Complement (CH50) 05/09/18 05/09/18 05/10/18 16:57 19:45 02:07 WBC RBC Hct RDW 15.3 H Plt Count 136 L Lymph % (Auto) [place] % (Auto) Eos % (Auto) Lymph # [place] # Eos # Baso # Seg Neutrophils % Seg Neutrophils # APTT D-Dimer Heparin Anti-Xa Level 1.49 H POC ABG pH 7.307 L POC ABG pCO2 47.5 H POC ABG pO2 119 H Sodium Chloride Carbon Dioxide BUN Creatinine Glucose Calcium Magnesium CK-MB (CK-2) CK-MB (CK-2) Rel Index Troponin T C-Reactive Protein NT-Pro-B Natriuret Pep Albumin Ztmpx-9-Aedzrnnsp Abnorm Protein Band 1 PEP Interpretation Triglycerides Cholesterol LDL Cholesterol Direct HDL Cholesterol Urine Creatinine Ur Creatinine 24 Hour Tot Complement (CH50) 05/10/18 05/10/18 05/10/18 02:07 03:25 10:37 WBC RBC Hct RDW Plt Count Lymph % (Auto) [place] % (Auto) Eos % (Auto) Lymph # [place] # Eos # Baso # Seg Neutrophils % Seg Neutrophils # APTT D-Dimer Heparin Anti-Xa Level POC ABG pH POC ABG pCO2 POC ABG pO2 65 L Sodium Chloride Carbon Dioxide 21 L BUN 56 H Creatinine 4.2 H Glucose Calcium Magnesium 2.40 H CK-MB (CK-2) CK-MB (CK-2) Rel Index Troponin T C-Reactive Protein 2.00 H NT-Pro-B Natriuret Pep Albumin Fbfqs-4-Jomywrrou Abnorm Protein Band 1 PEP Interpretation Triglycerides Cholesterol LDL Cholesterol Direct HDL Cholesterol Urine Creatinine Ur Creatinine 24 Hour Tot Complement (CH50) 05/10/18 05/10/18 05/10/18 11:34 13:22 13:22 WBC RBC Hct RDW Plt Count Lymph % (Auto) [place] % (Auto) Eos % (Auto) Lymph # [place] # Eos # Baso # Seg Neutrophils % Seg Neutrophils # APTT D-Dimer Heparin Anti-Xa Level POC ABG pH POC ABG pCO2 32.7 L POC ABG pO2 110 H Sodium Chloride Carbon Dioxide BUN Creatinine Glucose Calcium Magnesium CK-MB (CK-2) CK-MB (CK-2) Rel Index Troponin T C-Reactive Protein NT-Pro-B Natriuret Pep Albumin 3.5 L Yszwe-7-Kkcuxazbq 0.4 H Abnorm Protein Band 1 0.4 H PEP Interpretation see below H Triglycerides Cholesterol LDL Cholesterol Direct HDL Cholesterol Urine Creatinine Ur Creatinine 24 Hour Tot Complement (CH50) >60 H 05/10/18 05/10/18 05/11/18 16:08 17:21 04:28 WBC 13.1 H RBC Hct RDW 15.5 H Plt Count Lymph % (Auto) 8.1 L [place] % (Auto) 9.2 H Eos % (Auto) Lymph # 1.1 L [place] # 1.2 H Eos # Baso # Seg Neutrophils % 82.4 H Seg Neutrophils # 10.8 H APTT D-Dimer Heparin Anti-Xa Level POC ABG pH POC ABG pCO2 32.4 L POC ABG pO2 Sodium Chloride Carbon Dioxide BUN Creatinine Glucose Calcium Magnesium CK-MB (CK-2) CK-MB (CK-2) Rel Index Troponin T C-Reactive Protein 2.00 H NT-Pro-B Natriuret Pep Albumin Dufvy-6-Lxocnphwq Abnorm Protein Band 1 PEP Interpretation Triglycerides Cholesterol LDL Cholesterol Direct HDL Cholesterol Urine Creatinine Ur Creatinine 24 Hour Tot Complement (CH50) 05/11/18 05/11/18 05/11/18 04:28 04:28 23:50 WBC RBC Hct RDW Plt Count Lymph % (Auto) [place] % (Auto) Eos % (Auto) Lymph # [place] # Eos # Baso # Seg Neutrophils % Seg Neutrophils # APTT D-Dimer Heparin Anti-Xa Level < 0.10 L 2.00 H POC ABG pH POC ABG pCO2 POC ABG pO2 Sodium Chloride Carbon Dioxide 19 L BUN 67 H Creatinine 4.8 H Glucose Calcium 8.3 L Magnesium CK-MB (CK-2) CK-MB (CK-2) Rel Index Troponin T C-Reactive Protein NT-Pro-B Natriuret Pep Albumin Pkbze-7-Khwnguyum Abnorm Protein Band 1 PEP Interpretation Triglycerides Cholesterol LDL Cholesterol Direct HDL Cholesterol Urine Creatinine Ur Creatinine 24 Hour Tot Complement (CH50) 05/12/18 05/12/18 05/13/18 04:07 06:43 08:23 WBC 11.6 H RBC Hct RDW 15.8 H Plt Count Lymph % (Auto) [place] % (Auto) Eos % (Auto) Lymph # [place] # Eos # Baso # Seg Neutrophils % Seg Neutrophils # APTT D-Dimer Heparin Anti-Xa Level < 0.10 L POC ABG pH POC ABG pCO2 POC ABG pO2 Sodium Chloride 97.0 L Carbon Dioxide BUN 36 H Creatinine 3.2 H Glucose 104 H Calcium Magnesium CK-MB (CK-2) CK-MB (CK-2) Rel Index Troponin T C-Reactive Protein NT-Pro-B Natriuret Pep Albumin Hqqxq-8-Torukgtly Abnorm Protein Band 1 PEP Interpretation Triglycerides Cholesterol LDL Cholesterol Direct HDL Cholesterol Urine Creatinine Ur Creatinine 24 Hour Tot Complement (CH50) 05/13/18 05/14/18 05/14/18 08:23 06:05 06:05 WBC RBC Hct RDW 15.6 H Plt Count Lymph % (Auto) [place] % (Auto) Eos % (Auto) Lymph # [place] # Eos # Baso # Seg Neutrophils % Seg Neutrophils # APTT D-Dimer Heparin Anti-Xa Level POC ABG pH POC ABG pCO2 POC ABG pO2 Sodium Chloride Carbon Dioxide BUN 45 H 53 H Creatinine 3.7 H 4.2 H Glucose Calcium Magnesium CK-MB (CK-2) CK-MB (CK-2) Rel Index Troponin T C-Reactive Protein NT-Pro-B Natriuret Pep Albumin Zsbtg-6-Hiipypoaa Abnorm Protein Band 1 PEP Interpretation Triglycerides Cholesterol LDL Cholesterol Direct HDL Cholesterol Urine Creatinine Ur Creatinine 24 Hour Tot Complement (CH50) 05/15/18 05/15/18 05/15/18 05:49 05:49 13:58 WBC 12.6 H RBC Hct RDW 15.7 H Plt Count Lymph % (Auto) [place] % (Auto) Eos % (Auto) Lymph # [place] # Eos # Baso # Seg Neutrophils % Seg Neutrophils # APTT D-Dimer Heparin Anti-Xa Level POC ABG pH POC ABG pCO2 POC ABG pO2 Sodium Chloride 97.3 L Carbon Dioxide BUN 61 H Creatinine 4.1 H Glucose Calcium Magnesium 2.40 H CK-MB (CK-2) CK-MB (CK-2) Rel Index Troponin T C-Reactive Protein NT-Pro-B Natriuret Pep Albumin Heuen-3-Vqfzxibis Abnorm Protein Band 1 PEP Interpretation Triglycerides Cholesterol LDL Cholesterol Direct HDL Cholesterol Urine Creatinine 78.3 H Ur Creatinine 24 Hour Tot Complement (CH50) 05/15/18 05/16/18 05/16/18 Unknown 05:42 05:42 WBC 11.6 H RBC Hct RDW 15.9 H Plt Count Lymph % (Auto) [place] % (Auto) Eos % (Auto) Lymph # [place] # Eos # Baso # Seg Neutrophils % Seg Neutrophils # APTT D-Dimer Heparin Anti-Xa Level POC ABG pH POC ABG pCO2 POC ABG pO2 Sodium Chloride 97.2 L Carbon Dioxide BUN 68 H Creatinine 4.1 H Glucose Calcium Magnesium 2.60 H CK-MB (CK-2) CK-MB (CK-2) Rel Index Troponin T C-Reactive Protein NT-Pro-B Natriuret Pep Albumin Cuvbr-1-Xxvnxdqxt Abnorm Protein Band 1 PEP Interpretation Triglycerides Cholesterol LDL Cholesterol Direct HDL Cholesterol Urine Creatinine 82.8 H Ur Creatinine 24 Hour 0.6 L Tot Complement (CH50) 05/17/18 05:48 WBC RBC Hct RDW Plt Count Lymph % (Auto) [place] % (Auto) Eos % (Auto) Lymph # [place] # Eos # Baso # Seg Neutrophils % Seg Neutrophils # APTT D-Dimer Heparin Anti-Xa Level POC ABG pH POC ABG pCO2 POC ABG pO2 Sodium 135 L Chloride Carbon Dioxide BUN 73 H Creatinine 4.1 H Glucose Calcium Magnesium 2.40 H CK-MB (CK-2) CK-MB (CK-2) Rel Index Troponin T C-Reactive Protein NT-Pro-B Natriuret Pep Albumin Elafm-8-Adbycefid Abnorm Protein Band 1 PEP Interpretation Triglycerides Cholesterol LDL Cholesterol Direct HDL Cholesterol Urine Creatinine Ur Creatinine 24 Hour Tot Complement (CH50) Allied health notes reviewed: nursing
[2018-05-17 16:13] LABS: Patient Weight,Urine 215.8 lbs
[2018-05-17 16:17] LABS: Creatinine,Urine 66.1 mg/dL (0.1-20.0)
[2018-05-17] MEDS: PROzac PO SCH (17:35)
[2018-05-17] MEDS: LOPRESSOR PO SCH ×2 (17:42→21:21)
[2018-05-17] MEDS: PEPCID PO SCH (17:42)
[2018-05-17] MEDS: IMDUR PO SCH (17:42)
[2018-05-17] MEDS: POTASSIUM CHLORIDE PO SCH ×2 (17:54→21:32)
[2018-05-18 05:30] LABS: Hemoglobin 13.3 gm/dl (11.8-15.2); Mean Corpuscular HGB Conc 33 % (32-34); Mean Corpuscular Volume 90 fl (84-94); Platelet Count 160 K/mm3 (140-440); Red Blood Count 4.43 M/mm3 (3.65-5.03); Red Cell Distribution Width 15.1 % (13.2-15.2)
[2018-05-18] MEDS: APRESOLINE PO SCH ×3 (05:57→21:31)
[2018-05-18] MEDS: LASIX PO SCH ×2 (05:58→19:07)
[2018-05-18 06:00] LABS: Calcium 8.8 mg/dL (8.4-10.2)
[2018-05-18] MEDS: DUONEB *Not for PRN Use IH SCH ×3 (09:30→20:46)
[2018-05-18] MEDS ORDERED: NACL 0.9% 250ML 250 ML ONE (11:48)
[2018-05-18] MEDS ORDERED: HEPARIN/NS 5000 UNIT/500ML(CATH LAB) 500 ML IR ONE (11:48)
[2018-05-18] MEDS ORDERED: XYLOCAINE 2% INFILTRATI ONE (11:48)
[2018-05-18] MEDS ORDERED: VERSED ONE (11:49)
[2018-05-18] MEDS ORDERED: SUBLIMAZE ONE (11:49)
[2018-05-18] MEDS: HEPARIN 10,000 UNITS/10 ML ONE ×2 (12:35→12:36)
--- NOTE | 2018-05-18 12:43 | Operative Report ---
Operative Report Operative Report: EXAM: 1. Fluoroscopic-guided conversion of a right internal jugular non-tunneled non- cuffed hemodialysis catheter to a tunneled cuffed hemodialysis catheter. DATE: 05/18/18 INDICATION: End-stage renal disease requiring hemodialysis access. MEDICATIONS: Please see nursing report for full details. DEVICES: 23 cm tip to cuff dual lumen hemodialysis catheter, reverse tunneled, palindrome AMMUNITION ASSEMBLY LABORER: ARIANA BLACK MD CONTRAST: None PROCEDURE: The risks, benefits, and alternatives were discussed and informed consent was obtained. The patient was transported to the angiography suite in satisfactory/stable condition and was transported onto the angiography table. The patient was prepped and draped in a sterile fashion. The existing vascath was prepped and draped in a sterile fashion. Suture was cut. 0.035 inch wire was advanced through the Vas-Cath into the IVC. Vas-Cath was removed. The wire was cleaned with ChloraPrep. Over the 0.035 inch wire, serial dilatation was performed with ultimate placement of a peel-away sheath. Reverse tunneled PermCath was inserted to the peel-away sheath and positioned in the right atrium. Peel-away sheath removed. A suitable exit site was identified on the patient's chest inferior and lateral to the venotomy. The site was anesthetized with local anesthetic and the track was anesthetized. Dermatotomy was made. Reverse tunneler was then tunneled from dermatotomy to the venotomy site/catheter. The PermCath was attached to the tunneling device and reverse tunneled between the dermatotomy to the venotomy. The catheter was reassembled. 4-0 Vicryl suture was used to close the venotomy and Dermabond was then applied. 2-0 Ethilon suture was used to secure the catheter at the dermatotomy. The catheter was charged with heparin 1000 units/mL space. Sterile dressing and biopatch applied. The patient was transferred from the angiography suite back to the floor in stable condition. FINDINGS: 1. Excellent flow was obtained through the dialysis catheter with 20 mL syringes. 2. The catheter tip is in the right atrium. IMPRESSION: 1. Fluoroscopic-guided conversion of a right internal jugular non-tunneled non- cuffed hemodialysis catheter to a tunneled cuffed hemodialysis catheter.
[2018-05-18] MEDS: HEPARIN SUB-Q SCH ×2 (13:24→21:29)
[2018-05-18] MEDS: PROzac PO SCH (13:24)
[2018-05-18] MEDS: PEPCID PO SCH (13:24)
[2018-05-18] MEDS: IMDUR PO SCH (13:24)
[2018-05-18] MEDS: POTASSIUM CHLORIDE PO SCH ×2 (13:24→22:21)
[2018-05-18] MEDS: LOPRESSOR PO SCH ×2 (13:24→21:30)
--- NOTE | 2018-05-18 14:08 | Progress Note ---
Assessment and Plan ESRD now on HD - s/p permcath HD today for clearance volume removal - social media developer consulted for outpatient HD arrangement, can be discharged from renal standpoint once outpatient HD is secured Acute heart failure NSTEMI Elevated BNP -Echo:LVEF- 50-55% -On Lasix/Imdur/Metoprolol/Statin -S/P Heparin drip -CXR today-Pulmonary venous congestion -On Lasix 40 mg po BID Acute hypoxic-hypercapnic respiratory failure Elevated-Dimer -Extubated -VQ scan- Low probability for PE -S/P Heparin drip -As per pulmonary S/P Hypertensive emergency Hypertension: -On Lasix/Hydralazine/Metoprolol -Adjust regimen as needed Subjective Date of service: 05/18/18 Principal diagnosis: Acute hypoxemic hypercapnic Resp failure; Acute CHF; ELVIA; NSTEMI Interval history: tolerated permcath placement this AM Objective - Vital Signs Vital signs: Vital Signs - 12hr 05/18/18 05/18/18 05/18/18 04:13 05:57 09:30 Temperature 97.7 F Pulse Rate 62 Pulse Rate [ 58 L Throughout] Respiratory 16 Rate Respiratory 18 Rate [ Throughout] Blood Pressure 142/69 142/69 O2 Sat by Pulse Oximetry 05/18/18 05/18/18 05/18/18 09:32 09:41 13:23 Temperature Pulse Rate Pulse Rate [ 56 L Throughout] Respiratory Rate Respiratory 18 Rate [ Throughout] Blood Pressure 185/97 O2 Sat by Pulse 98 Oximetry 05/18/18 13:24 Temperature Pulse Rate Pulse Rate [ Throughout] Respiratory Rate Respiratory Rate [ Throughout] Blood Pressure 185/97 O2 Sat by Pulse Oximetry - General Appearance General appearance: well-developed, well-nourished, appears stated age EENT: ATNC, PERRL, mucous membranes moist Neck: no JVD, no carotid bruit Respiratory: Present: Clear to Ascultation. Absent: Rales, Ronchi Cardiology: regular, S1S2 Gastrointestinal: normoactive bowel sounds, no tenderness, no distended Integumentary: no rash, warm and dry Neurologic: no focal deficit, no asterixis, alert and oriented x3 Musculoskeletal: other (trace pitting edema in BLE) Psychiatric: mood/affect appropriate, cooperative - Lab 05/18/18 05:03 05/18/18 05:03 Most recent lab results Calcium 8.8 mg/dL (8.4-10.2) 05/18/18 05:03 Magnesium 2.40 mg/dL (1.7-2.3) H 05/18/18 05:03 Urine Creatinine 66.1 mg/dL (0.1-20.0) H 05/17/18 14:00 Medications & Allergies - Medications Allergies/Adverse Reactions: Allergies No Known Allergies Allergy (Unverified 05/09/18 10:45) Home Medications: Home Medications Medication Instructions Recorded Confirmed Last Taken Type No Known Home Medications [No 05/09/18 05/09/18 Unknown History Reported Home Medications] Active Medications: Generic Name Dose Route Start Last Admin Trade Name Freq PRN Reason Stop Dose Admin Acetaminophen 650 mg 05/11/18 23:42 05/12/18 00:19 Tylenol PO 650 mg Q6H PRN Administration Pain, Mild (1-3) Albuterol 2.5 mg 05/09/18 21:14 05/11/18 16:58 Proventil IH 2.5 mg Q4HRT PRN Administration Shortness Of Breath Albuterol/Ipratropium 1 ampul 05/15/18 20:00 05/18/18 09:30 Duoneb *Not For Prn Use* IH 1 ampul TIDRT GLENDA Administration Atorvastatin Calcium 80 mg 05/11/18 22:00 05/17/18 21:21 Lipitor PO 80 mg QHS GLENDA Administration Famotidine 20 mg 05/14/18 12:00 05/18/18 13:24 Pepcid PO 20 mg DAILY GLENDA Administration Fluoxetine HCl 40 mg 05/11/18 14:00 05/18/18 13:24 Prozac PO 40 mg QDAY GLENDA Administration Furosemide 40 mg 05/15/18 18:00 05/18/18 05:58 Lasix PO 40 mg 0600,1800 GLENDA Administration Heparin Sodium (Porcine) 5,000 unit 05/15/18 22:00 05/18/18 13:24 Heparin SUB-Q 5,000 unit Q12HR GLENDA Administration Hydralazine HCl 10 mg 05/12/18 10:23 Apresoline IV Q4H PRN SBP > 160 Hydralazine HCl 100 mg 05/13/18 10:19 05/18/18 13:23 Apresoline PO 100 mg Q8HR GLENDA Administration Isosorbide Mononitrate 30 mg 05/12/18 14:00 05/18/18 13:24 Imdur PO 30 mg QDAY GLENDA Administration Metoprolol Tartrate 50 mg 05/12/18 14:00 05/18/18 13:24 Lopressor PO 50 mg BID GLENDA Administration Potassium Chloride 20 meq 05/10/18 22:00 05/18/18 13:24 Potassium Chloride PO 20 meq Q12H GLENDA Administration
--- NOTE | 2018-05-18 14:17 | Progress Note ---
Assessment and Plan Assessment and plan: Acute hypoxemic respiratory failure. Etiology secondary to acute heart failure and Non ST elevation [place]. Extubated and doing well Acute HFpEF. Echocardiogram reveals EF 50-55%. Etiology likely secondary to flash pulmonary edema from accelerated hypertension. Cardiology following. Continue Lasix 40 mg IV twice a day NSTEMI. Cardiology following. Off heparin drip. Continue aspirin and beta blo cker. Lexiscan completed this morning. Await results. Acute on CKD, likely ESRD. -Baseline SCr level unknown, but pt was apparently told 1 year ago at [place] that he had proteinuria -S/p first and only HD treatment on 05/11/18 -Assess need for HD on daily basis -Monitor for signs of renal recovery -Renal ultrasound showed no hydronephrosis, but suggestive of CKD -HIV and hepatitis panel negative -GN/Vasculitis labs pending -Discussed with Dr. Vásquez on 05/15 -24hr Cr Clearance of 7 -to start hemodialysis and outpatient HD Accelerated hypertension. Continue antihypertensive medications. History Interval history: feels better, No more shortness of breath no chest pain Hospitalist Physical - Physical exam Narrative exam: GEN: Not in acute distress, lying in bed,obese HEENT: Normocephalic, atraumatic, Neck: supple, No JVD Lungs: Clear to auscultation bilaterally, no wheeze Heart:S1 and S2 regular, no murmurs, rubs or gallop, Abd:soft, non tender, non distended, normal bowel sounds Ext: No edema, no clubbing or cyanosis Neuro: AAO x 3, moves all extremities, no focal neurological signs - Constitutional Vitals: Temp Pulse Resp BP Pulse Ox 97.7 F 56 L 18 185/97 98 05/18/18 04:13 05/18/18 09:41 05/18/18 09:41 05/18/18 13:24 05/18/18 09:32 General appearance: Present: no acute distress Results - Labs CBC & Chem 7: 05/18/18 05:03 05/18/18 05:03 Labs: Laboratory Last Values WBC 9.4 K/mm3 (4.5-11.0) 05/18/18 05:03 RBC 4.43 M/mm3 (3.65-5.03) 05/18/18 05:03 Hgb 13.3 gm/dl (11.8-15.2) 05/18/18 05:03 Hct 40.0 % (35.5-45.6) 05/18/18 05:03 MCV 90 fl (84-94) 05/18/18 05:03 MCH 30 pg (28-32) 05/18/18 05:03 MCHC 33 % (32-34) 05/18/18 05:03 RDW 15.1 % (13.2-15.2) 05/18/18 05:03 Plt Count 160 K/mm3 (140-440) 05/18/18 05:03 Lymph % (Auto) 8.1 % (13.4-35.0) L 05/11/18 04:28 [place] % (Auto) 9.2 % (0.0-7.3) H 05/11/18 04:28 Eos % (Auto) 0.0 % (0.0-4.3) 05/11/18 04:28 Baso % (Auto) 0.3 % (0.0-1.8) 05/11/18 04:28 Lymph # 1.1 K/mm3 (1.2-5.4) L 05/11/18 04:28 [place] # 1.2 K/mm3 (0.0-0.8) H 05/11/18 04:28 Eos # 0.0 K/mm3 (0.0-0.4) 05/11/18 04:28 Baso # 0.0 K/mm3 (0.0-0.1) 05/11/18 04:28 Seg Neutrophils % 82.4 % (40.0-70.0) H 05/11/18 04:28 Seg Neutrophils # 10.8 K/mm3 (1.8-7.7) H 05/11/18 04:28 PT 13.5 Sec. (12.2-14.9) 05/09/18 11:55 INR 0.99 (0.87-1.13) 05/09/18 11:55 APTT 21.2 Sec. (24.2-36.6) L 05/09/18 11:55 D-Dimer 1326.35 ng/mlDDU (0-234) H 05/09/18 10:09 Heparin Anti-Xa Level < 0.10 U.I./ml (0.3-0.7) L 05/12/18 06:43 POC ABG pH 7.393 (7.35-7.45) 05/10/18 17:21 POC ABG pCO2 32.4 (35-45) L 05/10/18 17:21 POC ABG pO2 82 (80-105) 05/10/18 17:21 POC ABG HCO3 19.7 05/10/18 17:21 POC ABG Total CO2 21 05/10/18 17:21 POC ABG O2 Sat 96 05/10/18 17:21 POC ABG Base Excess -5 05/10/18 17:21 FiO2 28 % 05/10/18 17:21 Sodium 139 mmol/L (137-145) 05/18/18 05:03 Potassium 4.4 mmol/L (3.6-5.0) 05/18/18 05:03 Chloride 100.8 mmol/L (98-107) 05/18/18 05:03 Carbon Dioxide 22 mmol/L (22-30) 05/18/18 05:03 Anion Gap 21 mmol/L 05/18/18 05:03 BUN 76 mg/dL (9-20) H 05/18/18 05:03 Creatinine 3.9 mg/dL (0.8-1.5) H 05/18/18 05:03 Estimated GFR 16 ml/min 05/18/18 05:03 BUN/Creatinine Ratio 19 % 05/18/18 05:03 Glucose 97 mg/dL (75-100) 05/18/18 05:03 Lactic Acid 1.30 mmol/L (0.7-2.0) 05/10/18 16:08 Calcium 8.8 mg/dL (8.4-10.2) 05/18/18 05:03 Magnesium 2.40 mg/dL (1.7-2.3) H 05/18/18 05:03 Total Bilirubin 0.30 mg/dL (0.1-1.2) 05/09/18 10:09 AST 26 units/L (5-40) 05/09/18 10:09 ALT 18 units/L (7-56) 05/09/18 10:09 Alkaline Phosphatase 88 units/L (35-129) 05/09/18 10:09 Total Creatine Kinase 159 units/L (55-170) 05/09/18 15:36 CK-MB (CK-2) 9.3 ng/mL (0.0-4.0) H 05/09/18 15:36 CK-MB (CK-2) Rel Index 5.8 (0-4) H 05/09/18 15:36 Troponin T 0.246 ng/mL (0.00-0.029) H* 05/09/18 15:36 C-Reactive Protein 2.00 mg/dL (0.00-1.30) H 05/10/18 16:08 NT-Pro-B Natriuret Pep 71828 pg/mL (0-900) H 05/09/18 10:09 Serum Total Protein 6.4 g/dL (6.1-8.1) 05/10/18 13:22 Total Protein 7.7 g/dL (6.3-8.2) 05/09/18 10:09 Albumin 3.5 g/dL (3.8-4.8) L 05/10/18 13:22 Albumin/Globulin Ratio 1.1 % 05/09/18 10:09 Hwtjo-3-Rxnyeqenq 0.4 g/dL (0.2-0.3) H 05/10/18 13:22 Iaaoi-6-Tpdxfxbrp 0.6 g/dL (0.5-0.9) 05/10/18 13:22 Beta Globulins 0.3 g/dL (0.2-0.5) 05/10/18 13:22 Gamma Globulins 1.2 g/dL (0.8-1.7) 05/10/18 13:22 Abnorm Protein Band 1 0.4 g/dL H 05/10/18 13:22 Abnorm Protein Band 2 see below 05/10/18 13:22 PEP Interpretation see below H 05/10/18 13:22 Triglycerides 175 mg/dL (2-149) H 05/09/18 10:09 Cholesterol 276 mg/dL (50-199) H 05/09/18 10:09 LDL Cholesterol Direct 235 mg/dL (50-130) H 05/09/18 10:09 HDL Cholesterol 34 mg/dL (40-59) L 05/09/18 10:09 Cholesterol/HDL Ratio 8.11 % 05/09/18 10:09 TSH 1.110 mlU/mL (0.270-4.200) 05/10/18 02:07 Free T4 1.15 ng/dL (0.76-1.46) 05/10/18 02:07 Urine Color Yellow (Yellow) 05/09/18 10:33 Urine Turbidity Clear (Clear) 05/09/18 10:33 Urine pH 6.0 (5.0-7.0) 05/09/18 10:33 Ur Specific [place] 1.011 (1.003-1.030) 05/09/18 10:33 Urine Protein >2000 mg dl mg/dL (Negative) 05/09/18 10:33 Urine Glucose (UA) 50 mg/dL (Negative) 05/09/18 10:33 Urine Ketones Neg mg/dL (Negative) 05/09/18 10:33 Urine Blood Neg (Negative) 05/09/18 10:33 Urine Nitrite Neg (Negative) 05/09/18 10:33 Urine Bilirubin Neg (Negative) 05/09/18 10:33 Urine Urobilinogen < 2.0 mg/dL (<2.0) 05/09/18 10:33 Ur Leukocyte Esterase Neg (Negative) 05/09/18 10:33 Urine WBC (Auto) 2.0 /HPF (0.0-6.0) 05/09/18 10:33 Urine RBC (Auto) 3.0 /HPF (0.0-6.0) 05/09/18 10:33 Urine Bacteria (Auto) 1+ /HPF (Negative) 05/09/18 10:33 Urine Total Volume 2500 ml 05/17/18 14:00 Urine Creatinine 66.1 mg/dL (0.1-20.0) H 05/17/18 14:00 Ur Creatinine 24 Hour 0.6 (0.8-2.8) L 05/15/18 Unknown Height (in) 69.0 inches 05/17/18 14:00 Weight (lb) 215.8 lbs 05/17/18 14:00 Creatinine Clearance 28 05/17/18 14:00 Urine Opiates Screen Presumptive negative 05/09/18 10:33 Urine Methadone Screen Presumptive negative 05/09/18 10:33 Ur Barbiturates Screen Presumptive negative 05/09/18 10:33 Ur Phencyclidine Scrn Presumptive negative 05/09/18 10:33 Ur Amphetamines Screen Presumptive negative 05/09/18 10:33 U Benzodiazepines Scrn Presumptive negative 05/09/18 10:33 Urine Cocaine Screen Presumptive negative 05/09/18 10:33 U Marijuana (THC) Screen Presumptive negative 05/09/18 10:33 Drugs of Abuse Note Disclamer 05/09/18 10:33 JOSE ANTONIO Screen Negative (Negative) 05/10/18 13:22 Proteinase 3 (PR3) Ab <1.0 AI (<1.0) 05/10/18 13:22 Myeloperoxidase Ab <1.0 AI (<1.0) 05/10/18 13:22 Double Strand DNA Ab <1 IU/mL (<=4) 05/10/18 13:22 Glomerular Base Mem IgG See scanned result 05/10/18 13:22 Complement C3 142 mg/dL (82-185) 05/10/18 13:22 Complement C4 20 mg/dL (15-53) 05/10/18 13:22 Tot Complement (CH50) >60 U/mL (31-60) H 05/10/18 13:22 Hepatitis A IgM Ab Non-reactive (NonReactive) 05/10/18 13:22 Hep Bs Antigen Non-reactive (Negative) 05/10/18 13:22 Hep B Core IgM Ab Non-reactive (NonReactive) 05/10/18 13:22 Hepatitis C Antibody Non-reactive (NonReactive) 05/10/18 13:22 HIV 1&2 Antibody Rapid Non react (Non React) 05/10/18 13:22 HIV P24 Antigen Non react (Non React) 05/10/18 13:22 Anti-Streptolysin O Ab See scanned result 05/10/18 13:22 Nutrition/Malnutrition Assess - Dietary Evaluation Nutrition/Malnutrition Findings: Nutrition Notes Start: 05/10/18 09:35 Freq: Status: Active Protocol: Document 05/17/18 10:37 ER (Rec: 05/17/18 10:43 ER [id number]) Co-Sign 05/17/18 10:37 LP Nutrition Notes Initial or Follow up Reassessment Current Diagnosis Acute Kidney Injury CKD(stage I-IV) COPD Hypertension Heart Failure Respiratory Failure Other Pertinent Diagnosis Dyspnea Current Diet NPO Labs/Tests BUN 73 Cr 4.1 Pertinent Medications Lasix Height 5 ft 9 in Weight 97.6 kg [place] Body Weight (kg) 72.72 BMI 31.7 Weight Status Obese Subjective/Other Information Pt. NPO for cardiac cath rn procedure . Pt. stated his appetite is good and ate 80% of dinner and drank Nepro. Pt. denies any N /V/D/C and chewing/swallowing difficulties. Pt. may need education for ESRD on HD. Continue to follow for ONS and education needs. Percent of energy/protein needs met: 120%/100% Burn Absent Trauma Absent Current % PO Good (75-100%) #1 Nutrition Diagnosis Inadequate oral intake As Evidenced by Signs and Symptoms pt. consuming 100% of energy and protein needs Diagnosis Progress(for reassessment Improved documentation) Is patient on ventilator? No Is Patient Ambulatory and/or Out of Bed Yes REE-([place]-St. Jeor-ambulatory/OOB) [ 2315.794 NUTR.[id number]] Kcal/Kg value to use for calculation 18 Approximate Energy Requirements Using 1757 kcal/Kg Calculation Used for Recommendations Kcal/kg Additional Notes pro: 60-117g/day (0.6-1.2g/kg) fluid: 1mL/kcal Nutrition Intervention Change Diet Order: Renal Diet Add Supplement/Snack (indicate name/kcal nepro daily /protein ) Provides kCal: 425 Provides Protein (gm) 19 Goal #1 Continue to meet 100% of energy and pro needs Anticipated Discharge Needs: Renal diet Follow-Up By: 05/23/18 Additional Comments f/u: ONS intake, ESRD on HD education needs
[2018-05-18] MEDS ORDERED: NACL 0.9 (PRIMING MACHINE ONLY DIALYSIS) MC ONE (17:35)
[2018-05-19] MEDS: LASIX PO SCH ×2 (05:01→18:10)
[2018-05-19] MEDS: APRESOLINE PO SCH ×3 (05:01→21:57)
[2018-05-19 06:42] LABS: Hematocrit 40.5 % (35.5-45.6); Hemoglobin 13.5 gm/dl (11.8-15.2); Mean Corpuscular HGB Conc 33 % (32-34); Mean Corpuscular Volume 90 fl (84-94); Platelet Count 152 K/mm3 (140-440); Red Blood Count 4.52 M/mm3 (3.65-5.03); Red Cell Distribution Width 15.3 % (13.2-15.2)
[2018-05-19 07:01] LABS: Calcium 8.8 mg/dL (8.4-10.2)
[2018-05-19] MEDS: DUONEB *Not for PRN Use IH SCH ×3 (07:35→21:26)
--- NOTE | 2018-05-19 09:08 | Progress Note ---
Assessment and Plan ESRD now on HD - s/p permcath 05/18, no indication for HD today, next tx order Monday - social professionals consulted for outpatient HD arrangement, can be discharged from renal standpoint once outpatient HD is secured Acute heart failure NSTEMI Elevated BNP -Echo:LVEF- 50-55% -On Lasix/Imdur/Metoprolol/Statin -S/P Heparin drip -CXR today-Pulmonary venous congestion -On Lasix 40 mg po BID Acute hypoxic-hypercapnic respiratory failure Elevated-Dimer -Extubated -VQ scan- Low probability for PE -S/P Heparin drip -As per pulmonary S/P Hypertensive emergency Hypertension: -On Lasix/Hydralazine/Metoprolol -Adjust regimen as needed Subjective Date of service: 05/19/18 Principal diagnosis: Acute hypoxemic hypercapnic Resp failure; Acute CHF; ELVIA; NSTEMI Interval history: tolerated HD well yesterday Objective - Vital Signs Vital signs: Vital Signs - 12hr 05/18/18 05/18/18 05/18/18 21:30 21:31 23:48 Temperature 98.9 F Pulse Rate 56 L 56 L 56 L Pulse Rate [ Throughout] Respiratory 16 Rate Respiratory Rate [ Throughout] Blood Pressure 108/61 108/61 144/80 O2 Sat by Pulse 94 Oximetry 05/19/18 05/19/18 05/19/18 04:48 05:01 06:12 Temperature 98.2 F Pulse Rate 62 62 54 L Pulse Rate [ Throughout] Respiratory 16 16 Rate Respiratory Rate [ Throughout] Blood Pressure 192/96 192/96 137/63 O2 Sat by Pulse 95 95 Oximetry 05/19/18 05/19/18 05/19/18 07:35 07:53 08:04 Temperature 98.4 F Pulse Rate 65 Pulse Rate [ 68 68 Throughout] Respiratory 16 Rate Respiratory 20 20 Rate [ Throughout] Blood Pressure 133/69 O2 Sat by Pulse 96 Oximetry - General Appearance General appearance: well-developed, well-nourished, appears stated age EENT: ATNC, PERRL, mucous membranes moist Neck: no JVD, no carotid bruit Respiratory: Present: Clear to Ascultation. Absent: [place], [place] Cardiology: regular, S1S2 Gastrointestinal: normoactive bowel sounds Integumentary: no rash, warm and dry Neurologic: no focal deficit, no asterixis, alert and oriented x3 Musculoskeletal: other (no edema in BLE) Psychiatric: mood/affect appropriate, cooperative - Lab 05/19/18 05:09 05/19/18 05:09 Most recent lab results Calcium 8.8 mg/dL (8.4-10.2) 05/19/18 05:09 Magnesium 2.40 mg/dL (1.7-2.3) H 05/18/18 05:03 Urine Creatinine 66.1 mg/dL (0.1-20.0) H 05/17/18 14:00 Medications & Allergies - Medications Allergies/Adverse Reactions: Allergies No Known Allergies Allergy (Unverified 05/09/18 10:45) Home Medications: Home Medications Medication Instructions Recorded Confirmed Last Taken Type No Known Home Medications [No 05/09/18 05/09/18 Unknown History Reported Home Medications] Active Medications: Generic Name Dose Route Start Last Admin Trade Name Freq PRN Reason Stop Dose Admin Acetaminophen 650 mg 05/11/18 23:42 05/12/18 00:19 Tylenol PO 650 mg Q6H PRN Administration Pain, Mild (1-3) Albuterol 2.5 mg 05/09/18 21:14 05/11/18 16:58 Proventil IH 2.5 mg Q4HRT PRN Administration Shortness Of Breath Albuterol/Ipratropium 1 ampul 05/15/18 20:00 05/19/18 07:35 Duoneb *Not For Prn Use* IH 1 ampul TIDRT GLENDA Administration Atorvastatin Calcium 80 mg 05/11/18 22:00 05/18/18 21:31 Lipitor PO 80 mg QHS GLENDA Administration Famotidine 20 mg 05/14/18 12:00 05/18/18 13:24 Pepcid PO 20 mg DAILY GLENDA Administration Fluoxetine HCl 40 mg 05/11/18 14:00 05/18/18 13:24 Prozac PO 40 mg QDAY GLENDA Administration Furosemide 40 mg 05/15/18 18:00 05/19/18 05:01 Lasix PO 40 mg 0600,1800 GLENDA Administration Heparin Sodium (Porcine) 5,000 unit 05/15/18 22:00 05/18/18 21:29 Heparin SUB-Q 5,000 unit Q12HR GLENDA Administration Hydralazine HCl 10 mg 05/12/18 10:23 Apresoline IV Q4H PRN SBP > 160 Hydralazine HCl 100 mg 05/13/18 10:19 05/19/18 05:01 Apresoline PO 100 mg Q8HR GLENDA Administration Isosorbide Mononitrate 30 mg 05/12/18 14:00 05/18/18 13:24 Imdur PO 30 mg QDAY GLENDA Administration Metoprolol Tartrate 50 mg 05/12/18 14:00 05/18/18 21:30 Lopressor PO Not Given BID GLENDA Potassium Chloride 20 meq 05/10/18 22:00 05/18/18 22:21 Potassium Chloride PO 20 meq Q12H GLENDA Administration
--- NOTE | 2018-05-19 10:22 | Progress Note ---
Assessment and Plan Assessment and plan: Acute hypoxemic respiratory failure. Etiology secondary to acute heart failure and Non ST elevation [place]. Extubated and doing well Acute HFpEF. Echocardiogram reveals EF 50-55%. Etiology likely secondary to flash pulmonary edema from accelerated hypertension. Cardiology following. Continue Lasix 40 mg IV twice a day NSTEMI. Cardiology following. Off heparin drip. Continue aspirin and beta blo cker. Lexiscan completed this morning. Await results. Acute on CKD, likely ESRD. -Baseline SCr level unknown, but pt was apparently told 1 year ago at [place] that he had proteinuria -S/p first and only HD treatment on 05/11/18 -Assess need for HD on daily basis -Monitor for signs of renal recovery -Renal ultrasound showed no hydronephrosis, but suggestive of CKD -HIV and hepatitis panel negative -24hr Cr Clearance of 7 -Strted on hemodialysis - case management to arrange outpatient HD Accelerated hypertension. Continue antihypertensive medications. History Interval history: feels better, No more shortness of breath no chest pain Hospitalist Physical - Physical exam Narrative exam: GEN: Not in acute distress, lying in bed,obese HEENT: Normocephalic, atraumatic, Neck: supple, No JVD Lungs: Clear to auscultation bilaterally, no wheeze Heart:S1 and S2 regular, no murmurs, rubs or gallop, Abd:soft, non tender, non distended, normal bowel sounds Ext: No edema, no clubbing or cyanosis Neuro: AAO x 3, moves all extremities, no focal neurological signs - Constitutional Vitals: Temp Pulse Resp BP Pulse Ox 98.4 F 65 16 133/69 96 05/19/18 08:04 05/19/18 08:04 05/19/18 08:04 05/19/18 08:04 05/19/18 08:04 General appearance: Present: no acute distress Results - Labs CBC & Chem 7: 05/19/18 05:09 05/20/18 06:17 Labs: Laboratory Last Values WBC 10.1 K/mm3 (4.5-11.0) 05/19/18 05:09 RBC 4.52 M/mm3 (3.65-5.03) 05/19/18 05:09 Hgb 13.5 gm/dl (11.8-15.2) 05/19/18 05:09 Hct 40.5 % (35.5-45.6) 05/19/18 05:09 MCV 90 fl (84-94) 05/19/18 05:09 MCH 30 pg (28-32) 05/19/18 05:09 MCHC 33 % (32-34) 05/19/18 05:09 RDW 15.3 % (13.2-15.2) H 05/19/18 05:09 Plt Count 152 K/mm3 (140-440) 05/19/18 05:09 Lymph % (Auto) 8.1 % (13.4-35.0) L 05/11/18 04:28 [place] % (Auto) 9.2 % (0.0-7.3) H 05/11/18 04:28 Eos % (Auto) 0.0 % (0.0-4.3) 05/11/18 04:28 Baso % (Auto) 0.3 % (0.0-1.8) 05/11/18 04:28 Lymph # 1.1 K/mm3 (1.2-5.4) L 05/11/18 04:28 [place] # 1.2 K/mm3 (0.0-0.8) H 05/11/18 04:28 Eos # 0.0 K/mm3 (0.0-0.4) 05/11/18 04:28 Baso # 0.0 K/mm3 (0.0-0.1) 05/11/18 04:28 Seg Neutrophils % 82.4 % (40.0-70.0) H 05/11/18 04:28 Seg Neutrophils # 10.8 K/mm3 (1.8-7.7) H 05/11/18 04:28 PT 13.5 Sec. (12.2-14.9) 05/09/18 11:55 INR 0.99 (0.87-1.13) 05/09/18 11:55 APTT 21.2 Sec. (24.2-36.6) L 05/09/18 11:55 D-Dimer 1326.35 ng/mlDDU (0-234) H 05/09/18 10:09 Heparin Anti-Xa Level < 0.10 U.I./ml (0.3-0.7) L 05/12/18 06:43 POC ABG pH 7.393 (7.35-7.45) 05/10/18 17:21 POC ABG pCO2 32.4 (35-45) L 05/10/18 17:21 POC ABG pO2 82 (80-105) 05/10/18 17:21 POC ABG HCO3 19.7 05/10/18 17:21 POC ABG Total CO2 21 05/10/18 17:21 POC ABG O2 Sat 96 05/10/18 17:21 POC ABG Base Excess -5 05/10/18 17:21 FiO2 28 % 05/10/18 17:21 Sodium 137 mmol/L (137-145) 05/19/18 05:09 Potassium 4.3 mmol/L (3.6-5.0) 05/19/18 05:09 Chloride 100.0 mmol/L (98-107) 05/19/18 05:09 Carbon Dioxide 24 mmol/L (22-30) 05/19/18 05:09 Anion Gap 17 mmol/L 05/19/18 05:09 BUN 43 mg/dL (9-20) H 05/19/18 05:09 Creatinine 3.3 mg/dL (0.8-1.5) H 05/19/18 05:09 Estimated GFR 19 ml/min 05/19/18 05:09 BUN/Creatinine Ratio 13 % 05/19/18 05:09 Glucose 83 mg/dL (75-100) 05/19/18 05:09 Lactic Acid 1.30 mmol/L (0.7-2.0) 05/10/18 16:08 Calcium 8.8 mg/dL (8.4-10.2) 05/19/18 05:09 Magnesium 2.40 mg/dL (1.7-2.3) H 05/18/18 05:03 Total Bilirubin 0.30 mg/dL (0.1-1.2) 05/09/18 10:09 AST 26 units/L (5-40) 05/09/18 10:09 ALT 18 units/L (7-56) 05/09/18 10:09 Alkaline Phosphatase 88 units/L (35-129) 05/09/18 10:09 Total Creatine Kinase 159 units/L (55-170) 05/09/18 15:36 CK-MB (CK-2) 9.3 ng/mL (0.0-4.0) H 05/09/18 15:36 CK-MB (CK-2) Rel Index 5.8 (0-4) H 05/09/18 15:36 Troponin T 0.246 ng/mL (0.00-0.029) H* 05/09/18 15:36 C-Reactive Protein 2.00 mg/dL (0.00-1.30) H 05/10/18 16:08 NT-Pro-B Natriuret Pep 19805 pg/mL (0-900) H 05/09/18 10:09 Serum Total Protein 6.4 g/dL (6.1-8.1) 05/10/18 13:22 Total Protein 7.7 g/dL (6.3-8.2) 05/09/18 10:09 Albumin 3.5 g/dL (3.8-4.8) L 05/10/18 13:22 Albumin/Globulin Ratio 1.1 % 05/09/18 10:09 Llhph-6-Fqkukhttv 0.4 g/dL (0.2-0.3) H 05/10/18 13:22 Kaqyl-5-Yojcvgiis 0.6 g/dL (0.5-0.9) 05/10/18 13:22 Beta Globulins 0.3 g/dL (0.2-0.5) 05/10/18 13:22 Gamma Globulins 1.2 g/dL (0.8-1.7) 05/10/18 13:22 Abnorm Protein Band 1 0.4 g/dL H 05/10/18 13:22 Abnorm Protein Band 2 see below 05/10/18 13:22 PEP Interpretation see below H 05/10/18 13:22 Triglycerides 175 mg/dL (2-149) H 05/09/18 10:09 Cholesterol 276 mg/dL (50-199) H 05/09/18 10:09 LDL Cholesterol Direct 235 mg/dL (50-130) H 05/09/18 10:09 HDL Cholesterol 34 mg/dL (40-59) L 05/09/18 10:09 Cholesterol/HDL Ratio 8.11 % 05/09/18 10:09 TSH 1.110 mlU/mL (0.270-4.200) 05/10/18 02:07 Free T4 1.15 ng/dL (0.76-1.46) 05/10/18 02:07 Urine Color Yellow (Yellow) 05/09/18 10:33 Urine Turbidity Clear (Clear) 05/09/18 10:33 Urine pH 6.0 (5.0-7.0) 05/09/18 10:33 Ur Specific [place] 1.011 (1.003-1.030) 05/09/18 10:33 Urine Protein >2000 mg dl mg/dL (Negative) 05/09/18 10:33 Urine Glucose (UA) 50 mg/dL (Negative) 05/09/18 10:33 Urine Ketones Neg mg/dL (Negative) 05/09/18 10:33 Urine Blood Neg (Negative) 05/09/18 10:33 Urine Nitrite Neg (Negative) 05/09/18 10:33 Urine Bilirubin Neg (Negative) 05/09/18 10:33 Urine Urobilinogen < 2.0 mg/dL (<2.0) 05/09/18 10:33 Ur Leukocyte Esterase Neg (Negative) 05/09/18 10:33 Urine WBC (Auto) 2.0 /HPF (0.0-6.0) 05/09/18 10:33 Urine RBC (Auto) 3.0 /HPF (0.0-6.0) 05/09/18 10:33 Urine Bacteria (Auto) 1+ /HPF (Negative) 05/09/18 10:33 Urine Total Volume 2500 ml 05/17/18 14:00 Urine Creatinine 66.1 mg/dL (0.1-20.0) H 05/17/18 14:00 Ur Creatinine 24 Hour 0.6 (0.8-2.8) L 05/15/18 Unknown Height (in) 69.0 inches 05/17/18 14:00 Weight (lb) 215.8 lbs 05/17/18 14:00 Creatinine Clearance 28 05/17/18 14:00 Urine Opiates Screen Presumptive negative 05/09/18 10:33 Urine Methadone Screen Presumptive negative 05/09/18 10:33 Ur Barbiturates Screen Presumptive negative 05/09/18 10:33 Ur Phencyclidine Scrn Presumptive negative 05/09/18 10:33 Ur Amphetamines Screen Presumptive negative 05/09/18 10:33 U Benzodiazepines Scrn Presumptive negative 05/09/18 10:33 Urine Cocaine Screen Presumptive negative 05/09/18 10:33 U Marijuana (THC) Screen Presumptive negative 05/09/18 10:33 Drugs of Abuse Note Disclamer 05/09/18 10:33 JOSE ANTONIO Screen Negative (Negative) 05/10/18 13:22 Proteinase 3 (PR3) Ab <1.0 AI (<1.0) 05/10/18 13:22 Myeloperoxidase Ab <1.0 AI (<1.0) 05/10/18 13:22 Double Strand DNA Ab <1 IU/mL (<=4) 05/10/18 13:22 Glomerular Base Mem IgG See scanned result 05/10/18 13:22 Complement C3 142 mg/dL (82-185) 05/10/18 13:22 Complement C4 20 mg/dL (15-53) 05/10/18 13:22 Tot Complement (CH50) >60 U/mL (31-60) H 05/10/18 13:22 Hepatitis A IgM Ab Non-reactive (NonReactive) 05/10/18 13:22 Hep Bs Antigen Non-reactive (Negative) 05/10/18 13:22 Hep B Core IgM Ab Non-reactive (NonReactive) 05/10/18 13:22 Hepatitis C Antibody Non-reactive (NonReactive) 05/10/18 13:22 HIV 1&2 Antibody Rapid Non react (Non React) 05/10/18 13:22 HIV P24 Antigen Non react (Non React) 05/10/18 13:22 Anti-Streptolysin O Ab See scanned result 05/10/18 13:22 Nutrition/Malnutrition Assess - Dietary Evaluation Nutrition/Malnutrition Findings: Nutrition Notes Start: 05/10/18 09:35 Freq: Status: Active Protocol: Document 05/17/18 10:37 ER (Rec: 05/17/18 10:43 ER [id number]) Co-Sign 05/17/18 10:37 LP Nutrition Notes Initial or Follow up Reassessment Current Diagnosis Acute Kidney Injury CKD(stage I-IV) COPD Hypertension Heart Failure Respiratory Failure Other Pertinent Diagnosis Dyspnea Current Diet NPO Labs/Tests BUN 73 Cr 4.1 Pertinent Medications Lasix Height 5 ft 9 in Weight 97.6 kg [place] Body Weight (kg) 72.72 BMI 31.7 Weight Status Obese Subjective/Other Information 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 Pt. stated his appetite is good and ate 80% of dinner and drank Nepro. Pt. denies any N /V/D/C and chewing/swallowing difficulties. Pt. may need education for ESRD on HD. Continue to follow for ONS and education needs. Percent of energy/protein needs met: 120%/100% Burn Absent Trauma Absent Current % PO Good (75-100%) #1 Nutrition Diagnosis Inadequate oral intake As Evidenced by Signs and Symptoms pt. consuming 100% of energy and protein needs Diagnosis Progress(for reassessment Improved documentation) Is patient on ventilator? No Is Patient Ambulatory and/or Out of Bed Yes REE-(Wilkinson-St. Jeor-ambulatory/OOB) [ 2315.794 NUTR.[id number]] Kcal/Kg value to use for calculation 18 Approximate Energy Requirements Using 1757 kcal/Kg Calculation Used for Recommendations Kcal/kg Additional Notes pro: 60-117g/day (0.6-1.2g/kg) fluid: 1mL/kcal Nutrition Intervention Change Diet Order: Renal Diet Add Supplement/Snack (indicate name/kcal nepro daily /protein ) Provides kCal: 425 Provides Protein (gm) 19 Goal #1 Continue to meet 100% of energy and pro needs Anticipated Discharge Needs: Renal diet Follow-Up By: 05/23/18 Additional Comments f/u: ONS intake, ESRD on HD education needs
[2018-05-19] MEDS ORDERED: AFLURIA QUAD 2018-2019 SYRINGE IM ONE (12:00)
--- NOTE | 2018-05-19 12:20 | Vascular Lab Report ---
FINAL REPORT EXAM: VL VENOUS DUPLEX UE BILAT HISTORY: vein mapping, ESRD COMPARISON: None. TECHNIQUE: Vein mapping was performed. FINDINGS: Diameters (centimeters) are as follows: Right internal jugular vein: 1.01 Right subclavian vein: 0.61 Right axillary vein: 0.63 Right brachial vein in the proximal biceps: Medial branch: 0.81, lateral branch: 0.39 Right brachial vein in the mid biceps: Medial branch: 0.47, lateral branch: 0.35 Right brachial vein at the level of the distal biceps: Medial branch: 0.32, lateral branch: 0.26 Right basilic vein in the area of the mid biceps: 0.4 Right basilic vein in the area of the distal biceps: 0.53 Right basilic vein in the antecubital fossa: 0.35 Right basilic vein in the proximal forearm: 0.17 Right basilic vein in the mid forearm: 0.14 Right basilic vein in the distal forearm: 0.1 Right cephalic vein in the proximal biceps: 0.31 Right cephalic vein in the mid biceps: 0.31 Right cephalic vein in the distal biceps: Medial branch 0.23, lateral branch: 0.22 Right cephalic vein in the antecubital fossa: 0.29 Right cephalic vein in the proximal forearm: Lateral branch: 0.29, medial branch:0.22 Right cephalic vein in the mid forearm: 0.27 Right cephalic vein in the distal forearm: 0.24 Left internal jugular vein: 1.99 Left subclavian vein: 0.68 Left axillary vein: 0.79 Left brachial vein in the proximal biceps: Medial branch: 0.68, lateral branch: 0.59 Left brachial vein in the mid biceps: Superior branch: 0.39, inferior branch: 0.39 Left brachial vein in the antecubital fossa: Medial branch: 0.24, lateral branch: 0.23 Left basilic vein in the mid biceps: 0.45 Left basilic vein in the distal biceps: 0.49 Left basilic vein in the antecubital fossa: Medial branch: 0.33, lateral branch: 0.25 Left basilic vein in the proximal forearm: 0.16 Left basilic vein in the mid forearm: 0.16 Left basilic vein in the distal forearm: 0.13 Left cephalic vein in the proximal biceps: 0.39 Left cephalic vein in the mid biceps: 0.36 Left cephalic vein in the distal biceps: 0.29 Left cephalic vein in the antecubital fossa: Medial branch: 0.23, lateral branch: 0.17 Left cephalic vein in the mid forearm: 0.3 Left cephalic vein in the distal forearm: 0.22 Peak systolic velocity of the right brachial artery 111.3 cm/sec Peak systolic velocity of the right radial artery: 72 cm/sec Diameter of the right renal artery: 0.34 centimeters Peak systolic velocity of the left brachial artery: 110.6 cm/sec Peak systolic velocity of the left radial artery: 86 cm/sec Diameter of the left radial artery: 0.24 centimeters There is a superficial thrombus seen in the left cephalic vein from the level of the proximal biceps to the mid forearm. There is a catheter within the cephalic vein in the forearm. There is no deep venous thrombosis. IMPRESSION: 1. Superficial thrombus seen in the left cephalic vein from the level of the proximal biceps to the m id forearm. 2. Catheter seen within the left cephalic vein in the forearm. 3. Vein mapping as described above.
[2018-05-19] MEDS: HEPARIN SUB-Q SCH ×2 (13:27→21:57)
[2018-05-19] MEDS: POTASSIUM CHLORIDE PO SCH ×3 (13:29→21:59)
[2018-05-19] MEDS: LOPRESSOR PO SCH ×3 (13:29→21:57)
[2018-05-19] MEDS: IMDUR PO SCH (13:30)
[2018-05-19] MEDS: PEPCID PO SCH (13:30)
[2018-05-19] MEDS: PROzac PO SCH (13:30)
--- NOTE | 2018-05-19 13:59 | Progress Note ---
Assessment and Plan Acute hypoxic-hypercapnic respiratory failure Acute heart failure Acute renal failure NSTEMI Hypertensive emergency Morbid obesity Tobacco abuse disorder - BIPAP prn at this point - continue VTE prophylaxis - continue HD/UF per nephrology prescription for toxin and volume clearance - continue stress ulcer prophylaxis - continue diuresis with lasix; adjust per nephrology - 2D echocardiogram with low normal EF and impaired relaxation - ST evaluation and advance diet - continue accucheck with glycemic control per SSI for target blood glucose of 140-180mg/dL - continue bronchodilators with pulmonary hygiene per RT - Cardiology evaluation ongoing - continue to avoid nephrotoxic agents and adjust all medications for CrCL - continue Nicotine withdrawal precautions - Smoking cessation counselling done at bedside - Mobility for pressure ulcer prevention - PT/OT as tolerated - continue other care per attending / other consultants ... re-evaluate in am & prn CODE STATUS: FULL CODE Subjective Date of service: 05/19/18 Principal diagnosis: Acute hypoxemic hypercapnic Resp failure; Acute CHF; ELVIA; NSTEMI Interval history: Patient is seen today for: Acute hypoxic-hypercapnic respiratory failure; Acute heart failure; Acute renal failure; NSTEMI; Hypertensive emergency Seen and examined at bedside; 24hour events reviewed; nursing and respiratory care staff consulted; no adverse overnight events reported to me; resting peacefully in bed; feels better overall; denies acute chest pains or palpitations; denies suicidal ideations; No N/V/F/C Objective Vital Signs - 12hr 05/19/18 05/19/18 05/19/18 04:48 05:01 06:12 Temperature 98.2 F Pulse Rate 62 62 54 L Pulse Rate [ Throughout] Respiratory 16 16 Rate Respiratory Rate [ Throughout] Blood Pressure 192/96 192/96 137/63 O2 Sat by Pulse 95 95 Oximetry 05/19/18 05/19/18 05/19/18 07:35 07:53 08:04 Temperature 98.4 F Pulse Rate 65 Pulse Rate [ 68 68 Throughout] Respiratory 16 Rate Respiratory 20 20 Rate [ Throughout] Blood Pressure 133/69 O2 Sat by Pulse 96 Oximetry 05/19/18 05/19/18 10:00 13:40 Temperature 97.7 F Pulse Rate 54 L 58 L Pulse Rate [ Throughout] Respiratory 16 Rate Respiratory Rate [ Throughout] Blood Pressure 190/98 O2 Sat by Pulse 99 Oximetry Constitutional: alert, appears uncomfortable, other (middle aged obese CM, normocephalic and atraumatic with mildly increased resp effort at rest) Eyes: non-icteric ENT: oropharynx moist, other (extubated) Neck: supple, no lymphadenopathy, no JVD, other (no thyromegaly) Effort: mildly labored Ascultation: Bilateral: diminished breath sounds, rhonchi (posterior bases) Percussion: Bilateral: not dull Cardiovascular: regular rate and rhythm Gastrointestinal: normoactive bowel sounds, soft, non-tender, non-distended Integumentary: normal Extremities: no cyanosis, pink and warm, pulses normal, no ischemia or petechiae, edema (trace) Neurologic: normal mental status, non-focal exam, pupils equal and round, motor strength normal and Psychiatric: mood appropriate, affect normal CBC and BMP: 05/19/18 05:09 05/20/18 06:17 ABG, PT/INR, D-dimer: ABG POC ABG pH 7.393 (7.35-7.45) 05/10/18 17:21 POC ABG pCO2 32.4 (35-45) L 05/10/18 17:21 POC ABG pO2 82 (80-105) 05/10/18 17:21 POC ABG HCO3 19.7 05/10/18 17:21 POC ABG Total CO2 21 05/10/18 17:21 POC ABG O2 Sat 96 05/10/18 17:21 PT/INR, D-dimer PT 13.5 Sec. (12.2-14.9) 05/09/18 11:55 INR 0.99 (0.87-1.13) 05/09/18 11:55 D-Dimer 1326.35 ng/mlDDU (0-234) H 05/09/18 10:09 Abnormal lab findings: Abnormal Labs 05/09/18 05/09/18 05/09/18 10:09 10:09 10:09 WBC 17.6 H RBC 5.11 H Hct 46.0 H RDW 15.8 H Plt Count Lymph % (Auto) [place] % (Auto) Eos % (Auto) 5.4 H Lymph # [place] # 1.2 H Eos # 1.0 H Baso # 0.2 H Seg Neutrophils % Seg Neutrophils # 12.1 H APTT D-Dimer 1326.35 H Heparin Anti-Xa Level POC ABG pH POC ABG pCO2 POC ABG pO2 Sodium Chloride Carbon Dioxide BUN 50 H Creatinine 3.7 H Glucose 191 H Calcium 8.2 L Magnesium CK-MB (CK-2) CK-MB (CK-2) Rel Index Troponin T 0.235 H* C-Reactive Protein NT-Pro-B Natriuret Pep Albumin Xpghn-1-Wmnkggyfp Abnorm Protein Band 1 PEP Interpretation Triglycerides 175 H Cholesterol 276 H LDL Cholesterol Direct 235 H HDL Cholesterol 34 L Urine Creatinine Ur Creatinine 24 Hour Tot Complement (CH50) 05/09/18 05/09/18 05/09/18 10:09 11:02 11:55 WBC RBC Hct RDW Plt Count Lymph % (Auto) [place] % (Auto) Eos % (Auto) Lymph # [place] # Eos # Baso # Seg Neutrophils % Seg Neutrophils # APTT 21.2 L D-Dimer Heparin Anti-Xa Level POC ABG pH 7.158 L POC ABG pCO2 73.6 H POC ABG pO2 274 H Sodium Chloride Carbon Dioxide BUN Creatinine Glucose Calcium Magnesium CK-MB (CK-2) 9.7 H CK-MB (CK-2) Rel Index 6.0 H Troponin T C-Reactive Protein NT-Pro-B Natriuret Pep 59436 H Albumin Cbxyu-9-Dkgtvylgp Abnorm Protein Band 1 PEP Interpretation Triglycerides Cholesterol LDL Cholesterol Direct HDL Cholesterol Urine Creatinine Ur Creatinine 24 Hour Tot Complement (CH50) 05/09/18 05/09/18 05/09/18 15:36 15:36 15:58 WBC RBC Hct RDW Plt Count Lymph % (Auto) [place] % (Auto) Eos % (Auto) Lymph # [place] # Eos # Baso # Seg Neutrophils % Seg Neutrophils # APTT D-Dimer Heparin Anti-Xa Level 2.00 H POC ABG pH POC ABG pCO2 POC ABG pO2 Sodium Chloride Carbon Dioxide BUN 53 H Creatinine 3.9 H Glucose Calcium 8.0 L Magnesium CK-MB (CK-2) 9.3 H CK-MB (CK-2) Rel Index 5.8 H Troponin T 0.246 H* C-Reactive Protein NT-Pro-B Natriuret Pep Albumin Qjzph-6-Yyefgtfhx Abnorm Protein Band 1 PEP Interpretation Triglycerides Cholesterol LDL Cholesterol Direct HDL Cholesterol Urine Creatinine Ur Creatinine 24 Hour Tot Complement (CH50) 05/09/18 05/09/18 05/10/18 16:57 19:45 02:07 WBC RBC Hct RDW 15.3 H Plt Count 136 L Lymph % (Auto) [place] % (Auto) Eos % (Auto) Lymph # [place] # Eos # Baso # Seg Neutrophils % Seg Neutrophils # APTT D-Dimer Heparin Anti-Xa Level 1.49 H POC ABG pH 7.307 L POC ABG pCO2 47.5 H POC ABG pO2 119 H Sodium Chloride Carbon Dioxide BUN Creatinine Glucose Calcium Magnesium CK-MB (CK-2) CK-MB (CK-2) Rel Index Troponin T C-Reactive Protein NT-Pro-B Natriuret Pep Albumin Syity-5-Uhgegujij Abnorm Protein Band 1 PEP Interpretation Triglycerides Cholesterol LDL Cholesterol Direct HDL Cholesterol Urine Creatinine Ur Creatinine 24 Hour Tot Complement (CH50) 05/10/18 05/10/18 05/10/18 02:07 03:25 10:37 WBC RBC Hct RDW Plt Count Lymph % (Auto) [place] % (Auto) Eos % (Auto) Lymph # [place] # Eos # Baso # Seg Neutrophils % Seg Neutrophils # APTT D-Dimer Heparin Anti-Xa Level POC ABG pH POC ABG pCO2 POC ABG pO2 65 L Sodium Chloride Carbon Dioxide 21 L BUN 56 H Creatinine 4.2 H Glucose Calcium Magnesium 2.40 H CK-MB (CK-2) CK-MB (CK-2) Rel Index Troponin T C-Reactive Protein 2.00 H NT-Pro-B Natriuret Pep Albumin Xlrir-9-Epkrastcp Abnorm Protein Band 1 PEP Interpretation Triglycerides Cholesterol LDL Cholesterol Direct HDL Cholesterol Urine Creatinine Ur Creatinine 24 Hour Tot Complement (CH50) 05/10/18 05/10/18 05/10/18 11:34 13:22 13:22 WBC RBC Hct RDW Plt Count Lymph % (Auto) [place] % (Auto) Eos % (Auto) Lymph # [place] # Eos # Baso # Seg Neutrophils % Seg Neutrophils # APTT D-Dimer Heparin Anti-Xa Level POC ABG pH POC ABG pCO2 32.7 L POC ABG pO2 110 H Sodium Chloride Carbon Dioxide BUN Creatinine Glucose Calcium Magnesium CK-MB (CK-2) CK-MB (CK-2) Rel Index Troponin T C-Reactive Protein NT-Pro-B Natriuret Pep Albumin 3.5 L Vadrq-8-Sslkfkaqo 0.4 H Abnorm Protein Band 1 0.4 H PEP Interpretation see below H Triglycerides Cholesterol LDL Cholesterol Direct HDL Cholesterol Urine Creatinine Ur Creatinine 24 Hour Tot Complement (CH50) >60 H 05/10/18 05/10/18 05/11/18 16:08 17:21 04:28 WBC 13.1 H RBC Hct RDW 15.5 H Plt Count Lymph % (Auto) 8.1 L [place] % (Auto) 9.2 H Eos % (Auto) Lymph # 1.1 L [place] # 1.2 H Eos # Baso # Seg Neutrophils % 82.4 H Seg Neutrophils # 10.8 H APTT D-Dimer Heparin Anti-Xa Level POC ABG pH POC ABG pCO2 32.4 L POC ABG pO2 Sodium Chloride Carbon Dioxide BUN Creatinine Glucose Calcium Magnesium CK-MB (CK-2) CK-MB (CK-2) Rel Index Troponin T C-Reactive Protein 2.00 H NT-Pro-B Natriuret Pep Albumin Raszb-3-Wdrjwfsgk Abnorm Protein Band 1 PEP Interpretation Triglycerides Cholesterol LDL Cholesterol Direct HDL Cholesterol Urine Creatinine Ur Creatinine 24 Hour Tot Complement (CH50) 05/11/18 05/11/18 05/11/18 04:28 04:28 23:50 WBC RBC Hct RDW Plt Count Lymph % (Auto) [place] % (Auto) Eos % (Auto) Lymph # [place] # Eos # Baso # Seg Neutrophils % Seg Neutrophils # APTT D-Dimer Heparin Anti-Xa Level < 0.10 L 2.00 H POC ABG pH POC ABG pCO2 POC ABG pO2 Sodium Chloride Carbon Dioxide 19 L BUN 67 H Creatinine 4.8 H Glucose Calcium 8.3 L Magnesium CK-MB (CK-2) CK-MB (CK-2) Rel Index Troponin T C-Reactive Protein NT-Pro-B Natriuret Pep Albumin Apetd-8-Iyuhxidpv Abnorm Protein Band 1 PEP Interpretation Triglycerides Cholesterol LDL Cholesterol Direct HDL Cholesterol Urine Creatinine Ur Creatinine 24 Hour Tot Complement (CH50) 05/12/18 05/12/18 05/13/18 04:07 06:43 08:23 WBC 11.6 H RBC Hct RDW 15.8 H Plt Count Lymph % (Auto) [place] % (Auto) Eos % (Auto) Lymph # [place] # Eos # Baso # Seg Neutrophils % Seg Neutrophils # APTT D-Dimer Heparin Anti-Xa Level < 0.10 L POC ABG pH POC ABG pCO2 POC ABG pO2 Sodium Chloride 97.0 L Carbon Dioxide BUN 36 H Creatinine 3.2 H Glucose 104 H Calcium Magnesium CK-MB (CK-2) CK-MB (CK-2) Rel Index Troponin T C-Reactive Protein NT-Pro-B Natriuret Pep Albumin Ezhbw-0-Fqcwsgfxe Abnorm Protein Band 1 PEP Interpretation Triglycerides Cholesterol LDL Cholesterol Direct HDL Cholesterol Urine Creatinine Ur Creatinine 24 Hour Tot Complement (CH50) 05/13/18 05/14/18 05/14/18 08:23 06:05 06:05 WBC RBC Hct RDW 15.6 H Plt Count Lymph % (Auto) [place] % (Auto) Eos % (Auto) Lymph # [place] # Eos # Baso # Seg Neutrophils % Seg Neutrophils # APTT D-Dimer Heparin Anti-Xa Level POC ABG pH POC ABG pCO2 POC ABG pO2 Sodium Chloride Carbon Dioxide BUN 45 H 53 H Creatinine 3.7 H 4.2 H Glucose Calcium Magnesium CK-MB (CK-2) CK-MB (CK-2) Rel Index Troponin T C-Reactive Protein NT-Pro-B Natriuret Pep Albumin Wwamd-8-Wvdkgiybs Abnorm Protein Band 1 PEP Interpretation Triglycerides Cholesterol LDL Cholesterol Direct HDL Cholesterol Urine Creatinine Ur Creatinine 24 Hour Tot Complement (CH50) 05/15/18 05/15/18 05/15/18 05:49 05:49 13:58 WBC 12.6 H RBC Hct RDW 15.7 H Plt Count Lymph % (Auto) [place] % (Auto) Eos % (Auto) Lymph # [place] # Eos # Baso # Seg Neutrophils % Seg Neutrophils # APTT D-Dimer Heparin Anti-Xa Level POC ABG pH POC ABG pCO2 POC ABG pO2 Sodium Chloride 97.3 L Carbon Dioxide BUN 61 H Creatinine 4.1 H Glucose Calcium Magnesium 2.40 H CK-MB (CK-2) CK-MB (CK-2) Rel Index Troponin T C-Reactive Protein NT-Pro-B Natriuret Pep Albumin Gvrle-0-Didbsnxne Abnorm Protein Band 1 PEP Interpretation Triglycerides Cholesterol LDL Cholesterol Direct HDL Cholesterol Urine Creatinine 78.3 H Ur Creatinine 24 Hour Tot Complement (CH50) 05/15/18 05/16/18 05/16/18 Unknown 05:42 05:42 WBC 11.6 H RBC Hct RDW 15.9 H Plt Count Lymph % (Auto) [place] % (Auto) Eos % (Auto) Lymph # [place] # Eos # Baso # Seg Neutrophils % Seg Neutrophils # APTT D-Dimer Heparin Anti-Xa Level POC ABG pH POC ABG pCO2 POC ABG pO2 Sodium Chloride 97.2 L Carbon Dioxide BUN 68 H Creatinine 4.1 H Glucose Calcium Magnesium 2.60 H CK-MB (CK-2) CK-MB (CK-2) Rel Index Troponin T C-Reactive Protein NT-Pro-B Natriuret Pep Albumin Bbfyc-6-Sgbsqdlgp Abnorm Protein Band 1 PEP Interpretation Triglycerides Cholesterol LDL Cholesterol Direct HDL Cholesterol Urine Creatinine 82.8 H Ur Creatinine 24 Hour 0.6 L Tot Complement (CH50) 05/17/18 05/17/18 05/18/18 05:48 14:00 05:03 WBC RBC Hct RDW Plt Count Lymph % (Auto) [place] % (Auto) Eos % (Auto) Lymph # [place] # Eos # Baso # Seg Neutrophils % Seg Neutrophils # APTT D-Dimer Heparin Anti-Xa Level POC ABG pH POC ABG pCO2 POC ABG pO2 Sodium 135 L Chloride Carbon Dioxide BUN 73 H 76 H Creatinine 4.1 H 3.9 H Glucose Calcium Magnesium 2.40 H 2.40 H CK-MB (CK-2) CK-MB (CK-2) Rel Index Troponin T C-Reactive Protein NT-Pro-B Natriuret Pep Albumin Xyzad-6-Octdnpevz Abnorm Protein Band 1 PEP Interpretation Triglycerides Cholesterol LDL Cholesterol Direct HDL Cholesterol Urine Creatinine 66.1 H Ur Creatinine 24 Hour Tot Complement (CH50) 05/19/18 05/19/18 05:09 05:09 WBC RBC Hct RDW 15.3 H Plt Count Lymph % (Auto) [place] % (Auto) Eos % (Auto) Lymph # [place] # Eos # Baso # Seg Neutrophils % Seg Neutrophils # APTT D-Dimer Heparin Anti-Xa Level POC ABG pH POC ABG pCO2 POC ABG pO2 Sodium Chloride Carbon Dioxide BUN 43 H Creatinine 3.3 H Glucose Calcium Magnesium CK-MB (CK-2) CK-MB (CK-2) Rel Index Troponin T C-Reactive Protein NT-Pro-B Natriuret Pep Albumin Kbdsg-7-Abobnpqxt Abnorm Protein Band 1 PEP Interpretation Triglycerides Cholesterol LDL Cholesterol Direct HDL Cholesterol Urine Creatinine Ur Creatinine 24 Hour Tot Complement (CH50) Chest x-ray: image reviewed ([facility] Vas-cath) Allied health notes reviewed: nursing
[2018-05-20] MEDS: APRESOLINE PO SCH ×3 (05:52→21:53)
[2018-05-20] MEDS: LASIX PO SCH ×3 (05:54→19:12)
[2018-05-20 07:46] LABS: Calcium 8.9 mg/dL (8.4-10.2)
[2018-05-20] MEDS: DUONEB *Not for PRN Use IH SCH ×3 (07:50→19:50)
[2018-05-20] MEDS: POTASSIUM CHLORIDE PO SCH ×2 (10:10→21:52)
[2018-05-20] MEDS: PROzac PO SCH (10:10)
[2018-05-20] MEDS: LOPRESSOR PO SCH ×2 (10:10→21:52)
[2018-05-20] MEDS: HEPARIN SUB-Q SCH ×2 (10:10→21:48)
[2018-05-20] MEDS: PEPCID PO SCH (10:10)
[2018-05-20] MEDS: IMDUR PO SCH (10:10)
--- NOTE | 2018-05-20 10:10 | Progress Note ---
Assessment and Plan Assessment and plan: Acute hypoxemic respiratory failure. Etiology secondary to acute heart failure and Non ST elevation OR. Extubated and doing well Acute HFpEF. Echocardiogram reveals EF 50-55%. Etiology likely secondary to flash pulmonary edema from accelerated hypertension. Cardiology following. Continue Lasix 40 mg IV twice a day NSTEMI. Cardiology following. Off heparin drip. Continue aspirin and beta blo cker. Acute on CKD, likely ESRD. -Baseline SCr level unknown, but pt was apparently told 1 year ago at [facility] that he had proteinuria -Renal ultrasound showed no hydronephrosis, but suggestive of CKD -HIV and hepatitis panel negative -24hr Cr Clearance of 7 -Started on hemodialysis - case management to arrange outpatient HD Sinus bradycardia episodes. Decrease dose of Metioprolol to bid Accelerated hypertension. Continue antihypertensive medications. patient medically stable for dc Awaiting outpatient hemiodialysis arrangements by Case management History Interval history: feels better, No more shortness of breath no chest pain Bradycardia episodes Hospitalist Physical - Physical exam Narrative exam: GEN: Not in acute distress, lying in bed, HEENT: Normocephalic, atraumatic, Neck: supple, No JVD Lungs: Clear to auscultation bilaterally, no wheeze Heart:S1 and S2 regular, no murmurs, rubs or gallop, Abd:soft, non tender, non distended, normal bowel sounds Ext: No edema, no clubbing or cyanosis Neuro: AAO x 3, moves all extremities, no focal neurological signs - Constitutional Vitals: Temp Pulse Resp BP Pulse Ox 98.2 F 63 18 150/68 96 05/20/18 08:03 05/20/18 08:50 05/20/18 08:50 05/20/18 08:03 05/20/18 08:03 General appearance: Present: no acute distress Results - Labs CBC & Chem 7: 05/19/18 05:09 05/20/18 06:17 Labs: Laboratory Last Values WBC 10.1 K/mm3 (4.5-11.0) 05/19/18 05:09 RBC 4.52 M/mm3 (3.65-5.03) 05/19/18 05:09 Hgb 13.5 gm/dl (11.8-15.2) 05/19/18 05:09 Hct 40.5 % (35.5-45.6) 05/19/18 05:09 MCV 90 fl (84-94) 05/19/18 05:09 MCH 30 pg (28-32) 05/19/18 05:09 MCHC 33 % (32-34) 05/19/18 05:09 RDW 15.3 % (13.2-15.2) H 05/19/18 05:09 Plt Count 152 K/mm3 (140-440) 05/19/18 05:09 Lymph % (Auto) 8.1 % (13.4-35.0) L 05/11/18 04:28 [place] % (Auto) 9.2 % (0.0-7.3) H 05/11/18 04:28 Eos % (Auto) 0.0 % (0.0-4.3) 05/11/18 04:28 Baso % (Auto) 0.3 % (0.0-1.8) 05/11/18 04:28 Lymph # 1.1 K/mm3 (1.2-5.4) L 05/11/18 04:28 [place] # 1.2 K/mm3 (0.0-0.8) H 05/11/18 04:28 Eos # 0.0 K/mm3 (0.0-0.4) 05/11/18 04:28 Baso # 0.0 K/mm3 (0.0-0.1) 05/11/18 04:28 Seg Neutrophils % 82.4 % (40.0-70.0) H 05/11/18 04:28 Seg Neutrophils # 10.8 K/mm3 (1.8-7.7) H 05/11/18 04:28 PT 13.5 Sec. (12.2-14.9) 05/09/18 11:55 INR 0.99 (0.87-1.13) 05/09/18 11:55 APTT 21.2 Sec. (24.2-36.6) L 05/09/18 11:55 D-Dimer 1326.35 ng/mlDDU (0-234) H 05/09/18 10:09 Heparin Anti-Xa Level < 0.10 U.I./ml (0.3-0.7) L 05/12/18 06:43 POC ABG pH 7.393 (7.35-7.45) 05/10/18 17:21 POC ABG pCO2 32.4 (35-45) L 05/10/18 17:21 POC ABG pO2 82 (80-105) 05/10/18 17:21 POC ABG HCO3 19.7 05/10/18 17:21 POC ABG Total CO2 21 05/10/18 17:21 POC ABG O2 Sat 96 05/10/18 17:21 POC ABG Base Excess -5 05/10/18 17:21 FiO2 28 % 05/10/18 17:21 Sodium 139 mmol/L (137-145) 05/20/18 06:17 Potassium 4.2 mmol/L (3.6-5.0) 05/20/18 06:17 Chloride 99.1 mmol/L (98-107) 05/20/18 06:17 Carbon Dioxide 25 mmol/L (22-30) 05/20/18 06:17 Anion Gap 19 mmol/L 05/20/18 06:17 BUN 54 mg/dL (9-20) H 05/20/18 06:17 Creatinine 3.9 mg/dL (0.8-1.5) H 05/20/18 06:17 Estimated GFR 16 ml/min 05/20/18 06:17 BUN/Creatinine Ratio 14 % 05/20/18 06:17 Glucose 95 mg/dL (75-100) 05/20/18 06:17 Lactic Acid 1.30 mmol/L (0.7-2.0) 05/10/18 16:08 Calcium 8.9 mg/dL (8.4-10.2) 05/20/18 06:17 Magnesium 2.40 mg/dL (1.7-2.3) H 05/18/18 05:03 Total Bilirubin 0.30 mg/dL (0.1-1.2) 05/09/18 10:09 AST 26 units/L (5-40) 05/09/18 10:09 ALT 18 units/L (7-56) 05/09/18 10:09 Alkaline Phosphatase 88 units/L (35-129) 05/09/18 10:09 Total Creatine Kinase 159 units/L (55-170) 05/09/18 15:36 CK-MB (CK-2) 9.3 ng/mL (0.0-4.0) H 05/09/18 15:36 CK-MB (CK-2) Rel Index 5.8 (0-4) H 05/09/18 15:36 Troponin T 0.246 ng/mL (0.00-0.029) H* 05/09/18 15:36 C-Reactive Protein 2.00 mg/dL (0.00-1.30) H 05/10/18 16:08 NT-Pro-B Natriuret Pep 15133 pg/mL (0-900) H 05/09/18 10:09 Serum Total Protein 6.4 g/dL (6.1-8.1) 05/10/18 13:22 Total Protein 7.7 g/dL (6.3-8.2) 05/09/18 10:09 Albumin 3.5 g/dL (3.8-4.8) L 05/10/18 13:22 Albumin/Globulin Ratio 1.1 % 05/09/18 10:09 Gqxgf-1-Wlfarizrx 0.4 g/dL (0.2-0.3) H 05/10/18 13:22 Tyifz-3-Dpnvijrdh 0.6 g/dL (0.5-0.9) 05/10/18 13:22 Beta Globulins 0.3 g/dL (0.2-0.5) 05/10/18 13:22 Gamma Globulins 1.2 g/dL (0.8-1.7) 05/10/18 13:22 Abnorm Protein Band 1 0.4 g/dL H 05/10/18 13:22 Abnorm Protein Band 2 see below 05/10/18 13:22 PEP Interpretation see below H 05/10/18 13:22 Triglycerides 175 mg/dL (2-149) H 05/09/18 10:09 Cholesterol 276 mg/dL (50-199) H 05/09/18 10:09 LDL Cholesterol Direct 235 mg/dL (50-130) H 05/09/18 10:09 HDL Cholesterol 34 mg/dL (40-59) L 05/09/18 10:09 Cholesterol/HDL Ratio 8.11 % 05/09/18 10:09 TSH 1.110 mlU/mL (0.270-4.200) 05/10/18 02:07 Free T4 1.15 ng/dL (0.76-1.46) 05/10/18 02:07 Urine Color Yellow (Yellow) 05/09/18 10:33 Urine Turbidity Clear (Clear) 05/09/18 10:33 Urine pH 6.0 (5.0-7.0) 05/09/18 10:33 Ur Specific [place] 1.011 (1.003-1.030) 05/09/18 10:33 Urine Protein >2000 mg dl mg/dL (Negative) 05/09/18 10:33 Urine Glucose (UA) 50 mg/dL (Negative) 05/09/18 10:33 Urine Ketones Neg mg/dL (Negative) 05/09/18 10:33 Urine Blood Neg (Negative) 05/09/18 10:33 Urine Nitrite Neg (Negative) 05/09/18 10:33 Urine Bilirubin Neg (Negative) 05/09/18 10:33 Urine Urobilinogen < 2.0 mg/dL (<2.0) 05/09/18 10:33 Ur Leukocyte Esterase Neg (Negative) 05/09/18 10:33 Urine WBC (Auto) 2.0 /HPF (0.0-6.0) 05/09/18 10:33 Urine RBC (Auto) 3.0 /HPF (0.0-6.0) 05/09/18 10:33 Urine Bacteria (Auto) 1+ /HPF (Negative) 05/09/18 10:33 Urine Total Volume 2500 ml 05/17/18 14:00 Urine Creatinine 66.1 mg/dL (0.1-20.0) H 05/17/18 14:00 Ur Creatinine 24 Hour 0.6 (0.8-2.8) L 05/15/18 Unknown Height (in) 69.0 inches 05/17/18 14:00 Weight (lb) 215.8 lbs 05/17/18 14:00 Creatinine Clearance 28 05/17/18 14:00 Urine Opiates Screen Presumptive negative 05/09/18 10:33 Urine Methadone Screen Presumptive negative 05/09/18 10:33 Ur Barbiturates Screen Presumptive negative 05/09/18 10:33 Ur Phencyclidine Scrn Presumptive negative 05/09/18 10:33 Ur Amphetamines Screen Presumptive negative 05/09/18 10:33 U Benzodiazepines Scrn Presumptive negative 05/09/18 10:33 Urine Cocaine Screen Presumptive negative 05/09/18 10:33 U Marijuana (THC) Screen Presumptive negative 05/09/18 10:33 Drugs of Abuse Note Disclamer 05/09/18 10:33 JOSE ANTONIO Screen Negative (Negative) 05/10/18 13:22 Proteinase 3 (PR3) Ab <1.0 AI (<1.0) 05/10/18 13:22 Myeloperoxidase Ab <1.0 AI (<1.0) 05/10/18 13:22 Double Strand DNA Ab <1 IU/mL (<=4) 05/10/18 13:22 Glomerular Base Mem IgG See scanned result 05/10/18 13:22 Complement C3 142 mg/dL (82-185) 05/10/18 13:22 Complement C4 20 mg/dL (15-53) 05/10/18 13:22 Tot Complement (CH50) >60 U/mL (31-60) H 05/10/18 13:22 Hepatitis A IgM Ab Non-reactive (NonReactive) 05/10/18 13:22 Hep Bs Antigen Non-reactive (Negative) 05/10/18 13:22 Hep B Core IgM Ab Non-reactive (NonReactive) 05/10/18 13:22 Hepatitis C Antibody Non-reactive (NonReactive) 05/10/18 13:22 HIV 1&2 Antibody Rapid Non react (Non React) 05/10/18 13:22 HIV P24 Antigen Non react (Non React) 05/10/18 13:22 Anti-Streptolysin O Ab See scanned result 05/10/18 13:22 Nutrition/Malnutrition Assess - Dietary Evaluation Nutrition/Malnutrition Findings: Nutrition Notes Start: 05/10/18 09:35 Freq: Status: Active Protocol: Document 05/17/18 10:37 ER (Rec: 05/17/18 10:43 ER [id number]) Co-Sign 05/17/18 10:37 LP Nutrition Notes Initial or Follow up Reassessment Current Diagnosis Acute Kidney Injury CKD(stage I-IV) COPD Hypertension Heart Failure Respiratory Failure Other Pertinent Diagnosis Dyspnea Current Diet NPO Labs/Tests BUN 73 Cr 4.1 Pertinent Medications Lasix Height 5 ft 9 in Weight 97.6 kg [place] Body Weight (kg) 72.72 BMI 31.7 Weight Status Obese Subjective/Other Information Pt. NPO for medical lab technologist procedure . Pt. stated his appetite is good and ate 80% of dinner and drank Nepro. Pt. denies any N /V/D/C and chewing/swallowing difficulties. Pt. may need education for ESRD on HD. Continue to follow for ONS and education needs. Percent of energy/protein needs met: 120%/100% Burn Absent Trauma Absent Current % PO Good (75-100%) #1 Nutrition Diagnosis Inadequate oral intake As Evidenced by Signs and Symptoms pt. consuming 100% of energy and protein needs Diagnosis Progress(for reassessment Improved documentation) Is patient on ventilator? No Is Patient Ambulatory and/or Out of Bed Yes REE-([place]-ambulatory/OOB) [ 2315.794 [id number]] Kcal/Kg value to use for calculation 18 Approximate Energy Requirements Using 1757 kcal/Kg Calculation Used for Recommendations Kcal/kg Additional Notes pro: 60-117g/day (0.6-1.2g/kg) fluid: 1mL/kcal Nutrition Intervention Change Diet Order: Renal Diet Add Supplement/Snack (indicate name/kcal nepro daily /protein ) Provides kCal: 425 Provides Protein (gm) 19 Goal #1 Continue to meet 100% of energy and pro needs Anticipated Discharge Needs: Renal diet Follow-Up By: 05/23/18 Additional Comments f/u: ONS intake, ESRD on HD education needs
--- NOTE | 2018-05-20 14:43 | Progress Note ---
Assessment and Plan Acute hypoxic-hypercapnic respiratory failure Acute heart failure Acute renal failure NSTEMI Hypertensive emergency Morbid obesity Tobacco abuse disorder - BIPAP prn at this point - continue VTE prophylaxis - continue HD/UF per nephrology prescription for toxin and volume clearance - continue stress ulcer prophylaxis - continue diuresis with lasix; adjust per nephrology - 2D echocardiogram with low normal EF and impaired relaxation - ST evaluation and advance diet - continue accucheck with glycemic control per SSI for target blood glucose of 140-180mg/dL - continue bronchodilators with pulmonary hygiene per RT - Cardiology evaluation ongoing - continue to avoid nephrotoxic agents and adjust all medications for CrCL - continue Nicotine withdrawal precautions - Smoking cessation counselling done at bedside - Mobility for pressure ulcer prevention - PT/OT as tolerated - continue other care per attending / other consultants ... re-evaluate in am & prn CODE STATUS: FULL CODE Subjective Date of service: 05/20/18 Principal diagnosis: Acute hypoxemic hypercapnic Resp failure; Acute CHF; ELVIA; NSTEMI Interval history: Patient is seen today for: Acute hypoxic-hypercapnic respiratory failure; Acute heart failure; Acute renal failure; NSTEMI; Hypertensive emergency Seen and examined at bedside; 24hour events reviewed; nursing and respiratory care staff consulted; no adverse overnight events reported to me; resting peacefully in bed; no new issues respiratory-euceda; remains dialysis dependent Objective Vital Signs - 12hr 05/20/18 05/20/18 05/20/18 04:34 05:07 05:52 Temperature 98.4 F Pulse Rate 49 L 51 L 51 L Pulse Rate [ Anterior Bilateral Throughout] Respiratory 16 Rate Respiratory Rate [Anterior Bilateral Throughout] Blood Pressure 133/75 133/75 Blood Pressure [Right] O2 Sat by Pulse 95 96 Oximetry 05/20/18 05/20/18 05/20/18 06:00 07:50 08:00 Temperature 98.1 F Pulse Rate 61 Pulse Rate [ 63 60 Anterior Bilateral Throughout] Respiratory 16 Rate Respiratory 18 18 Rate [Anterior Bilateral Throughout] Blood Pressure Blood Pressure 146/77 [Right] O2 Sat by Pulse Oximetry 05/20/18 05/20/18 05/20/18 08:03 10:00 13:01 Temperature 98.2 F Pulse Rate 52 L 60 64 Pulse Rate [ Anterior Bilateral Throughout] Respiratory 16 Rate Respiratory Rate [Anterior Bilateral Throughout] Blood Pressure 150/68 170/90 Blood Pressure [Right] O2 Sat by Pulse 96 95 Oximetry 05/20/18 05/20/18 05/20/18 13:14 14:03 14:13 Temperature 98.4 F Pulse Rate Pulse Rate [ 64 61 Anterior Bilateral Throughout] Respiratory Rate Respiratory 20 20 Rate [Anterior Bilateral Throughout] Blood Pressure Blood Pressure [Right] O2 Sat by Pulse Oximetry Constitutional: alert, appears uncomfortable, other (middle aged obese CM, normocephalic and atraumatic with mildly increased resp effort at rest) Eyes: non-icteric ENT: oropharynx moist, other (extubated) Neck: supple, no lymphadenopathy, no JVD, other (no thyromegaly) Effort: mildly labored Ascultation: Bilateral: diminished breath sounds, rhonchi (posterior bases) Percussion: Bilateral: not dull Cardiovascular: regular rate and rhythm Gastrointestinal: normoactive bowel sounds, soft, non-tender, non-distended Integumentary: normal Extremities: no cyanosis, pink and warm, pulses normal, no ischemia or petechiae, edema (trace) Neurologic: normal mental status, non-focal exam, pupils equal and round, motor strength normal and Psychiatric: mood appropriate, affect normal CBC and BMP: 05/19/18 05:09 05/21/18 06:11 ABG, PT/INR, D-dimer: ABG POC ABG pH 7.393 (7.35-7.45) 05/10/18 17:21 POC ABG pCO2 32.4 (35-45) L 05/10/18 17:21 POC ABG pO2 82 (80-105) 05/10/18 17:21 POC ABG HCO3 19.7 05/10/18 17:21 POC ABG Total CO2 21 05/10/18 17:21 POC ABG O2 Sat 96 05/10/18 17:21 PT/INR, D-dimer PT 13.5 Sec. (12.2-14.9) 05/09/18 11:55 INR 0.99 (0.87-1.13) 05/09/18 11:55 D-Dimer 1326.35 ng/mlDDU (0-234) H 05/09/18 10:09 Abnormal lab findings: Abnormal Labs 05/09/18 05/09/18 05/09/18 10:09 10:09 10:09 WBC 17.6 H RBC 5.11 H Hct 46.0 H RDW 15.8 H Plt Count Lymph % (Auto) [place] % (Auto) Eos % (Auto) 5.4 H Lymph # [place] # 1.2 H Eos # 1.0 H Baso # 0.2 H Seg Neutrophils % Seg Neutrophils # 12.1 H APTT D-Dimer 1326.35 H Heparin Anti-Xa Level POC ABG pH POC ABG pCO2 POC ABG pO2 Sodium Chloride Carbon Dioxide BUN 50 H Creatinine 3.7 H Glucose 191 H Calcium 8.2 L Magnesium CK-MB (CK-2) CK-MB (CK-2) Rel Index Troponin T 0.235 H* C-Reactive Protein NT-Pro-B Natriuret Pep Albumin Jdrry-3-Qyoyibzij Abnorm Protein Band 1 PEP Interpretation Triglycerides 175 H Cholesterol 276 H LDL Cholesterol Direct 235 H HDL Cholesterol 34 L Urine Creatinine Ur Creatinine 24 Hour Tot Complement (CH50) 05/09/18 05/09/18 05/09/18 10:09 11:02 11:55 WBC RBC Hct RDW Plt Count Lymph % (Auto) [place] % (Auto) Eos % (Auto) Lymph # [place] # Eos # Baso # Seg Neutrophils % Seg Neutrophils # APTT 21.2 L D-Dimer Heparin Anti-Xa Level POC ABG pH 7.158 L POC ABG pCO2 73.6 H POC ABG pO2 274 H Sodium Chloride Carbon Dioxide BUN Creatinine Glucose Calcium Magnesium CK-MB (CK-2) 9.7 H CK-MB (CK-2) Rel Index 6.0 H Troponin T C-Reactive Protein NT-Pro-B Natriuret Pep 99641 H Albumin Yiqvt-2-Xvbiwwowb Abnorm Protein Band 1 PEP Interpretation Triglycerides Cholesterol LDL Cholesterol Direct HDL Cholesterol Urine Creatinine Ur Creatinine 24 Hour Tot Complement (CH50) 05/09/18 05/09/18 05/09/18 15:36 15:36 15:58 WBC RBC Hct RDW Plt Count Lymph % (Auto) [place] % (Auto) Eos % (Auto) Lymph # [place] # Eos # Baso # Seg Neutrophils % Seg Neutrophils # APTT D-Dimer Heparin Anti-Xa Level 2.00 H POC ABG pH POC ABG pCO2 POC ABG pO2 Sodium Chloride Carbon Dioxide BUN 53 H Creatinine 3.9 H Glucose Calcium 8.0 L Magnesium CK-MB (CK-2) 9.3 H CK-MB (CK-2) Rel Index 5.8 H Troponin T 0.246 H* C-Reactive Protein NT-Pro-B Natriuret Pep Albumin Oojjg-7-Ihnmywolp Abnorm Protein Band 1 PEP Interpretation Triglycerides Cholesterol LDL Cholesterol Direct HDL Cholesterol Urine Creatinine Ur Creatinine 24 Hour Tot Complement (CH50) 05/09/18 05/09/18 05/10/18 16:57 19:45 02:07 WBC RBC Hct RDW 15.3 H Plt Count 136 L Lymph % (Auto) [place] % (Auto) Eos % (Auto) Lymph # [place] # Eos # Baso # Seg Neutrophils % Seg Neutrophils # APTT D-Dimer Heparin Anti-Xa Level 1.49 H POC ABG pH 7.307 L POC ABG pCO2 47.5 H POC ABG pO2 119 H Sodium Chloride Carbon Dioxide BUN Creatinine Glucose Calcium Magnesium CK-MB (CK-2) CK-MB (CK-2) Rel Index Troponin T C-Reactive Protein NT-Pro-B Natriuret Pep Albumin Inyqw-1-Lhmfbprqv Abnorm Protein Band 1 PEP Interpretation Triglycerides Cholesterol LDL Cholesterol Direct HDL Cholesterol Urine Creatinine Ur Creatinine 24 Hour Tot Complement (CH50) 05/10/18 05/10/18 05/10/18 02:07 03:25 10:37 WBC RBC Hct RDW Plt Count Lymph % (Auto) [place] % (Auto) Eos % (Auto) Lymph # [place] # Eos # Baso # Seg Neutrophils % Seg Neutrophils # APTT D-Dimer Heparin Anti-Xa Level POC ABG pH POC ABG pCO2 POC ABG pO2 65 L Sodium Chloride Carbon Dioxide 21 L BUN 56 H Creatinine 4.2 H Glucose Calcium Magnesium 2.40 H CK-MB (CK-2) CK-MB (CK-2) Rel Index Troponin T C-Reactive Protein 2.00 H NT-Pro-B Natriuret Pep Albumin Kgfiy-4-Unmqxxpjy Abnorm Protein Band 1 PEP Interpretation Triglycerides Cholesterol LDL Cholesterol Direct HDL Cholesterol Urine Creatinine Ur Creatinine 24 Hour Tot Complement (CH50) 05/10/18 05/10/18 05/10/18 11:34 13:22 13:22 WBC RBC Hct RDW Plt Count Lymph % (Auto) [place] % (Auto) Eos % (Auto) Lymph # [place] # Eos # Baso # Seg Neutrophils % Seg Neutrophils # APTT D-Dimer Heparin Anti-Xa Level POC ABG pH POC ABG pCO2 32.7 L POC ABG pO2 110 H Sodium Chloride Carbon Dioxide BUN Creatinine Glucose Calcium Magnesium CK-MB (CK-2) CK-MB (CK-2) Rel Index Troponin T C-Reactive Protein NT-Pro-B Natriuret Pep Albumin 3.5 L Miwda-5-Uwcpoaiud 0.4 H Abnorm Protein Band 1 0.4 H PEP Interpretation see below H Triglycerides Cholesterol LDL Cholesterol Direct HDL Cholesterol Urine Creatinine Ur Creatinine 24 Hour Tot Complement (CH50) >60 H 05/10/18 05/10/18 05/11/18 16:08 17:21 04:28 WBC 13.1 H RBC Hct RDW 15.5 H Plt Count Lymph % (Auto) 8.1 L [place] % (Auto) 9.2 H Eos % (Auto) Lymph # 1.1 L [place] # 1.2 H Eos # Baso # Seg Neutrophils % 82.4 H Seg Neutrophils # 10.8 H APTT D-Dimer Heparin Anti-Xa Level POC ABG pH POC ABG pCO2 32.4 L POC ABG pO2 Sodium Chloride Carbon Dioxide BUN Creatinine Glucose Calcium Magnesium CK-MB (CK-2) CK-MB (CK-2) Rel Index Troponin T C-Reactive Protein 2.00 H NT-Pro-B Natriuret Pep Albumin Yjlxg-8-Oammwivkg Abnorm Protein Band 1 PEP Interpretation Triglycerides Cholesterol LDL Cholesterol Direct HDL Cholesterol Urine Creatinine Ur Creatinine 24 Hour Tot Complement (CH50) 05/11/18 05/11/18 05/11/18 04:28 04:28 23:50 WBC RBC Hct RDW Plt Count Lymph % (Auto) [place] % (Auto) Eos % (Auto) Lymph # [place] # Eos # Baso # Seg Neutrophils % Seg Neutrophils # APTT D-Dimer Heparin Anti-Xa Level < 0.10 L 2.00 H POC ABG pH POC ABG pCO2 POC ABG pO2 Sodium Chloride Carbon Dioxide 19 L BUN 67 H Creatinine 4.8 H Glucose Calcium 8.3 L Magnesium CK-MB (CK-2) CK-MB (CK-2) Rel Index Troponin T C-Reactive Protein NT-Pro-B Natriuret Pep Albumin Jcptm-6-Mvisuaeov Abnorm Protein Band 1 PEP Interpretation Triglycerides Cholesterol LDL Cholesterol Direct HDL Cholesterol Urine Creatinine Ur Creatinine 24 Hour Tot Complement (CH50) 05/12/18 05/12/18 05/13/18 04:07 06:43 08:23 WBC 11.6 H RBC Hct RDW 15.8 H Plt Count Lymph % (Auto) [place] % (Auto) Eos % (Auto) Lymph # [place] # Eos # Baso # Seg Neutrophils % Seg Neutrophils # APTT D-Dimer Heparin Anti-Xa Level < 0.10 L POC ABG pH POC ABG pCO2 POC ABG pO2 Sodium Chloride 97.0 L Carbon Dioxide BUN 36 H Creatinine 3.2 H Glucose 104 H Calcium Magnesium CK-MB (CK-2) CK-MB (CK-2) Rel Index Troponin T C-Reactive Protein NT-Pro-B Natriuret Pep Albumin Pqclh-4-Pfomglixk Abnorm Protein Band 1 PEP Interpretation Triglycerides Cholesterol LDL Cholesterol Direct HDL Cholesterol Urine Creatinine Ur Creatinine 24 Hour Tot Complement (CH50) 05/13/18 05/14/18 05/14/18 08:23 06:05 06:05 WBC RBC Hct RDW 15.6 H Plt Count Lymph % (Auto) [place] % (Auto) Eos % (Auto) Lymph # [place] # Eos # Baso # Seg Neutrophils % Seg Neutrophils # APTT D-Dimer Heparin Anti-Xa Level POC ABG pH POC ABG pCO2 POC ABG pO2 Sodium Chloride Carbon Dioxide BUN 45 H 53 H Creatinine 3.7 H 4.2 H Glucose Calcium Magnesium CK-MB (CK-2) CK-MB (CK-2) Rel Index Troponin T C-Reactive Protein NT-Pro-B Natriuret Pep Albumin Vzbnk-6-Cfkrqzbkw Abnorm Protein Band 1 PEP Interpretation Triglycerides Cholesterol LDL Cholesterol Direct HDL Cholesterol Urine Creatinine Ur Creatinine 24 Hour Tot Complement (CH50) 05/15/18 05/15/18 05/15/18 05:49 05:49 13:58 WBC 12.6 H RBC Hct RDW 15.7 H Plt Count Lymph % (Auto) [place] % (Auto) Eos % (Auto) Lymph # [place] # Eos # Baso # Seg Neutrophils % Seg Neutrophils # APTT D-Dimer Heparin Anti-Xa Level POC ABG pH POC ABG pCO2 POC ABG pO2 Sodium Chloride 97.3 L Carbon Dioxide BUN 61 H Creatinine 4.1 H Glucose Calcium Magnesium 2.40 H CK-MB (CK-2) CK-MB (CK-2) Rel Index Troponin T C-Reactive Protein NT-Pro-B Natriuret Pep Albumin Xqkwg-1-Xdsicobca Abnorm Protein Band 1 PEP Interpretation Triglycerides Cholesterol LDL Cholesterol Direct HDL Cholesterol Urine Creatinine 78.3 H Ur Creatinine 24 Hour Tot Complement (CH50) 05/15/18 05/16/18 05/16/18 Unknown 05:42 05:42 WBC 11.6 H RBC Hct RDW 15.9 H Plt Count Lymph % (Auto) [place] % (Auto) Eos % (Auto) Lymph # [place] # Eos # Baso # Seg Neutrophils % Seg Neutrophils # APTT D-Dimer Heparin Anti-Xa Level POC ABG pH POC ABG pCO2 POC ABG pO2 Sodium Chloride 97.2 L Carbon Dioxide BUN 68 H Creatinine 4.1 H Glucose Calcium Magnesium 2.60 H CK-MB (CK-2) CK-MB (CK-2) Rel Index Troponin T C-Reactive Protein NT-Pro-B Natriuret Pep Albumin Nfgiz-3-Bbpgsgypf Abnorm Protein Band 1 PEP Interpretation Triglycerides Cholesterol LDL Cholesterol Direct HDL Cholesterol Urine Creatinine 82.8 H Ur Creatinine 24 Hour 0.6 L Tot Complement (CH50) 05/17/18 05/17/18 05/18/18 05:48 14:00 05:03 WBC RBC Hct RDW Plt Count Lymph % (Auto) [place] % (Auto) Eos % (Auto) Lymph # [place] # Eos # Baso # Seg Neutrophils % Seg Neutrophils # APTT D-Dimer Heparin Anti-Xa Level POC ABG pH POC ABG pCO2 POC ABG pO2 Sodium 135 L Chloride Carbon Dioxide BUN 73 H 76 H Creatinine 4.1 H 3.9 H Glucose Calcium Magnesium 2.40 H 2.40 H CK-MB (CK-2) CK-MB (CK-2) Rel Index Troponin T C-Reactive Protein NT-Pro-B Natriuret Pep Albumin Xkzgc-8-Ktxyueqzx Abnorm Protein Band 1 PEP Interpretation Triglycerides Cholesterol LDL Cholesterol Direct HDL Cholesterol Urine Creatinine 66.1 H Ur Creatinine 24 Hour Tot Complement (CH50) 05/19/18 05/19/18 05/20/18 05:09 05:09 06:17 WBC RBC Hct RDW 15.3 H Plt Count Lymph % (Auto) [place] % (Auto) Eos % (Auto) Lymph # [place] # Eos # Baso # Seg Neutrophils % Seg Neutrophils # APTT D-Dimer Heparin Anti-Xa Level POC ABG pH POC ABG pCO2 POC ABG pO2 Sodium Chloride Carbon Dioxide BUN 43 H 54 H Creatinine 3.3 H 3.9 H Glucose Calcium Magnesium CK-MB (CK-2) CK-MB (CK-2) Rel Index Troponin T C-Reactive Protein NT-Pro-B Natriuret Pep Albumin Oovco-4-Lwznszblw Abnorm Protein Band 1 PEP Interpretation Triglycerides Cholesterol LDL Cholesterol Direct HDL Cholesterol Urine Creatinine Ur Creatinine 24 Hour Tot Complement (CH50) Allied health notes reviewed: nursing
[2018-05-21] MEDS: LASIX PO SCH ×2 (05:38→17:37)
[2018-05-21] MEDS: APRESOLINE PO SCH ×3 (05:38→22:45)
[2018-05-21] MEDS: DUONEB *Not for PRN Use IH SCH ×2 (08:34→15:56)
[2018-05-21] MEDS: LOPRESSOR PO SCH ×3 (10:00→22:48)
[2018-05-21] MEDS: POTASSIUM CHLORIDE PO SCH ×2 (10:00→22:46)
[2018-05-21] MEDS: HEPARIN SUB-Q SCH ×2 (10:00→22:48)
--- NOTE | 2018-05-21 10:39 | Progress Note ---
Assessment and Plan Assessment and plan: Acute hypoxemic respiratory failure. Etiology secondary to acute heart failure and Non ST elevation MS. Extubated and doing well Acute HFpEF. Echocardiogram reveals EF 50-55%. Etiology likely secondary to flash pulmonary edema from accelerated hypertension. Cardiology following. Continue Lasix 40 mg IV twice a day NSTEMI. Cardiology following. Off heparin drip. Continue aspirin and beta blo cker. Acute on CKD, likely ESRD. -Baseline SCr level unknown, but pt was apparently told 1 year ago at [facility] that he had proteinuria -Renal ultrasound showed no hydronephrosis, but suggestive of CKD -HIV and hepatitis panel negative -24hr Cr Clearance of 7 -Started on hemodialysis - case management to arrange outpatient HD Sinus bradycardia episodes. Decreased dose of Metoprolol to 25mg bid Accelerated hypertension. Continue antihypertensive medications. patient medically stable for dc Awaiting outpatient hemiodialysis arrangements by Case management History Interval history: feels better, No more shortness of breath no chest pain Bradycardia episodes Hospitalist Physical - Physical exam Narrative exam: GEN: Not in acute distress, lying in bed, HEENT: Normocephalic, atraumatic, Neck: supple, No JVD Lungs: Clear to auscultation bilaterally, no wheeze Heart:S1 and S2 regular, no murmurs, rubs or gallop, Abd:soft, non tender, non distended, normal bowel sounds Ext: No edema, no clubbing or cyanosis Neuro: AAO x 3, moves all extremities, no focal neurological signs - Constitutional Vitals: Temp Pulse Resp BP Pulse Ox 98.0 F 43 L 19 144/72 95 05/21/18 05:01 05/21/18 08:44 05/21/18 08:44 05/21/18 05:38 05/21/18 05:01 General appearance: Present: no acute distress Results - Labs CBC & Chem 7: 05/19/18 05:09 05/21/18 06:11 Labs: Laboratory Last Values WBC 10.1 K/mm3 (4.5-11.0) 05/19/18 05:09 RBC 4.52 M/mm3 (3.65-5.03) 05/19/18 05:09 Hgb 13.5 gm/dl (11.8-15.2) 05/19/18 05:09 Hct 40.5 % (35.5-45.6) 05/19/18 05:09 MCV 90 fl (84-94) 05/19/18 05:09 MCH 30 pg (28-32) 05/19/18 05:09 MCHC 33 % (32-34) 05/19/18 05:09 RDW 15.3 % (13.2-15.2) H 05/19/18 05:09 Plt Count 152 K/mm3 (140-440) 05/19/18 05:09 Lymph % (Auto) 8.1 % (13.4-35.0) L 05/11/18 04:28 [place] % (Auto) 9.2 % (0.0-7.3) H 05/11/18 04:28 Eos % (Auto) 0.0 % (0.0-4.3) 05/11/18 04:28 Baso % (Auto) 0.3 % (0.0-1.8) 05/11/18 04:28 Lymph # 1.1 K/mm3 (1.2-5.4) L 05/11/18 04:28 [place] # 1.2 K/mm3 (0.0-0.8) H 05/11/18 04:28 Eos # 0.0 K/mm3 (0.0-0.4) 05/11/18 04:28 Baso # 0.0 K/mm3 (0.0-0.1) 05/11/18 04:28 Seg Neutrophils % 82.4 % (40.0-70.0) H 05/11/18 04:28 Seg Neutrophils # 10.8 K/mm3 (1.8-7.7) H 05/11/18 04:28 PT 13.5 Sec. (12.2-14.9) 05/09/18 11:55 INR 0.99 (0.87-1.13) 05/09/18 11:55 APTT 21.2 Sec. (24.2-36.6) L 05/09/18 11:55 D-Dimer 1326.35 ng/mlDDU (0-234) H 05/09/18 10:09 Heparin Anti-Xa Level < 0.10 U.I./ml (0.3-0.7) L 05/12/18 06:43 POC ABG pH 7.393 (7.35-7.45) 05/10/18 17:21 POC ABG pCO2 32.4 (35-45) L 05/10/18 17:21 POC ABG pO2 82 (80-105) 05/10/18 17:21 POC ABG HCO3 19.7 05/10/18 17:21 POC ABG Total CO2 21 05/10/18 17:21 POC ABG O2 Sat 96 05/10/18 17:21 POC ABG Base Excess -5 05/10/18 17:21 FiO2 28 % 05/10/18 17:21 Sodium 136 mmol/L (137-145) L 05/21/18 06:11 Potassium 4.0 mmol/L (3.6-5.0) 05/21/18 06:11 Chloride 96.1 mmol/L (98-107) L 05/21/18 06:11 Carbon Dioxide 25 mmol/L (22-30) 05/21/18 06:11 Anion Gap 19 mmol/L 05/21/18 06:11 BUN 60 mg/dL (9-20) H 05/21/18 06:11 Creatinine 4.2 mg/dL (0.8-1.5) H 05/21/18 06:11 Estimated GFR 15 ml/min 05/21/18 06:11 BUN/Creatinine Ratio 14 % 05/21/18 06:11 Glucose 75 mg/dL (75-100) 05/21/18 06:11 Lactic Acid 1.30 mmol/L (0.7-2.0) 05/10/18 16:08 Calcium 9.0 mg/dL (8.4-10.2) 05/21/18 06:11 Magnesium 2.40 mg/dL (1.7-2.3) H 05/18/18 05:03 Total Bilirubin 0.30 mg/dL (0.1-1.2) 05/09/18 10:09 AST 26 units/L (5-40) 05/09/18 10:09 ALT 18 units/L (7-56) 05/09/18 10:09 Alkaline Phosphatase 88 units/L (35-129) 05/09/18 10:09 Total Creatine Kinase 159 units/L (55-170) 05/09/18 15:36 CK-MB (CK-2) 9.3 ng/mL (0.0-4.0) H 05/09/18 15:36 CK-MB (CK-2) Rel Index 5.8 (0-4) H 05/09/18 15:36 Troponin T 0.246 ng/mL (0.00-0.029) H* 05/09/18 15:36 C-Reactive Protein 2.00 mg/dL (0.00-1.30) H 05/10/18 16:08 NT-Pro-B Natriuret Pep 12416 pg/mL (0-900) H 05/09/18 10:09 Serum Total Protein 6.4 g/dL (6.1-8.1) 05/10/18 13:22 Total Protein 7.7 g/dL (6.3-8.2) 05/09/18 10:09 Albumin 3.5 g/dL (3.8-4.8) L 05/10/18 13:22 Albumin/Globulin Ratio 1.1 % 05/09/18 10:09 Mzyvt-6-Jwsjlenvz 0.4 g/dL (0.2-0.3) H 05/10/18 13:22 Bxokt-1-Miusavrgj 0.6 g/dL (0.5-0.9) 05/10/18 13:22 Beta Globulins 0.3 g/dL (0.2-0.5) 05/10/18 13:22 Gamma Globulins 1.2 g/dL (0.8-1.7) 05/10/18 13:22 Abnorm Protein Band 1 0.4 g/dL H 05/10/18 13:22 Abnorm Protein Band 2 see below 05/10/18 13:22 PEP Interpretation see below H 05/10/18 13:22 Triglycerides 175 mg/dL (2-149) H 05/09/18 10:09 Cholesterol 276 mg/dL (50-199) H 05/09/18 10:09 LDL Cholesterol Direct 235 mg/dL (50-130) H 05/09/18 10:09 HDL Cholesterol 34 mg/dL (40-59) L 05/09/18 10:09 Cholesterol/HDL Ratio 8.11 % 05/09/18 10:09 TSH 1.110 mlU/mL (0.270-4.200) 05/10/18 02:07 Free T4 1.15 ng/dL (0.76-1.46) 05/10/18 02:07 Urine Color Yellow (Yellow) 05/09/18 10:33 Urine Turbidity Clear (Clear) 05/09/18 10:33 Urine pH 6.0 (5.0-7.0) 05/09/18 10:33 Ur Specific [place] 1.011 (1.003-1.030) 05/09/18 10:33 Urine Protein >2000 mg dl mg/dL (Negative) 05/09/18 10:33 Urine Glucose (UA) 50 mg/dL (Negative) 05/09/18 10:33 Urine Ketones Neg mg/dL (Negative) 05/09/18 10:33 Urine Blood Neg (Negative) 05/09/18 10:33 Urine Nitrite Neg (Negative) 05/09/18 10:33 Urine Bilirubin Neg (Negative) 05/09/18 10:33 Urine Urobilinogen < 2.0 mg/dL (<2.0) 05/09/18 10:33 Ur Leukocyte Esterase Neg (Negative) 05/09/18 10:33 Urine WBC (Auto) 2.0 /HPF (0.0-6.0) 05/09/18 10:33 Urine RBC (Auto) 3.0 /HPF (0.0-6.0) 05/09/18 10:33 Urine Bacteria (Auto) 1+ /HPF (Negative) 05/09/18 10:33 Urine Total Volume 2500 ml 05/17/18 14:00 Urine Creatinine 66.1 mg/dL (0.1-20.0) H 05/17/18 14:00 Ur Creatinine 24 Hour 0.6 (0.8-2.8) L 05/15/18 Unknown Height (in) 69.0 inches 05/17/18 14:00 Weight (lb) 215.8 lbs 05/17/18 14:00 Creatinine Clearance 28 05/17/18 14:00 Urine Opiates Screen Presumptive negative 05/09/18 10:33 Urine Methadone Screen Presumptive negative 05/09/18 10:33 Ur Barbiturates Screen Presumptive negative 05/09/18 10:33 Ur Phencyclidine Scrn Presumptive negative 05/09/18 10:33 Ur Amphetamines Screen Presumptive negative 05/09/18 10:33 U Benzodiazepines Scrn Presumptive negative 05/09/18 10:33 Urine Cocaine Screen Presumptive negative 05/09/18 10:33 U Marijuana (THC) Screen Presumptive negative 05/09/18 10:33 Drugs of Abuse Note Disclamer 05/09/18 10:33 JOSE ANTONIO Screen Negative (Negative) 05/10/18 13:22 Proteinase 3 (PR3) Ab <1.0 AI (<1.0) 05/10/18 13:22 Myeloperoxidase Ab <1.0 AI (<1.0) 05/10/18 13:22 Double Strand DNA Ab <1 IU/mL (<=4) 05/10/18 13:22 Glomerular Base Mem IgG See scanned result 05/10/18 13:22 Complement C3 142 mg/dL (82-185) 05/10/18 13:22 Complement C4 20 mg/dL (15-53) 05/10/18 13:22 Tot Complement (CH50) >60 U/mL (31-60) H 05/10/18 13:22 Hepatitis A IgM Ab Non-reactive (NonReactive) 05/10/18 13:22 Hep Bs Antigen Non-reactive (Negative) 05/10/18 13:22 Hep B Core IgM Ab Non-reactive (NonReactive) 05/10/18 13:22 Hepatitis C Antibody Non-reactive (NonReactive) 05/10/18 13:22 HIV 1&2 Antibody Rapid Non react (Non React) 05/10/18 13:22 HIV P24 Antigen Non react (Non React) 05/10/18 13:22 Anti-Streptolysin O Ab See scanned result 05/10/18 13:22 Nutrition/Malnutrition Assess - Dietary Evaluation Nutrition/Malnutrition Findings: Nutrition Notes Start: 05/10/18 09:35 Freq: Status: Active Protocol: Document 05/17/18 10:37 ER (Rec: 05/17/18 10:43 ER [id number]) Co-Sign 05/17/18 10:37 LP Nutrition Notes Initial or Follow up Reassessment Current Diagnosis Acute Kidney Injury CKD(stage I-IV) COPD Hypertension Heart Failure Respiratory Failure Other Pertinent Diagnosis Dyspnea Current Diet NPO Labs/Tests BUN 73 Cr 4.1 Pertinent Medications Lasix Height 5 ft 9 in Weight 97.6 kg [place] Body Weight (kg) 72.72 BMI 31.7 Weight Status Obese Subjective/Other Information 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 Pt. stated his appetite is good and ate 80% of dinner and drank Nepro. Pt. denies any N /V/D/C and chewing/swallowing difficulties. Pt. may need education for ESRD on HD. Continue to follow for ONS and education needs. Percent of energy/protein needs met: 120%/100% Burn Absent Trauma Absent Current % PO Good (75-100%) #1 Nutrition Diagnosis Inadequate oral intake As Evidenced by Signs and Symptoms pt. consuming 100% of energy and protein needs Diagnosis Progress(for reassessment Improved documentation) Is patient on ventilator? No Is Patient Ambulatory and/or Out of Bed Yes REE-([facility]-ambulatory/OOB) [ 2315.794 [id number]] Kcal/Kg value to use for calculation 18 Approximate Energy Requirements Using 1757 kcal/Kg Calculation Used for Recommendations Kcal/kg Additional Notes pro: 60-117g/day (0.6-1.2g/kg) fluid: 1mL/kcal Nutrition Intervention Change Diet Order: Renal Diet Add Supplement/Snack (indicate name/kcal nepro daily /protein ) Provides kCal: 425 Provides Protein (gm) 19 Goal #1 Continue to meet 100% of energy and pro needs Anticipated Discharge Needs: Renal diet Follow-Up By: 05/23/18 Additional Comments f/u: ONS intake, ESRD on HD education needs
--- NOTE | 2018-05-21 10:45 | Progress Note ---
Assessment and Plan ESRD now on HD - s/p permcath 05/18 - HD today for clearance and volume removal - social welfare research worker consulted for outpatient HD arrangement, can be discharged from renal standpoint once outpatient HD is secured Acute heart failure NSTEMI Elevated BNP -per cardiology Acute hypoxic-hypercapnic respiratory failure Elevated-Dimer -As per pulmonary S/P Hypertensive emergency Hypertension: -Adjust regimen as needed Subjective Date of service: 05/21/18 Principal diagnosis: Acute hypoxemic hypercapnic Resp failure; Acute CHF; ELVIA; NSTEMI Interval history: tolerated HD today Objective - Vital Signs Vital signs: Vital Signs - 12hr 05/21/18 05/21/18 05/21/18 05:01 05:38 08:33 Temperature 98.0 F Pulse Rate 57 L 62 Pulse Rate [ 54 L Throughout] Respiratory 16 Rate Respiratory 20 Rate [ Throughout] Blood Pressure 144/72 144/72 O2 Sat by Pulse 95 Oximetry 05/21/18 08:44 Temperature Pulse Rate Pulse Rate [ 43 L Throughout] Respiratory Rate Respiratory 19 Rate [ Throughout] Blood Pressure O2 Sat by Pulse Oximetry - General Appearance General appearance: well-developed, well-nourished EENT: ATNC, PERRL, mucous membranes moist Neck: no JVD Respiratory: Present: Clear to Ascultation Cardiology: regular, S1S2 Gastrointestinal: normoactive bowel sounds Integumentary: no rash, warm and dry Neurologic: no focal deficit, no asterixis, alert and oriented x3 Psychiatric: cooperative - Lab 05/19/18 05:09 05/21/18 06:11 Most recent lab results Calcium 9.0 mg/dL (8.4-10.2) 05/21/18 06:11 Magnesium 2.40 mg/dL (1.7-2.3) H 05/18/18 05:03 Urine Creatinine 66.1 mg/dL (0.1-20.0) H 05/17/18 14:00 Medications & Allergies - Medications Allergies/Adverse Reactions: Allergies No Known Allergies Allergy (Unverified 05/09/18 10:45) Home Medications: Home Medications Medication Instructions Recorded Confirmed Last Taken Type No Known Home Medications [No 05/09/18 05/09/18 Unknown History Reported Home Medications] Active Medications: Generic Name Dose Route Start Last Admin Trade Name Freq PRN Reason Stop Dose Admin Acetaminophen 650 mg 05/11/18 23:42 05/12/18 00:19 Tylenol PO 650 mg Q6H PRN Administration Pain, Mild (1-3) Albuterol/Ipratropium 1 ampul 05/15/18 20:00 05/21/18 08:34 Duoneb *Not For Prn Use* IH 1 ampul TIDRT GLENDA Administration Atorvastatin Calcium 80 mg 05/11/18 22:00 05/20/18 21:48 Lipitor PO 80 mg QHS GLENDA Administration Famotidine 20 mg 05/14/18 12:00 05/20/18 10:10 Pepcid PO 20 mg DAILY GLENDA Administration Fluoxetine HCl 40 mg 05/11/18 14:00 05/20/18 10:10 Prozac PO 40 mg QDAY GLENDA Administration Furosemide 40 mg 05/15/18 18:00 05/21/18 05:38 Lasix PO 40 mg 0600,1800 GLENDA Administration Heparin Sodium (Porcine) 5,000 unit 05/15/18 22:00 05/20/18 21:48 Heparin SUB-Q 5,000 unit Q12HR GLENDA Administration Hydralazine HCl 10 mg 05/12/18 10:23 Apresoline IV Q4H PRN SBP > 160 Hydralazine HCl 100 mg 05/13/18 10:19 05/21/18 05:38 Apresoline PO 100 mg Q8HR GLENDA Administration Isosorbide Mononitrate 30 mg 05/12/18 14:00 05/20/18 10:10 Imdur PO 30 mg QDAY GLENDA Administration Metoprolol Tartrate 25 mg 05/20/18 13:40 05/20/18 21:52 Lopressor PO 25 mg BID GLENDA Administration Potassium Chloride 20 meq 05/10/18 22:00 05/20/18 21:52 Potassium Chloride PO 20 meq Q12H GLENDA Administration
--- NOTE | 2018-05-21 12:43 | Progress Note ---
Assessment and Plan Acute hypoxic-hypercapnic respiratory failure Acute heart failure Acute renal failure NSTEMI Hypertensive emergency Morbid obesity Tobacco abuse disorder - BIPAP prn at this point - continue VTE prophylaxis - continue HD/UF per nephrology prescription for toxin and volume clearance - continue stress ulcer prophylaxis - continue diuresis with lasix; adjust per nephrology - 2D echocardiogram with low normal EF and impaired relaxation - ST evaluation and advance diet - continue accucheck with glycemic control per SSI for target blood glucose of 140-180mg/dL - continue bronchodilators with pulmonary hygiene per RT - Cardiology evaluation ongoing - continue to avoid nephrotoxic agents and adjust all medications for CrCL - continue Nicotine withdrawal precautions - Smoking cessation counselling done at bedside - Mobility for pressure ulcer prevention - PT/OT as tolerated - continue other care per attending / other consultants ... re-evaluate in am & prn CODE STATUS: FULL CODE Subjective Date of service: 05/21/18 Principal diagnosis: Acute hypoxemic hypercapnic Resp failure; Acute CHF; ELVIA; NSTEMI Interval history: Patient is seen today for: Acute hypoxic-hypercapnic respiratory failure; Acute heart failure; Acute renal failure; NSTEMI; Hypertensive emergency Seen and examined at bedside; 24hour events reviewed; nursing and respiratory care staff consulted; no adverse overnight events reported to me; resting peacefully in bed; Objective Vital Signs - 12hr 05/21/18 05/21/18 05/21/18 05:01 05:38 08:33 Temperature 98.0 F Pulse Rate 57 L 62 Pulse Rate [ 54 L Throughout] Respiratory 16 Rate Respiratory 20 Rate [ Throughout] Blood Pressure 144/72 144/72 O2 Sat by Pulse 95 Oximetry 05/21/18 05/21/18 08:44 12:30 Temperature 98.5 F Pulse Rate 57 L Pulse Rate [ 43 L Throughout] Respiratory 20 Rate Respiratory 19 Rate [ Throughout] Blood Pressure 166/86 O2 Sat by Pulse 97 Oximetry Constitutional: alert, appears uncomfortable, other (middle aged obese CM, no rmocephalic and atraumatic with mildly increased resp effort at rest) Eyes: non-icteric ENT: oropharynx moist, other (extubated) Neck: supple, no lymphadenopathy, no JVD, other (no thyromegaly) Effort: mildly labored Ascultation: Bilateral: diminished breath sounds, rales, rhonchi (posterior bases) Percussion: Bilateral: not dull Cardiovascular: regular rate and rhythm Gastrointestinal: normoactive bowel sounds, soft, non-tender, non-distended Integumentary: normal Extremities: no cyanosis, pink and warm, pulses normal, no ischemia or petechiae , edema (trace) Neurologic: normal mental status, non-focal exam, pupils equal and round, motor strength normal and Psychiatric: mood appropriate, affect normal CBC and BMP: 05/19/18 05:09 05/21/18 06:11 ABG, PT/INR, D-dimer: ABG POC ABG pH 7.393 (7.35-7.45) 05/10/18 17:21 POC ABG pCO2 32.4 (35-45) L 05/10/18 17:21 POC ABG pO2 82 (80-105) 05/10/18 17:21 POC ABG HCO3 19.7 05/10/18 17:21 POC ABG Total CO2 21 05/10/18 17:21 POC ABG O2 Sat 96 05/10/18 17:21 PT/INR, D-dimer PT 13.5 Sec. (12.2-14.9) 05/09/18 11:55 INR 0.99 (0.87-1.13) 05/09/18 11:55 D-Dimer 1326.35 ng/mlDDU (0-234) H 05/09/18 10:09 Abnormal lab findings: Abnormal Labs 05/09/18 05/09/18 05/09/18 10:09 10:09 10:09 WBC 17.6 H RBC 5.11 H Hct 46.0 H RDW 15.8 H Plt Count Lymph % (Auto) [place] % (Auto) Eos % (Auto) 5.4 H Lymph # [place] # 1.2 H Eos # 1.0 H Baso # 0.2 H Seg Neutrophils % Seg Neutrophils # 12.1 H APTT D-Dimer 1326.35 H Heparin Anti-Xa Level POC ABG pH POC ABG pCO2 POC ABG pO2 Sodium Chloride Carbon Dioxide BUN 50 H Creatinine 3.7 H Glucose 191 H Calcium 8.2 L Magnesium CK-MB (CK-2) CK-MB (CK-2) Rel Index Troponin T 0.235 H* C-Reactive Protein NT-Pro-B Natriuret Pep Albumin Izqmk-6-Sunjpdiae Abnorm Protein Band 1 PEP Interpretation Triglycerides 175 H Cholesterol 276 H LDL Cholesterol Direct 235 H HDL Cholesterol 34 L Urine Creatinine Ur Creatinine 24 Hour Tot Complement (CH50) 05/09/18 05/09/18 05/09/18 10:09 11:02 11:55 WBC RBC Hct RDW Plt Count Lymph % (Auto) [place] % (Auto) Eos % (Auto) Lymph # [place] # Eos # Baso # Seg Neutrophils % Seg Neutrophils # APTT 21.2 L D-Dimer Heparin Anti-Xa Level POC ABG pH 7.158 L POC ABG pCO2 73.6 H POC ABG pO2 274 H Sodium Chloride Carbon Dioxide BUN Creatinine Glucose Calcium Magnesium CK-MB (CK-2) 9.7 H CK-MB (CK-2) Rel Index 6.0 H Troponin T C-Reactive Protein NT-Pro-B Natriuret Pep 17339 H Albumin Zedpg-4-Updbkhazt Abnorm Protein Band 1 PEP Interpretation Triglycerides Cholesterol LDL Cholesterol Direct HDL Cholesterol Urine Creatinine Ur Creatinine 24 Hour Tot Complement (CH50) 05/09/18 05/09/18 05/09/18 15:36 15:36 15:58 WBC RBC Hct RDW Plt Count Lymph % (Auto) [place] % (Auto) Eos % (Auto) Lymph # [place] # Eos # Baso # Seg Neutrophils % Seg Neutrophils # APTT D-Dimer Heparin Anti-Xa Level 2.00 H POC ABG pH POC ABG pCO2 POC ABG pO2 Sodium Chloride Carbon Dioxide BUN 53 H Creatinine 3.9 H Glucose Calcium 8.0 L Magnesium CK-MB (CK-2) 9.3 H CK-MB (CK-2) Rel Index 5.8 H Troponin T 0.246 H* C-Reactive Protein NT-Pro-B Natriuret Pep Albumin Iciag-8-Phfjamldq Abnorm Protein Band 1 PEP Interpretation Triglycerides Cholesterol LDL Cholesterol Direct HDL Cholesterol Urine Creatinine Ur Creatinine 24 Hour Tot Complement (CH50) 05/09/18 05/09/18 05/10/18 16:57 19:45 02:07 WBC RBC Hct RDW 15.3 H Plt Count 136 L Lymph % (Auto) [place] % (Auto) Eos % (Auto) Lymph # [place] # Eos # Baso # Seg Neutrophils % Seg Neutrophils # APTT D-Dimer Heparin Anti-Xa Level 1.49 H POC ABG pH 7.307 L POC ABG pCO2 47.5 H POC ABG pO2 119 H Sodium Chloride Carbon Dioxide BUN Creatinine Glucose Calcium Magnesium CK-MB (CK-2) CK-MB (CK-2) Rel Index Troponin T C-Reactive Protein NT-Pro-B Natriuret Pep Albumin Dtojj-8-Ehucnembn Abnorm Protein Band 1 PEP Interpretation Triglycerides Cholesterol LDL Cholesterol Direct HDL Cholesterol Urine Creatinine Ur Creatinine 24 Hour Tot Complement (CH50) 05/10/18 05/10/18 05/10/18 02:07 03:25 10:37 WBC RBC Hct RDW Plt Count Lymph % (Auto) [place] % (Auto) Eos % (Auto) Lymph # [place] # Eos # Baso # Seg Neutrophils % Seg Neutrophils # APTT D-Dimer Heparin Anti-Xa Level POC ABG pH POC ABG pCO2 POC ABG pO2 65 L Sodium Chloride Carbon Dioxide 21 L BUN 56 H Creatinine 4.2 H Glucose Calcium Magnesium 2.40 H CK-MB (CK-2) CK-MB (CK-2) Rel Index Troponin T C-Reactive Protein 2.00 H NT-Pro-B Natriuret Pep Albumin Lmgzb-2-Iixpidjhm Abnorm Protein Band 1 PEP Interpretation Triglycerides Cholesterol LDL Cholesterol Direct HDL Cholesterol Urine Creatinine Ur Creatinine 24 Hour Tot Complement (CH50) 05/10/18 05/10/18 05/10/18 11:34 13:22 13:22 WBC RBC Hct RDW Plt Count Lymph % (Auto) [place] % (Auto) Eos % (Auto) Lymph # [place] # Eos # Baso # Seg Neutrophils % Seg Neutrophils # APTT D-Dimer Heparin Anti-Xa Level POC ABG pH POC ABG pCO2 32.7 L POC ABG pO2 110 H Sodium Chloride Carbon Dioxide BUN Creatinine Glucose Calcium Magnesium CK-MB (CK-2) CK-MB (CK-2) Rel Index Troponin T C-Reactive Protein NT-Pro-B Natriuret Pep Albumin 3.5 L Ovtfl-5-Yiqvoggtn 0.4 H Abnorm Protein Band 1 0.4 H PEP Interpretation see below H Triglycerides Cholesterol LDL Cholesterol Direct HDL Cholesterol Urine Creatinine Ur Creatinine 24 Hour Tot Complement (CH50) >60 H 05/10/18 05/10/18 05/11/18 16:08 17:21 04:28 WBC 13.1 H RBC Hct RDW 15.5 H Plt Count Lymph % (Auto) 8.1 L [place] % (Auto) 9.2 H Eos % (Auto) Lymph # 1.1 L [place] # 1.2 H Eos # Baso # Seg Neutrophils % 82.4 H Seg Neutrophils # 10.8 H APTT D-Dimer Heparin Anti-Xa Level POC ABG pH POC ABG pCO2 32.4 L POC ABG pO2 Sodium Chloride Carbon Dioxide BUN Creatinine Glucose Calcium Magnesium CK-MB (CK-2) CK-MB (CK-2) Rel Index Troponin T C-Reactive Protein 2.00 H NT-Pro-B Natriuret Pep Albumin Uwwyx-9-Hwqzlbhtd Abnorm Protein Band 1 PEP Interpretation Triglycerides Cholesterol LDL Cholesterol Direct HDL Cholesterol Urine Creatinine Ur Creatinine 24 Hour Tot Complement (CH50) 05/11/18 05/11/18 05/11/18 04:28 04:28 23:50 WBC RBC Hct RDW Plt Count Lymph % (Auto) [place] % (Auto) Eos % (Auto) Lymph # [place] # Eos # Baso # Seg Neutrophils % Seg Neutrophils # APTT D-Dimer Heparin Anti-Xa Level < 0.10 L 2.00 H POC ABG pH POC ABG pCO2 POC ABG pO2 Sodium Chloride Carbon Dioxide 19 L BUN 67 H Creatinine 4.8 H Glucose Calcium 8.3 L Magnesium CK-MB (CK-2) CK-MB (CK-2) Rel Index Troponin T C-Reactive Protein NT-Pro-B Natriuret Pep Albumin Ziguj-5-Obpucorhf Abnorm Protein Band 1 PEP Interpretation Triglycerides Cholesterol LDL Cholesterol Direct HDL Cholesterol Urine Creatinine Ur Creatinine 24 Hour Tot Complement (CH50) 05/12/18 05/12/18 05/13/18 04:07 06:43 08:23 WBC 11.6 H RBC Hct RDW 15.8 H Plt Count Lymph % (Auto) [place] % (Auto) Eos % (Auto) Lymph # [place] # Eos # Baso # Seg Neutrophils % Seg Neutrophils # APTT D-Dimer Heparin Anti-Xa Level < 0.10 L POC ABG pH POC ABG pCO2 POC ABG pO2 Sodium Chloride 97.0 L Carbon Dioxide BUN 36 H Creatinine 3.2 H Glucose 104 H Calcium Magnesium CK-MB (CK-2) CK-MB (CK-2) Rel Index Troponin T C-Reactive Protein NT-Pro-B Natriuret Pep Albumin Ujbgw-2-Qoucwsjlq Abnorm Protein Band 1 PEP Interpretation Triglycerides Cholesterol LDL Cholesterol Direct HDL Cholesterol Urine Creatinine Ur Creatinine 24 Hour Tot Complement (CH50) 05/13/18 05/14/18 05/14/18 08:23 06:05 06:05 WBC RBC Hct RDW 15.6 H Plt Count Lymph % (Auto) [place] % (Auto) Eos % (Auto) Lymph # [place] # Eos # Baso # Seg Neutrophils % Seg Neutrophils # APTT D-Dimer Heparin Anti-Xa Level POC ABG pH POC ABG pCO2 POC ABG pO2 Sodium Chloride Carbon Dioxide BUN 45 H 53 H Creatinine 3.7 H 4.2 H Glucose Calcium Magnesium CK-MB (CK-2) CK-MB (CK-2) Rel Index Troponin T C-Reactive Protein NT-Pro-B Natriuret Pep Albumin Ovuzz-2-Jnainlmyq Abnorm Protein Band 1 PEP Interpretation Triglycerides Cholesterol LDL Cholesterol Direct HDL Cholesterol Urine Creatinine Ur Creatinine 24 Hour Tot Complement (CH50) 05/15/18 05/15/18 05/15/18 05:49 05:49 13:58 WBC 12.6 H RBC Hct RDW 15.7 H Plt Count Lymph % (Auto) [place] % (Auto) Eos % (Auto) Lymph # [place] # Eos # Baso # Seg Neutrophils % Seg Neutrophils # APTT D-Dimer Heparin Anti-Xa Level POC ABG pH POC ABG pCO2 POC ABG pO2 Sodium Chloride 97.3 L Carbon Dioxide BUN 61 H Creatinine 4.1 H Glucose Calcium Magnesium 2.40 H CK-MB (CK-2) CK-MB (CK-2) Rel Index Troponin T C-Reactive Protein NT-Pro-B Natriuret Pep Albumin Duakw-1-Bxpgvjpev Abnorm Protein Band 1 PEP Interpretation Triglycerides Cholesterol LDL Cholesterol Direct HDL Cholesterol Urine Creatinine 78.3 H Ur Creatinine 24 Hour Tot Complement (CH50) 05/15/18 05/16/18 05/16/18 Unknown 05:42 05:42 WBC 11.6 H RBC Hct RDW 15.9 H Plt Count Lymph % (Auto) [place] % (Auto) Eos % (Auto) Lymph # [place] # Eos # Baso # Seg Neutrophils % Seg Neutrophils # APTT D-Dimer Heparin Anti-Xa Level POC ABG pH POC ABG pCO2 POC ABG pO2 Sodium Chloride 97.2 L Carbon Dioxide BUN 68 H Creatinine 4.1 H Glucose Calcium Magnesium 2.60 H CK-MB (CK-2) CK-MB (CK-2) Rel Index Troponin T C-Reactive Protein NT-Pro-B Natriuret Pep Albumin Roljf-2-Fcqrfnxcz Abnorm Protein Band 1 PEP Interpretation Triglycerides Cholesterol LDL Cholesterol Direct HDL Cholesterol Urine Creatinine 82.8 H Ur Creatinine 24 Hour 0.6 L Tot Complement (CH50) 05/17/18 05/17/18 05/18/18 05:48 14:00 05:03 WBC RBC Hct RDW Plt Count Lymph % (Auto) [place] % (Auto) Eos % (Auto) Lymph # [place] # Eos # Baso # Seg Neutrophils % Seg Neutrophils # APTT D-Dimer Heparin Anti-Xa Level POC ABG pH POC ABG pCO2 POC ABG pO2 Sodium 135 L Chloride Carbon Dioxide BUN 73 H 76 H Creatinine 4.1 H 3.9 H Glucose Calcium Magnesium 2.40 H 2.40 H CK-MB (CK-2) CK-MB (CK-2) Rel Index Troponin T C-Reactive Protein NT-Pro-B Natriuret Pep Albumin Hgpax-2-Gtnzndedj Abnorm Protein Band 1 PEP Interpretation Triglycerides Cholesterol LDL Cholesterol Direct HDL Cholesterol Urine Creatinine 66.1 H Ur Creatinine 24 Hour Tot Complement (CH50) 05/19/18 05/19/18 05/20/18 05:09 05:09 06:17 WBC RBC Hct RDW 15.3 H Plt Count Lymph % (Auto) [place] % (Auto) Eos % (Auto) Lymph # [place] # Eos # Baso # Seg Neutrophils % Seg Neutrophils # APTT D-Dimer Heparin Anti-Xa Level POC ABG pH POC ABG pCO2 POC ABG pO2 Sodium Chloride Carbon Dioxide BUN 43 H 54 H Creatinine 3.3 H 3.9 H Glucose Calcium Magnesium CK-MB (CK-2) CK-MB (CK-2) Rel Index Troponin T C-Reactive Protein NT-Pro-B Natriuret Pep Albumin Klyzr-9-Fongpyplh Abnorm Protein Band 1 PEP Interpretation Triglycerides Cholesterol LDL Cholesterol Direct HDL Cholesterol Urine Creatinine Ur Creatinine 24 Hour Tot Complement (CH50) 05/21/18 06:11 WBC RBC Hct RDW Plt Count Lymph % (Auto) [place] % (Auto) Eos % (Auto) Lymph # [place] # Eos # Baso # Seg Neutrophils % Seg Neutrophils # APTT D-Dimer Heparin Anti-Xa Level POC ABG pH POC ABG pCO2 POC ABG pO2 Sodium 136 L Chloride 96.1 L Carbon Dioxide BUN 60 H Creatinine 4.2 H Glucose Calcium Magnesium CK-MB (CK-2) CK-MB (CK-2) Rel Index Troponin T C-Reactive Protein NT-Pro-B Natriuret Pep Albumin Akjhj-3-Fwdhzvpnt Abnorm Protein Band 1 PEP Interpretation Triglycerides Cholesterol LDL Cholesterol Direct HDL Cholesterol Urine Creatinine Ur Creatinine 24 Hour Tot Complement (CH50) Allied health notes reviewed: nursing
[2018-05-21] MEDS ORDERED: PROVENTIL IH PRN (14:04)
[2018-05-21] MEDS: PROzac PO SCH (17:37)
[2018-05-21] MEDS: IMDUR PO SCH (17:37)
[2018-05-21] MEDS: PEPCID PO SCH (17:38)
[2018-05-22] MEDS: APRESOLINE PO SCH ×3 (05:36→22:26)
[2018-05-22] MEDS: LASIX PO SCH ×2 (05:37→17:36)
[2018-05-22] MEDS: LOPRESSOR PO SCH ×3 (10:48→22:28)
[2018-05-22] MEDS: HEPARIN SUB-Q SCH ×2 (10:48→22:18)
[2018-05-22] MEDS: PROzac PO SCH (10:48)
[2018-05-22] MEDS: PEPCID PO SCH (10:49)
[2018-05-22] MEDS: IMDUR PO SCH (10:49)
[2018-05-22] MEDS: POTASSIUM CHLORIDE PO SCH ×2 (10:54→22:31)
--- NOTE | 2018-05-22 11:07 | Progress Note ---
Assessment and Plan Assessment and plan: Acute hypoxemic respiratory failure. Etiology secondary to acute heart failure and Non ST elevation [place]. Resolved. Acute HFpEF. Resolved. Echocardiogram reveals EF 50-55%. Continue medical management. NSTEMI. Continue medical management. Acute renal failure. -Baseline SCr level unknown, but pt was apparently told 1 year ago at [facility] that he had proteinuria -S/p first HD treatment on 05/11/18 -s/p permcath 05/18 -social contact worker consulted for outpatient HD arrangement Accelerated hypertension. Continue antihypertensive medications. History Interval history: This is a 57 year old male who presented to the hospital with a chief complaint of shortness of breath and chest pain that began on 05/09/18, approximately 2 hours prior to arriving to [facility] On evaluation, patient was found to be acute Hypoxic respiratory failure with oxygen levels in the 70's. Patient required intubation due to respiratory distress. Additionally, the Patient was found to have ARF and Acute heart failure precipitated by accelerated htn with BP-261/162 and NSTEMI. Patient was initially treated with heparin drip. CXR revealed pulmonary venous congestion. Pertinent labs on admission revealed elevated D- dimer level of 1326, [place] [address], WBC level of 17.6, elevated troponin levels and elevated serum creatinine level of 3.9 on admission. The patient was later extubated and respiratory status improved to his baseline. Cardiology, pulmonary and nephrology saw the patient in consultation. Patient later underwent MPI stress tests on 05/14/18 which was negative for ischemia, EF 34%. EF 50-55% per echo. The heart failure/NSTEMI was managed medically with aspirin beta suzan and hydralazine, statin, IV Lasix and Imdur. No SCOTT inhibitor due to the renal failure. Nephrology felt that the acute renal failure was likely secondary to ischemic ATN on possible underlying CKD with proteinuria. Patient had to undergo hemodialysis treatment which was initiated on 05/11/18. The patient later had PermCath placed on 05/18. Social work was consulted for outpatient hemodialysis arrangement. Hospitalist Physical - Constitutional Vitals: Temp Pulse Resp BP Pulse Ox 98.2 F 59 L 18 130/69 98 05/22/18 06:17 05/22/18 10:52 05/22/18 06:17 05/22/18 06:17 05/22/18 06:17 General appearance: Present: no acute distress - EENT Eyes: Present: PERRL, EOM intact ENT: hearing intact, clear oral mucosa, dentition normal - Neck Neck: Present: supple, normal ROM - Respiratory Respiratory effort: normal Respiratory: bilateral: CTA - Cardiovascular Rhythm: regular Heart Sounds: Present: S1 & S2. Absent: gallop, rub - Extremities Extremities: no ischemia, No edema, Full ROM - Abdominal General gastrointestinal: soft, non-tender, non-distended, normal bowel sounds - Integumentary Integumentary: Present: clear, warm, dry - Neurologic Neurologic: CNII-XII intact, moves all extremities Results - Labs CBC & Chem 7: 05/19/18 05:09 05/22/18 05:36 Labs: Laboratory Last Values WBC 10.1 K/mm3 (4.5-11.0) 05/19/18 05:09 RBC 4.52 M/mm3 (3.65-5.03) 05/19/18 05:09 Hgb 13.5 gm/dl (11.8-15.2) 05/19/18 05:09 Hct 40.5 % (35.5-45.6) 05/19/18 05:09 MCV 90 fl (84-94) 05/19/18 05:09 MCH 30 pg (28-32) 05/19/18 05:09 MCHC 33 % (32-34) 05/19/18 05:09 RDW 15.3 % (13.2-15.2) H 05/19/18 05:09 Plt Count 152 K/mm3 (140-440) 05/19/18 05:09 Lymph % (Auto) 8.1 % (13.4-35.0) L 05/11/18 04:28 [place] % (Auto) 9.2 % (0.0-7.3) H 05/11/18 04:28 Eos % (Auto) 0.0 % (0.0-4.3) 05/11/18 04:28 Baso % (Auto) 0.3 % (0.0-1.8) 05/11/18 04:28 Lymph # 1.1 K/mm3 (1.2-5.4) L 05/11/18 04:28 [place] # 1.2 K/mm3 (0.0-0.8) H 05/11/18 04:28 Eos # 0.0 K/mm3 (0.0-0.4) 05/11/18 04:28 Baso # 0.0 K/mm3 (0.0-0.1) 05/11/18 04:28 Seg Neutrophils % 82.4 % (40.0-70.0) H 05/11/18 04:28 Seg Neutrophils # 10.8 K/mm3 (1.8-7.7) H 05/11/18 04:28 PT 13.5 Sec. (12.2-14.9) 05/09/18 11:55 INR 0.99 (0.87-1.13) 05/09/18 11:55 APTT 21.2 Sec. (24.2-36.6) L 05/09/18 11:55 D-Dimer 1326.35 ng/mlDDU (0-234) H 05/09/18 10:09 Heparin Anti-Xa Level < 0.10 U.I./ml (0.3-0.7) L 05/12/18 06:43 POC ABG pH 7.393 (7.35-7.45) 05/10/18 17:21 POC ABG pCO2 32.4 (35-45) L 05/10/18 17:21 POC ABG pO2 82 (80-105) 05/10/18 17:21 POC ABG HCO3 19.7 05/10/18 17:21 POC ABG Total CO2 21 05/10/18 17:21 POC ABG O2 Sat 96 05/10/18 17:21 POC ABG Base Excess -5 05/10/18 17:21 FiO2 28 % 05/10/18 17:21 Sodium 138 mmol/L (137-145) 05/22/18 05:36 Potassium 4.2 mmol/L (3.6-5.0) 05/22/18 05:36 Chloride 97.9 mmol/L (98-107) L 05/22/18 05:36 Carbon Dioxide 24 mmol/L (22-30) 05/22/18 05:36 Anion Gap 20 mmol/L 05/22/18 05:36 BUN 33 mg/dL (9-20) H 05/22/18 05:36 Creatinine 3.4 mg/dL (0.8-1.5) H 05/22/18 05:36 Estimated GFR 19 ml/min 05/22/18 05:36 BUN/Creatinine Ratio 10 % 05/22/18 05:36 Glucose 80 mg/dL (75-100) 05/22/18 05:36 Lactic Acid 1.30 mmol/L (0.7-2.0) 05/10/18 16:08 Calcium 9.0 mg/dL (8.4-10.2) 05/22/18 05:36 Magnesium 2.40 mg/dL (1.7-2.3) H 05/18/18 05:03 Total Bilirubin 0.30 mg/dL (0.1-1.2) 05/09/18 10:09 AST 26 units/L (5-40) 05/09/18 10:09 ALT 18 units/L (7-56) 05/09/18 10:09 Alkaline Phosphatase 88 units/L (35-129) 05/09/18 10:09 Total Creatine Kinase 159 units/L (55-170) 05/09/18 15:36 CK-MB (CK-2) 9.3 ng/mL (0.0-4.0) H 05/09/18 15:36 CK-MB (CK-2) Rel Index 5.8 (0-4) H 05/09/18 15:36 Troponin T 0.246 ng/mL (0.00-0.029) H* 05/09/18 15:36 C-Reactive Protein 2.00 mg/dL (0.00-1.30) H 05/10/18 16:08 NT-Pro-B Natriuret Pep 64049 pg/mL (0-900) H 05/09/18 10:09 Serum Total Protein 6.4 g/dL (6.1-8.1) 05/10/18 13:22 Total Protein 7.7 g/dL (6.3-8.2) 05/09/18 10:09 Albumin 3.5 g/dL (3.8-4.8) L 05/10/18 13:22 Albumin/Globulin Ratio 1.1 % 05/09/18 10:09 Poymu-7-Kvkpvazjw 0.4 g/dL (0.2-0.3) H 05/10/18 13:22 Stgaq-6-Skqbxxnza 0.6 g/dL (0.5-0.9) 05/10/18 13:22 Beta Globulins 0.3 g/dL (0.2-0.5) 05/10/18 13:22 Gamma Globulins 1.2 g/dL (0.8-1.7) 05/10/18 13:22 Abnorm Protein Band 1 0.4 g/dL H 05/10/18 13:22 Abnorm Protein Band 2 see below 05/10/18 13:22 PEP Interpretation see below H 05/10/18 13:22 Triglycerides 175 mg/dL (2-149) H 05/09/18 10:09 Cholesterol 276 mg/dL (50-199) H 05/09/18 10:09 LDL Cholesterol Direct 235 mg/dL (50-130) H 05/09/18 10:09 HDL Cholesterol 34 mg/dL (40-59) L 05/09/18 10:09 Cholesterol/HDL Ratio 8.11 % 05/09/18 10:09 TSH 1.110 mlU/mL (0.270-4.200) 05/10/18 02:07 Free T4 1.15 ng/dL (0.76-1.46) 05/10/18 02:07 Urine Color Yellow (Yellow) 05/09/18 10:33 Urine Turbidity Clear (Clear) 05/09/18 10:33 Urine pH 6.0 (5.0-7.0) 05/09/18 10:33 Ur Specific [place] 1.011 (1.003-1.030) 05/09/18 10:33 Urine Protein >2000 mg dl mg/dL (Negative) 05/09/18 10:33 Urine Glucose (UA) 50 mg/dL (Negative) 05/09/18 10:33 Urine Ketones Neg mg/dL (Negative) 05/09/18 10:33 Urine Blood Neg (Negative) 05/09/18 10:33 Urine Nitrite Neg (Negative) 05/09/18 10:33 Urine Bilirubin Neg (Negative) 05/09/18 10:33 Urine Urobilinogen < 2.0 mg/dL (<2.0) 05/09/18 10:33 Ur Leukocyte Esterase Neg (Negative) 05/09/18 10:33 Urine WBC (Auto) 2.0 /HPF (0.0-6.0) 05/09/18 10:33 Urine RBC (Auto) 3.0 /HPF (0.0-6.0) 05/09/18 10:33 Urine Bacteria (Auto) 1+ /HPF (Negative) 05/09/18 10:33 Urine Total Volume 2500 ml 05/17/18 14:00 Urine Creatinine 66.1 mg/dL (0.1-20.0) H 05/17/18 14:00 Ur Creatinine 24 Hour 0.6 (0.8-2.8) L 05/15/18 Unknown Height (in) 69.0 inches 05/17/18 14:00 Weight (lb) 215.8 lbs 05/17/18 14:00 Creatinine Clearance 28 05/17/18 14:00 Urine Opiates Screen Presumptive negative 05/09/18 10:33 Urine Methadone Screen Presumptive negative 05/09/18 10:33 Ur Barbiturates Screen Presumptive negative 05/09/18 10:33 Ur Phencyclidine Scrn Presumptive negative 05/09/18 10:33 Ur Amphetamines Screen Presumptive negative 05/09/18 10:33 U Benzodiazepines Scrn Presumptive negative 05/09/18 10:33 Urine Cocaine Screen Presumptive negative 05/09/18 10:33 U Marijuana (THC) Screen Presumptive negative 05/09/18 10:33 Drugs of Abuse Note Disclamer 05/09/18 10:33 JOSE ANTONIO Screen Negative (Negative) 05/10/18 13:22 Proteinase 3 (PR3) Ab <1.0 AI (<1.0) 05/10/18 13:22 Myeloperoxidase Ab <1.0 AI (<1.0) 05/10/18 13:22 Double Strand DNA Ab <1 IU/mL (<=4) 05/10/18 13:22 Glomerular Base Mem IgG See scanned result 05/10/18 13:22 Complement C3 142 mg/dL (82-185) 05/10/18 13:22 Complement C4 20 mg/dL (15-53) 05/10/18 13:22 Tot Complement (CH50) >60 U/mL (31-60) H 05/10/18 13:22 Hepatitis A IgM Ab Non-reactive (NonReactive) 05/10/18 13:22 Hep Bs Antigen Non-reactive (Negative) 05/10/18 13:22 Hep B Core IgM Ab Non-reactive (NonReactive) 05/10/18 13:22 Hepatitis C Antibody Non-reactive (NonReactive) 05/10/18 13:22 HIV 1&2 Antibody Rapid Non react (Non React) 05/10/18 13:22 HIV P24 Antigen Non react (Non React) 05/10/18 13:22 Anti-Streptolysin O Ab See scanned result 05/10/18 13:22 Nutrition/Malnutrition Assess - Dietary Evaluation Nutrition/Malnutrition Findings: Nutrition Notes Start: 05/10/18 09:35 Freq: Status: Active Protocol: Document 05/17/18 10:37 ER (Rec: 05/17/18 10:43 ER [id number]) Co-Sign 05/17/18 10:37 LP Nutrition Notes Initial or Follow up Reassessment Current Diagnosis Acute Kidney Injury CKD(stage I-IV) COPD Hypertension Heart Failure Respiratory Failure Other Pertinent Diagnosis Dyspnea Current Diet NPO Labs/Tests BUN 73 Cr 4.1 Pertinent Medications Lasix Height 5 ft 9 in Weight 97.6 kg [place] Body Weight (kg) 72.72 BMI 31.7 Weight Status Obese Subjective/Other Information 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 Pt. stated his appetite is good and ate 80% of dinner and drank Nepro. Pt. denies any N /V/D/C and chewing/swallowing difficulties. Pt. may need education for ESRD on HD. Continue to follow for ONS and education needs. Percent of energy/protein needs met: 120%/100% Burn Absent Trauma Absent Current % PO Good (75-100%) #1 Nutrition Diagnosis Inadequate oral intake As Evidenced by Signs and Symptoms pt. consuming 100% of energy and protein needs Diagnosis Progress(for reassessment Improved documentation) Is patient on ventilator? No Is Patient Ambulatory and/or Out of Bed Yes REE-([place]-St. Jeor-ambulatory/OOB) [ 2315.794 NUTR.[id number]] Kcal/Kg value to use for calculation 18 Approximate Energy Requirements Using 1757 kcal/Kg Calculation Used for Recommendations Kcal/kg Additional Notes pro: 60-117g/day (0.6-1.2g/kg) fluid: 1mL/kcal Nutrition Intervention Change Diet Order: Renal Diet Add Supplement/Snack (indicate name/kcal nepro daily /protein ) Provides kCal: 425 Provides Protein (gm) 19 Goal #1 Continue to meet 100% of energy and pro needs Anticipated Discharge Needs: Renal diet Follow-Up By: 05/23/18 Additional Comments f/u: ONS intake, ESRD on HD education needs
--- NOTE | 2018-05-22 13:08 | Progress Note ---
Assessment and Plan ESRD now on HD - s/p permcath 05/18 - no indication for HD today - oncology social worker consulted for outpatient HD arrangement, can be discharged from renal standpoint once outpatient HD is secured Acute heart failure NSTEMI Elevated BNP -per cardiology Acute hypoxic-hypercapnic respiratory failure Elevated-Dimer -As per pulmonary S/P Hypertensive emergency Hypertension: -Adjust regimen as needed Subjective Date of service: 05/22/18 Principal diagnosis: Acute hypoxemic hypercapnic Resp failure; Acute CHF; ELVIA; NSTEMI Interval history: tolerated HD yesterday Objective - Vital Signs Vital signs: Vital Signs - 12hr 05/22/18 05/22/18 05/22/18 06:17 10:52 12:03 Temperature 98.2 F 98.6 F Pulse Rate 53 L 59 L 58 L Respiratory 18 20 Rate Blood Pressure 130/69 127/72 O2 Sat by Pulse 98 97 Oximetry - Lab 05/19/18 05:09 05/22/18 05:36 Most recent lab results Calcium 9.0 mg/dL (8.4-10.2) 05/22/18 05:36 Magnesium 2.40 mg/dL (1.7-2.3) H 05/18/18 05:03 Urine Creatinine 66.1 mg/dL (0.1-20.0) H 05/17/18 14:00 Medications & Allergies - Medications Allergies/Adverse Reactions: Allergies No Known Allergies Allergy (Unverified 05/09/18 10:45) Home Medications: Home Medications Medication Instructions Recorded Confirmed Last Taken Type No Known Home Medications [No 05/09/18 05/09/18 Unknown History Reported Home Medications] Active Medications: Generic Name Dose Route Start Last Admin Trade Name Freq PRN Reason Stop Dose Admin Acetaminophen 650 mg 05/11/18 23:42 05/12/18 00:19 Tylenol PO 650 mg Q6H PRN Administration Pain, Mild (1-3) Albuterol 2.5 mg 05/21/18 14:04 Proventil IH Q4HRT PRN Shortness Of Breath Atorvastatin Calcium 80 mg 05/11/18 22:00 05/21/18 22:46 Lipitor PO 80 mg QHS GLENDA Administration Famotidine 20 mg 05/14/18 12:00 05/22/18 10:49 Pepcid PO 20 mg DAILY GLENDA Administration Fluoxetine HCl 40 mg 05/11/18 14:00 05/22/18 10:48 Prozac PO 40 mg QDAY GLENDA Administration Furosemide 40 mg 05/15/18 18:00 05/22/18 05:37 Lasix PO 40 mg 0600,1800 GLENDA Administration Heparin Sodium (Porcine) 5,000 unit 05/15/18 22:00 05/22/18 10:48 Heparin SUB-Q 5,000 unit Q12HR GLENDA Administration Hydralazine HCl 10 mg 05/12/18 10:23 Apresoline IV Q4H PRN SBP > 160 Hydralazine HCl 100 mg 05/13/18 10:19 05/22/18 05:36 Apresoline PO 100 mg Q8HR GLENDA Administration Isosorbide Mononitrate 30 mg 05/12/18 14:00 05/22/18 10:49 Imdur PO 30 mg QDAY GLENDA Administration Metoprolol Tartrate 25 mg 05/20/18 13:40 05/22/18 10:52 Lopressor PO Not Given BID GLENDA Potassium Chloride 20 meq 05/10/18 22:00 05/22/18 10:54 Potassium Chloride PO 20 meq Q12H GLENDA Administration
[2018-05-23] MEDS: APRESOLINE PO SCH ×3 (06:09→22:52)
[2018-05-23] MEDS: LASIX PO SCH ×2 (06:09→18:51)
[2018-05-23] MEDS: IMDUR PO SCH (09:00)
[2018-05-23] MEDS: LOPRESSOR PO SCH ×2 (09:00→23:10)
--- NOTE | 2018-05-23 09:53 | Progress Note ---
Assessment and Plan Assessment and plan: Acute hypoxemic respiratory failure. Etiology secondary to acute heart failure and Non ST elevation TN. Resolved. Acute HFpEF. Resolved. Echocardiogram reveals EF 50-55%. Continue medical management. NSTEMI. Continue medical management. Acute renal failure. -Baseline SCr level unknown, but pt was apparently told 1 year ago at [place] that he had proteinuria -S/p first HD treatment on 05/11/18 -s/p permcath 05/18 -dialysis social worker consulted for outpatient HD arrangement Accelerated hypertension. Continue antihypertensive medications. History Interval history: This is a 57 year old male who presented to the hospital with a chief complaint of shortness of breath and chest pain that began on 05/09/18, approximately 2 hours prior to arriving to [facility].. On evaluation, patient was found to be acute Hypoxic respiratory failure with oxygen levels in the 70's. Patient required intubation due to respiratory distress. Additionally, the Patient was found to have ARF and Acute heart failure precipitated by accelerated htn with BP-261/162 and NSTEMI. Patient was initially treated with heparin drip. CXR revealed pulmonary venous congestion. Pertinent labs on admission revealed elevated D- dimer level of 1326, [place] [address], WBC level of 17.6, elevated troponin levels and elevated serum creatinine level of 3.9 on admission. The patient was later extubated and respiratory status improved to his baseline. Cardiology, pulmonary and nephrology saw the patient in consultation. Patient later underwent MPI stress tests on 05/14/18 which was negative for ischemia, EF 34%. EF 50-55% per echo. The heart failure/NSTEMI was managed medically with aspirin beta suzan and hydralazine, statin, IV Lasix and Imdur. No SCOTT inhibitor due to the renal failure. Nephrology felt that the acute renal failure was likely secondary to ischemic ATN on possible underlying CKD with proteinuria. Patient had to undergo hemodialysis treatment which was initiated on 05/11/18. The patient later had PermCath placed on 05/18. Social work was consulted for outpatient hemodialysis arrangement. Hospitalist Physical - Constitutional Vitals: Temp Pulse Resp BP Pulse Ox 98.5 F 58 L 20 139/73 96 05/23/18 06:07 05/23/18 06:07 05/23/18 06:07 05/23/18 06:09 05/23/18 06:07 General appearance: Present: no acute distress - EENT Eyes: Present: PERRL, EOM intact ENT: hearing intact, clear oral mucosa, dentition normal - Neck Neck: Present: supple, normal ROM - Respiratory Respiratory effort: normal Respiratory: bilateral: CTA - Cardiovascular Rhythm: regular Heart Sounds: Present: S1 & S2. Absent: gallop, rub - Extremities Extremities: no ischemia, No edema, Full ROM - Abdominal General gastrointestinal: soft, non-tender, non-distended, normal bowel sounds - Integumentary Integumentary: Present: clear, warm, dry - Neurologic Neurologic: CNII-XII intact, moves all extremities Results - Labs CBC & Chem 7: 05/19/18 05:09 05/22/18 05:36 Labs: Laboratory Last Values WBC 10.1 K/mm3 (4.5-11.0) 05/19/18 05:09 RBC 4.52 M/mm3 (3.65-5.03) 05/19/18 05:09 Hgb 13.5 gm/dl (11.8-15.2) 05/19/18 05:09 Hct 40.5 % (35.5-45.6) 05/19/18 05:09 MCV 90 fl (84-94) 05/19/18 05:09 MCH 30 pg (28-32) 05/19/18 05:09 MCHC 33 % (32-34) 05/19/18 05:09 RDW 15.3 % (13.2-15.2) H 05/19/18 05:09 Plt Count 152 K/mm3 (140-440) 05/19/18 05:09 Lymph % (Auto) 8.1 % (13.4-35.0) L 05/11/18 04:28 [place] % (Auto) 9.2 % (0.0-7.3) H 05/11/18 04:28 Eos % (Auto) 0.0 % (0.0-4.3) 05/11/18 04:28 Baso % (Auto) 0.3 % (0.0-1.8) 05/11/18 04:28 Lymph # 1.1 K/mm3 (1.2-5.4) L 05/11/18 04:28 [place] # 1.2 K/mm3 (0.0-0.8) H 05/11/18 04:28 Eos # 0.0 K/mm3 (0.0-0.4) 05/11/18 04:28 Baso # 0.0 K/mm3 (0.0-0.1) 05/11/18 04:28 Seg Neutrophils % 82.4 % (40.0-70.0) H 05/11/18 04:28 Seg Neutrophils # 10.8 K/mm3 (1.8-7.7) H 05/11/18 04:28 PT 13.5 Sec. (12.2-14.9) 05/09/18 11:55 INR 0.99 (0.87-1.13) 05/09/18 11:55 APTT 21.2 Sec. (24.2-36.6) L 05/09/18 11:55 D-Dimer 1326.35 ng/mlDDU (0-234) H 05/09/18 10:09 Heparin Anti-Xa Level < 0.10 U.I./ml (0.3-0.7) L 05/12/18 06:43 POC ABG pH 7.393 (7.35-7.45) 05/10/18 17:21 POC ABG pCO2 32.4 (35-45) L 05/10/18 17:21 POC ABG pO2 82 (80-105) 05/10/18 17:21 POC ABG HCO3 19.7 05/10/18 17:21 POC ABG Total CO2 21 05/10/18 17:21 POC ABG O2 Sat 96 05/10/18 17:21 POC ABG Base Excess -5 05/10/18 17:21 FiO2 28 % 05/10/18 17:21 Sodium 138 mmol/L (137-145) 05/22/18 05:36 Potassium 4.2 mmol/L (3.6-5.0) 05/22/18 05:36 Chloride 97.9 mmol/L (98-107) L 05/22/18 05:36 Carbon Dioxide 24 mmol/L (22-30) 05/22/18 05:36 Anion Gap 20 mmol/L 05/22/18 05:36 BUN 33 mg/dL (9-20) H 05/22/18 05:36 Creatinine 3.4 mg/dL (0.8-1.5) H 05/22/18 05:36 Estimated GFR 19 ml/min 05/22/18 05:36 BUN/Creatinine Ratio 10 % 05/22/18 05:36 Glucose 80 mg/dL (75-100) 05/22/18 05:36 Lactic Acid 1.30 mmol/L (0.7-2.0) 05/10/18 16:08 Calcium 9.0 mg/dL (8.4-10.2) 05/22/18 05:36 Magnesium 2.40 mg/dL (1.7-2.3) H 05/18/18 05:03 Total Bilirubin 0.30 mg/dL (0.1-1.2) 05/09/18 10:09 AST 26 units/L (5-40) 05/09/18 10:09 ALT 18 units/L (7-56) 05/09/18 10:09 Alkaline Phosphatase 88 units/L (35-129) 05/09/18 10:09 Total Creatine Kinase 159 units/L (55-170) 05/09/18 15:36 CK-MB (CK-2) 9.3 ng/mL (0.0-4.0) H 05/09/18 15:36 CK-MB (CK-2) Rel Index 5.8 (0-4) H 05/09/18 15:36 Troponin T 0.246 ng/mL (0.00-0.029) H* 05/09/18 15:36 C-Reactive Protein 2.00 mg/dL (0.00-1.30) H 05/10/18 16:08 NT-Pro-B Natriuret Pep 98944 pg/mL (0-900) H 05/09/18 10:09 Serum Total Protein 6.4 g/dL (6.1-8.1) 05/10/18 13:22 Total Protein 7.7 g/dL (6.3-8.2) 05/09/18 10:09 Albumin 3.5 g/dL (3.8-4.8) L 05/10/18 13:22 Albumin/Globulin Ratio 1.1 % 05/09/18 10:09 Gtbpw-3-Kamplspye 0.4 g/dL (0.2-0.3) H 05/10/18 13:22 Qcouy-1-Fq[place] 0.6 g/dL (0.5-0.9) 05/10/18 13:22 Beta Globulins 0.3 g/dL (0.2-0.5) 05/10/18 13:22 Gamma Globulins 1.2 g/dL (0.8-1.7) 05/10/18 13:22 Abnorm Protein Band 1 0.4 g/dL H 05/10/18 13:22 Abnorm Protein Band 2 see below 05/10/18 13:22 PEP Interpretation see below H 05/10/18 13:22 Triglycerides 175 mg/dL (2-149) H 05/09/18 10:09 Cholesterol 276 mg/dL (50-199) H 05/09/18 10:09 LDL Cholesterol Direct 235 mg/dL (50-130) H 05/09/18 10:09 HDL Cholesterol 34 mg/dL (40-59) L 05/09/18 10:09 Cholesterol/HDL Ratio 8.11 % 05/09/18 10:09 TSH 1.110 mlU/mL (0.270-4.200) 05/10/18 02:07 Free T4 1.15 ng/dL (0.76-1.46) 05/10/18 02:07 Urine Color Yellow (Yellow) 05/09/18 10:33 Urine Turbidity Clear (Clear) 05/09/18 10:33 Urine pH 6.0 (5.0-7.0) 05/09/18 10:33 Ur Specific [place] 1.011 (1.003-1.030) 05/09/18 10:33 Urine Protein >2000 mg dl mg/dL (Negative) 05/09/18 10:33 Urine Glucose (UA) 50 mg/dL (Negative) 05/09/18 10:33 Urine Ketones Neg mg/dL (Negative) 05/09/18 10:33 Urine Blood Neg (Negative) 05/09/18 10:33 Urine Nitrite Neg (Negative) 05/09/18 10:33 Urine Bilirubin Neg (Negative) 05/09/18 10:33 Urine Urobilinogen < 2.0 mg/dL (<2.0) 05/09/18 10:33 Ur Leukocyte Esterase Neg (Negative) 05/09/18 10:33 Urine WBC (Auto) 2.0 /HPF (0.0-6.0) 05/09/18 10:33 Urine RBC (Auto) 3.0 /HPF (0.0-6.0) 05/09/18 10:33 Urine Bacteria (Auto) 1+ /HPF (Negative) 05/09/18 10:33 Urine Total Volume 2500 ml 05/17/18 14:00 Urine Creatinine 66.1 mg/dL (0.1-20.0) H 05/17/18 14:00 Ur Creatinine 24 Hour 0.6 (0.8-2.8) L 05/15/18 Unknown Height (in) 69.0 inches 05/17/18 14:00 Weight (lb) 215.8 lbs 05/17/18 14:00 Creatinine Clearance 28 05/17/18 14:00 Urine Opiates Screen Presumptive negative 05/09/18 10:33 Urine Methadone Screen Presumptive negative 05/09/18 10:33 Ur Barbiturates Screen Presumptive negative 05/09/18 10:33 Ur Phencyclidine Scrn Presumptive negative 05/09/18 10:33 Ur Amphetamines Screen Presumptive negative 05/09/18 10:33 U Benzodiazepines Scrn Presumptive negative 05/09/18 10:33 Urine Cocaine Screen Presumptive negative 05/09/18 10:33 U Marijuana (THC) Screen Presumptive negative 05/09/18 10:33 Drugs of Abuse Note Disclamer 05/09/18 10:33 JOSE ANTONIO Screen Negative (Negative) 05/10/18 13:22 Proteinase 3 (PR3) Ab <1.0 AI (<1.0) 05/10/18 13:22 Myeloperoxidase Ab <1.0 AI (<1.0) 05/10/18 13:22 Double Strand DNA Ab <1 IU/mL (<=4) 05/10/18 13:22 Glomerular Base Mem IgG See scanned result 05/10/18 13:22 Complement C3 142 mg/dL (82-185) 05/10/18 13:22 Complement C4 20 mg/dL (15-53) 05/10/18 13:22 Tot Complement (CH50) >60 U/mL (31-60) H 05/10/18 13:22 Hepatitis A IgM Ab Non-reactive (NonReactive) 05/10/18 13:22 Hep Bs Antigen Non-reactive (Negative) 05/10/18 13:22 Hep B Core IgM Ab Non-reactive (NonReactive) 05/10/18 13:22 Hepatitis C Antibody Non-reactive (NonReactive) 05/10/18 13:22 HIV 1&2 Antibody Rapid Non react (Non React) 05/10/18 13:22 HIV P24 Antigen Non react (Non React) 05/10/18 13:22 Anti-Streptolysin O Ab See scanned result 05/10/18 13:22 Nutrition/Malnutrition Assess - Dietary Evaluation Nutrition/Malnutrition Findings: Nutrition Notes Start: 05/10/18 09:35 Freq: Status: Active Protocol: Document 05/17/18 10:37 ER (Rec: 05/17/18 10:43 ER [id number]) Co-Sign 05/17/18 10:37 LP Nutrition Notes Initial or Follow up Reassessment Current Diagnosis Acute Kidney Injury CKD(stage I-IV) COPD Hypertension Heart Failure Respiratory Failure Other Pertinent Diagnosis Dyspnea Current Diet NPO Labs/Tests BUN 73 Cr 4.1 Pertinent Medications Lasix Height 5 ft 9 in Weight 97.6 kg [place] Body Weight (kg) 72.72 BMI 31.7 Weight Status Obese Subjective/Other Information 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 Pt. stated his appetite is good and ate 80% of dinner and drank Nepro. Pt. denies any N /V/D/C and chewing/swallowing difficulties. Pt. may need education for ESRD on HD. Continue to follow for ONS and education needs. Percent of energy/protein needs met: 120%/100% Burn Absent Trauma Absent Current % PO Good (75-100%) #1 Nutrition Diagnosis Inadequate oral intake As Evidenced by Signs and Symptoms pt. consuming 100% of energy and protein needs Diagnosis Progress(for reassessment Improved documentation) Is patient on ventilator? No Is Patient Ambulatory and/or Out of Bed Yes REE-([place]-St. Jeor-ambulatory/OOB) [ 2315.794 [id number]] Kcal/Kg value to use for calculation 18 Approximate Energy Requirements Using 1757 kcal/Kg Calculation Used for Recommendations Kcal/kg Additional Notes pro: 60-117g/day (0.6-1.2g/kg) fluid: 1mL/kcal Nutrition Intervention Change Diet Order: Renal Diet Add Supplement/Snack (indicate name/kcal nepro daily /protein ) Provides kCal: 425 Provides Protein (gm) 19 Goal #1 Continue to meet 100% of energy and pro needs Anticipated Discharge Needs: Renal diet Follow-Up By: 05/23/18 Additional Comments f/u: ONS intake, ESRD on HD education needs
[2018-05-23] MEDS ORDERED: NACL 0.9 (PRIMING MACHINE ONLY DIALYSIS) MC ONE (11:21)
--- NOTE | 2018-05-23 11:52 | Progress Note ---
Assessment and Plan ESRD now on HD - s/p permcath 05/18 - HD today, eval for need daily. - hospice social worker consulted for outpatient HD arrangement, can be discharged from renal standpoint once outpatient HD is secured Acute heart failure NSTEMI Elevated BNP -per cardiology Acute hypoxic-hypercapnic respiratory failure Elevated-Dimer -As per pulmonary S/P Hypertensive emergency Hypertension: -Adjust regimen as needed Tomasz Quinn MD [phone] Subjective Date of service: 05/23/18 Principal diagnosis: Acute hypoxemic hypercapnic Resp failure; Acute CHF; ELVIA; NSTEMI Interval history: Seen on HD. Denies CP, SHOB. Objective - Exam Narrative Exam: General appearance: well-developed, well-nourished EENT: ATNC, PERRL, mucous membranes moist Neck: no JVD Respiratory: Present: Clear to Ascultation, Rt IJ TDC intact Cardiology: regular, S1S2 Gastrointestinal: normoactive bowel sounds Integumentary: no rash, warm and dry Neurologic: no focal deficit, no asterixis, alert and oriented x3 Psychiatric: cooperative - Vital Signs Vital signs: Vital Signs - 12hr 05/23/18 05/23/18 05/23/18 06:07 06:09 10:05 Temperature 98.5 F 99.0 F Pulse Rate 58 L 65 Respiratory 20 16 Rate Blood Pressure 139/73 139/73 129/83 O2 Sat by Pulse 96 Oximetry 05/23/18 05/23/18 05/23/18 10:15 10:30 10:45 Temperature Pulse Rate 64 65 65 Respiratory Rate Blood Pressure 136/84 131/81 129/90 O2 Sat by Pulse Oximetry 05/23/18 05/23/18 05/23/18 11:00 11:15 11:30 Temperature Pulse Rate 62 67 67 Respiratory Rate Blood Pressure 130/81 123/65 94/60 O2 Sat by Pulse Oximetry - Lab 05/19/18 05:09 05/22/18 05:36 Most recent lab results Calcium 9.0 mg/dL (8.4-10.2) 05/22/18 05:36 Magnesium 2.40 mg/dL (1.7-2.3) H 05/18/18 05:03 Urine Creatinine 66.1 mg/dL (0.1-20.0) H 05/17/18 14:00 Medications & Allergies - Medications Allergies/Adverse Reactions: Allergies No Known Allergies Allergy (Unverified 05/09/18 10:45) Home Medications: Home Medications Medication Instructions Recorded Confirmed Last Taken Type No Known Home Medications [No 05/09/18 05/09/18 Unknown History Reported Home Medications] Active Medications: Generic Name Dose Route Start Last Admin Trade Name Freq PRN Reason Stop Dose Admin Acetaminophen 650 mg 05/11/18 23:42 05/12/18 00:19 Tylenol PO 650 mg Q6H PRN Administration Pain, Mild (1-3) Albuterol 2.5 mg 05/21/18 14:04 Proventil IH Q4HRT PRN Shortness Of Breath Atorvastatin Calcium 80 mg 05/11/18 22:00 05/22/18 22:27 Lipitor PO 80 mg QHS GLENDA Administration Famotidine 20 mg 05/14/18 12:00 05/22/18 10:49 Pepcid PO 20 mg DAILY GLENDA Administration Fluoxetine HCl 40 mg 05/11/18 14:00 05/22/18 10:48 Prozac PO 40 mg QDAY GLENDA Administration Furosemide 40 mg 05/15/18 18:00 05/23/18 06:09 Lasix PO 40 mg 0600,1800 GLENDA Administration Heparin Sodium (Porcine) 5,000 unit 05/15/18 22:00 05/22/18 22:18 Heparin SUB-Q 5,000 unit Q12HR GLENDA Administration Hydralazine HCl 10 mg 05/12/18 10:23 05/23/18 00:26 Apresoline IV 10 mg Q4H PRN Administration SBP > 160 Hydralazine HCl 100 mg 05/13/18 10:19 05/23/18 06:09 Apresoline PO 100 mg Q8HR GLENDA Administration Isosorbide Mononitrate 30 mg 05/12/18 14:00 05/22/18 10:49 Imdur PO 30 mg QDAY GLENDA Administration Metoprolol Tartrate 25 mg 05/20/18 13:40 05/22/18 22:28 Lopressor PO Not Given BID GLENDA Potassium Chloride 20 meq 05/10/18 22:00 05/22/18 22:31 Potassium Chloride PO 20 meq Q12H GLENDA Administration
[2018-05-23 15:13] LABS: Calcium 9.4 mg/dL (8.4-10.2)
[2018-05-23] MEDS: PROzac PO SCH (15:44)
[2018-05-23] MEDS: HEPARIN SUB-Q SCH ×2 (15:44→22:59)
[2018-05-23] MEDS: PEPCID PO SCH (15:45)
[2018-05-23] MEDS: POTASSIUM CHLORIDE PO SCH ×2 (15:45→22:59)
[2018-05-24] MEDS: APRESOLINE PO SCH ×2 (06:17→15:45)
[2018-05-24] MEDS: LASIX PO SCH ×2 (06:19→17:35)
[2018-05-24] MEDS: PROzac PO SCH (09:22)
[2018-05-24] MEDS: LOPRESSOR PO SCH (09:23)
[2018-05-24] MEDS: PEPCID PO SCH (09:23)
[2018-05-24] MEDS: IMDUR PO SCH (09:23)
[2018-05-24] MEDS: POTASSIUM CHLORIDE PO SCH (09:23)
[2018-05-24] MEDS: HEPARIN SUB-Q SCH (09:24)
--- NOTE | 2018-05-24 10:03 | Progress Note ---
Assessment and Plan ESRD now on HD - s/p permcath 05/18 - no indication for HD today - social services consulted for outpatient HD arrangement, can be discharged from renal standpoint once outpatient HD is secured Acute heart failure NSTEMI Elevated BNP -per cardiology Acute hypoxic-hypercapnic respiratory failure Elevated-Dimer -As per pulmonary S/P Hypertensive emergency Hypertension: -Adjust regimen as needed Subjective Date of service: 05/24/18 Principal diagnosis: Acute hypoxemic hypercapnic Resp failure; Acute CHF; ELVIA; NSTEMI Interval history: tolerated HD yesterday Objective - Vital Signs Vital signs: Vital Signs - 12hr 05/23/18 05/23/18 05/24/18 22:52 23:10 00:26 Temperature 98.3 F Pulse Rate 57 L 57 L 64 Respiratory 20 Rate Blood Pressure 146/89 146/89 181/93 Blood Pressure [Right] O2 Sat by Pulse 98 Oximetry 05/24/18 05/24/18 05/24/18 01:45 06:08 06:17 Temperature 97.6 F Pulse Rate 57 L 54 L 54 L Respiratory 20 Rate Blood Pressure 115/70 115/70 Blood Pressure 127/75 [Right] O2 Sat by Pulse 98 Oximetry 05/24/18 09:23 Temperature Pulse Rate 60 Respiratory Rate Blood Pressure 92/58 Blood Pressure [Right] O2 Sat by Pulse Oximetry - Lab 05/19/18 05:09 05/23/18 14:40 Most recent lab results Calcium 9.4 mg/dL (8.4-10.2) 05/23/18 14:40 Magnesium 2.40 mg/dL (1.7-2.3) H 05/18/18 05:03 Urine Creatinine 66.1 mg/dL (0.1-20.0) H 05/17/18 14:00 Medications & Allergies - Medications Allergies/Adverse Reactions: Allergies No Known Allergies Allergy (Unverified 05/09/18 10:45) Home Medications: Home Medications Medication Instructions Recorded Confirmed Last Taken Type AtorvaSTATin [Lipitor] 80 mg PO QHS #30 tablet 05/24/18 Unknown Rx FLUoxetine [PROzac] 40 mg PO QDAY #30 capsule 05/24/18 Unknown Rx Famotidine [Pepcid] 20 mg PO DAILY #30 tablet 05/24/18 Unknown Rx Furosemide [Lasix TAB] 40 mg PO 0600,1800 #60 tablet 05/24/18 Unknown Rx ISOSORBIDE MONOnitrate [Imdur ER] 30 mg PO QDAY #30 tablet 05/24/18 Unknown Rx Metoprolol [Lopressor TAB] 25 mg PO BID #60 tablet 05/24/18 Unknown Rx Potassium Chloride 20 meq PO Q12H #60 packet 05/24/18 Unknown Rx hydrALAZINE [Apresoline TAB] 100 mg PO Q8HR #90 tablet 05/24/18 Unknown Rx Active Medications: Generic Name Dose Route Start Last Admin Trade Name Freq PRN Reason Stop Dose Admin Acetaminophen 650 mg 05/11/18 23:42 05/12/18 00:19 Tylenol PO 650 mg Q6H PRN Administration Pain, Mild (1-3) Albuterol 2.5 mg 05/21/18 14:04 Proventil IH Q4HRT PRN Shortness Of Breath Atorvastatin Calcium 80 mg 05/11/18 22:00 05/23/18 22:58 Lipitor PO 80 mg QHS GLENDA Administration Famotidine 20 mg 05/14/18 12:00 05/24/18 09:23 Pepcid PO 20 mg DAILY GLENDA Administration Fluoxetine HCl 40 mg 05/11/18 14:00 05/24/18 09:22 Prozac PO 40 mg QDAY GLENDA Administration Furosemide 40 mg 05/15/18 18:00 05/24/18 06:19 Lasix PO 40 mg 0600,1800 GLNEDA Administration Heparin Sodium (Porcine) 5,000 unit 05/15/18 22:00 05/24/18 09:24 Heparin SUB-Q 5,000 unit Q12HR GLENDA Administration Hydralazine HCl 10 mg 05/12/18 10:23 05/23/18 00:26 Apresoline IV 10 mg Q4H PRN Administration SBP > 160 Hydralazine HCl 100 mg 05/13/18 10:19 05/24/18 06:17 Apresoline PO 100 mg Q8HR GLENDA Administration Isosorbide Mononitrate 30 mg 05/12/18 14:00 05/24/18 09:23 Imdur PO Not Given QDAY GLENDA Metoprolol Tartrate 25 mg 05/20/18 13:40 05/24/18 09:23 Lopressor PO Not Given BID [facility] Potassium Chloride 20 meq 05/10/18 22:00 05/24/18 09:23 Potassium Chloride PO 20 meq Q12H GLENDA Administration
--- NOTE | 2018-05-24 10:53 | Discharge Summary ---
Addendum entered and electronically signed by KEMAR GURROLA MD 05/28/18 15:33: Patient was discharged by Dr Doyle and nothing changed after the discharge summary was filed and this discharged summary works for today. Original Note: Providers - Providers Date of Admission: 05/09/18 11:22 Date of discharge: 05/24/18 Attending physician: PRIYA DOYLE 05/09/18 11:23 Consult to Physician [CONS] Stat Comment: DR CHAPMAN NOTIFIED 1145. Consulting Provider: MARIAH MORRISON Physician Instructions: Reason For Exam: icu. et 05/10/18 02:00 Consult to Physician [CONS] Routine Comment: Consulting Provider: AJITH DNEISE Physician Instructions: Reason For Exam: ELVIA 05/10/18 07:06 Consult to Dietitian/Nutrition [CONS] Routine Physician Instructions: Reason For Exam: Reason for Consult: Write/Manage Tube Feeding Physical Therapy Evaluation and Treat [CONS] Routine Comment: Reason For Exam: mobility, orally intubated on MVS 05/11/18 12:26 Consult to Physician [CONS] Routine Comment: Consulting Provider: ARIANA BLACK Physician Instructions: Reason For Exam: Vasc cath placement 05/11/18 14:20 Consult to Mental Health [CONS] Routine Reason For Exam: depression Place consult to:: mental health Notified:: [id number] Was contact made?: Yes If yes, spoke with:: Minesh 05/16/18 10:46 Consult to Case Management [CONS] Routine Services Needed at Discharge: Other Notified:: case management Comment:: Outpatient Hemodialysis arrangement 05/16/18 10:47 Consult to Physician [CONS] Routine Comment: Consulting Provider: ARIANA BLACK Physician Instructions: Reason For Exam: Removal of vasc cath and place perm-cath Primary care physician: BRENDAN GLEASON Hospitalization Reason for admission: resp failure, NSTEMI Condition: Critical Hospital course: This is a 57 year old male who presented to the hospital with a chief complaint of shortness of breath and chest pain that began on 05/09/18, approximately 2 hours prior to arriving to E.. On evaluation, patient was found to be acute Hypoxic respiratory failure with oxygen levels in the 70's. Patient required intubation due to respiratory distress. Additionally, the Patient was found to have ARF and Acute heart failure precipitated by accelerated htn with BP-261/162 and NSTEMI. Patient was initially treated with heparin drip. CXR revealed pulmonary venous congestion. Pertinent labs on admission revealed elevated D- dimer level of 1326, [place] [address], WBC level of 17.6, elevated troponin levels and elevated serum creatinine level of 3.9 on admission. The patient was later extubated and respiratory status improved to his baseline. Cardiology, pulmonary and nephrology saw the patient in consultation. Patient later underwent MPI stress tests on 05/14/18 which was negative for ischemia, EF 34%. EF 50-55% per echo. The heart failure/NSTEMI was managed medically with aspirin beta suzan and hydralazine, statin, IV Lasix and Imdur. No SCOTT inhibitor due to the renal failure. Nephrology felt that the acute renal failure was likely secondary to ischemic ATN on possible underlying CKD with proteinuria. Patient had to undergo hemodialysis treatment which was initiated on 05/11/18. The patient later had PermCath placed on 05/18. Social work was consulted for outpatient hemodialysis arrangement. Outpatient hemodialysis was arranged in this patient will be discharged home. Dedicated discharge time 34 minutes. Disposition: [id number] TO HOME OR SELFCARE Time spent for discharge: 34 - Discharge Diagnoses (1) Acute heart failure with preserved ejection fraction Status: Acute (2) Acute renal failure Status: Acute Qualifiers: Acute renal failure type: unspecified Qualified Code(s): N17.9 - Acute kidney failure, unspecified (3) CHF (congestive heart failure) Status: Acute Qualifiers: Heart failure type: unspecified Heart failure chronicity: acute Qualified Code(s): I50.9 - Heart failure, unspecified (4) Elevated d-dimer Status: Acute (5) NSTEMI (non-ST elevated myocardial infarction) Status: Acute (6) Respiratory failure Status: Acute Qualifiers: Chronicity: acute Respiratory failure complication: hypoxia Qualified Code(s): J96.01 - Acute respiratory failure with hypoxia (7) History of hypertension Status: Chronic (8) Hyperlipidemia Status: Chronic Core Measure Documentation - Palliative Care Palliative Care/ Comfort Measures: Not Applicable - Core Measures Any of the following diagnoses?: acute OR - Acute OR Discharge Requirements Aspirin at discharge: Yes SCOTT/ARB for LVSD if EF <40%: No Reason for no SCOTT/ARB: Renal impairment Beta suzan at discharge: Yes Statin for LDL = or >100 mg/dl on DC: Yes - Heart Failure Discharge Requirements SCOTT/ARB for LVSD if EF <40%: No Reason for no SCOTT/ARB: Renal impairment Beta suzan at discharge: Yes Exam - Constitutional Vitals: Temp Pulse Resp BP Pulse Ox 97.6 F 60 20 92/58 98 05/24/18 06:08 05/24/18 09:23 05/24/18 06:08 05/24/18 09:23 05/24/18 06:08 General appearance: Present: no acute distress, well-nourished - EENT Eyes: Present: PERRL ENT: hearing intact, clear oral mucosa - Neck Neck: Present: supple, normal ROM - Respiratory Respiratory effort: normal Respiratory: bilateral: CTA - Cardiovascular Heart Sounds: Present: S1 & S2. Absent: rub, click - Extremities Extremities: pulses symmetrical, No edema Peripheral Pulses: within normal limits - Abdominal General gastrointestinal: Present: soft, non-tender, non-distended, normal bowel sounds Male genitourinary: Present: normal - Integumentary Integumentary: Present: clear, warm, dry - Musculoskeletal Musculoskeletal: gait normal, strength equal bilaterally - Psychiatric Psychiatric: appropriate mood/affect, intact judgment & insight - Neurologic Neurologic: CNII-XII intact, moves all extremities Plan Activity: no restrictions Weight Bearing Status: Weight Bear as Tolerated Diet: low fat, low cholesterol, low salt, renal Special Instructions: restrict fluid intake to (1 liter) Follow up with: BRENDAN GLEASON MD [Primary Care Provider] - 7 Days VITO MONTES DE OCA MD [Staff Physician] - 7 Days HAKEEM ISAAC MD [Staff Physician] - 7 Days Prescriptions: AtorvaSTATin [Lipitor] 80 mg PO QHS #30 tablet Famotidine [Pepcid] 20 mg PO DAILY #30 tablet FLUoxetine [PROzac] 40 mg PO QDAY #30 capsule Furosemide [Lasix TAB] 40 mg PO 0600,1800 #60 tablet hydrALAZINE [Apresoline TAB] 100 mg PO Q8HR #90 tablet ISOSORBIDE MONOnitrate [Imdur ER] 30 mg PO QDAY #30 tablet Metoprolol [Lopressor TAB] 25 mg PO BID #60 tablet Potassium Chloride 20 meq PO Q12H #60 packet
[2018-05-25] MEDS: HEPARIN SUB-Q SCH ×3 (00:12→23:39)
[2018-05-25] MEDS: APRESOLINE PO SCH ×4 (00:13→23:41)
[2018-05-25] MEDS: LOPRESSOR PO SCH ×3 (00:13→23:39)
[2018-05-25] MEDS: POTASSIUM CHLORIDE PO SCH ×3 (00:29→23:40)
[2018-05-25] MEDS: LASIX PO SCH ×2 (06:20→19:40)
--- NOTE | 2018-05-25 10:58 | Progress Note ---
Assessment and Plan ESRD now on HD - s/p permcath 05/18 - HD today for clearance and volume removal - social media content manager consulted for outpatient HD arrangement, can be discharged from renal standpoint once outpatient HD is secured Acute heart failure NSTEMI Elevated BNP -per cardiology Acute hypoxic-hypercapnic respiratory failure Elevated-Dimer -As per pulmonary S/P Hypertensive emergency Hypertension: -Adjust regimen as needed Subjective Date of service: 05/25/18 Principal diagnosis: Acute hypoxemic hypercapnic Resp failure; Acute CHF; ELVIA; NSTEMI Interval history: seen in HD, tolerating Objective - Vital Signs Vital signs: Vital Signs - 12hr 05/24/18 05/25/18 05/25/18 23:46 00:13 05:21 Temperature 99.0 F 98.0 F Pulse Rate 59 L 60 54 L Respiratory 20 18 Rate Blood Pressure 187/92 187/92 117/68 O2 Sat by Pulse 96 96 Oximetry 05/25/18 06:26 Temperature Pulse Rate Respiratory Rate Blood Pressure 117/68 O2 Sat by Pulse Oximetry - Lab 05/19/18 05:09 05/23/18 14:40 Most recent lab results Calcium 9.4 mg/dL (8.4-10.2) 05/23/18 14:40 Magnesium 2.40 mg/dL (1.7-2.3) H 05/18/18 05:03 Urine Creatinine 66.1 mg/dL (0.1-20.0) H 05/17/18 14:00 Medications & Allergies - Medications Allergies/Adverse Reactions: Allergies No Known Allergies Allergy (Unverified 05/09/18 10:45) Home Medications: Home Medications Medication Instructions Recorded Confirmed Last Taken Type AtorvaSTATin [Lipitor] 80 mg PO QHS #30 tablet 05/24/18 Unknown Rx FLUoxetine [PROzac] 40 mg PO QDAY #30 capsule 05/24/18 Unknown Rx Famotidine [Pepcid] 20 mg PO DAILY #30 tablet 05/24/18 Unknown Rx Furosemide [Lasix TAB] 40 mg PO 0600,1800 #60 tablet 05/24/18 Unknown Rx ISOSORBIDE MONOnitrate [Imdur ER] 30 mg PO QDAY #30 tablet 05/24/18 Unknown Rx Metoprolol [Lopressor TAB] 25 mg PO BID #60 tablet 05/24/18 Unknown Rx Potassium Chloride 20 meq PO Q12H #60 packet 05/24/18 Unknown Rx hydrALAZINE [Apresoline TAB] 100 mg PO Q8HR #90 tablet 05/24/18 Unknown Rx Active Medications: Generic Name Dose Route Start Last Admin Trade Name Freq PRN Reason Stop Dose Admin Acetaminophen 650 mg 05/11/18 23:42 05/12/18 00:19 Tylenol PO 650 mg Q6H PRN Administration Pain, Mild (1-3) Albuterol 2.5 mg 05/21/18 14:04 Proventil IH Q4HRT PRN Shortness Of Breath Atorvastatin Calcium 80 mg 05/11/18 22:00 05/25/18 00:14 Lipitor PO 80 mg QHS GLENDA Administration Famotidine 20 mg 05/14/18 12:00 05/24/18 09:23 Pepcid PO 20 mg DAILY GLENDA Administration Fluoxetine HCl 40 mg 05/11/18 14:00 05/24/18 09:22 Prozac PO 40 mg QDAY GLENDA Administration Furosemide 40 mg 05/15/18 18:00 05/25/18 06:20 Lasix PO Not Given 0600,1800 [facility] Heparin Sodium (Porcine) 5,000 unit 05/15/18 22:00 05/25/18 00:12 Heparin SUB-Q 5,000 unit Q12HR GLENDA Administration Hydralazine HCl 10 mg 05/12/18 10:23 05/23/18 00:26 Apresoline IV 10 mg Q4H PRN Administration SBP > 160 Hydralazine HCl 100 mg 05/13/18 10:19 05/25/18 06:26 Apresoline PO 100 mg Q8HR GLENDA Administration Isosorbide Mononitrate 30 mg 05/12/18 14:00 05/24/18 09:23 Imdur PO Not Given QDAY [facility] Metoprolol Tartrate 25 mg 05/20/18 13:40 05/25/18 00:13 Lopressor PO 25 mg BID GLENDA Administration Potassium Chloride 20 meq 05/10/18 22:00 05/25/18 00:29 Potassium Chloride PO Not Given Q12H GLENDA
[2018-05-25] MEDS: PROzac PO SCH (14:16)
[2018-05-25] MEDS: PEPCID PO SCH (14:16)
[2018-05-25] MEDS: IMDUR PO SCH (14:23)
--- NOTE | 2018-05-25 14:27 | Progress Note ---
Assessment and Plan Acute hypoxic-hypercapnic respiratory failure Acute heart failure Acute renal failure NSTEMI Hypertensive emergency Morbid obesity Tobacco abuse disorder - BIPAP prn at this point - continue VTE prophylaxis - continue HD/UF per nephrology prescription for toxin and volume clearance - continue stress ulcer prophylaxis - continue diuresis with lasix; adjust per nephrology - 2D echocardiogram with low normal EF and impaired relaxation - ST evaluation and advance diet - continue accucheck with glycemic control per SSI for target blood glucose of 140-180mg/dL - continue bronchodilators with pulmonary hygiene per RT - Cardiology evaluation ongoing - continue to avoid nephrotoxic agents and adjust all medications for CrCL - continue Nicotine withdrawal precautions - Smoking cessation counselling done at bedside - Mobility for pressure ulcer prevention - PT/OT as tolerated - continue other care per attending / other consultants ... discharge planning ok PCCM-euceda ... re-evaluate in am & prn CODE STATUS: FULL CODE Subjective Date of service: 05/25/18 Principal diagnosis: Acute hypoxemic hypercapnic Resp failure; Acute CHF; ELVIA; NSTEMI Interval history: Patient is seen today for: Acute hypoxic-hypercapnic respiratory failure; Acute heart failure; Acute renal failure; NSTEMI; Hypertensive emergency Seen and examined at bedside; 24hour events reviewed; nursing and respiratory care staff consulted; no adverse overnight events reported to me; resting peacefully in bed; denies acute chest pains or palpitations; + occassional non- bloody cough and expectoration; tolerating HD/UF well so far Objective Vital Signs - 12hr 05/25/18 05/25/18 05/25/18 05:21 06:26 09:50 Temperature 98.0 F 98.6 F Pulse Rate 54 L 58 L Respiratory 18 18 Rate Blood Pressure 117/68 117/68 128/66 O2 Sat by Pulse 96 Oximetry 05/25/18 05/25/18 05/25/18 10:00 10:15 10:30 Temperature Pulse Rate 59 L 56 L 55 L Respiratory Rate Blood Pressure 113/70 121/66 123/73 O2 Sat by Pulse Oximetry 05/25/18 05/25/18 05/25/18 10:45 11:00 11:15 Temperature Pulse Rate 59 L 57 L 65 Respiratory Rate Blood Pressure 103/62 116/69 99/57 O2 Sat by Pulse Oximetry 05/25/18 05/25/18 05/25/18 11:30 11:45 12:00 Temperature Pulse Rate 57 L 61 60 Respiratory Rate Blood Pressure 102/67 109/65 95/56 O2 Sat by Pulse Oximetry 05/25/18 14:24 Temperature Pulse Rate 69 Respiratory Rate Blood Pressure 112/78 O2 Sat by Pulse Oximetry Constitutional: alert, appears uncomfortable, other (middle aged obese CM, normocephalic and atraumatic with mildly increased resp effort at rest) Eyes: non-icteric ENT: oropharynx moist, other (extubated) Neck: supple, no lymphadenopathy, no JVD, other (no thyromegaly) Effort: mildly labored Ascultation: Bilateral: diminished breath sounds, rhonchi (posterior bases) Percussion: Bilateral: not dull Cardiovascular: regular rate and rhythm Gastrointestinal: normoactive bowel sounds, soft, non-tender, non-distended Integumentary: normal Extremities: no cyanosis, pink and warm, pulses normal, no ischemia or petechiae, edema (trace) Neurologic: normal mental status, non-focal exam, pupils equal and round, motor strength normal and Psychiatric: mood appropriate, affect normal CBC and BMP: 05/19/18 05:09 05/23/18 14:40 ABG, PT/INR, D-dimer: ABG POC ABG pH 7.393 (7.35-7.45) 05/10/18 17:21 POC ABG pCO2 32.4 (35-45) L 05/10/18 17:21 POC ABG pO2 82 (80-105) 05/10/18 17:21 POC ABG HCO3 19.7 05/10/18 17:21 POC ABG Total CO2 21 05/10/18 17:21 POC ABG O2 Sat 96 05/10/18 17:21 PT/INR, D-dimer PT 13.5 Sec. (12.2-14.9) 05/09/18 11:55 INR 0.99 (0.87-1.13) 05/09/18 11:55 D-Dimer 1326.35 ng/mlDDU (0-234) H 05/09/18 10:09 Abnormal lab findings: Abnormal Labs 05/09/18 05/09/18 05/09/18 10:09 10:09 10:09 WBC 17.6 H RBC 5.11 H Hct 46.0 H RDW 15.8 H Plt Count Lymph % (Auto) Wheeler % (Auto) Eos % (Auto) 5.4 H Lymph # Wheeler # 1.2 H Eos # 1.0 H Baso # 0.2 H Seg Neutrophils % Seg Neutrophils # 12.1 H APTT D-Dimer 1326.35 H Heparin Anti-Xa Level POC ABG pH POC ABG pCO2 POC ABG pO2 Sodium Chloride Carbon Dioxide BUN 50 H Creatinine 3.7 H Glucose 191 H Calcium 8.2 L Magnesium CK-MB (CK-2) CK-MB (CK-2) Rel Index Troponin T 0.235 H* C-Reactive Protein NT-Pro-B Natriuret Pep Albumin Miyia-3-Ixujrrdum Abnorm Protein Band 1 PEP Interpretation Triglycerides 175 H Cholesterol 276 H LDL Cholesterol Direct 235 H HDL Cholesterol 34 L Urine Creatinine Ur Creatinine 24 Hour Tot Complement (CH50) 05/09/18 05/09/18 05/09/18 10:09 11:02 11:55 WBC RBC Hct RDW Plt Count Lymph % (Auto) Wheeler % (Auto) Eos % (Auto) Lymph # Wheeler # Eos # Baso # Seg Neutrophils % Seg Neutrophils # APTT 21.2 L D-Dimer Heparin Anti-Xa Level POC ABG pH 7.158 L POC ABG pCO2 73.6 H POC ABG pO2 274 H Sodium Chloride Carbon Dioxide BUN Creatinine Glucose Calcium Magnesium CK-MB (CK-2) 9.7 H CK-MB (CK-2) Rel Index 6.0 H Troponin T C-Reactive Protein NT-Pro-B Natriuret Pep 41477 H Albumin Vpvay-4-Choqegfqm Abnorm Protein Band 1 PEP Interpretation Triglycerides Cholesterol LDL Cholesterol Direct HDL Cholesterol Urine Creatinine Ur Creatinine 24 Hour Tot Complement (CH50) 05/09/18 05/09/18 05/09/18 15:36 15:36 15:58 WBC RBC Hct RDW Plt Count Lymph % (Auto) Wheeler % (Auto) Eos % (Auto) Lymph # Wheeler # Eos # Baso # Seg Neutrophils % Seg Neutrophils # APTT D-Dimer Heparin Anti-Xa Level 2.00 H POC ABG pH POC ABG pCO2 POC ABG pO2 Sodium Chloride Carbon Dioxide BUN 53 H Creatinine 3.9 H Glucose Calcium 8.0 L Magnesium CK-MB (CK-2) 9.3 H CK-MB (CK-2) Rel Index 5.8 H Troponin T 0.246 H* C-Reactive Protein NT-Pro-B Natriuret Pep Albumin Pmztn-3-Ksmvwmzwm Abnorm Protein Band 1 PEP Interpretation Triglycerides Cholesterol LDL Cholesterol Direct HDL Cholesterol Urine Creatinine Ur Creatinine 24 Hour Tot Complement (CH50) 05/09/18 05/09/18 05/10/18 16:57 19:45 02:07 WBC RBC Hct RDW 15.3 H Plt Count 136 L Lymph % (Auto) Wheeler % (Auto) Eos % (Auto) Lymph # Wheeler # Eos # Baso # Seg Neutrophils % Seg Neutrophils # APTT D-Dimer Heparin Anti-Xa Level 1.49 H POC ABG pH 7.307 L POC ABG pCO2 47.5 H POC ABG pO2 119 H Sodium Chloride Carbon Dioxide BUN Creatinine Glucose Calcium Magnesium CK-MB (CK-2) CK-MB (CK-2) Rel Index Troponin T C-Reactive Protein NT-Pro-B Natriuret Pep Albumin Mqtvp-4-Cuerojvps Abnorm Protein Band 1 PEP Interpretation Triglycerides Cholesterol LDL Cholesterol Direct HDL Cholesterol Urine Creatinine Ur Creatinine 24 Hour Tot Complement (CH50) 05/10/18 05/10/18 05/10/18 02:07 03:25 10:37 WBC RBC Hct RDW Plt Count Lymph % (Auto) Wheeler % (Auto) Eos % (Auto) Lymph # Wheeler # Eos # Baso # Seg Neutrophils % Seg Neutrophils # APTT D-Dimer Heparin Anti-Xa Level POC ABG pH POC ABG pCO2 POC ABG pO2 65 L Sodium Chloride Carbon Dioxide 21 L BUN 56 H Creatinine 4.2 H Glucose Calcium Magnesium 2.40 H CK-MB (CK-2) CK-MB (CK-2) Rel Index Troponin T C-Reactive Protein 2.00 H NT-Pro-B Natriuret Pep Albumin Esjfo-2-Ichtdgehp Abnorm Protein Band 1 PEP Interpretation Triglycerides Cholesterol LDL Cholesterol Direct HDL Cholesterol Urine Creatinine Ur Creatinine 24 Hour Tot Complement (CH50) 05/10/18 05/10/18 05/10/18 11:34 13:22 13:22 WBC RBC Hct RDW Plt Count Lymph % (Auto) Wheeler % (Auto) Eos % (Auto) Lymph # Wheeler # Eos # Baso # Seg Neutrophils % Seg Neutrophils # APTT D-Dimer Heparin Anti-Xa Level POC ABG pH POC ABG pCO2 32.7 L POC ABG pO2 110 H Sodium Chloride Carbon Dioxide BUN Creatinine Glucose Calcium Magnesium CK-MB (CK-2) CK-MB (CK-2) Rel Index Troponin T C-Reactive Protein NT-Pro-B Natriuret Pep Albumin 3.5 L Xqind-8-Ynccpfpzu 0.4 H Abnorm Protein Band 1 0.4 H PEP Interpretation see below H Triglycerides Cholesterol LDL Cholesterol Direct HDL Cholesterol Urine Creatinine Ur Creatinine 24 Hour Tot Complement (CH50) >60 H 05/10/18 05/10/18 05/11/18 16:08 17:21 04:28 WBC 13.1 H RBC Hct RDW 15.5 H Plt Count Lymph % (Auto) 8.1 L Wheeler % (Auto) 9.2 H Eos % (Auto) Lymph # 1.1 L Wheeler # 1.2 H Eos # Baso # Seg Neutrophils % 82.4 H Seg Neutrophils # 10.8 H APTT D-Dimer Heparin Anti-Xa Level POC ABG pH POC ABG pCO2 32.4 L POC ABG pO2 Sodium Chloride Carbon Dioxide BUN Creatinine Glucose Calcium Magnesium CK-MB (CK-2) CK-MB (CK-2) Rel Index Troponin T C-Reactive Protein 2.00 H NT-Pro-B Natriuret Pep Albumin Oylgk-1-Hvfrlcgtj Abnorm Protein Band 1 PEP Interpretation Triglycerides Cholesterol LDL Cholesterol Direct HDL Cholesterol Urine Creatinine Ur Creatinine 24 Hour Tot Complement (CH50) 05/11/18 05/11/18 05/11/18 04:28 04:28 23:50 WBC RBC Hct RDW Plt Count Lymph % (Auto) Wheeler % (Auto) Eos % (Auto) Lymph # Wheeler # Eos # Baso # Seg Neutrophils % Seg Neutrophils # APTT D-Dimer Heparin Anti-Xa Level < 0.10 L 2.00 H POC ABG pH POC ABG pCO2 POC ABG pO2 Sodium Chloride Carbon Dioxide 19 L BUN 67 H Creatinine 4.8 H Glucose Calcium 8.3 L Magnesium CK-MB (CK-2) CK-MB (CK-2) Rel Index Troponin T C-Reactive Protein NT-Pro-B Natriuret Pep Albumin Jatpm-1-Buafmgbjd Abnorm Protein Band 1 PEP Interpretation Triglycerides Cholesterol LDL Cholesterol Direct HDL Cholesterol Urine Creatinine Ur Creatinine 24 Hour Tot Complement (CH50) 05/12/18 05/12/18 05/13/18 04:07 06:43 08:23 WBC 11.6 H RBC Hct RDW 15.8 H Plt Count Lymph % (Auto) Wheeler % (Auto) Eos % (Auto) Lymph # Wheeler # Eos # Baso # Seg Neutrophils % Seg Neutrophils # APTT D-Dimer Heparin Anti-Xa Level < 0.10 L POC ABG pH POC ABG pCO2 POC ABG pO2 Sodium Chloride 97.0 L Carbon Dioxide BUN 36 H Creatinine 3.2 H Glucose 104 H Calcium Magnesium CK-MB (CK-2) CK-MB (CK-2) Rel Index Troponin T C-Reactive Protein NT-Pro-B Natriuret Pep Albumin Jexzj-4-Cnkoiuzsb Abnorm Protein Band 1 PEP Interpretation Triglycerides Cholesterol LDL Cholesterol Direct HDL Cholesterol Urine Creatinine Ur Creatinine 24 Hour Tot Complement (CH50) 05/13/18 05/14/18 05/14/18 08:23 06:05 06:05 WBC RBC Hct RDW 15.6 H Plt Count Lymph % (Auto) Wheeler % (Auto) Eos % (Auto) Lymph # Wheeler # Eos # Baso # Seg Neutrophils % Seg Neutrophils # APTT D-Dimer Heparin Anti-Xa Level POC ABG pH POC ABG pCO2 POC ABG pO2 Sodium Chloride Carbon Dioxide BUN 45 H 53 H Creatinine 3.7 H 4.2 H Glucose Calcium Magnesium CK-MB (CK-2) CK-MB (CK-2) Rel Index Troponin T C-Reactive Protein NT-Pro-B Natriuret Pep Albumin Fymbl-3-Ofvvnjiyl Abnorm Protein Band 1 PEP Interpretation Triglycerides Cholesterol LDL Cholesterol Direct HDL Cholesterol Urine Creatinine Ur Creatinine 24 Hour Tot Complement (CH50) 05/15/18 05/15/18 05/15/18 05:49 05:49 13:58 WBC 12.6 H RBC Hct RDW 15.7 H Plt Count Lymph % (Auto) Wheeler % (Auto) Eos % (Auto) Lymph # Wheeler # Eos # Baso # Seg Neutrophils % Seg Neutrophils # APTT D-Dimer Heparin Anti-Xa Level POC ABG pH POC ABG pCO2 POC ABG pO2 Sodium Chloride 97.3 L Carbon Dioxide BUN 61 H Creatinine 4.1 H Glucose Calcium Magnesium 2.40 H CK-MB (CK-2) CK-MB (CK-2) Rel Index Troponin T C-Reactive Protein NT-Pro-B Natriuret Pep Albumin Zstdt-8-Ywxaqssjt Abnorm Protein Band 1 PEP Interpretation Triglycerides Cholesterol LDL Cholesterol Direct HDL Cholesterol Urine Creatinine 78.3 H Ur Creatinine 24 Hour Tot Complement (CH50) 05/15/18 05/16/18 05/16/18 Unknown 05:42 05:42 WBC 11.6 H RBC Hct RDW 15.9 H Plt Count Lymph % (Auto) Wheeler % (Auto) Eos % (Auto) Lymph # Wheeler # Eos # Baso # Seg Neutrophils % Seg Neutrophils # APTT D-Dimer Heparin Anti-Xa Level POC ABG pH POC ABG pCO2 POC ABG pO2 Sodium Chloride 97.2 L Carbon Dioxide BUN 68 H Creatinine 4.1 H Glucose Calcium Magnesium 2.60 H CK-MB (CK-2) CK-MB (CK-2) Rel Index Troponin T C-Reactive Protein NT-Pro-B Natriuret Pep Albumin Rmkdl-2-Nahmzipcs Abnorm Protein Band 1 PEP Interpretation Triglycerides Cholesterol LDL Cholesterol Direct HDL Cholesterol Urine Creatinine 82.8 H Ur Creatinine 24 Hour 0.6 L Tot Complement (CH50) 05/17/18 05/17/18 05/18/18 05:48 14:00 05:03 WBC RBC Hct RDW Plt Count Lymph % (Auto) Wheeler % (Auto) Eos % (Auto) Lymph # Wheeler # Eos # Baso # Seg Neutrophils % Seg Neutrophils # APTT D-Dimer Heparin Anti-Xa Level POC ABG pH POC ABG pCO2 POC ABG pO2 Sodium 135 L Chloride Carbon Dioxide BUN 73 H 76 H Creatinine 4.1 H 3.9 H Glucose Calcium Magnesium 2.40 H 2.40 H CK-MB (CK-2) CK-MB (CK-2) Rel Index Troponin T C-Reactive Protein NT-Pro-B Natriuret Pep Albumin Nwtqd-3-Zjpgcybcs Abnorm Protein Band 1 PEP Interpretation Triglycerides Cholesterol LDL Cholesterol Direct HDL Cholesterol Urine Creatinine 66.1 H Ur Creatinine 24 Hour Tot Complement (CH50) 05/19/18 05/19/18 05/20/18 05:09 05:09 06:17 WBC RBC Hct RDW 15.3 H Plt Count Lymph % (Auto) Wheeler % (Auto) Eos % (Auto) Lymph # Wheeler # Eos # Baso # Seg Neutrophils % Seg Neutrophils # APTT D-Dimer Heparin Anti-Xa Level POC ABG pH POC ABG pCO2 POC ABG pO2 Sodium Chloride Carbon Dioxide BUN 43 H 54 H Creatinine 3.3 H 3.9 H Glucose Calcium Magnesium CK-MB (CK-2) CK-MB (CK-2) Rel Index Troponin T C-Reactive Protein NT-Pro-B Natriuret Pep Albumin Tbuqx-8-Rxyrwdduc Abnorm Protein Band 1 PEP Interpretation Triglycerides Cholesterol LDL Cholesterol Direct HDL Cholesterol Urine Creatinine Ur Creatinine 24 Hour Tot Complement (CH50) 05/21/18 05/22/18 05/23/18 06:11 05:36 14:40 WBC RBC Hct RDW Plt Count Lymph % (Auto) Wheeler % (Auto) Eos % (Auto) Lymph # Wheeler # Eos # Baso # Seg Neutrophils % Seg Neutrophils # APTT D-Dimer Heparin Anti-Xa Level POC ABG pH POC ABG pCO2 POC ABG pO2 Sodium 136 L 135 L Chloride 96.1 L 97.9 L 95.3 L Carbon Dioxide BUN 60 H 33 H 22 H Creatinine 4.2 H 3.4 H 2.7 H Glucose 170 H Calcium Magnesium CK-MB (CK-2) CK-MB (CK-2) Rel Index Troponin T C-Reactive Protein NT-Pro-B Natriuret Pep Albumin Cjxbh-4-Mjwvkmqtt Abnorm Protein Band 1 PEP Interpretation Triglycerides Cholesterol LDL Cholesterol Direct HDL Cholesterol Urine Creatinine Ur Creatinine 24 Hour Tot Complement (CH50) Allied health notes reviewed: nursing
--- NOTE | 2018-05-25 14:37 | Progress Note ---
Assessment and Plan Assessment and plan: Acute hypoxemic respiratory failure. Etiology secondary to acute heart failure and Non ST elevation CA. Resolved. Acute HFpEF. Resolved. Echocardiogram reveals EF 50-55%. Continue medical management. NSTEMI. Continue medical management. Acute renal failure. -Baseline SCr level unknown, but pt was apparently told 1 year ago at [facility] that he had proteinuria -S/p first HD treatment on 05/11/18 -s/p permcath 05/18 -social sciences chair consulted for outpatient HD arrangement Accelerated hypertension. Continue antihypertensive medications. - Patient Problems (1) Acute heart failure with preserved ejection fraction Current Visit: Yes Status: Acute (2) Acute renal failure Current Visit: Yes Status: Acute Qualifiers: Acute renal failure type: unspecified Qualified Code(s): N17.9 - Acute kidney failure, unspecified (3) CHF (congestive heart failure) Current Visit: Yes Status: Acute Qualifiers: Heart failure type: unspecified Heart failure chronicity: acute Qualified Code(s): I50.9 - Heart failure, unspecified (4) Elevated d-dimer Current Visit: Yes Status: Acute (5) NSTEMI (non-ST elevated myocardial infarction) Current Visit: Yes Status: Acute (6) Respiratory failure Current Visit: Yes Status: Acute Qualifiers: Chronicity: acute Respiratory failure complication: hypoxia Qualified Code(s): J96.01 - Acute respiratory failure with hypoxia (7) History of hypertension Current Visit: Yes Status: Chronic (8) Hyperlipidemia Current Visit: Yes Status: Chronic History Interval history: This is a 57 year old male who presented to the hospital with a chief complaint of shortness of breath and chest pain that began on 05/09/18, approximately 2 hours prior to arriving to [facility] On evaluation, patient was found to be acute Hypoxic respiratory failure with oxygen levels in the 70's. Patient required intubation due to respiratory distress. Additionally, the Patient was found to have ARF and Acute heart failure precipitated by accelerated htn with BP-261/162 and NSTEMI. Patient was initially treated with heparin drip. CXR revealed pulmonary venous congestion. Pertinent labs on admission revealed elevated D- dimer level of 1326, [place] [address], WBC level of 17.6, elevated troponin levels and elevated serum creatinine level of 3.9 on admission. The patient was later extubated and respiratory status improved to his baseline. Cardiology, pulmonary and nephrology saw the patient in consultation. Patient later underwent MPI stress tests on 05/14/18 which was negative for ischemia, EF 34%. EF 50-55% per echo. The heart failure/NSTEMI was managed medically with aspirin beta suzan and hydralazine, statin, IV Lasix and Imdur. No SCOTT inhibitor due to the renal failure. Nephrology felt that the acute renal failure was likely secondary to ischemic ATN on possible underlying CKD with proteinuria. Patient had to undergo hemodialysis treatment which was initiated on 05/11/18. The patient later had PermCath placed on 05/18. Social work was consulted for outpatient hemodialysis arrangement. Hospitalist Physical - Constitutional Vitals: Temp Pulse Resp BP Pulse Ox 98.6 F 69 18 112/78 96 05/25/18 09:50 05/25/18 14:24 05/25/18 09:50 05/25/18 14:24 05/25/18 05:21 General appearance: Present: no acute distress, well-nourished - EENT Eyes: Present: PERRL, EOM intact ENT: hearing intact, clear oral mucosa, dentition normal - Neck Neck: Present: supple, normal ROM - Respiratory Respiratory effort: normal Respiratory: bilateral: CTA - Cardiovascular Rhythm: regular Heart Sounds: Present: S1 & S2. Absent: gallop, rub - Extremities Extremities: no ischemia, No edema, Full ROM - Abdominal General gastrointestinal: soft, non-tender, non-distended, normal bowel sounds - Integumentary Integumentary: Present: clear, warm, dry - Neurologic Neurologic: CNII-XII intact, moves all extremities Results - Labs CBC & Chem 7: 05/19/18 05:09 05/23/18 14:40 Labs: Laboratory Last Values WBC 10.1 K/mm3 (4.5-11.0) 05/19/18 05:09 RBC 4.52 M/mm3 (3.65-5.03) 05/19/18 05:09 Hgb 13.5 gm/dl (11.8-15.2) 05/19/18 05:09 Hct 40.5 % (35.5-45.6) 05/19/18 05:09 MCV 90 fl (84-94) 05/19/18 05:09 MCH 30 pg (28-32) 05/19/18 05:09 MCHC 33 % (32-34) 05/19/18 05:09 RDW 15.3 % (13.2-15.2) H 05/19/18 05:09 Plt Count 152 K/mm3 (140-440) 05/19/18 05:09 Lymph % (Auto) 8.1 % (13.4-35.0) L 05/11/18 04:28 [place] % (Auto) 9.2 % (0.0-7.3) H 05/11/18 04:28 Eos % (Auto) 0.0 % (0.0-4.3) 05/11/18 04:28 Baso % (Auto) 0.3 % (0.0-1.8) 05/11/18 04:28 Lymph # 1.1 K/mm3 (1.2-5.4) L 05/11/18 04:28 [place] # 1.2 K/mm3 (0.0-0.8) H 05/11/18 04:28 Eos # 0.0 K/mm3 (0.0-0.4) 05/11/18 04:28 Baso # 0.0 K/mm3 (0.0-0.1) 05/11/18 04:28 Seg Neutrophils % 82.4 % (40.0-70.0) H 05/11/18 04:28 Seg Neutrophils # 10.8 K/mm3 (1.8-7.7) H 05/11/18 04:28 PT 13.5 Sec. (12.2-14.9) 05/09/18 11:55 INR 0.99 (0.87-1.13) 05/09/18 11:55 APTT 21.2 Sec. (24.2-36.6) L 05/09/18 11:55 D-Dimer 1326.35 ng/mlDDU (0-234) H 05/09/18 10:09 Heparin Anti-Xa Level < 0.10 U.I./ml (0.3-0.7) L 05/12/18 06:43 POC ABG pH 7.393 (7.35-7.45) 05/10/18 17:21 POC ABG pCO2 32.4 (35-45) L 05/10/18 17:21 POC ABG pO2 82 (80-105) 05/10/18 17:21 POC ABG HCO3 19.7 05/10/18 17:21 POC ABG Total CO2 21 05/10/18 17:21 POC ABG O2 Sat 96 05/10/18 17:21 POC ABG Base Excess -5 05/10/18 17:21 FiO2 28 % 05/10/18 17:21 Sodium 135 mmol/L (137-145) L 05/23/18 14:40 Potassium 3.7 mmol/L (3.6-5.0) 05/23/18 14:40 Chloride 95.3 mmol/L (98-107) L 05/23/18 14:40 Carbon Dioxide 24 mmol/L (22-30) 05/23/18 14:40 Anion Gap 19 mmol/L 05/23/18 14:40 BUN 22 mg/dL (9-20) H 05/23/18 14:40 Creatinine 2.7 mg/dL (0.8-1.5) H 05/23/18 14:40 Estimated GFR 24 ml/min 05/23/18 14:40 BUN/Creatinine Ratio 8 % 05/23/18 14:40 Glucose 170 mg/dL (75-100) H 05/23/18 14:40 Lactic Acid 1.30 mmol/L (0.7-2.0) 05/10/18 16:08 Calcium 9.4 mg/dL (8.4-10.2) 05/23/18 14:40 Magnesium 2.40 mg/dL (1.7-2.3) H 05/18/18 05:03 Total Bilirubin 0.30 mg/dL (0.1-1.2) 05/09/18 10:09 AST 26 units/L (5-40) 05/09/18 10:09 ALT 18 units/L (7-56) 05/09/18 10:09 Alkaline Phosphatase 88 units/L (35-129) 05/09/18 10:09 Total Creatine Kinase 159 units/L (55-170) 05/09/18 15:36 CK-MB (CK-2) 9.3 ng/mL (0.0-4.0) H 05/09/18 15:36 CK-MB (CK-2) Rel Index 5.8 (0-4) H 05/09/18 15:36 Troponin T 0.246 ng/mL (0.00-0.029) H* 05/09/18 15:36 C-Reactive Protein 2.00 mg/dL (0.00-1.30) H 05/10/18 16:08 NT-Pro-B Natriuret Pep 02589 pg/mL (0-900) H 05/09/18 10:09 Serum Total Protein 6.4 g/dL (6.1-8.1) 05/10/18 13:22 Total Protein 7.7 g/dL (6.3-8.2) 05/09/18 10:09 Albumin 3.5 g/dL (3.8-4.8) L 05/10/18 13:22 Albumin/Globulin Ratio 1.1 % 05/09/18 10:09 Bvqxn-3-Satzuqsyo 0.4 g/dL (0.2-0.3) H 05/10/18 13:22 Ytizu-5-Ycggwnddg 0.6 g/dL (0.5-0.9) 05/10/18 13:22 Beta Globulins 0.3 g/dL (0.2-0.5) 05/10/18 13:22 Gamma Globulins 1.2 g/dL (0.8-1.7) 05/10/18 13:22 Abnorm Protein Band 1 0.4 g/dL H 05/10/18 13:22 Abnorm Protein Band 2 see below 05/10/18 13:22 PEP Interpretation see below H 05/10/18 13:22 Triglycerides 175 mg/dL (2-149) H 05/09/18 10:09 Cholesterol 276 mg/dL (50-199) H 05/09/18 10:09 LDL Cholesterol Direct 235 mg/dL (50-130) H 05/09/18 10:09 HDL Cholesterol 34 mg/dL (40-59) L 05/09/18 10:09 Cholesterol/HDL Ratio 8.11 % 05/09/18 10:09 TSH 1.110 mlU/mL (0.270-4.200) 05/10/18 02:07 Free T4 1.15 ng/dL (0.76-1.46) 05/10/18 02:07 Urine Color Yellow (Yellow) 05/09/18 10:33 Urine Turbidity Clear (Clear) 05/09/18 10:33 Urine pH 6.0 (5.0-7.0) 05/09/18 10:33 Ur Specific [place] 1.011 (1.003-1.030) 05/09/18 10:33 Urine Protein >2000 mg dl mg/dL (Negative) 05/09/18 10:33 Urine Glucose (UA) 50 mg/dL (Negative) 05/09/18 10:33 Urine Ketones Neg mg/dL (Negative) 05/09/18 10:33 Urine Blood Neg (Negative) 05/09/18 10:33 Urine Nitrite Neg (Negative) 05/09/18 10:33 Urine Bilirubin Neg (Negative) 05/09/18 10:33 Urine Urobilinogen < 2.0 mg/dL (<2.0) 05/09/18 10:33 Ur Leukocyte Esterase Neg (Negative) 05/09/18 10:33 Urine WBC (Auto) 2.0 /HPF (0.0-6.0) 05/09/18 10:33 Urine RBC (Auto) 3.0 /HPF (0.0-6.0) 05/09/18 10:33 Urine Bacteria (Auto) 1+ /HPF (Negative) 05/09/18 10:33 Urine Total Volume 2500 ml 05/17/18 14:00 Urine Creatinine 66.1 mg/dL (0.1-20.0) H 05/17/18 14:00 Ur Creatinine 24 Hour 0.6 (0.8-2.8) L 05/15/18 Unknown Height (in) 69.0 inches 05/17/18 14:00 Weight (lb) 215.8 lbs 05/17/18 14:00 Creatinine Clearance 28 05/17/18 14:00 Urine Opiates Screen Presumptive negative 05/09/18 10:33 Urine Methadone Screen Presumptive negative 05/09/18 10:33 Ur Barbiturates Screen Presumptive negative 05/09/18 10:33 Ur Phencyclidine Scrn Presumptive negative 05/09/18 10:33 Ur Amphetamines Screen Presumptive negative 05/09/18 10:33 U Benzodiazepines Scrn Presumptive negative 05/09/18 10:33 Urine Cocaine Screen Presumptive negative 05/09/18 10:33 U Marijuana (THC) Screen Presumptive negative 05/09/18 10:33 Drugs of Abuse Note Disclamer 05/09/18 10:33 JOSE ANTONIO Screen Negative (Negative) 05/10/18 13:22 Proteinase 3 (PR3) Ab <1.0 AI (<1.0) 05/10/18 13:22 Myeloperoxidase Ab <1.0 AI (<1.0) 05/10/18 13:22 Double Strand DNA Ab <1 IU/mL (<=4) 05/10/18 13:22 Glomerular Base Mem IgG See scanned result 05/10/18 13:22 Complement C3 142 mg/dL (82-185) 05/10/18 13:22 Complement C4 20 mg/dL (15-53) 05/10/18 13:22 Tot Complement (CH50) >60 U/mL (31-60) H 05/10/18 13:22 Hepatitis A IgM Ab Non-reactive (NonReactive) 05/10/18 13:22 Hep Bs Antigen Non-reactive (Negative) 05/10/18 13:22 Hep B Core IgM Ab Non-reactive (NonReactive) 05/10/18 13:22 Hepatitis C Antibody Non-reactive (NonReactive) 05/10/18 13:22 HIV 1&2 Antibody Rapid Non react (Non React) 05/10/18 13:22 HIV P24 Antigen Non react (Non React) 05/10/18 13:22 Anti-Streptolysin O Ab See scanned result 05/10/18 13:22 Nutrition/Malnutrition Assess - Dietary Evaluation Nutrition/Malnutrition Findings: Nutrition Notes Start: 05/10/18 09:35 Freq: Status: Active Protocol: Document 05/25/18 12:24 [email or web address] (Rec: 05/25/18 12:49 [email or web address]) Co-Sign 05/25/18 12:24 LP Nutrition Notes Initial or Follow up Reassessment Current Diagnosis Acute Kidney Injury CKD (stage V CKD) COPD Hypertension Heart Failure Respiratory Failure Current Diet Renal Diet Labs/Tests BUN: 22 Cr: 2.7 Pertinent Medications Reviewed Height 5 ft 9 in Weight 87.6 kg [place] Body Weight (kg) 72.72 BMI 28.5 Weight Status Overweight Subjective/Other Information Pt f/u for PO intakes and ONS tolerance. Pt. was sitting up in bed and eating breakfast at time of visit. Pt says he eats 100% of his breakfast and about 75% of lunch and dinner depending on what is being served. Pt stated he has been drinking his daily Nepro and wants to continue to recieve it. Percent of energy/protein needs met: 100%/83% Burn Absent Trauma Absent Current % PO Good (75-100%) #3 Nutrition Diagnosis Food and nutrition-related knowledge deficit Diagnosis Progress(for reassessment Resolved documentation) #2 Nutrition Diagnosis Increased nutrient needs ( specify in comment below) As Evidenced by Signs and Symptoms Meeting 83% of protein needs. Diagnosis Progress(for reassessment Improved documentation) #1 Nutrition Diagnosis Inadequate oral intake As Evidenced by Signs and Symptoms Pt consuming more than 75% of needs Diagnosis Progress(for reassessment Resolved documentation) Is patient on ventilator? No Is Patient Ambulatory and/or Out of Bed Yes REE-([place]-St. Jeor-ambulatory/OOB) [ 2185.794 NUTR.[id number]] Kcal/Kg value to use for calculation 21 Approximate Energy Requirements Using 1840 kcal/Kg Calculation Used for Recommendations Kcal/kg Additional Notes Pro needs: 106-114g/day (1.2-1 .3 g/kg BW) Fluid needs: 1mL/kcal or per MD Nutrition Intervention Change Diet Order: Continue Renal Diet Add Supplement/Snack (indicate name/kcal Nepro daily /protein ) Provides kCal: 425 Provides Protein (gm) 19 Goal #1 Continue to meet at least 75% of energy and protein needs via PO and ONS intakes Anticipated Discharge Needs: Renal diet with ONS PRN Revisit per MD consult or patient Sign Off request:
[2018-05-26] MEDS: LASIX PO SCH ×2 (06:35→19:14)
[2018-05-26] MEDS: APRESOLINE PO SCH ×3 (06:38→21:10)
--- NOTE | 2018-05-26 10:09 | Progress Note ---
Assessment and Plan ESRD now on HD - s/p permcath 05/18 - s/p HD yesterday, eval for need daily. - social services coordinator consulted for outpatient HD arrangement, can be discharged from renal standpoint once outpatient HD is secured Acute heart failure NSTEMI Elevated BNP -per cardiology Acute hypoxic-hypercapnic respiratory failure Elevated-Dimer -As per pulmonary S/P Hypertensive emergency Hypertension: -Adjust regimen as needed Tomasz Quinn MD [phone] Subjective Date of service: 05/26/18 Principal diagnosis: Acute hypoxemic hypercapnic Resp failure; Acute CHF; ELVIA; NSTEMI Interval history: S/p HD yesterday, Denies CP, SHOB. Objective - Exam Narrative Exam: General appearance: well-developed, well-nourished EENT: ATNC, PERRL, mucous membranes moist Neck: no JVD Respiratory: Present: Clear to Ascultation, Rt IJ TDC intact Cardiology: regular, S1S2 Gastrointestinal: normoactive bowel sounds Integumentary: no rash, warm and dry Neurologic: no focal deficit, no asterixis, alert and oriented x3 Psychiatric: cooperative - Vital Signs Vital signs: Vital Signs - 12hr 05/25/18 05/25/18 05/25/18 22:43 23:39 23:41 Temperature 98.0 F Pulse Rate 57 L 58 L 58 L Respiratory 20 Rate Blood Pressure 146/87 140/82 140/82 O2 Sat by Pulse 100 Oximetry 05/26/18 05/26/18 04:41 06:38 Temperature 98.0 F Pulse Rate 53 L 57 L Respiratory 18 Rate Blood Pressure 109/54 109/54 O2 Sat by Pulse 96 Oximetry - Lab 05/19/18 05:09 05/23/18 14:40 Most recent lab results Calcium 9.4 mg/dL (8.4-10.2) 05/23/18 14:40 Magnesium 2.40 mg/dL (1.7-2.3) H 05/18/18 05:03 Urine Creatinine 66.1 mg/dL (0.1-20.0) H 05/17/18 14:00 Medications & Allergies - Medications Allergies/Adverse Reactions: Allergies No Known Allergies Allergy (Unverified 05/09/18 10:45) Home Medications: Home Medications Medication Instructions Recorded Confirmed Last Taken Type AtorvaSTATin [Lipitor] 80 mg PO QHS #30 tablet 05/24/18 Unknown Rx FLUoxetine [PROzac] 40 mg PO QDAY #30 capsule 05/24/18 Unknown Rx Famotidine [Pepcid] 20 mg PO DAILY #30 tablet 05/24/18 Unknown Rx Furosemide [Lasix TAB] 40 mg PO 0600,1800 #60 tablet 05/24/18 Unknown Rx ISOSORBIDE MONOnitrate [Imdur ER] 30 mg PO QDAY #30 tablet 05/24/18 Unknown Rx Metoprolol [Lopressor TAB] 25 mg PO BID #60 tablet 05/24/18 Unknown Rx Potassium Chloride 20 meq PO Q12H #60 packet 05/24/18 Unknown Rx hydrALAZINE [Apresoline TAB] 100 mg PO Q8HR #90 tablet 05/24/18 Unknown Rx Active Medications: Generic Name Dose Route Start Last Admin Trade Name Freq PRN Reason Stop Dose Admin Acetaminophen 650 mg 05/11/18 23:42 05/12/18 00:19 Tylenol PO 650 mg Q6H PRN Administration Pain, Mild (1-3) Albuterol 2.5 mg 05/21/18 14:04 Proventil IH Q4HRT PRN Shortness Of Breath Atorvastatin Calcium 80 mg 05/11/18 22:00 05/25/18 23:41 Lipitor PO 80 mg QHS GLENDA Administration Famotidine 20 mg 05/14/18 12:00 05/25/18 14:16 Pepcid PO 20 mg DAILY GLENDA Administration Fluoxetine HCl 40 mg 05/11/18 14:00 05/25/18 14:16 Prozac PO 40 mg QDAY GLENDA Administration Furosemide 40 mg 05/15/18 18:00 05/26/18 06:35 Lasix PO 40 mg 0600,1800 GLENDA Administration Heparin Sodium (Porcine) 5,000 unit 05/15/18 22:00 05/25/18 23:39 Heparin SUB-Q 5,000 unit Q12HR GLENDA Administration Hydralazine HCl 10 mg 05/12/18 10:23 05/23/18 00:26 Apresoline IV 10 mg Q4H PRN Administration SBP > 160 Hydralazine HCl 100 mg 05/13/18 10:19 05/26/18 06:38 Apresoline PO Not Given Q8HR GLENDA Isosorbide Mononitrate 30 mg 05/12/18 14:00 05/25/18 14:23 Imdur PO Not Given QDAY GLENDA Metoprolol Tartrate 25 mg 05/20/18 13:40 05/25/18 23:39 Lopressor PO 25 mg BID GLENDA Administration Potassium Chloride 20 meq 05/10/18 22:00 05/25/18 23:40 Potassium Chloride PO 20 meq Q12H GLENDA Administration
[2018-05-26] MEDS: IMDUR PO SCH (11:13)
[2018-05-26] MEDS: PROzac PO SCH (11:13)
[2018-05-26] MEDS: HEPARIN SUB-Q SCH ×2 (11:14→21:12)
[2018-05-26] MEDS: PEPCID PO SCH (11:14)
[2018-05-26] MEDS: LOPRESSOR PO SCH ×2 (11:14→21:11)
[2018-05-26] MEDS: POTASSIUM CHLORIDE PO SCH ×2 (11:14→21:11)
--- NOTE | 2018-05-26 12:54 | Progress Note ---
Assessment and Plan Assessment and plan: Acute hypoxemic respiratory failure. Etiology secondary to acute heart failure and Non ST elevation [place]. Resolved. Acute HFpEF. Resolved. Echocardiogram reveals EF 50-55%. Continue medical management. NSTEMI. Continue medical management. Acute renal failure. -Baseline SCr level unknown, but pt was apparently told 1 year ago at [facility] that he had proteinuria -S/p first HD treatment on 05/11/18 -s/p permcath 05/18 -social contact worker consulted for outpatient HD arrangement Accelerated hypertension. Continue antihypertensive medications. - Patient Problems (1) Acute heart failure with preserved ejection fraction Current Visit: Yes Status: Acute (2) Acute renal failure Current Visit: Yes Status: Acute Qualifiers: Acute renal failure type: unspecified Qualified Code(s): N17.9 - Acute kidney failure, unspecified (3) CHF (congestive heart failure) Current Visit: Yes Status: Acute Qualifiers: Heart failure type: unspecified Heart failure chronicity: acute Qualified Code(s): I50.9 - Heart failure, unspecified (4) Elevated d-dimer Current Visit: Yes Status: Acute (5) NSTEMI (non-ST elevated myocardial infarction) Current Visit: Yes Status: Acute (6) Respiratory failure Current Visit: Yes Status: Acute Qualifiers: Chronicity: acute Respiratory failure complication: hypoxia Qualified Code(s): J96.01 - Acute respiratory failure with hypoxia (7) History of hypertension Current Visit: Yes Status: Chronic (8) Hyperlipidemia Current Visit: Yes Status: Chronic History Interval history: This is a 57 year old male who presented to the hospital with a chief complaint of shortness of breath and chest pain that began on 05/09/18, approximately 2 hours prior to arriving to [facility] On evaluation, patient was found to be acute Hypoxic respiratory failure with oxygen levels in the 70's. Patient required intubation due to respiratory distress. Additionally, the Patient was found to have ARF and Acute heart failure precipitated by accelerated htn with BP-261/162 and NSTEMI. Patient was initially treated with heparin drip. CXR revealed pulmonary venous congestion. Pertinent labs on admission revealed elevated D- dimer [place] 1326, [place] [address], WBC level of 17.6, elevated troponin levels and elevated serum creatinine level of 3.9 on admission. The patient was later extubated and respiratory status improved to his baseline. Cardiology, pulmonary and nephrology saw the patient in consultation. Patient later underwent MPI stress tests on 05/14/18 which was negative for ischemia, EF 34%. EF 50-55% per echo. The heart failure/NSTEMI was managed medically with aspirin beta suzan and hydralazine, statin, IV Lasix and Imdur. No SCOTT inhibitor due to the renal failure. Nephrology felt that the acute renal failure was likely secondary to ischemic ATN on possible underlying CKD with proteinuria. Patient had to undergo hemodialysis treatment which was initiated on 05/11/18. The patient later had PermCath placed on 05/18. Social work was consulted for outpatient hemodialysis arrangement. Hospitalist Physical - Constitutional Vitals: Temp Pulse Resp BP Pulse Ox 98.3 F 59 L 20 115/68 97 05/26/18 11:38 05/26/18 11:38 05/26/18 11:38 05/26/18 11:38 05/26/18 11:38 General appearance: Present: no acute distress, well-nourished - EENT Eyes: Present: PERRL, EOM intact ENT: hearing intact, clear oral mucosa, dentition normal - Neck Neck: Present: supple, normal ROM - Respiratory Respiratory effort: normal Respiratory: bilateral: CTA - Cardiovascular Rhythm: regular Heart Sounds: Present: S1 & S2. Absent: gallop, rub - Extremities Extremities: no ischemia, No edema, Full ROM - Abdominal General gastrointestinal: soft, non-tender, non-distended, normal bowel sounds - Integumentary Integumentary: Present: clear, warm, dry - Neurologic Neurologic: CNII-XII intact, moves all extremities Results - Labs CBC & Chem 7: 05/19/18 05:09 05/23/18 14:40 Labs: Laboratory Last Values WBC 10.1 K/mm3 (4.5-11.0) 05/19/18 05:09 RBC 4.52 M/mm3 (3.65-5.03) 05/19/18 05:09 Hgb 13.5 gm/dl (11.8-15.2) 05/19/18 05:09 Hct 40.5 % (35.5-45.6) 05/19/18 05:09 MCV 90 fl (84-94) 05/19/18 05:09 MCH 30 pg (28-32) 05/19/18 05:09 MCHC 33 % (32-34) 05/19/18 05:09 RDW 15.3 % (13.2-15.2) H 05/19/18 05:09 Plt Count 152 K/mm3 (140-440) 05/19/18 05:09 Lymph % (Auto) 8.1 % (13.4-35.0) L 05/11/18 04:28 [place] % (Auto) 9.2 % (0.0-7.3) H 05/11/18 04:28 Eos % (Auto) 0.0 % (0.0-4.3) 05/11/18 04:28 Baso % (Auto) 0.3 % (0.0-1.8) 05/11/18 04:28 Lymph # 1.1 K/mm3 (1.2-5.4) L 05/11/18 04:28 [place] # 1.2 K/mm3 (0.0-0.8) H 05/11/18 04:28 Eos # 0.0 K/mm3 (0.0-0.4) 05/11/18 04:28 Baso # 0.0 K/mm3 (0.0-0.1) 05/11/18 04:28 Seg Neutrophils % 82.4 % (40.0-70.0) H 05/11/18 04:28 Seg Neutrophils # 10.8 K/mm3 (1.8-7.7) H 05/11/18 04:28 PT 13.5 Sec. (12.2-14.9) 05/09/18 11:55 INR 0.99 (0.87-1.13) 05/09/18 11:55 APTT 21.2 Sec. (24.2-36.6) L 05/09/18 11:55 D-Dimer 1326.35 ng/mlDDU (0-234) H 05/09/18 10:09 Heparin Anti-Xa Level < 0.10 U.I./ml (0.3-0.7) L 05/12/18 06:43 POC ABG pH 7.393 (7.35-7.45) 05/10/18 17:21 POC ABG pCO2 32.4 (35-45) L 05/10/18 17:21 POC ABG pO2 82 (80-105) 05/10/18 17:21 POC ABG HCO3 19.7 05/10/18 17:21 POC ABG Total CO2 21 05/10/18 17:21 POC ABG O2 Sat 96 05/10/18 17:21 POC ABG Base Excess -5 05/10/18 17:21 FiO2 28 % 05/10/18 17:21 Sodium 135 mmol/L (137-145) L 05/23/18 14:40 Potassium 3.7 mmol/L (3.6-5.0) 05/23/18 14:40 Chloride 95.3 mmol/L (98-107) L 05/23/18 14:40 Carbon Dioxide 24 mmol/L (22-30) 05/23/18 14:40 Anion Gap 19 mmol/L 05/23/18 14:40 BUN 22 mg/dL (9-20) H 05/23/18 14:40 Creatinine 2.7 mg/dL (0.8-1.5) H 05/23/18 14:40 Estimated GFR 24 ml/min 05/23/18 14:40 BUN/Creatinine Ratio 8 % 05/23/18 14:40 Glucose 170 mg/dL (75-100) H 05/23/18 14:40 Lactic Acid 1.30 mmol/L (0.7-2.0) 05/10/18 16:08 Calcium 9.4 mg/dL (8.4-10.2) 05/23/18 14:40 Magnesium 2.40 mg/dL (1.7-2.3) H 05/18/18 05:03 Total Bilirubin 0.30 mg/dL (0.1-1.2) 05/09/18 10:09 AST 26 units/L (5-40) 05/09/18 10:09 ALT 18 units/L (7-56) 05/09/18 10:09 Alkaline Phosphatase 88 units/L (35-129) 05/09/18 10:09 Total Creatine Kinase 159 units/L (55-170) 05/09/18 15:36 CK-MB (CK-2) 9.3 ng/mL (0.0-4.0) H 05/09/18 15:36 CK-MB (CK-2) Rel Index 5.8 (0-4) H 05/09/18 15:36 Troponin T 0.246 ng/mL (0.00-0.029) H* 05/09/18 15:36 C-Reactive Protein 2.00 mg/dL (0.00-1.30) H 05/10/18 16:08 NT-Pro-B Natriuret Pep 63374 pg/mL (0-900) H 05/09/18 10:09 Serum Total Protein 6.4 g/dL (6.1-8.1) 05/10/18 13:22 Total Protein 7.7 g/dL (6.3-8.2) 05/09/18 10:09 Albumin 3.5 g/dL (3.8-4.8) L 05/10/18 13:22 Albumin/Globulin Ratio 1.1 % 05/09/18 10:09 Hzjyw-3-Jlxfhjspo 0.4 g/dL (0.2-0.3) H 05/10/18 13:22 Riahh-6-Rvhswzovg 0.6 g/dL (0.5-0.9) 05/10/18 13:22 Beta Globulins 0.3 g/dL (0.2-0.5) 05/10/18 13:22 Gamma Globulins 1.2 g/dL (0.8-1.7) 05/10/18 13:22 Abnorm Protein Band 1 0.4 g/dL H 05/10/18 13:22 Abnorm Protein Band 2 see below 05/10/18 13:22 PEP Interpretation see below H 05/10/18 13:22 Triglycerides 175 mg/dL (2-149) H 05/09/18 10:09 Cholesterol 276 mg/dL (50-199) H 05/09/18 10:09 LDL Cholesterol Direct 235 mg/dL (50-130) H 05/09/18 10:09 HDL Cholesterol 34 mg/dL (40-59) L 05/09/18 10:09 Cholesterol/HDL Ratio 8.11 % 05/09/18 10:09 TSH 1.110 mlU/mL (0.270-4.200) 05/10/18 02:07 Free T4 1.15 ng/dL (0.76-1.46) 05/10/18 02:07 Urine Color Yellow (Yellow) 05/09/18 10:33 Urine Turbidity Clear (Clear) 05/09/18 10:33 Urine pH 6.0 (5.0-7.0) 05/09/18 10:33 Ur Specific [place] 1.011 (1.003-1.030) 05/09/18 10:33 Urine Protein >2000 mg dl mg/dL (Negative) 05/09/18 10:33 Urine Glucose (UA) 50 mg/dL (Negative) 05/09/18 10:33 Urine Ketones Neg mg/dL (Negative) 05/09/18 10:33 Urine Blood Neg (Negative) 05/09/18 10:33 Urine Nitrite Neg (Negative) 05/09/18 10:33 Urine Bilirubin Neg (Negative) 05/09/18 10:33 Urine Urobilinogen < 2.0 mg/dL (<2.0) 05/09/18 10:33 Ur Leukocyte Esterase Neg (Negative) 05/09/18 10:33 Urine WBC (Auto) 2.0 /HPF (0.0-6.0) 05/09/18 10:33 Urine RBC (Auto) 3.0 /HPF (0.0-6.0) 05/09/18 10:33 Urine Bacteria (Auto) 1+ /HPF (Negative) 05/09/18 10:33 Urine Total Volume 2500 ml 05/17/18 14:00 Urine Creatinine 66.1 mg/dL (0.1-20.0) H 05/17/18 14:00 Ur Creatinine 24 Hour 0.6 (0.8-2.8) L 05/15/18 Unknown Height (in) 69.0 inches 05/17/18 14:00 Weight (lb) 215.8 lbs 05/17/18 14:00 Creatinine Clearance 28 05/17/18 14:00 Urine Opiates Screen Presumptive negative 05/09/18 10:33 Urine Methadone Screen Presumptive negative 05/09/18 10:33 Ur Barbiturates Screen Presumptive negative 05/09/18 10:33 Ur Phencyclidine Scrn Presumptive negative 05/09/18 10:33 Ur Amphetamines Screen Presumptive negative 05/09/18 10:33 U Benzodiazepines Scrn Presumptive negative 05/09/18 10:33 Urine Cocaine Screen Presumptive negative 05/09/18 10:33 U Marijuana (THC) Screen Presumptive negative 05/09/18 10:33 Drugs of Abuse Note Disclamer 05/09/18 10:33 JOSE ANTONIO Screen Negative (Negative) 05/10/18 13:22 Proteinase 3 (PR3) Ab <1.0 AI (<1.0) 05/10/18 13:22 Myeloperoxidase Ab <1.0 AI (<1.0) 05/10/18 13:22 Double Strand DNA Ab <1 IU/mL (<=4) 05/10/18 13:22 Glomerular Base Mem IgG See scanned result 05/10/18 13:22 Complement C3 142 mg/dL (82-185) 05/10/18 13:22 Complement C4 20 mg/dL (15-53) 05/10/18 13:22 Tot Complement (CH50) >60 U/mL (31-60) H 05/10/18 13:22 Hepatitis A IgM Ab Non-reactive (NonReactive) 05/10/18 13:22 Hep Bs Antigen Non-reactive (Negative) 05/10/18 13:22 Hep B Core IgM Ab Non-reactive (NonReactive) 05/10/18 13:22 Hepatitis C Antibody Non-reactive (NonReactive) 05/10/18 13:22 HIV 1&2 Antibody Rapid Non react (Non React) 05/10/18 13:22 HIV P24 Antigen Non react (Non React) 05/10/18 13:22 Anti-Streptolysin O Ab See scanned result 05/10/18 13:22 Nutrition/Malnutrition Assess - Dietary Evaluation Nutrition/Malnutrition Findings: Nutrition Notes Start: 05/10/18 09:35 Freq: Status: Active Protocol: Document 05/25/18 12:24 [email or web address] (Rec: 05/25/18 12:49 [email or web address]) Co-Sign 05/25/18 12:24 LP Nutrition Notes Initial or Follow up Reassessment Current Diagnosis Acute Kidney Injury CKD (stage V CKD) COPD Hypertension Heart Failure Respiratory Failure Current Diet Renal Diet Labs/Tests BUN: 22 Cr: 2.7 Pertinent Medications Reviewed Height 5 ft 9 in Weight 87.6 kg [place] Body Weight (kg) 72.72 BMI 28.5 Weight Status Overweight Subjective/Other Information Pt f/u for PO intakes and ONS tolerance. Pt. was sitting up in bed and eating breakfast at time of visit. Pt says he eats 100% of his breakfast and about 75% of lunch and dinner depending on what is being served. Pt stated he has been drinking his daily Nepro and wants to continue to recieve it. Percent of energy/protein needs met: 100%/83% Burn Absent Trauma Absent Current % PO Good (75-100%) #3 Nutrition Diagnosis Food and nutrition-related knowledge deficit Diagnosis Progress(for reassessment Resolved documentation) #2 Nutrition Diagnosis Increased nutrient needs ( specify in comment below) As Evidenced by Signs and Symptoms Meeting 83% of protein needs. Diagnosis Progress(for reassessment Improved documentation) #1 Nutrition Diagnosis Inadequate oral intake As Evidenced by Signs and Symptoms Pt consuming more than 75% of needs Diagnosis Progress(for reassessment Resolved documentation) Is patient on ventilator? No Is Patient Ambulatory and/or Out of Bed Yes REE-([place]-St. Jeor-ambulatory/OOB) [ 2185.794 NUTR.MSJOOB] Kcal/Kg value to use for calculation 21 Approximate Energy Requirements Using 1840 kcal/Kg Calculation Used for Recommendations Kcal/kg Additional Notes Pro needs: 106-114g/day (1.2-1 .3 g/kg BW) Fluid needs: 1mL/kcal or per MD Nutrition Intervention Change Diet Order: Continue Renal Diet Add Supplement/Snack (indicate name/kcal Nepro daily /protein ) Provides kCal: 425 Provides Protein (gm) 19 Goal #1 Continue to meet at least 75% of energy and protein needs via PO and ONS intakes Anticipated Discharge Needs: Renal diet with ONS PRN Revisit per MD consult or patient Sign Off request:
[2018-05-27] MEDS: LASIX PO SCH ×2 (06:59→18:44)
[2018-05-27] MEDS: APRESOLINE PO SCH ×3 (06:59→22:01)
[2018-05-27] MEDS: HEPARIN SUB-Q SCH ×2 (10:04→21:48)
[2018-05-27] MEDS: LOPRESSOR PO SCH ×2 (10:04→21:59)
[2018-05-27] MEDS: PEPCID PO SCH (10:05)
[2018-05-27] MEDS: IMDUR PO SCH (10:05)
[2018-05-27] MEDS: PROzac PO SCH (10:05)
[2018-05-27] MEDS: POTASSIUM CHLORIDE PO SCH ×2 (10:07→22:00)
[2018-05-27 12:39] LABS: Calcium 9.3 mg/dL (8.4-10.2)
--- NOTE | 2018-05-27 14:30 | Progress Note ---
Assessment and Plan ESRD now on HD - s/p permcath 05/18 - s/p HD Monday, eval for need daily. - social media coordinator consulted for outpatient HD arrangement, can be discharged from renal standpoint once outpatient HD is secured Acute heart failure NSTEMI Elevated BNP -per cardiology Acute hypoxic-hypercapnic respiratory failure Elevated-Dimer -As per pulmonary S/P Hypertensive emergency Hypertension: -Adjust regimen as needed Tomasz Quinn MD [phone] Subjective Date of service: 05/27/18 Principal diagnosis: Acute hypoxemic hypercapnic Resp failure; Acute CHF; ELVIA; NSTEMI Interval history: S/p HD Monday, Denies CP, SHOB. Objective - Exam Narrative Exam: General appearance: well-developed, well-nourished EENT: ATNC, PERRL, mucous membranes moist Neck: no JVD Respiratory: Present: Clear to Ascultation, Rt IJ TDC intact Cardiology: regular, S1S2 Gastrointestinal: normoactive bowel sounds Integumentary: no rash, warm and dry Neurologic: no focal deficit, no asterixis, alert and oriented x3 Psychiatric: cooperative - Vital Signs Vital signs: Vital Signs - 12hr 05/27/18 05/27/18 06:00 11:29 Temperature 97.9 F 98.1 F Pulse Rate 64 67 Respiratory 16 20 Rate Blood Pressure 163/86 123/65 O2 Sat by Pulse 97 97 Oximetry - Lab 05/19/18 05:09 05/27/18 11:42 Most recent lab results Calcium 9.3 mg/dL (8.4-10.2) 05/27/18 11:42 Magnesium 2.40 mg/dL (1.7-2.3) H 05/18/18 05:03 Urine Creatinine 66.1 mg/dL (0.1-20.0) H 05/17/18 14:00 Medications & Allergies - Medications Allergies/Adverse Reactions: Allergies No Known Allergies Allergy (Unverified 05/09/18 10:45) Home Medications: Home Medications Medication Instructions Recorded Confirmed Last Taken Type AtorvaSTATin [Lipitor] 80 mg PO QHS #30 tablet 05/24/18 Unknown Rx FLUoxetine [PROzac] 40 mg PO QDAY #30 capsule 05/24/18 Unknown Rx Famotidine [Pepcid] 20 mg PO DAILY #30 tablet 02/21/19 Unknown Rx Furosemide [Lasix TAB] 40 mg PO 0600,1800 #60 tablet 05/24/18 Unknown Rx ISOSORBIDE MONOnitrate [Imdur ER] 30 mg PO QDAY #30 tablet 05/24/18 Unknown Rx Metoprolol [Lopressor TAB] 25 mg PO BID #60 tablet 05/24/18 Unknown Rx Potassium Chloride 20 meq PO Q12H #60 packet 05/24/18 Unknown Rx hydrALAZINE [Apresoline TAB] 100 mg PO Q8HR #90 tablet 05/24/18 Unknown Rx Active Medications: Generic Name Dose Route Start Last Admin Trade Name Freq PRN Reason Stop Dose Admin Acetaminophen 650 mg 05/11/18 23:42 05/12/18 00:19 Tylenol PO 650 mg Q6H PRN Administration Pain, Mild (1-3) Albuterol 2.5 mg 05/21/18 14:04 Proventil IH Q4HRT PRN Shortness Of Breath Atorvastatin Calcium 80 mg 05/11/18 22:00 05/26/18 21:11 Lipitor PO 80 mg QHS GLENDA Administration Famotidine 20 mg 05/14/18 12:00 05/27/18 10:05 Pepcid PO 20 mg DAILY GLENDA Administration Fluoxetine HCl 40 mg 05/11/18 14:00 05/27/18 10:05 Prozac PO 40 mg QDAY GLENDA Administration Furosemide 40 mg 05/15/18 18:00 05/27/18 06:59 Lasix PO 40 mg 0600,1800 GLENDA Administration Heparin Sodium (Porcine) 5,000 unit 05/15/18 22:00 05/27/18 10:04 Heparin SUB-Q 5,000 unit Q12HR GLENDA Administration Hydralazine HCl 10 mg 05/12/18 10:23 05/23/18 00:26 Apresoline IV 10 mg Q4H PRN Administration SBP > 160 Hydralazine HCl 100 mg 05/13/18 10:19 05/27/18 06:59 Apresoline PO 100 mg Q8HR GLENDA Administration Isosorbide Mononitrate 30 mg 05/12/18 14:00 05/27/18 10:05 Imdur PO 30 mg QDAY GLENDA Administration Metoprolol Tartrate 25 mg 05/20/18 13:40 05/27/18 10:04 Lopressor PO 25 mg BID GLENDA Administration Potassium Chloride 20 meq 05/10/18 22:00 05/27/18 10:07 Potassium Chloride PO 20 meq Q12H GLENDA Administration
--- NOTE | 2018-05-27 15:03 | Progress Note ---
Assessment and Plan Assessment and plan: Acute hypoxemic respiratory failure. Etiology secondary to acute heart failure and Non ST elevation [place]. Resolved. Acute HFpEF. Resolved. Echocardiogram reveals EF 50-55%. Continue medical management. NSTEMI. Continue medical management. Acute renal failure. -Baseline SCr level unknown, but pt was apparently told 1 year ago at [place] that he had proteinuria -S/p first HD treatment on 05/11/18 -s/p permcath 05/18 -public health social worker consulted for outpatient HD arrangement Accelerated hypertension. Continue antihypertensive medications. - Patient Problems (1) Acute heart failure with preserved ejection fraction Current Visit: Yes Status: Acute (2) Acute renal failure Current Visit: Yes Status: Acute Qualifiers: Acute renal failure type: unspecified Qualified Code(s): N17.9 - Acute kidney failure, unspecified (3) CHF (congestive heart failure) Current Visit: Yes Status: Acute Qualifiers: Heart failure type: unspecified Heart failure chronicity: acute Qualified Code(s): I50.9 - Heart failure, unspecified (4) Elevated d-dimer Current Visit: Yes Status: Acute (5) NSTEMI (non-ST elevated myocardial infarction) Current Visit: Yes Status: Acute (6) Respiratory failure Current Visit: Yes Status: Acute Qualifiers: Chronicity: acute Respiratory failure complication: hypoxia Qualified Code(s): J96.01 - Acute respiratory failure with hypoxia (7) History of hypertension Current Visit: Yes Status: Chronic (8) Hyperlipidemia Current Visit: Yes Status: Chronic History Interval history: This is a 57 year old male who presented to the hospital with a chief complaint of shortness of breath and chest pain that began on 05/09/18, approximately 2 hours prior to arriving to E.. On evaluation, patient was found to be acute Hypoxic respiratory failure with oxygen levels in the 70's. Patient required intubation due to respiratory distress. Additionally, the Patient was found to have ARF and Acute heart failure precipitated by accelerated htn with BP-261/162 and NSTEMI. Patient was initially treated with heparin drip. CXR revealed pulmonary venous congestion. Pertinent labs on admission revealed elevated D- dimer level [place] 1326, [place] [address], WBC level of 17.6, elevated troponin levels and elevated serum creatinine level of 3.9 on admission. The patient was later extubated and respiratory status improved to his baseline. Cardiology, pulmonary and nephrology saw the patient in consultation. Patient later underwent MPI stress tests on 05/14/18 which was negative for ischemia, EF 34%. EF 50-55% per echo. The heart failure/NSTEMI was managed medically with aspirin beta suzan and hydralazine, statin, IV Lasix and Imdur. No SCOTT inhibitor due to the renal failure. Nephrology felt that the acute renal failure was likely secondary to ischemic ATN on possible underlying CKD with proteinuria. Patient had to undergo hemodialysis treatment which was initiated on 05/11/18. The patient later had PermCath placed on 05/18. Social work was consulted for outpatient hemodialysis arrangement. Hospitalist Physical - Constitutional Vitals: Temp Pulse Resp BP Pulse Ox 98.1 F 67 20 123/65 97 05/27/18 11:29 05/27/18 11:29 05/27/18 11:29 05/27/18 11:29 05/27/18 11:29 General appearance: Present: no acute distress, well-nourished - EENT Eyes: Present: PERRL, EOM intact ENT: hearing intact, clear oral mucosa, dentition normal - Neck Neck: Present: supple, normal ROM - Respiratory Respiratory effort: normal Respiratory: bilateral: CTA - Cardiovascular Rhythm: regular Heart Sounds: Present: S1 & S2. Absent: gallop, rub - Extremities Extremities: no ischemia, No edema, Full ROM - Abdominal General gastrointestinal: soft, non-tender, non-distended, normal bowel sounds - Integumentary Integumentary: Present: clear, warm, dry - Neurologic Neurologic: CNII-XII intact, moves all extremities Results - Labs CBC & Chem 7: 05/19/18 05:09 05/27/18 11:42 Labs: Laboratory Last Values WBC 10.1 K/mm3 (4.5-11.0) 05/19/18 05:09 RBC 4.52 M/mm3 (3.65-5.03) 05/19/18 05:09 Hgb 13.5 gm/dl (11.8-15.2) 05/19/18 05:09 Hct 40.5 % (35.5-45.6) 05/19/18 05:09 MCV 90 fl (84-94) 05/19/18 05:09 MCH 30 pg (28-32) 05/19/18 05:09 MCHC 33 % (32-34) 05/19/18 05:09 RDW 15.3 % (13.2-15.2) H 05/19/18 05:09 Plt Count 152 K/mm3 (140-440) 05/19/18 05:09 Lymph % (Auto) 8.1 % (13.4-35.0) L 05/11/18 04:28 [place] % (Auto) 9.2 % (0.0-7.3) H 05/11/18 04:28 Eos % (Auto) 0.0 % (0.0-4.3) 05/11/18 04:28 Baso % (Auto) 0.3 % (0.0-1.8) 05/11/18 04:28 Lymph # 1.1 K/mm3 (1.2-5.4) L 05/11/18 04:28 [place] # 1.2 K/mm3 (0.0-0.8) H 05/11/18 04:28 Eos # 0.0 K/mm3 (0.0-0.4) 05/11/18 04:28 Baso # 0.0 K/mm3 (0.0-0.1) 05/11/18 04:28 Seg Neutrophils % 82.4 % (40.0-70.0) H 05/11/18 04:28 Seg Neutrophils # 10.8 K/mm3 (1.8-7.7) H 05/11/18 04:28 PT 13.5 Sec. (12.2-14.9) 05/09/18 11:55 INR 0.99 (0.87-1.13) 05/09/18 11:55 APTT 21.2 Sec. (24.2-36.6) L 05/09/18 11:55 D-Dimer 1326.35 ng/mlDDU (0-234) H 05/09/18 10:09 Heparin Anti-Xa Level < 0.10 U.I./ml (0.3-0.7) L 05/12/18 06:43 POC ABG pH 7.393 (7.35-7.45) 05/10/18 17:21 POC ABG pCO2 32.4 (35-45) L 05/10/18 17:21 POC ABG pO2 82 (80-105) 05/10/18 17:21 POC ABG HCO3 19.7 05/10/18 17:21 POC ABG Total CO2 21 05/10/18 17:21 POC ABG O2 Sat 96 05/10/18 17:21 POC ABG Base Excess -5 05/10/18 17:21 FiO2 28 % 05/10/18 17:21 Sodium 134 mmol/L (137-145) L 05/27/18 11:42 Potassium 4.5 mmol/L (3.6-5.0) D 05/27/18 11:42 Chloride 93.8 mmol/L (98-107) L 05/27/18 11:42 Carbon Dioxide 24 mmol/L (22-30) 05/27/18 11:42 Anion Gap 21 mmol/L 05/27/18 11:42 BUN 66 mg/dL (9-20) H 05/27/18 11:42 Creatinine 5.6 mg/dL (0.8-1.5) H D 05/27/18 11:42 Estimated GFR 10 ml/min 05/27/18 11:42 BUN/Creatinine Ratio 12 % 05/27/18 11:42 Glucose 108 mg/dL (75-100) H 05/27/18 11:42 Lactic Acid 1.30 mmol/L (0.7-2.0) 05/10/18 16:08 Calcium 9.3 mg/dL (8.4-10.2) 05/27/18 11:42 Magnesium 2.40 mg/dL (1.7-2.3) H 05/18/18 05:03 Total Bilirubin 0.30 mg/dL (0.1-1.2) 05/09/18 10:09 AST 26 units/L (5-40) 05/09/18 10:09 ALT 18 units/L (7-56) 05/09/18 10:09 Alkaline Phosphatase 88 units/L (35-129) 05/09/18 10:09 Total Creatine Kinase 159 units/L (55-170) 05/09/18 15:36 CK-MB (CK-2) 9.3 ng/mL (0.0-4.0) H 05/09/18 15:36 CK-MB (CK-2) Rel Index 5.8 (0-4) H 05/09/18 15:36 Troponin T 0.246 ng/mL (0.00-0.029) H* 05/09/18 15:36 C-Reactive Protein 2.00 mg/dL (0.00-1.30) H 05/10/18 16:08 NT-Pro-B Natriuret Pep 57361 pg/mL (0-900) H 05/09/18 10:09 Serum Total Protein 6.4 g/dL (6.1-8.1) 05/10/18 13:22 Total Protein 7.7 g/dL (6.3-8.2) 05/09/18 10:09 Albumin 3.5 g/dL (3.8-4.8) L 05/10/18 13:22 Albumin/Globulin Ratio 1.1 % 05/09/18 10:09 Dclsa-9-Frtcnftbf 0.4 g/dL (0.2-0.3) H 05/10/18 13:22 Ewjks-3-Gkouhilzd 0.6 g/dL (0.5-0.9) 05/10/18 13:22 Beta Globulins 0.3 g/dL (0.2-0.5) 05/10/18 13:22 Gamma Globulins 1.2 g/dL (0.8-1.7) 05/10/18 13:22 Abnorm Protein Band 1 0.4 g/dL H 05/10/18 13:22 Abnorm Protein Band 2 see below 05/10/18 13:22 PEP Interpretation see below H 05/10/18 13:22 Triglycerides 175 mg/dL (2-149) H 05/09/18 10:09 Cholesterol 276 mg/dL (50-199) H 05/09/18 10:09 LDL Cholesterol Direct 235 mg/dL (50-130) H 05/09/18 10:09 HDL Cholesterol 34 mg/dL (40-59) L 05/09/18 10:09 Cholesterol/HDL Ratio 8.11 % 05/09/18 10:09 TSH 1.110 mlU/mL (0.270-4.200) 05/10/18 02:07 Free T4 1.15 ng/dL (0.76-1.46) 05/10/18 02:07 Urine Color Yellow (Yellow) 05/09/18 10:33 Urine Turbidity Clear (Clear) 05/09/18 10:33 Urine pH 6.0 (5.0-7.0) 05/09/18 10:33 Ur Specific [place] 1.011 (1.003-1.030) 05/09/18 10:33 Urine Protein >2000 mg dl mg/dL (Negative) 05/09/18 10:33 Urine Glucose (UA) 50 mg/dL (Negative) 05/09/18 10:33 Urine Ketones Neg mg/dL (Negative) 05/09/18 10:33 Urine Blood Neg (Negative) 05/09/18 10:33 Urine Nitrite Neg (Negative) 05/09/18 10:33 Urine Bilirubin Neg (Negative) 05/09/18 10:33 Urine Urobilinogen < 2.0 mg/dL (<2.0) 05/09/18 10:33 Ur Leukocyte Esterase Neg (Negative) 05/09/18 10:33 Urine WBC (Auto) 2.0 /HPF (0.0-6.0) 05/09/18 10:33 Urine RBC (Auto) 3.0 /HPF (0.0-6.0) 05/09/18 10:33 Urine Bacteria (Auto) 1+ /HPF (Negative) 05/09/18 10:33 Urine Total Volume 2500 ml 05/17/18 14:00 Urine Creatinine 66.1 mg/dL (0.1-20.0) H 05/17/18 14:00 Ur Creatinine 24 Hour 0.6 (0.8-2.8) L 05/15/18 Unknown Height (in) 69.0 inches 05/17/18 14:00 Weight (lb) 215.8 lbs 05/17/18 14:00 Creatinine Clearance 28 05/17/18 14:00 Urine Opiates Screen Presumptive negative 05/09/18 10:33 Urine Methadone Screen Presumptive negative 05/09/18 10:33 Ur Barbiturates Screen Presumptive negative 05/09/18 10:33 Ur Phencyclidine Scrn Presumptive negative 05/09/18 10:33 Ur Amphetamines Screen Presumptive negative 05/09/18 10:33 U Benzodiazepines Scrn Presumptive negative 05/09/18 10:33 Urine Cocaine Screen Presumptive negative 05/09/18 10:33 U Marijuana (THC) Screen Presumptive negative 05/09/18 10:33 Drugs of Abuse Note Disclamer 05/09/18 10:33 JOSE ANTONIO Screen Negative (Negative) 05/10/18 13:22 Proteinase 3 (PR3) Ab <1.0 AI (<1.0) 05/10/18 13:22 Myeloperoxidase Ab <1.0 AI (<1.0) 05/10/18 13:22 Double Strand DNA Ab <1 IU/mL (<=4) 05/10/18 13:22 Glomerular Base Mem IgG See scanned result 05/10/18 13:22 Complement C3 142 mg/dL (82-185) 05/10/18 13:22 Complement C4 20 mg/dL (15-53) 05/10/18 13:22 Tot Complement (CH50) >60 U/mL (31-60) H 05/10/18 13:22 Hepatitis A IgM Ab Non-reactive (NonReactive) 05/10/18 13:22 Hep Bs Antigen Non-reactive (Negative) 05/10/18 13:22 Hep B Core IgM Ab Non-reactive (NonReactive) 05/10/18 13:22 Hepatitis C Antibody Non-reactive (NonReactive) 05/10/18 13:22 HIV 1&2 Antibody Rapid Non react (Non React) 05/10/18 13:22 HIV P24 Antigen Non react (Non React) 05/10/18 13:22 Anti-Streptolysin O Ab See scanned result 05/10/18 13:22 Nutrition/Malnutrition Assess - Dietary Evaluation Nutrition/Malnutrition Findings: Nutrition Notes Start: 05/10/18 09:35 Freq: Status: Active Protocol: Document 05/25/18 12:24 [email or web address] (Rec: 05/25/18 12:49 [email or web address]) Co-Sign 05/25/18 12:24 LP Nutrition Notes Initial or Follow up Reassessment Current Diagnosis Acute Kidney Injury CKD (stage V CKD) COPD Hypertension Heart Failure Respiratory Failure Current Diet Renal Diet Labs/Tests BUN: 22 Cr: 2.7 Pertinent Medications Reviewed Height 5 ft 9 in Weight 87.6 kg [place] Body Weight (kg) 72.72 BMI 28.5 Weight Status Overweight Subjective/Other Information Pt f/u for PO intakes and ONS tolerance. Pt. was sitting up in bed and eating breakfast at time of visit. Pt says he eats 100% of his breakfast and about 75% of lunch and dinner depending on what is being served. Pt stated he has been drinking his daily Nepro and wants to continue to recieve it. Percent of energy/protein needs met: 100%/83% Burn Absent Trauma Absent Current % PO Good (75-100%) #3 Nutrition Diagnosis Food and nutrition-related knowledge deficit Diagnosis Progress(for reassessment Resolved documentation) #2 Nutrition Diagnosis Increased nutrient needs ( specify in comment below) As Evidenced by Signs and Symptoms Meeting 83% of protein needs. Diagnosis Progress(for reassessment Improved documentation) #1 Nutrition Diagnosis Inadequate oral intake As Evidenced by Signs and Symptoms Pt consuming more than 75% of needs Diagnosis Progress(for reassessment Resolved documentation) Is patient on ventilator? No Is Patient Ambulatory and/or Out of Bed Yes REE-([place]-St. Jeor-ambulatory/OOB) [ 2185.794 NUTR.[id number]] Kcal/Kg value to use for calculation 21 Approximate Energy Requirements Using 1840 kcal/Kg Calculation Used for Recommendations Kcal/kg Additional Notes Pro needs: 106-114g/day (1.2-1 .3 g/kg BW) Fluid needs: 1mL/kcal or per MD Nutrition Intervention Change Diet Order: Continue Renal Diet Add Supplement/Snack (indicate name/kcal Nepro daily /protein ) Provides kCal: 425 Provides Protein (gm) 19 Goal #1 Continue to meet at least 75% of energy and protein needs via PO and ONS intakes Anticipated Discharge Needs: Renal diet with ONS PRN Revisit per MD consult or patient Sign Off request:
[2018-05-28] MEDS: APRESOLINE PO SCH ×2 (06:08→14:46)
[2018-05-28] MEDS: LASIX PO SCH (06:09)
[2018-05-28] MEDS: PEPCID PO SCH (09:16)
[2018-05-28] MEDS: PROzac PO SCH (09:16)
[2018-05-28] MEDS: HEPARIN SUB-Q SCH (09:16)
[2018-05-28] MEDS: POTASSIUM CHLORIDE PO SCH (09:16)
--- NOTE | 2018-05-28 09:27 | Progress Note ---
Assessment and Plan ESRD now on HD - s/p permcath 05/18 - HD today for clearance and volume removal - social work instructor consulted for outpatient HD arrangement, can be discharged from renal standpoint once outpatient HD is secured Acute heart failure NSTEMI Elevated BNP -per cardiology Acute hypoxic-hypercapnic respiratory failure Elevated-Dimer -As per pulmonary S/P Hypertensive emergency Hypertension: -Adjust regimen as needed Subjective Date of service: 05/28/18 Principal diagnosis: Acute hypoxemic hypercapnic Resp failure; Acute CHF; ELVIA; NSTEMI Interval history: seen during HD, tolerating Objective - Vital Signs Vital signs: Vital Signs - 12hr 05/27/18 05/27/18 05/27/18 21:59 22:00 22:01 Temperature Pulse Rate 100 H 100 H Respiratory 18 Rate Blood Pressure 137/76 137/76 O2 Sat by Pulse 100 Oximetry 05/28/18 05/28/18 00:31 06:08 Temperature 98.4 F Pulse Rate 54 L 55 L Respiratory 18 Rate Blood Pressure 126/69 177/94 O2 Sat by Pulse 97 Oximetry - Lab 05/19/18 05:09 05/27/18 11:42 Most recent lab results Calcium 9.3 mg/dL (8.4-10.2) 05/27/18 11:42 Magnesium 2.40 mg/dL (1.7-2.3) H 05/18/18 05:03 Urine Creatinine 66.1 mg/dL (0.1-20.0) H 05/17/18 14:00 Medications & Allergies - Medications Allergies/Adverse Reactions: Allergies No Known Allergies Allergy (Unverified 05/09/18 10:45) Home Medications: Home Medications Medication Instructions Recorded Confirmed Last Taken Type AtorvaSTATin [Lipitor] 80 mg PO QHS #30 tablet 05/24/18 Unknown Rx FLUoxetine [PROzac] 40 mg PO QDAY #30 capsule 05/24/18 Unknown Rx Famotidine [Pepcid] 20 mg PO DAILY #30 tablet 05/24/18 Unknown Rx Furosemide [Lasix TAB] 40 mg PO 0600,1800 #60 tablet 05/24/18 Unknown Rx ISOSORBIDE MONOnitrate [Imdur ER] 30 mg PO QDAY #30 tablet 05/24/18 Unknown Rx Metoprolol [Lopressor TAB] 25 mg PO BID #60 tablet 05/24/18 Unknown Rx Potassium Chloride 20 meq PO Q12H #60 packet 05/24/18 Unknown Rx hydrALAZINE [Apresoline TAB] 100 mg PO Q8HR #90 tablet 05/24/18 Unknown Rx Active Medications: Generic Name Dose Route Start Last Admin Trade Name Freq PRN Reason Stop Dose Admin Acetaminophen 650 mg 05/11/18 23:42 05/12/18 00:19 Tylenol PO 650 mg Q6H PRN Administration Pain, Mild (1-3) Albuterol 2.5 mg 05/21/18 14:04 Proventil IH Q4HRT PRN Shortness Of Breath Atorvastatin Calcium 80 mg 05/11/18 22:00 05/27/18 21:49 Lipitor PO 80 mg QHS GLENDA Administration Famotidine 20 mg 05/14/18 12:00 05/28/18 09:16 Pepcid PO 20 mg DAILY GLENDA Administration Fluoxetine HCl 40 mg 05/11/18 14:00 05/28/18 09:16 Prozac PO 40 mg QDAY GLENDA Administration Furosemide 40 mg 05/15/18 18:00 05/28/18 06:09 Lasix PO 40 mg 0600,1800 GLENDA Administration Heparin Sodium (Porcine) 5,000 unit 05/15/18 22:00 05/28/18 09:16 Heparin SUB-Q 5,000 unit Q12HR GLENDA Administration Hydralazine HCl 10 mg 05/12/18 10:23 05/23/18 00:26 Apresoline IV 10 mg Q4H PRN Administration SBP > 160 Hydralazine HCl 100 mg 05/13/18 10:19 05/28/18 06:08 Apresoline PO 100 mg Q8HR GLENDA Administration Isosorbide Mononitrate 30 mg 05/12/18 14:00 05/27/18 10:05 Imdur PO 30 mg QDAY GLENDA Administration Metoprolol Tartrate 25 mg 05/20/18 13:40 05/27/18 21:59 Lopressor PO 25 mg BID GLENDA Administration Potassium Chloride 20 meq 05/10/18 22:00 05/28/18 09:16 Potassium Chloride PO 20 meq Q12H GLENDA Administration
[2018-05-28] MEDS: IMDUR PO SCH (10:00)
[2018-05-28] MEDS: LOPRESSOR PO SCH (10:00)
[2018-05-28 13:27] VITALS: BP 135/71
--- NOTE | 2018-05-28 17:39 | Event Note ---
Date: 05/28/18 Date of discharge: 05/28/18 Attending physician: Antoni Romo 05/09/18 11:23 Consult to Physician [CONS] Stat Comment: DR CHAPMAN NOTIFIED 1145. Consulting Provider: MARIAH MORRISON Physician Instructions: Reason For Exam: icu. et 05/10/18 02:00 Consult to Physician [CONS] Routine Comment: Consulting Provider: AJITH DENISE Physician Instructions: Reason For Exam: ELVIA 05/10/18 07:06 Consult to Dietitian/Nutrition [CONS] Routine Physician Instructions: Reason For Exam: Reason for Consult: Write/Manage Tube Feeding Physical Therapy Evaluation and Treat [CONS] Routine Comment: Reason For Exam: mobility, orally intubated on MVS 05/11/18 12:26 Consult to Physician [CONS] Routine Comment: Consulting Provider: ARIANA BLACK Physician Instructions: Reason For Exam: Vasc cath placement 05/11/18 14:20 Consult to Mental Health [CONS] Routine Reason For Exam: depression Place consult to:: mental health Notified:: [id number] Was contact made?: Yes If yes, spoke with:: Minesh 05/16/18 10:46 Consult to Case Management [CONS] Routine Services Needed at Discharge: Other Notified:: case management Comment:: Outpatient Hemodialysis arrangement 05/16/18 10:47 Consult to Physician [CONS] Routine Comment: Consulting Provider: ARIANA BLACK Physician Instructions: Reason For Exam: Removal of vasc cath and place perm-cath Primary care physician: BRENDAN GLEASON Hospitalization Reason for admission: resp failure, NSTEMI Condition: Critical Hospital course: This is a 57 year old male who presented to the hospital with a chief complaint of shortness of breath and chest pain that began on 05/09/18, approximately 2 hours prior to arriving to E.. On evaluation, patient was found to be acute Hypoxic respiratory failure with oxygen levels in the 70's. Patient required intubation due to respiratory distress. Additionally, the Patient was found to have ARF and Acute heart failure precipitated by accelerated htn with BP-261/162 and NSTEMI. Patient was initially treated with heparin drip. CXR revealed pulmonary venous congestion. Pertinent labs on admission revealed elevated D- dimer [place] 1326, [place] [address], WBC level of 17.6, elevated troponin levels and elevated serum creatinine level of 3.9 on admission. The patient was later extubated and respiratory status improved to his baseline. Cardiology, pulmonary and nephrology saw the patient in consultation. Patient later underwent MPI stress tests on 05/14/18 which was negative for ischemia, EF 34%. EF 50-55% per echo. The heart failure/NSTEMI was managed medically with aspirin beta suzan and hydralazine, statin, IV Lasix and Imdur. No SCOTT inhibitor due to the renal failure. Nephrology felt that the acute renal failure was likely secondary to ischemic ATN on possible underlying CKD with proteinuria. Patient had to undergo hemodialysis treatment which was initiated on 05/11/18. The patient later had PermCath placed on 05/18. Social work was consulted for outpatient hemodialysis arrangement. Outpatient hemodialysis was arranged in this patient will be discharged home. Dedicated discharge time 34 minutes. Disposition: -01 TO HOME OR SELFCARE Time spent for discharge: 34 - Discharge Diagnoses (1) Acute heart failure with preserved ejection fraction Status: Acute (2) Acute renal failure Status: Acute Qualifiers: Acute renal failure type: unspecified Qualified Code(s): N17.9 - Acute kidney failure, unspecified (3) CHF (congestive heart failure) Status: Acute Qualifiers: Heart failure type: unspecified Heart failure chronicity: acute Qualified Code(s): I50.9 - Heart failure, unspecified (4) Elevated d-dimer Status: Acute (5) NSTEMI (non-ST elevated myocardial infarction) Status: Acute (6) Respiratory failure Status: Acute Qualifiers: Chronicity: acute Respiratory failure complication: hypoxia Qualified Code(s): J96.01 - Acute respiratory failure with hypoxia (7) History of hypertension Status: Chronic (8) Hyperlipidemia Status: Chronic Core Measure Documentation - Palliative Care Palliative Care/ Comfort Measures: Not Applicable - Core Measures Any of the following diagnoses?: acute DE - Acute DE Discharge Requirements Aspirin at discharge: Yes SCOTT/ARB for LVSD if EF <40%: No Reason for no SCOTT/ARB: Renal impairment Beta suzan at discharge: Yes Statin for LDL = or >100 mg/dl on DC: Yes - Heart Failure Discharge Requirements SCOTT/ARB for LVSD if EF <40%: No Reason for no SCOTT/ARB: Renal impairment Beta suzan at discharge: Yes Exam - Constitutional Vitals: Temp Pulse Resp BP Pulse Ox 97.6 F 60 20 92/58 98 05/24/18 06:08 05/24/18 09:23 05/24/18 06:08 05/24/18 09:23 05/24/18 06:08 General appearance: Present: no acute distress, well-nourished - EENT Eyes: Present: PERRL ENT: hearing intact, clear oral mucosa - Neck Neck: Present: supple, normal ROM - Respiratory Respiratory effort: normal Respiratory: bilateral: CTA - Cardiovascular Heart Sounds: Present: S1 & S2. Absent: rub, click - Extremities Extremities: pulses symmetrical, No edema Peripheral Pulses: within normal limits - Abdominal General gastrointestinal: Present: soft, non-tender, non-distended, normal bowel sounds Male genitourinary: Present: normal - Integumentary Integumentary: Present: clear, warm, dry - Musculoskeletal Musculoskeletal: gait normal, strength equal bilaterally - Psychiatric Psychiatric: appropriate mood/affect, intact judgment & insight - Neurologic Neurologic: CNII-XII intact, moves all extremities Plan Activity: no restrictions Weight Bearing Status: Weight Bear as Tolerated Diet: low fat, low cholesterol, low salt, renal Special Instructions: restrict fluid intake to (1 liter) Follow up with: BRENDAN GLEASON MD [Primary Care Provider] - 7 Days VITO MONTES DE OCA MD [Staff Physician] - 7 Days HAKEEM ISAAC MD [Staff Physician] - 7 Days Prescriptions: AtorvaSTATin [Lipitor] 80 mg PO QHS #30 tablet Famotidine [Pepcid] 20 mg PO DAILY #30 tablet FLUoxetine [PROzac] 40 mg PO QDAY #30 capsule Furosemide [Lasix TAB] 40 mg PO 0600,1800 #60 tablet hydrALAZINE [Apresoline TAB] 100 mg PO Q8HR #90 tablet ISOSORBIDE MONOnitrate [Imdur ER] 30 mg PO QDAY #30 tablet Metoprolol [Lopressor TAB] 25 mg PO BID #60 tablet Potassium Chloride 20 meq PO Q12H #60 packet
== END 2018-05-28 18:08 | disposition home health service (06) | DRG 673 ==
LOC: ED 09:39 → CC1 11:22 → 4A 05-12 17:11 → 3A 05-20 15:43
PROVIDERS: ADMIT Internal Medicine; ATTEND Internal Medicine
PROC: 5A1945Z Respiratory Ventilation, 24-96 Consecutive Hours (ICD-10-PCS; 2018-05-09)
PROC: 0BH17EZ Insertion of Endotracheal Airway into Trachea, Via Natural or Artificial Opening (ICD-10-PCS; 2018-05-09)
PROC: 06H033Z Insertion of Infusion Device into Inferior Vena Cava, Percutaneous Approach (ICD-10-PCS; 2018-05-11)
PROC: 5A1D70Z Performance of Urinary Filtration, Intermittent, Less than 6 Hours Per Day (ICD-10-PCS; 2018-05-11)
PROC: 5A1D70Z Performance of Urinary Filtration, Intermittent, Less than 6 Hours Per Day (ICD-10-PCS; 2018-05-17)
PROC: 05PYX3Z Removal of Infusion Device from Upper Vein, External Approach (ICD-10-PCS; principal; 2018-05-18)
PROC: 02H633Z Insertion of Infusion Device into Right Atrium, Percutaneous Approach (ICD-10-PCS; 2018-05-18)
PROC: 0JH63XZ Insertion of Tunneled Vascular Access Device into Chest Subcutaneous Tissue and Fascia, Percutaneous Approach (ICD-10-PCS; 2018-05-18)
PROC: B2141ZZ Fluoroscopy of Right Heart using Low Osmolar Contrast (ICD-10-PCS; 2018-05-18)
PROC: B5191ZA Fluoroscopy of Inferior Vena Cava using Low Osmolar Contrast, Guidance (ICD-10-PCS; 2018-05-18)
PROC: 5A1D70Z Performance of Urinary Filtration, Intermittent, Less than 6 Hours Per Day (ICD-10-PCS; 2018-05-18)
PROC: 4A033R1 Measurement of Arterial Saturation, Peripheral, Percutaneous Approach (ICD-10-PCS; 2018-05-19)
PROC: 5A1D70Z Performance of Urinary Filtration, Intermittent, Less than 6 Hours Per Day (ICD-10-PCS; 2018-05-21)
PROC: 5A1D70Z Performance of Urinary Filtration, Intermittent, Less than 6 Hours Per Day (ICD-10-PCS; 2018-05-23)
PROC: 5A1D70Z Performance of Urinary Filtration, Intermittent, Less than 6 Hours Per Day (ICD-10-PCS; 2018-05-25)
PROC: 5A1D70Z Performance of Urinary Filtration, Intermittent, Less than 6 Hours Per Day (ICD-10-PCS; 2018-05-28)
DX: N17.0 Acute kidney failure with tubular necrosis (principal); I21.A1 Myocardial infarction type 2; J96.01 Acute respiratory failure with hypoxia; I50.33 Acute on chronic diastolic (congestive) heart failure; J96.02 Acute respiratory failure with hypercapnia; J44.1 Chronic obstructive pulmonary disease with (acute) exacerbation; I16.1 Hypertensive emergency; I13.0 Hypertensive heart and chronic kidney disease with heart failure and stage 1 through stage 4 chronic kidney disease, or unspecified chronic kidney disease; N18.9 Chronic kidney disease, unspecified; I16.0 Hypertensive urgency; J44.9 Chronic obstructive pulmonary disease, unspecified; F17.200 Nicotine dependence, unspecified, uncomplicated; E78.5 Hyperlipidemia, unspecified; E66.01 Morbid (severe) obesity due to excess calories; R00.1 Bradycardia, unspecified; F32.9 Major depressive disorder, single episode, unspecified; Z68.28 Body mass index [BMI] 28.0-28.9, adult; Z71.6 Tobacco abuse counseling
CPT/HCPCS: 36415; 36556; 36558; 36600; 71045; 76770; 77001; 78452; 78582; 80048; 80053; 80061; 80074; 80307; 81001; 82140; 82550; 82553; 82565; 82570; 82575; 82803; 83520; 83735; 83880; 84165; 84439; 84443; 84484; 85014; 85018; 85025; 85027; 85049; 85379; 85520; 85610; 85730; 86021; 86038; 86060; 86140; 86160; 86162; 86225; 87070; 87205; 87806; 90686; 93005; 93010; 93017; 93306; 93970; 94002; 94003; 94640; G0378; A9270-GY; A9502; A9540; A9558; C1750; C1752; C1769; J0330; J0360; J0690; J0692; J1644; J1940; J2250; J2543; J2704; J2785; J2930; J2997; J3010; J7030; J7050

== ENCOUNTER 2018-10-06 16:59 | Emergency (ER) | payer MEDICARE ==
[2018-10-06] MEDS ORDERED: BOOSTRIX IM ONE (17:54)
[2018-10-06] MEDS ORDERED: NACL 0.9% 500 ML 500 ML IV ONE (18:01)
--- NOTE | 2018-10-06 18:01 | Emergency Department Report ---
HPI - General Chief Complaint: Dizziness Time Seen by Provider: 10/06/18 17:46 - HPI HPI: Room 26 The patient is a 58-year-old male presenting with a chief complaint of dizziness and fall. The patient states he was at dialysis today when he began to feel lightheaded. The patient completed dialysis and had a standing blood pressure check which was normal. Patient states he felt better and so he was discharged from the dialysis center. The patient says while walking to the bus stop he was going down a decline began feeling lightheaded, lost his balance and fell forward striking his face on the ground. Patient denies loss of consciousness. Patient sustained a laceration to forehead but denies headache. Patient states he cannot recall the last time he had a tetanus shot Location: [See above] Duration: [See above] Quality: [See above] Severity: [See above] Modifying factors: [see above] Context: [see above] Mode of transportation: [not driving] ED Past Medical Hx - Past Medical History Hx Hypertension: Yes Hx Renal Disease: Yes (HD T,Th,Sat) Additional medical history: hyperlipidemia - Surgical History Additional Surgical History: Right chest permacath - Family History Family history: no significant - Social History Smoking Status: Former Smoker (none 4 months) Substance Use Type: None - Medications Home Medications: Home Medications Medication Instructions Recorded Confirmed Last Taken Type AtorvaSTATin [Lipitor] 80 mg PO QHS #30 tablet 05/24/18 10/06/18 Unknown Rx FLUoxetine [PROzac] 40 mg PO QDAY #30 capsule 05/24/18 10/06/18 Unknown Rx Famotidine [Pepcid] 20 mg PO DAILY #30 tablet 05/24/18 10/06/18 Unknown Rx Furosemide [Lasix TAB] 40 mg PO 0600,1800 #60 tablet 05/24/18 10/06/18 Unknown Rx ISOSORBIDE MONOnitrate [Imdur ER] 30 mg PO QDAY #30 tablet 05/24/18 10/06/18 Unknown Rx Metoprolol [Lopressor TAB] 25 mg PO BID #60 tablet 05/24/18 10/06/18 Unknown Rx Potassium Chloride 20 meq PO Q12H #60 packet 05/24/18 10/06/18 Unknown Rx hydrALAZINE [Apresoline TAB] 100 mg PO Q8HR #90 tablet 05/24/18 10/06/18 Unknown Rx Ibuprofen [Motrin 800 MG tab] 800 mg PO Q8HR PRN #20 tablet 10/06/18 Unknown Rx amLODIPine [Norvasc] 10 mg PO DAILY 10/06/18 10/06/18 Unknown History ED Review of Systems ROS: Stated complaint: FALL/FACE INJURY Other details as noted in HPI Constitutional: no symptoms reported Eyes: denies: eye pain ENT: denies: throat pain Respiratory: no symptoms reported Cardiovascular: denies: chest pain Endocrine: no symptoms reported Gastrointestinal: denies: abdominal pain Genitourinary: denies: testicular pain Musculoskeletal: denies: back pain Skin: other (forehead laceration) Neurological: denies: headache Physical Exam - Physical Exam Vital Signs: Vital Signs 10/06/18 10/06/18 17:24 17:33 Temperature 97.7 F Pulse Rate 64 Respiratory 18 13 Rate Blood Pressure 132/41 [Left] O2 Sat by Pulse 99 98 Oximetry Physical Exam: GENERAL: The patient is well-developed well-nourished male lying on stretcher with obvious injuries to the face but not appearing to be in acute distress. [] HEENT: Normocephalic. Approximately 1.5 cm laceration to the forehead with surrounding abrasions. Abrasion to the nose. Extraocular motions are intact. Patient has moist mucous membranes. NECK: Supple. No exudate. CHEST/LUNGS: Clear to auscultation. There is no respiratory distress noted. HEART/CARDIOVASCULAR: Regular. There is no tachycardia. There is no gallop rub or murmur. ABDOMEN: Abdomen is soft, nontender. Patient has normal bowel sounds. There is no abdominal distention. SKIN: There is no rash. There is no edema. There is no diaphoresis. NEURO: The patient is awake, alert, and oriented. The patient is cooperative. The patient has no focal neurologic deficits. The patient has normal speech. MUSCULOSKELETAL: There is no tenderness or deformity. There is no limitation range of motion. ED Course Vital Signs 10/06/18 10/06/18 17:24 17:33 Temperature 97.7 F Pulse Rate 64 Respiratory 18 13 Rate Blood Pressure 132/41 [Left] O2 Sat by Pulse 99 98 Oximetry - Laceration /Wound Repair Face Wound Location: face Wound Length (cm): 2 Wound's Depth, Shape: linear Wound Explored: clean Betadine Prep?: Yes Anesthesia: Lidocaine w/ Epi Volume Anesthetic (ccs): 5 Wound Repaired With: sutures Suture Size/Type: 6:0, nylon Number of Sutures: 5 Sterile Dressing Applied?: Yes ED Medical Decision Making - Lab Data Result diagrams: 10/06/18 18:07 10/06/18 18:07 Laboratory Tests 10/06/18 10/06/18 18:07 18:07 WBC 14.2 H RBC 4.36 Hgb 13.8 Hct 40.3 MCV 92 MCH 32 MCHC 34 RDW 14.0 Plt Count 158 Lymph % (Auto) 10.9 L [place] % (Auto) 8.4 H Eos % (Auto) 6.6 H Baso % (Auto) 0.7 Lymph # 1.5 [place] # 1.2 H Eos # 0.9 H Baso # 0.1 Seg Neutrophils % 73.4 H Seg Neutrophils # 10.4 H Sodium 139 Potassium 4.3 Chloride 98.1 Carbon Dioxide 28 Anion Gap 17 BUN 24 H Creatinine 4.0 H Estimated GFR 15 BUN/Creatinine Ratio 6 Glucose 103 H Calcium 9.7 - Radiology Data Radiology results: report reviewed (CT head, CT cervical spine), image reviewed (CT head, CT cervical spine) [facility] [address] [place] [address] Cat Scan Report Signed Patient: ADALBERTO MCCULLOUGH MR#: [id number] : 1960 Acct:[id number] Age/Sex: 58 / M ADM Date: 10/06/18 Loc: ED Attending Dr: Ordering Physician: ZEINAB DENT MD Date of Service: 10/06/18 Procedure(s): CT head/brain wo con Accession Number(s): [id number] cc: ZEINAB DENT MD CT HEAD WITHOUT CONTRAST INDICATION / CLINICAL INFORMATION: Trauma. Patient fell sustaining head injury. TECHNIQUE: All CT scans at this location are performed using CT dose reduction for ALARA by means of automated exposure control. COMPARISON: None available. FINDINGS: HEMORRHAGE: No evidence of intracranial hemorrhage or extra-axial fluid collection. EXTRA-AXIAL SPACES: Cortical sulci, sylvian fissures and basilar cisterns have an unremarkable appearance. VENTRICULAR SYSTEM: The ventricular system is of normal size and configuration. CEREBRAL PARENCHYMA: No areas of abnormal brain parenchymal attenuation are identified. There is no indication of recent infarction. MIDLINE SHIFT OR HERNIATION: There is no mass effect. CEREBELLUM / BRAINSTEM: Brainstem and cerebellum have an unremarkable appearance. INTRACRANIAL VESSELS:No abnormalities are identified on this noncontrast head CT. ORBITS: visualized portions of the orbits have an unremarkable appearance. SOFT TISSUES of HEAD: No significant abnormality. CALVARIUM: Evaluation of bone windows reveals no abnormalities. 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 This measures about 3.5 x 2.5 cm in transverse dimension by 3 cm in superior-inferior dimension. Postoperative changes are seen in the sinonasal cavity. There is bilateral nasal antral window placement with resection of much of the middle turbinates. These areas are incompletely evaluated on this CT head examination. IMPRESSION: 1. No intracranial abnormalities are identified on CT head without contrast. 2. 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 Signer Name: Kunal Garcia MD Signed: 10/06/2018 6:46 PM Workstation Name: [id number] Transcribed By: Dictated By: Kunal Garcia MD Electronically Authenticated By: Kunal Garcia MD Signed Date/Time: 10/06/181845 DD/ 41 TD/TT: [facility] [address] [place] [address] Cat Scan Report Signed Patient: ADALBERTO MCCULLOUGH MR#: [id number] : 1960 Acct:[id number] Age/Sex: 58 / M ADM Date: 10/06/18 Loc: ED Attending Dr: Ordering Physician: ZEINAB DENT MD Date of Service: 10/06/18 Procedure(s): CT cervical spine wo con Accession Number(s): [id number] cc: ZEINAB DENT MD CT CERVICAL SPINE WITHOUT CONTRAST INDICATION / CLINICAL INFORMATION: Patient fell sustaining neck injury. Neck pain. TECHNIQUE: Axial CT images were obtained through the cervical spine. Sagittal and coronal reformatted images were produced. All CT scans at this location are performed using CT dose reduction for ALARA by means of automated exposure control. COMPARISON: None available. FINDINGS: Overview: There is no indication of fracture or traumatic subluxation. ALIGNMENT: Loss of the normal cervical lordosis is noted. There is a mild rightward curvature of the cervical spine. Mild spondylolisthesis is noted at the C2-3 level. No additional abnormalities of alignment are identified. VERTEBRAE: Widespread facet and uncovertebral arthropathy are demonstrated. Anterior osteophyte formation is a prominent finding at multiple levels. DISC SPACES: Loss of disc height is noted at multiple levels compatible with widespread disc desiccation. INDIVIDUAL LEVEL ANALYSIS: C2-3: Mild spondylolisthesis. No additional abnormality. C3-4: Loss of disc height is noted. Anterior osteophyte formation is observed. Bilateral uncovertebral arthropathy is noted. Moderate left-sided neuroforaminal stenosis is present at the C4 nerve root level. No additional abnormalities are identified. C4-5: Bilateral facet arthropathy is noted. There is severe left-sided and moderate right-sided neuroforaminal stenosis. Prominent anterior and mild posterior osteophyte formation is observed. Central spinal canal remains adequate in size. C5-6: Prominent anterior osteophyte formation and moderate posterior osteophyte are demonstrated. Facet and uncovertebral arthritic change contribute to severe bilateral neuroforaminal stenosis at the C6 nerve root level. There is mild narrowing of the central spinal canal without definite stenosis. C6-7: Near-complete loss of disc height is noted. Posterior osteophyte and accompanying disc contribute to mild central canal stenosis at the C6-7 level. Facet and uncovertebral arthropathy contribute to severe bilateral foraminal stenosis. C7-T1: Bilateral facet arthropathy is evident. This contributes to moderate foraminal stenosis. There is a large amount of fat attenuation material in the posterior epidural space at the C7-T1 level. This appears to compress the thecal sac to moderate degree. If clinically warranted further evaluation with magnetic resonance imaging could be considered. CRANIOCERVICAL JUNCTION:No significant abnormality. SPINAL CANAL: Narrowing of the central spinal canal is noted at the C5-6 and C6- 7 levels where posterior disc osteophyte complex is demonstrated. There is a large amount of fat attenuation material dorsal to the thecal sac at the C7-T1 level. This is associated with thecal sac compression. PARASPINAL SOFT TISSUES: Multiple normal sized lymph nodes are identified throughout the neck. There is no indication of pathological lymphadenopathy. A multilumen catheter is present in the right internal jugular vein. This distance down towards the superior mediastinum. The catheter tip is not included on this study. LUNG APICES: Evaluation the visualized portions of the chest is remarkable for a large bulla versus loculated pneumothorax along the medial aspect of the left lung. If clinically warranted further evaluation with computed tomographic study could be employed to evaluate the complete extent of this lesion which is not included in its entirety on CT cervical spine.. IMPRESSION: 1. Widespread cervical spondylosis with multifocal neuroforaminal stenosis. 2. Fat attenuation material in the dorsal spinal canal at the C7-T1 level with associated thecal sac and cord compression. If clinically warranted further evaluation with magnetic resonance imaging could be employed. 3. Unusually large bullae versus loculated pneumothorax the medial aspect of the left hemithorax. Consider CT chest for further evaluation of this abnormality which is not in cluded in its entirety on CT cervical spine. 4. No indication of this fracture or traumatic subluxation the cervical region. Signer Name: Kunal Garcia MD Signed: 10/06/2018 7:02 PM Workstation Name: [id number] Transcribed By: Dictated By: Kunal Garcia MD Electronically Authenticated By: Kunal Garcia MD Signed Date/Time: 10/06/181901 DD/ 45 TD/TT: - Differential Diagnosis orthostasis, closed head injury, ICH, facial laceration Critical care attestation.: If time is entered above; I have spent that time in minutes in the direct care of this critically ill patient, excluding procedure time. ED Disposition Clinical Impression: Orthostatic hypotension, Closed head injury, Forehead laceration, Cervical stenosis of spinal canal Disposition: DC-01 TO HOME OR SELFCARE Is pt being admited?: No Does the pt Need Aspirin: No Condition: Stable Instructions: Laceration (ED), Suture Care (ED) Additional Instructions: Your Sutures need to be removed in 3-5 days. Return to the emergency department immediately should you develop worsening symptoms, fever, inability to tolerate food or liquid or any other concerns. Prescriptions: Ibuprofen [Motrin 800 MG tab] 800 mg PO Q8HR PRN #20 tablet PRN Reason: Pain , Severe (7-10) Referrals: NARAYAN ANTONIO MD [Staff Physician] - 3-5 Days (Dr. Antonio is an orthopedic surgeon. Please follow-up with him for further evaluation) Time of Disposition: 21:46
[2018-10-06 18:19] LABS: Basophils # (Auto) 0.1 K/mm3 (0.0-0.1); Basophils % (Auto) 0.7 % (0.0-1.8); Eosinophils # (Auto) 0.9 K/mm3 (0.0-0.4); Eosinophils % (Auto) 6.6 % (0.0-4.3); Hematocrit 40.3 % (35.5-45.6); Hemoglobin 13.8 gm/dl (11.8-15.2); Lymphocytes # (Auto) 1.5 K/mm3 (1.2-5.4); Lymphocytes % (Auto) 10.9 % (13.4-35.0); Mean Corpuscular HGB Conc 34 % (32-34); Mean Corpuscular Volume 92 fl (84-94); Monocytes # (Auto) 1.2 K/mm3 (0.0-0.8); Monocytes % (Auto) 8.4 % (0.0-7.3); Platelet Count 158 K/mm3 (140-440); Red Blood Count 4.36 M/mm3 (3.65-5.03)
[2018-10-06 18:36] LABS: Calcium 9.7 mg/dL (8.4-10.2)
--- NOTE | 2018-10-06 18:51 | Cat Scan Report ---
CT HEAD WITHOUT CONTRAST INDICATION / CLINICAL INFORMATION: Trauma. Patient fell sustaining head injury. TECHNIQUE: All CT scans at this location are performed using CT dose reduction for ALARA by means of automated e xposure control. COMPARISON: None available. FINDINGS: HEMORRHAGE: No evidence of intracranial hemorrhage or extra-axial fluid collection. EXTRA-AXIAL SPACES: Cortical sulci, sylvian fissures and basilar cisterns have an unremarkable appear ance. VENTRICULAR SYSTEM: The ventricular system is of normal size and configuration. CEREBRAL PARENCHYMA: No areas of abnormal brain parenchymal attenuation are identified. There is no i ndication of recent infarction. MIDLINE SHIFT OR HERNIATION: There is no mass effect. CEREBELLUM / BRAINSTEM: Brainstem and cerebellum have an unremarkable appearance. INTRACRANIAL VESSELS:No abnormalities are identified on this noncontrast head CT. ORBITS: visualized portions of the orbits have an unremarkable appearance. SOFT TISSUES of HEAD: No significant abnormality. CALVARIUM: Evaluation of bone windows reveals no abnormalities. PARANASAL SINUSES / MASTOID AIR CELLS: An unusually large osteoma is present in the right frontal sin us and anterior ethmoid air cells on the right. This measures about 3.5 x 2.5 cm in transverse dimens ion by 3 cm in superior-inferior dimension. Postoperative changes are seen in the sinonasal cavity. T here is bilateral nasal antral window placement with resection of much of the middle turbinates. Thes e areas are incompletely evaluated on this CT head examination. IMPRESSION: 1. No intracranial abnormalities are identified on CT head without contrast. 2. 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 Signer Name: Kunal Garcia MD Signed: 10/06/2018 6:46 PM Workstation Name: [id number]
--- NOTE | 2018-10-06 19:06 | Cat Scan Report ---
CT CERVICAL SPINE WITHOUT CONTRAST INDICATION / CLINICAL INFORMATION: Patient fell sustaining neck injury. Neck pain. TECHNIQUE: Axial CT images were obtained through the cervical spine. Sagittal and coronal reformatted images wer e produced. All CT scans at this location are performed using CT dose reduction for ALARA by means of automated exposure control. COMPARISON: None available. FINDINGS: Overview: There is no indication of fracture or traumatic subluxation. ALIGNMENT: Loss of the normal cervical lordosis is noted. There is a mild rightward curvature of the cervical spine. Mild spondylolisthesis is noted at the C2-3 level. No additional abnormalities of ali gnment are identified. VERTEBRAE: Widespread facet and uncovertebral arthropathy are demonstrated. Anterior osteophyte forma tion is a prominent finding at multiple levels. DISC SPACES: Loss of disc height is noted at multiple levels compatible with widespread disc desiccat ion. INDIVIDUAL LEVEL ANALYSIS: C2-3: Mild spondylolisthesis. No additional abnormality. C3-4: Loss of disc height is noted. Anterior osteophyte formation is observed. Bilateral uncovertebra l arthropathy is noted. Moderate left-sided neuroforaminal stenosis is present at the C4 nerve root l evel. No additional abnormalities are identified. C4-5: Bilateral facet arthropathy is noted. There is severe left-sided and moderate right-sided neuro foraminal stenosis. Prominent anterior and mild posterior osteophyte formation is observed. Central s uma canal remains adequate in size. C5-6: Prominent anterior osteophyte formation and moderate posterior osteophyte are demonstrated. Fac et and uncovertebral arthritic change contribute to severe bilateral neuroforaminal stenosis at the C 6 nerve root level. There is mild narrowing of the central spinal canal without definite stenosis. C6-7: Near-complete loss of disc height is noted. Posterior osteophyte and accompanying disc contribu te to mild central canal stenosis at the C6-7 level. Facet and uncovertebral arthropathy contribute t o severe bilateral foraminal stenosis. C7-T1: Bilateral facet arthropathy is evident. This contributes to moderate foraminal stenosis. There is a large amount of fat attenuation material in the posterior epidural space at the C7-T1 level. Th is appears to compress the thecal sac to moderate degree. If clinically warranted further evaluation with magnetic resonance imaging could be considered. CRANIOCERVICAL JUNCTION:No significant abnormality. SPINAL CANAL: Narrowing of the central spinal canal is noted at the C5-6 and C6-7 levels where glue drier operator ior disc osteophyte complex is demonstrated. There is a large amount of fat attenuation material dors al to the thecal sac at the C7-T1 level. This is associated with thecal sac compression. PARASPINAL SOFT TISSUES: Multiple normal sized lymph nodes are identified throughout the neck. There is no indication of pathological lymphadenopathy. A multilumen catheter is present in the right inter nal jugular vein. This distance down towards the superior mediastinum. The catheter tip is not includ ed on this study. LUNG APICES: Evaluation the visualized portions of the chest is remarkable for a large bulla versus l oculated pneumothorax along the medial aspect of the left lung. If clinically warranted further evalu ation with computed tomographic study could be employed to evaluate the complete extent of this lesio n which is not included in its entirety on CT cervical spine.. IMPRESSION: 1. Widespread cervical spondylosis with multifocal neuroforaminal stenosis. 2. Fat attenuation material in the dorsal spinal canal at the C7-T1 level with associated thecal sac and cord compression. If clinically warranted further evaluation with magnetic resonance imaging coul d be employed. 3. Unusually large bullae versus loculated pneumothorax the medial aspect of the left hemithorax. Co nsider CT chest for further evaluation of this abnormality which is not included in its entirety on C T cervical spine. 4. No indication of this fracture or traumatic subluxation the cervical region. Signer Name: Kunal Garcia MD Signed: 10/06/2018 7:02 PM Workstation Name: [id number]
[2018-10-06] MEDS ORDERED: NACL 0.9% IR ONE (20:10)
[2018-10-06] MEDS ORDERED: XYLOCAINE 1%/ EPI 1:100,000 INFILTRATI ONE ×2 (20:10→20:13)
[2018-10-06] MEDS ORDERED: NACL 0.9% 500 ML IR ONE (20:13)
[2018-10-06] MEDS ORDERED: POLYSPORIN TP ONE (21:27)
[2018-10-06] MEDS ORDERED: TRIPLE ANTIBIOTIC TP ONE ×2 (21:50→21:52)
[2018-10-06 21:55] VITALS: BP 172/69
== END 2018-10-06 22:00 | disposition home or self-care (01) ==
LOC: ED 16:59
DX: S01.81XA Laceration without foreign body of other part of head, initial encounter (principal); M48.02 Spinal stenosis, cervical region; I95.1 Orthostatic hypotension; I12.0 Hypertensive chronic kidney disease with stage 5 chronic kidney disease or end stage renal disease; N18.6 End stage renal disease; E78.00 Pure hypercholesterolemia, unspecified; Z99.2 Dependence on renal dialysis; Z79.899 Other long term (current) drug therapy; Z87.891 Personal history of nicotine dependence; Z98.890 Other specified postprocedural states; W18.30XA Fall on same level, unspecified, initial encounter; Y93.89 Activity, other specified; Y92.89 Other specified places as the place of occurrence of the external cause; Y99.8 Other external cause status
CPT/HCPCS: 12011; 36415; 70450; 72125; 80048; 85025; 90471; 90715; 99284; J7040; A6250